=== PATIENT | female | born 1975 | race Caucasian/White ===

== ENCOUNTER → 2021-07-20 11:03 | Outpatient (BNVA) | payer MEDICAID, SELFPAY | PROVIDERS: Visit Provider Physician Assistant | DX: E66.01 Morbid (severe) obesity due to excess calories (principal); J45.909 Unspecified asthma, uncomplicated; Z68.45 Body mass index [BMI] 70 or greater, adult | CPT/HCPCS: 99202 ==

== ENCOUNTER 2021-07-26 10:34 | Outpatient (REF) | payer MEDICAID, SELFPAY ==
--- NOTE | ~2021-07-26 | XR_ITS ---
EXAMINATION: XR CHEST CLINICAL INFORMATION: Obesity. No other provided history. COMPARISON: Chest radiograph dated from 08/18/2019. TECHNIQUE: 2 views of the chest were obtained. FINDINGS: Normal appearance of the cardiomediastinal silhouette. No focal airspace opacities, pleural effusions or pneumothorax. No acute osseous abnormalities. The visualized upper abdomen is within normal limits. XR/XR chest 2V IMPRESSION: No acute cardiopulmonary findings.
--- NOTE | 2021-07-26 10:46 | ECG_ITS ---
Test Reason : E66.01 Blood Pressure : / mmHG Vent. Rate : 074 BPM Atrial Rate : 074 BPM P-R Int : 216 ms QRS Dur : 108 ms QT Int : 402 ms P-R-T Axes : 068 048 039 degrees QTc Int : 446 ms Sinus rhythm with 1st degree A-V block with occasional , and consecutive Premature ventricular complexes Abnormal ECG When compared with ECG of 18-JUN-2015 15:52, Premature ventricular complexes are now Present Incomplete right bundle branch block is no longer Present Referred By: Kate Evans Electronically Signed By:MEGAN PUENTES MD
[2021-07-26 10:57] LABS: MANUAL DIFF FLAG NO
[2021-07-26 11:17] LABS: Basophils Percent Auto 0.3 % (0-2); Eosinophils Absolute Auto 0.2 X10*3/uL (0.0-0.4); Hematocrit 37.7 % (37.0-47.0); Hemoglobin 11.1 g/dl (12.0-16.0); Imm Gran Abs Auto 0.05 X10*3/uL (0.00-0.03); Imm Gran Pct Auto 0.6 % (0.0-0.4); Lymphocytes Absolute Auto 1.4 X10*3/uL (1.2-4.9); Lymphocytes Percent Auto 17.4 % (20-40); Mean Corpuscular HGB Conc 29.4 g/dl (31.0-35.0); Mean Corpuscular Hemoglobin 24.3 pg (27.0-33.0); Mean Corpuscular Volume 82.5 fL (80.0-98.0); Mean Platelet Volume 10.9 fL (9.4-12.3); Monocytes Absolute Auto 0.3 X10*3/uL (0.1-1.2); Monocytes Percent Auto 3.1 % (2-11); Neutrophils Absolute Auto 6.1 x10*3/uL (2.0-8.3); Neutrophils Percent Auto 76.6 % (45-73); Platelet Count 278 X10*3/uL (160-400); Red Blood Count 4.57 X10*6/uL (4.20-5.50); White Blood Count 7.9 X10*3/uL (4.8-10.8)
[2021-07-26 11:21] LABS: Estimated Average Glucose 237 mg/dL; Hemoglobin A1c % 9.9 %
[2021-07-26 11:54] LABS: Alanine Aminotransferase 27 U/L (0-31); Albumin Level 3.7 g/dL (3.5-5.0); Alkaline Phosphatase 117 U/L (39-117); Anion Gap 11 (12-20); Aspartate Amino Transferase 24 U/L (5-31); Bilirubin Total 0.5 mg/dL (0.0-1.0); Blood Urea Nitrogen 10 mg/dL (9-16); C Reactive Protein 4.91 mg/dL (< or = 0.50); Calcium 8.8 mg/dL (8.4-10.2); Carbon Dioxide 28 mmol/L (22-29); Chloride 99 mmol/L (96-108); Cholesterol 163 mg/dL; Estimated Glomerular Filt Rate > 60; Glucose Random 293 mg/dL (60-115); HDL Cholesterol 29 mg/dL; Iron 43 mcg/dL (30-160); LDL Cholesterol Calculated 102 mg/dl; Percent Iron Saturation 11 % (15-50); Potassium 4.4 mmol/L (3.3-5.1); Sodium 134 mmol/L (135-145); Total Iron Binding Capacity 383 mcg/dL (228-428); Triglycerides 164 mg/dL; Unsaturated Iron Binding 340 ug/dL
[2021-07-26 12:16] LABS: Ferritin 35 ng/mL (10-250); Insulin 18 uU/mL (2-29); TSH reflex Free T4 4.04 uIU/mL (0.32-4.0); Vitamin D 25-OH Total 7.6 ng/mL (>30)
[2021-07-26 12:19] LABS: Folate 6.3 ng/mL (> or = 4.0); Vitamin B12 378 pg/mL (200-900)
[2021-07-27 12:47] LABS: Calcium (PTHI) 8.8 mg/dL (8.6-10.2); PTHI 60 pg/mL (14-64)
[2021-07-30 06:36] LABS: Vitamin B1 <6 nmol/L (8-30)
[2021-07-31 12:51] LABS: Zinc 60 mcg/dL (60-130)
[2021-08-02 16:27] LABS: Vitamin A 23 mcg/dL (38-98)
== END 2021-07-26 10:35 | disposition home or self-care (01) ==
LOC: HO.LAB 10:34
PROVIDERS: Visit Provider Physician Assistant
DX: Z01.818 Encounter for other preprocedural examination (principal); E66.01 Morbid (severe) obesity due to excess calories
CPT/HCPCS: 36415; 71046; 80053; 80061; 82306; 82607; 82728; 82746; 83036; 83525; 83540; 83970; 84425; 84439; 84443; 84590; 84630; 85025; 86140; 93005

== ENCOUNTER → 2021-08-06 08:15 | Outpatient (BNVA) | payer MEDICAID, SELFPAY | PROVIDERS: Visit Provider Dietitian, Registered | DX: E66.01 Morbid (severe) obesity due to excess calories (principal); Z71.3 Dietary counseling and surveillance | CPT/HCPCS: 97802 ==

== ENCOUNTER → 2021-08-17 08:11 | Outpatient (BNVA) | payer MEDICAID, SELFPAY | PROVIDERS: Referring Provider Physician Assistant; Visit Provider Dietitian, Registered | DX: E66.9 Obesity, unspecified (principal); E11.9 Type 2 diabetes mellitus without complications; Z79.84 Long term (current) use of oral hypoglycemic drugs | CPT/HCPCS: 97803 ==

== ENCOUNTER → 2021-08-23 11:00 | Outpatient (BNVA) | payer OTHER, SELFPAY | PROVIDERS: Visit Provider Counselor Mental Health | DX: E66.01 Morbid (severe) obesity due to excess calories (principal); F43.20 Adjustment disorder, unspecified | CPT/HCPCS: 90791 ==

== ENCOUNTER → 2021-08-27 12:49 | Outpatient (BNVA) | payer MEDICAID, SELFPAY | PROVIDERS: Visit Provider Physician Assistant | DX: E66.01 Morbid (severe) obesity due to excess calories (principal); E11.9 Type 2 diabetes mellitus without complications; I44.0 Atrioventricular block, first degree; Z71.3 Dietary counseling and surveillance | CPT/HCPCS: Q3014 ==

== ENCOUNTER → 2021-09-06 08:03 | Outpatient (BNVA) | payer MEDICAID, SELFPAY | PROVIDERS: Referring Provider Physician Assistant; Visit Provider Dietitian, Registered | DX: Z98.84 Bariatric surgery status (principal); Z71.3 Dietary counseling and surveillance | CPT/HCPCS: 97803 ==

== ENCOUNTER → 2021-09-17 09:50 | Outpatient (BNVA) | payer MEDICAID, SELFPAY | PROVIDERS: Visit Provider Physician Assistant | DX: E66.01 Morbid (severe) obesity due to excess calories (principal); I44.0 Atrioventricular block, first degree; R03.0 Elevated blood-pressure reading, without diagnosis of hypertension; E11.9 Type 2 diabetes mellitus without complications; Z68.45 Body mass index [BMI] 70 or greater, adult | CPT/HCPCS: 99212 ==

== ENCOUNTER → 2021-10-12 08:10 | Outpatient (BNVA) | payer MEDICAID, SELFPAY | PROVIDERS: PCP Nurse Practitioner Family; Visit Provider Physician Assistant | DX: Z13.89 Encounter for screening for other disorder (principal) ==

== ENCOUNTER 2022-02-08 15:29 | Emergency (ER) | payer MEDICAID, SELFPAY ==
--- NOTE | 2022-02-08 | ECG_ITS ---
Test Reason : CP Blood Pressure : / mmHG Vent. Rate : 070 BPM Atrial Rate : 070 BPM P-R Int : 204 ms QRS Dur : 114 ms QT Int : 406 ms P-R-T Axes : 064 017 017 degrees QTc Int : 438 ms Normal sinus rhythm Normal ECG When compared with ECG of 26-JUL-2021 10:56, Premature ventricular complexes are no longer Present KS interval has decreased Referred By: Generic ED Physician Electronically Signed By:OLEG PETER
[2022-02-08 16:18] VITALS: BP 146/82; PULSE 66; RESP 18; TEMP 35.8; O2SAT 99; BMI 75.5
[2022-02-08 16:36] LABS: MANUAL DIFF FLAG NO
[2022-02-08 16:39] LABS: Basophils Percent Auto 0.5 % (0-2); Eosinophils Absolute Auto 0.2 X10*3/uL (0.0-0.4); Eosinophils Percent Auto 1.7 % (0-4); Hematocrit 40.2 % (37.0-47.0); Hemoglobin 12.3 g/dl (12.0-16.0); Imm Gran Abs Auto 0.04 X10*3/uL (0.00-0.03); Imm Gran Pct Auto 0.5 % (0.0-0.4); Lymphocytes Absolute Auto 1.8 X10*3/uL (1.2-4.9); Lymphocytes Percent Auto 20.8 % (20-40); Mean Corpuscular HGB Conc 30.6 g/dl (31.0-35.0); Mean Corpuscular Hemoglobin 24.9 pg (27.0-33.0); Mean Corpuscular Volume 81.5 fL (80.0-98.0); Mean Platelet Volume 10.7 fL (9.4-12.3); Monocytes Absolute Auto 0.4 X10*3/uL (0.1-1.2); Monocytes Percent Auto 4.2 % (2-11); Neutrophils Absolute Auto 6.3 x10*3/uL (2.0-8.3); Neutrophils Percent Auto 72.3 % (45-73); Platelet Count 296 X10*3/uL (160-400); Red Blood Count 4.93 X10*6/uL (4.20-5.50); Red Cell Distribution Width 15.2 % (11.0-16.0); White Blood Count 8.7 X10*3/uL (4.8-10.8)
[2022-02-08 16:59] LABS: Alanine Aminotransferase 27 U/L (0-31); Alkaline Phosphatase 117 U/L (39-117); Anion Gap 17 (12-20); Aspartate Amino Transferase 24 U/L (5-31); Bilirubin Total 0.5 mg/dL (0.0-1.0); Blood Urea Nitrogen 10 mg/dL (9-16); Carbon Dioxide 23 mmol/L (22-29); Chloride 100 mmol/L (96-108); Creatinine Clr Calc Pharmacy 145.2; Estimated Glomerular Filt Rate > 60; Glucose Random 380 mg/dL (60-115); Sodium 136 mmol/L (135-145); Total Protein 8.2 g/dL (6.5-8.0)
[2022-02-08 17:02] LABS: Troponin-I High Sensitivity < 3.5 ng/L (<3.5-17.0)
== END 2022-02-08 22:44 | disposition left against medical advice (07) ==
PROVIDERS: Emergency Provider Emergency Medicine; PCP Nurse Practitioner Family
DX: R07.89 Other chest pain (principal); I10 Essential (primary) hypertension; Z79.899 Other long term (current) drug therapy
CPT/HCPCS: 36415; 80053; 84484; 85025; 93005; 99283

== ENCOUNTER 2022-03-26 16:29 | Emergency (ER) | payer MEDICAID, SELFPAY ==
--- NOTE | 2022-03-26 16:38 | ECG_ITS ---
Test Reason : ABD PAIN Blood Pressure : / mmHG Vent. Rate : 072 BPM Atrial Rate : 072 BPM P-R Int : 194 ms QRS Dur : 114 ms QT Int : 394 ms P-R-T Axes : 061 017 013 degrees QTc Int : 431 ms Normal sinus rhythm Possible Left atrial enlargement Otherwise normal ECG No significant changes seen Referred By: Tereza Osborn Electronically Signed By:AURORA MOODY MD
[2022-03-26 17:06] VITALS: BP 186/99; PULSE 75; RESP 20; TEMP 35.9; O2SAT 97; BMI 75.7
[2022-03-26 17:35] LABS: MANUAL DIFF FLAG NO
[2022-03-26 17:41] LABS: Basophils Percent Auto 0.3 % (0-2); Eosinophils Absolute Auto 0.1 X10*3/uL (0.0-0.4); Eosinophils Percent Auto 1.5 % (0-4); Hematocrit 39.6 % (37.0-47.0); Hemoglobin 12.4 g/dl (12.0-16.0); Imm Gran Abs Auto 0.03 X10*3/uL (0.00-0.03); Imm Gran Pct Auto 0.3 % (0.0-0.4); Lymphocytes Absolute Auto 2.1 X10*3/uL (1.2-4.9); Lymphocytes Percent Auto 23.2 % (20-40); Mean Corpuscular HGB Conc 31.3 g/dl (31.0-35.0); Mean Corpuscular Hemoglobin 25.6 pg (27.0-33.0); Mean Corpuscular Volume 81.8 fL (80.0-98.0); Mean Platelet Volume 10.5 fL (9.4-12.3); Monocytes Absolute Auto 0.4 X10*3/uL (0.1-1.2); Monocytes Percent Auto 4.3 % (2-11); Neutrophils Absolute Auto 6.2 x10*3/uL (2.0-8.3); Neutrophils Percent Auto 70.4 % (45-73); Platelet Count 269 X10*3/uL (160-400); Red Blood Count 4.84 X10*6/uL (4.20-5.50); Red Cell Distribution Width 15.5 % (11.0-16.0); White Blood Count 8.8 X10*3/uL (4.8-10.8)
[2022-03-26 17:54] LABS: Alanine Aminotransferase 27 U/L (0-31); Albumin Level 4.1 g/dL (3.5-5.0); Alkaline Phosphatase 118 U/L (39-117); Anion Gap 17 (12-20); Aspartate Amino Transferase 24 U/L (5-31); Bilirubin Direct 0.2 mg/dL (0.0-0.5); Bilirubin Total 0.5 mg/dL (0.0-1.0); Blood Urea Nitrogen 9 mg/dL (9-16); Calcium 9.1 mg/dL (8.4-10.2); Carbon Dioxide 23 mmol/L (22-29); Chloride 99 mmol/L (96-108); Creatinine Clr Calc Pharmacy 151.2; Estimated Glomerular Filt Rate > 60; Glucose Random 351 mg/dL (60-115); Lipase 29 U/L (8-78); Potassium 3.9 mmol/L (3.3-5.1); Sodium 135 mmol/L (135-145); Total Protein 8.2 g/dL (6.5-8.0)
[2022-03-26 18:01] LABS: HCG Quantitative < 2 mIU/mL
[2022-03-26 19:40] VITALS: BP 138/87; PULSE 79; RESP 18; TEMP 36.8; O2SAT 99
== END 2022-03-27 01:38 | disposition left against medical advice (07) ==
PROVIDERS: Emergency Medicine; Emergency Provider Emergency Medicine
DX: R10.9 Unspecified abdominal pain (principal); R11.0 Nausea; Z79.899 Other long term (current) drug therapy
CPT/HCPCS: 36415; 80048; 80076; 83690; 84702; 85025; 93005; 99283

== ENCOUNTER 2022-05-22 10:41 | Outpatient (REF) | payer MEDICAID, SELFPAY ==
[2022-05-26 15:27] LABS: H Pylori Breath Test Negative (Negative)
== END 2022-05-22 10:42 | disposition home or self-care (01) ==
LOC: HO.LNP 10:41
PROVIDERS: PCP Registered Nurse; Visit Provider Physician Assistant
DX: Z01.818 Encounter for other preprocedural examination (principal); E66.01 Morbid (severe) obesity due to excess calories; E11.9 Type 2 diabetes mellitus without complications; R79.89 Other specified abnormal findings of blood chemistry; J45.909 Unspecified asthma, uncomplicated
CPT/HCPCS: 83013; 99211; 99212

== ENCOUNTER → 2022-06-12 10:57 | Outpatient (BNVA) | payer MEDICAID, SELFPAY | PROVIDERS: PCP Registered Nurse; Visit Provider Physician Assistant | DX: E66.01 Morbid (severe) obesity due to excess calories (principal); Z68.45 Body mass index [BMI] 70 or greater, adult | CPT/HCPCS: 99212 ==

== ENCOUNTER → 2022-06-24 12:30 | Outpatient (BNVA) | payer OTHER, MEDICAID, SELFPAY | PROVIDERS: PCP Registered Nurse; Visit Provider Counselor Mental Health | DX: F43.20 Adjustment disorder, unspecified (principal); E66.01 Morbid (severe) obesity due to excess calories | CPT/HCPCS: 90834 ==

== ENCOUNTER → 2022-07-03 11:30 | Outpatient (BNVA) | payer MEDICAID, SELFPAY | PROVIDERS: PCP Registered Nurse; Visit Provider Physician Assistant | DX: Z13.89 Encounter for screening for other disorder (principal) ==

== ENCOUNTER → 2022-07-10 10:37 | Outpatient (BNVA) | payer MEDICAID, SELFPAY | PROVIDERS: PCP Registered Nurse; Visit Provider Dietitian, Registered | DX: E66.01 Morbid (severe) obesity due to excess calories (principal); Z68.45 Body mass index [BMI] 70 or greater, adult | CPT/HCPCS: 97803 ==

== ENCOUNTER 2022-07-24 12:57 | Emergency (ER) | payer MEDICAID, SELFPAY | END 2022-07-24 14:47 | disposition left against medical advice (07) | PROVIDERS: Emergency Provider Emergency Medicine; PCP Registered Nurse | DX: R22.0 Localized swelling, mass and lump, head (principal) ==

== ENCOUNTER 2022-07-25 20:09 | Emergency (ER) | payer MEDICAID, SELFPAY ==
[2022-07-25 20:22] VITALS: BP 154/71; PULSE 68; RESP 18; TEMP 36.4; O2SAT 97; BMI 73.7
[2022-07-25 20:34] LABS: Glucose, Whole Blood 149 mg/dL (60-115)
--- NOTE | 2022-07-25 22:14 | ED.GENADULT ---
HPI - General Adult General Chief complaint: General Medical Stated complaint: high blood pressure and sugar, swollen mouth area Time Seen by Provider: 07/25/22 22:13 Source: patient Mode of arrival: ambulatory Limitations: no limitations History of Present Illness HPI narrative: With history of dental caries comes here with pain in the right upper premolar for last 2 days with swelling of the cheek also noticed slightly high blood pressure at home and blood sugar of 165 blood pressure 165/100 on arrival blood pressure was 154/71 in POC here was 149 no fever no chills Related Data Home Medications Medication Instructions Recorded Confirmed metformin 500 mg tablet,extended 1,000 mg PO BID 09/17/21 05/22/22 release 24 hr atorvastatin 10 mg tablet 10 mg PO DAILY 10/12/21 05/22/22 dulaglutide 0.75 mg/0.5 mL 0.75 mg subcut QWEEK 10/12/21 05/22/22 subcutaneous pen injector (Trulicity) fluticasone propionate 44 2 puff inhalation BID 10/12/21 05/22/22 mcg/actuation HFA aerosol inhaler lisinopril 10 mg tablet 10 mg PO DAILY 10/12/21 05/22/22 insulin glargine 100 unit/mL 15 unit subcut QPM 05/22/22 05/22/22 subcutaneous solution (Lantus U-100 Insulin) flash glucose sensor ([employer] 06/12/22 [place] 2 Sensor kit) Previous Rx's Medication Instructions Recorded cholecalciferol (vitamin D3) 50 50 mcg PO DAILY #60 caps 07/27/21 mcg (2,000 unit) capsule iron,carbonyl 65 mg-vitamin C 125 1 tab PO BEDTIME #30 tabs 07/27/21 mg tablet,delayed release (Vitron-C) vit B complex 100 combo no.2 100 1 tab PO DAILY #30 tabs 07/31/21 mg tablet,extended release (Balanced B-100 Complex) thiamine HCl (vitamin B1) 100 mg 100 mg PO DAILY #30 tabs 08/02/21 tablet blood sugar diagnostic ([employer]eds [employer] #100 ea 08/08/21 Test strips) glipizide 2.5 mg tablet, extended 2.5 mg PO DAILY #30 tabs 08/08/21 release 24 hr lancets 28 gauge ([employer] SolutionStyle #100 ea 08/08/21 Lancets) hydrochlorothiazide 12.5 mg tablet 12.5 mg PO DAILY #30 tabs 09/17/21 amoxicillin 875 mg-potassium 1 tab PO BID #20 tabs 07/25/22 clavulanate 125 mg tablet oxycodone 5 mg tablet 5 mg PO Q6H PRN pain #20 tabs 07/25/22 Allergies Allergy/AdvReac Type Severity Reaction Status Date / Time No Known Allergies Allergy Verified 07/25/22 20:21 [No Known Allergies*] Review of Systems Review of Systems: Yes all other systems are reviewed and are negative [facility] Past Medical History Medical History First degree AV block Surgical History Hx of tubal ligation Family History Family History Mother Diabetes Dementia Anemia Father Diabetes Heart problem High cholesterol Arthritis Sister Heart problem Diabetes High cholesterol Hypertension Sickle cell anemia Sister Breast cancer Asthma Sister Heart problem Diabetes Son Asthma Son No problems noted. Son Autism Daughter Anxiety Social History Social History Alcohol intake: never Patient Tobacco Use Status: Former Tobacco user Advance Directives: No Advance Directives Information Provided: No Physical Exam ED Vital Signs: Vital Signs - 24 hr 07/25/22 20:22 Temperature 97.6 F Pulse Rate 68 Respiratory Rate 18 Blood Pressure 154/71 H Pulse Oximetry 97 Oxygen Delivery Method Room Air BMI result Body Mass Index 73.7 Appearance: Alert. Oriented X3. No acute distress. ENT: Pharynx normal. Oral Mucosa moist right cheek swelling++ Neck: Normal inspection. Neck supple. CVS: Normal heart rate and rhythm. Pulses normal. Respiratory: No respiratory distress. Equal air entry bilateral, Abdomen: Soft and nontender. s Skin: Skin warm and dry. Normal skin color. Normal skin turgor. Neuro: Oriented X 3. [facility] Face images: 1. Swelling of the right cheek with slight erythema Teeth image: 1. Broken tooth tender to touch no fluctuance gum swelling Medications Administered Discontinued Medications Generic Name Dose Route Start Last Admin Trade Name Freq PRN Reason Stop Dose Admin Amoxicillin/Clavulanate Potassium 875 mg 07/25/22 22:29 07/25/22 22:53 Amoxicillin/Potassium Clav 875 Mg Tablet PO 07/25/22 22:30 875 mg ONCE ONE Administration Oxycodone HCl 10 mg 07/25/22 22:29 07/25/22 22:53 Oxycodone Hcl Immed Release 5 Mg Tablet PO 07/25/22 22:30 10 mg ONCE ONE Administration Medical Decision Making Lab Data Labs: Lab Results 07/25/22 Range/Units 20:30 POC Glucose 149 H (60-115) mg/dL Discharge Plan Discharge Clinical Impression: Dental caries Patient Disposition: Home, Self-Care Instructions: Toothache (ED) Additional Instructions: Take antibiotics and pain medicine as prescribed Follow-up with your dentist if not better Prescriptions: New amoxicillin-pot clavulanate 875-125 mg tablet 1 tab PO BID Qty: 20 0RF oxycodone 5 mg tablet 5 mg PO Q6H PRN (Reason: pain) Qty: 20 0RF Rx Instructions: Partial Fill upon patient request. No Action cholecalciferol (vitamin D3) 50 mcg (2,000 unit) capsule 50 mcg PO DAILY Qty: 60 6RF Vitron-C 65 mg iron- 125 mg tablet,delayed release (DR/EC) 1 tab PO BEDTIME Qty: 30 6RF Balanced B-100 Complex 100 mg tablet extended release 1 tab PO DAILY Qty: 30 6RF thiamine HCl (vitamin B1) 100 mg tablet 100 mg PO DAILY Qty: 30 6RF glipizide 2.5 mg tablet extended release 24 hr 2.5 mg PO DAILY Qty: 30 2RF (DME) lancets [FreeStyle Lancets] 28 gauge misc See Rx Instructions .Route Qty: 100 3RF Rx Instructions: As directed (DME) FreeStyle Test Strip See Rx Instructions .Route Qty: 100 2RF Rx Instructions: As directed hydrochlorothiazide 12.5 mg tablet 12.5 mg PO DAILY Qty: 30 1RF metformin 500 mg tablet extended release 24 hr 1,000 mg PO BID Trulicity 0.75 mg/0.5 mL pen injector 0.75 mg subcut QWEEK atorvastatin 10 mg tablet 10 mg PO DAILY lisinopril 10 mg tablet 10 mg PO DAILY fluticasone propionate 44 mcg/actuation HFA aerosol inhaler 2 puff inhalation BID Rx Instructions: administer with spacer insulin glargine [Lantus U-100 Insulin] 100 unit/mL solution 15 unit subcut QPM (DME) FreeStyle [place] 2 Sensor Kit See Rx Instructions .ROUTE Rx Instructions: As directed Interventions: ED Discharge Assessment Last Done: 07/25/22 23:48 Discharge Date/Time: 07/25/22 23:48
[2022-07-25] MEDS: Amoxicillin/Potassium Clav 875 MG TABLET PO (22:53)
[2022-07-25] MEDS: oxyCODONE HCl Immed Release 5 MG TABLET 10 MG PO (22:53)
== END 2022-07-25 23:48 | disposition home or self-care (01) ==
PROVIDERS: Emergency Provider Internal Medicine; PCP Registered Nurse
DX: K02.9 Dental caries, unspecified (principal); Z87.891 Personal history of nicotine dependence; Z79.899 Other long term (current) drug therapy
CPT/HCPCS: 82947; 99283

== ENCOUNTER → 2022-08-12 16:32 | Outpatient (BNVA) | payer MEDICAID, SELFPAY | PROVIDERS: PCP Registered Nurse; Visit Provider Physician Assistant | DX: Z13.89 Encounter for screening for other disorder (principal) ==

== ENCOUNTER → 2022-08-13 10:30 | Outpatient (BNVA) | payer OTHER, MEDICAID, SELFPAY | PROVIDERS: PCP Registered Nurse; Visit Provider Counselor Mental Health | DX: F43.20 Adjustment disorder, unspecified (principal); E66.01 Morbid (severe) obesity due to excess calories | CPT/HCPCS: 90834 ==

== ENCOUNTER → 2022-08-28 11:34 | Outpatient (BNVA) | payer MEDICAID, SELFPAY | PROVIDERS: PCP Registered Nurse; Referring Provider Registered Nurse; Visit Provider Physician Assistant ==

== ENCOUNTER → 2022-09-05 10:00 | Outpatient (BNVA) | payer MEDICAID, SELFPAY | PROVIDERS: PCP Registered Nurse; Visit Provider Physician Assistant ==

== ENCOUNTER 2022-09-05 10:18 | Outpatient (REF) | payer MEDICAID, SELFPAY ==
[2022-09-05 11:30] LABS: Estimated Average Glucose 131 mg/dL; Hemoglobin A1c % 6.2 %
[2022-09-05 12:14] LABS: Alanine Aminotransferase 32 U/L (0-31); Albumin Level 3.8 g/dL (3.5-5.0); Alkaline Phosphatase 100 U/L (39-117); Anion Gap 12 (12-20); Aspartate Amino Transferase 26 U/L (5-31); Bilirubin Total 0.6 mg/dL (0.0-1.0); Blood Urea Nitrogen 12 mg/dL (9-16); C Reactive Protein 3.91 mg/dL (< or = 0.50); Calcium 8.7 mg/dL (8.4-10.2); Carbon Dioxide 26 mmol/L (22-29); Chloride 106 mmol/L (96-108); Cholesterol 157 mg/dL; Estimated Glomerular Filt Rate > 60; Glucose Random 123 mg/dL (60-115); HDL Cholesterol 30 mg/dL; Iron 48 mcg/dL (30-160); LDL Cholesterol Calculated 106 mg/dl; Percent Iron Saturation 15 % (15-50); Potassium 4.4 mmol/L (3.3-5.1); Sodium 140 mmol/L (135-145); Total Iron Binding Capacity 311 mcg/dL (228-428); Triglycerides 109 mg/dL; Unsaturated Iron Binding 263 ug/dL
[2022-09-05 12:29] LABS: Ferritin 56 ng/mL (10-250); Folate 6.5 ng/mL (> or = 4.0); Insulin 24 uU/mL (2-29); TSH reflex Free T4 4.07 uIU/mL (0.32-4.0); Vitamin B12 429 pg/mL (200-900); Vitamin D 25-OH Total 17.6 ng/mL (>30)
[2022-09-05 13:18] LABS: Free T4 (Free Thyroxine) 0.96 ng/dL (0.71-1.85)
[2022-09-06 14:04] LABS: PTHI 41 pg/mL (16-77)
[2022-09-10 00:44] LABS: Zinc 68 mcg/dL (60-130)
[2022-09-10 23:33] LABS: Vitamin B1 7 nmol/L (8-30)
[2022-09-11 17:38] LABS: Vitamin A 37 mcg/dL (38-98)
== END 2022-09-05 10:19 | disposition home or self-care (01) ==
LOC: HO.LAB 10:18
PROVIDERS: PCP Registered Nurse; Visit Provider Physician Assistant
DX: Z01.818 Encounter for other preprocedural examination (principal); J45.909 Unspecified asthma, uncomplicated; R79.89 Other specified abnormal findings of blood chemistry; E66.01 Morbid (severe) obesity due to excess calories; E11.9 Type 2 diabetes mellitus without complications; I10 Essential (primary) hypertension
CPT/HCPCS: 36415; 80053; 80061; 82306; 82607; 82728; 82746; 83036; 83525; 83540; 83970; 84425; 84439; 84443; 84590; 84630; 86140; 99212

== ENCOUNTER 2022-09-25 08:52 | Outpatient (REF) | payer MEDICAID, SELFPAY ==
--- NOTE | ~2022-09-25 | US_ITS ---
EXAMINATION: US COMPLETE ABDOMEN WITH LIVER ELASTOGRAPHY CLINICAL INFORMATION: Obesity COMPARISON: Previous abdominal ultrasound and CT from 2014 TECHNIQUE: Real-time imaging of the abdominal viscera. Noninvasive ultrasound liver fibrosis assessment is performed using Gilma ElastPQ point quantification shear wave elastography (2D-SWE) with a C5-2 MHz transducer. Multiple elastography samples are obtained. FINDINGS: PANCREAS: The visualized pancreatic head and body are normal in appearance. The remainder of the pancreas is obscured from visualization by the overlying bowel gas. ABDOMINAL AORTA: The proximal, middle, and distal aortic segments are normal in caliber. INFERIOR VENA CAVA: Visualized portions are normal. LIVER: Liver echotexture is increased probably representing fatty infiltration. There is a hypoechoic area adjacent to the gallbladder, characteristic location of focal fatty sparing. No focal lesion or intrahepatic biliary duct dilatation. The right lobe measures 23 cm in length. The left lobe measures 17 cm in length. Portal flow is normal Shear wave liver elastography median stiffness is 2.1 m/s (reference: normal median stiffness is 1.3 m/s or less). IQR/median stiffness to assess sampling precision is 0.5 (reference: good quality data set is IQR/median stiffness of 0.15 or less). GALLBLADDER: Normal. The gallbladder is physiologically distended without evidence of stones, sludge, polyps, wall thickening or pericholecystic fluid. COMMON BILE DUCT: Normal in caliber measuring 0.6 cm in diameter. RIGHT KIDNEY: Normal. No hydronephrosis. No renal calculi or focal parenchymal lesions. The kidney measures 13 cm in maximum dimension. LEFT KIDNEY: Normal. No hydronephrosis. No renal calculi or focal parenchymal lesions. The kidney measures 12 cm in maximum dimension. SPLEEN: Upper normal size. The spleen measures 13 cm in maximum dimension. FREE FLUID: None. US/US abdomen comp w elastography IMPRESSION: 1. Impression: Enlarged fatty liver. Upper normal-size spleen. 2. Liver elastography: Limited due to liver depth. Adequate liver sampling. Increased liver stiffness suggestive of advanced chronic liver disease. REFERENCE: Society of Radiologists in Ultrasound Liver Stiffness Thresholds (2019): LIVER STIFFNESS THRESHOLDS: *Liver Stiffness equal or less than 1.3 m/s: High probability of being normal. *Liver Stiffness less than 1.7 m/s: In the absence of other known clinical signs, rules out compensated advanced chronic liver disease. *Liver Stiffness 1.7-2.1 m/s: Suggestive of compensated advanced chronic liver disease but need further test for confirmation. *Liver Stiffness over 2.1 m/s: Rules in compensated advanced chronic liver disease. *Liver Stiffness over 2.4 m/s: Suggestive of clinically significant portal hypertension. QUALITY OF DATA SET: *IQR/Median value equal or less than 0.15 implies a quality data set. *IQR/Median value over 0.15 implies a poor quality data set. SIGNIFICANT CHANGE FROM PRIOR EXAM: Significant change if liver stiffness measurement is 10% or greater from prior exam. OTHER CONSIDERATIONS: The stage of liver fibrosis may be overestimated in the setting of acute hepatitis, liver inflammation, elevated liver function tests, hepatic vascular congestion, obstructive cholestasis, non-fasting state, and infiltrative diseases such as amyloidosis and lymphoma. In some patients with NAFLD, the liver stiffness thresholds for compensated advanced chronic liver disease may be lower. In causes other than viral hepatitis and NAFLD, liver stiffness thresholds are not well established.
== END 2022-09-25 08:53 | disposition home or self-care (01) ==
LOC: HO.US 08:52
PROVIDERS: PCP Registered Nurse; Visit Provider Physician Assistant
DX: Z01.818 Encounter for other preprocedural examination (principal); E66.01 Morbid (severe) obesity due to excess calories; K21.9 Gastro-esophageal reflux disease without esophagitis
CPT/HCPCS: 76705; 76981

== ENCOUNTER → 2022-09-26 10:00 | Outpatient (BNVA) | payer MEDICAID, SELFPAY | PROVIDERS: PCP Registered Nurse; Visit Provider Physician Assistant ==

== ENCOUNTER 2022-09-30 09:15 | Outpatient (REF) | payer MEDICAID, SELFPAY ==
--- NOTE | ~2022-09-30 | FL_ITS ---
EXAMINATION: XR FLUOROSCOPY UPPER GI WITH AIR CLINICAL INFORMATION: Obesity COMPARISON: None available. TECHNIQUE: Upper GI was performed using thin and thick barium and effervescent granules. FINDINGS: Esophageal motility is normal. No hernia or reflux is seen. The stomach and duodenum are normal-appearing. No fold thickening, mass, ulcer or stricture is seen. FLUOROSCOPY TIME: 0.4 minutes DOSE AREA PRODUCT: 6.2 Esparza per centimeter squared. 18 saved fluoroscopic images. FL/FL upper GI w air IMPRESSION: Unremarkable examination.
== END 2022-09-30 09:16 | disposition home or self-care (01) ==
LOC: HO.XRAY 09:15
PROVIDERS: PCP Registered Nurse; Visit Provider Physician Assistant
DX: Z01.818 Encounter for other preprocedural examination (principal); E66.01 Morbid (severe) obesity due to excess calories; K21.9 Gastro-esophageal reflux disease without esophagitis
CPT/HCPCS: 74246

== ENCOUNTER → 2022-10-28 15:22 | Outpatient (BNVA) | payer MEDICAID, SELFPAY | PROVIDERS: PCP Registered Nurse; Visit Provider Physician Assistant Surgical ==

== ENCOUNTER → 2022-10-30 10:19 | Outpatient (BNVA) | payer MEDICAID, SELFPAY | PROVIDERS: PCP Registered Nurse; Visit Provider Dietitian, Registered | DX: E66.01 Morbid (severe) obesity due to excess calories (principal); E11.9 Type 2 diabetes mellitus without complications; Z68.45 Body mass index [BMI] 70 or greater, adult | CPT/HCPCS: 97803 ==

== ENCOUNTER → 2022-11-28 11:00 | Outpatient (BNVA) | payer OTHER, MEDICAID, SELFPAY | PROVIDERS: PCP Registered Nurse; Visit Provider Counselor Mental Health ==

== ENCOUNTER → 2022-12-03 11:35 | Outpatient (BNVA) | payer OTHER, MEDICAID, SELFPAY | PROVIDERS: PCP Registered Nurse; Visit Provider Physician Assistant Surgical ==

== ENCOUNTER 2022-12-17 16:33 | Outpatient (AMB) | payer MEDICAID, SELFPAY ==
--- NOTE | 2022-12-17 13:37 | MHC.OFFVISWM ---
Intake VS Expanded 12/17/22 16:27 Height 5 ft 1 in Weight 367 lb BMI 69.3 Intake Visit Reasons: VIDEO F/U SWL Allergies No Known Allergies [No Known Allergies*] Allergy (Verified 10/28/22 15:29) Medication List - Last Reconciled 12/17/22 by Kate Evans PA-C atorvastatin 10 mg PO DAILY blood sugar diagnostic (FreeStyle Test strips) As directed chlorthalidone 25 mg PO DAILY cholecalciferol (vitamin D3) 50 mcg PO DAILY dulaglutide (Trulicity) mg subcut QWEEK flash glucose sensor (FreeStyle [place] 2 Sensor kit) As directed fluticasone propionate 44 mcg/actuation 2 puffs inhalation BID insulin glargine (Lantus U-100 Insulin) 19 units subcut QPM iron,carbonyl-vitamin C 65 mg iron- 125 mg (Vitron-C) 1 tab PO BEDTIME lancets (FreeStyle Lancets) As directed lisinopril 10 mg PO DAILY metformin ER 1,000 mg PO BID thiamine HCl (vitamin B1) 100 mg PO DAILY vit B complex 100 combo no.2 ER (Balanced B-100 Complex) 1 tab PO DAILY HPI HPI Comments History of Present Illness Details SWL follow up, Pt restated the program May 2022 at 410.4 lbs, TBWL so far is 43.4 lbs or 10 .6%. Last appt with me on 10/30, patient has been living with her sister, looking for more permanent placement. BS - fasting 98, q hs - 130 - 140 wakes 7am 7:30- shake 1pm - shake 3pm- bar 6pm - 6 oz /6 oz each Exercise - walking - 4 miles - 90 minutes - (400 calories) every other day. Other days goes up and stairs for 5- 10 minutes. Pre op work up completed as follows: SWL classes -? 01/14 appts -06/24,will be seen again- next appt needs?to be scheduled, last appt 11/28 appts - 06/13, no show, need to reschedule - now?cleared H pylori- negative May 2022 Labs -vit d and vit A deficient CXR - normal Jul 2021 ECG - normal Mar 2022 ULS - hepatomegaly 23 x 17 cms, spleen slightly enlarged UGI- normal study ? PFSH Medical History First degree AV block Surgical History Hx of tubal ligation Family History Mother Diabetes Dementia Anemia Father Diabetes Heart problem High cholesterol Arthritis Sister Heart problem Diabetes High cholesterol Hypertension Sickle cell anemia Sister Breast cancer Asthma Sister Heart problem Diabetes Son Asthma Son No problems noted. Son Autism Daughter Anxiety Social History Alcohol intake: never Patient Tobacco Use Status: Former Tobacco user Assessment & Plan Assessment & Plan (1) Morbid obesity: Code(s): E66.01 - Morbid (severe) obesity due to excess calories Plan: Pt has lost 43.4 lbs 10.6% patietnis aware she will need to have BMI at least under 60 before bariatric surgrey - at least under 300 lbs. Only change to meal plan is having first shake later around 8:30 -9 am to keep intervals between MR's more even. Exercise - add TBP videso on alternate days of walking. Hgb AiC - has deccreased form 9.9 - 6.2, is working with PCP on DM and HTN dosing. Next appt with me in 3 weeks. Patient is still morbidly obese and is not considered stable at this time. I spent 30 minutes in total speaking with the patient via video conference counseling , reviewing records and charting in patients chart. . (2) Diabetes mellitus: Code(s): E11.9 - Type 2 diabetes mellitus without complications (3) Homeless single person: Code(s): Z59.00 - Homelessness unspecified (4) HTN (hypertension), benign: Code(s): I10 - Essential (primary) hypertension Telehealth Telehealth Location of provider rendering services: practice address Location of patient: address on file Patient Identification confirmed using: Name, : Yes Telehealth method: video Patient verbally consented to treatment: Yes Patient verbally consented to billing insurance company: Yes Patient informed of any privacy concerns related to visit: Yes Coding Level of Care Code Tele Est Pt Level 4 (93610) Diagnoses Morbid obesity E66.01 Diabetes mellitus E11.9 Homeless single person Z59.00 HTN (hypertension), benign I10
[2022-12-17 16:27] VITALS: BMI 69.3
== END 2022-12-17 16:47 | disposition home or self-care (01) ==
LOC: HO.HBS 16:33
PROVIDERS: PCP Registered Nurse; Visit Provider Physician Assistant
DX: E66.01 Morbid (severe) obesity due to excess calories (principal); Z68.44 Body mass index [BMI] 60.0-69.9, adult; E11.9 Type 2 diabetes mellitus without complications; Z59.00 Homelessness unspecified; I10 Essential (primary) hypertension
CPT/HCPCS: 99214

== ENCOUNTER 2023-01-07 13:09 | Outpatient (AMB) | payer MEDICAID, SELFPAY ==
--- NOTE | 2023-01-07 12:19 | A.OFFVIS_ITS ---
Intake Intake Visit Reasons: VIDEO F/U SWL Allergies No Known Allergies [No Known Allergies*] Allergy (Verified 10/28/22 15:29) HPI HPI Comments History of Present Illness Details [facility] follow up. [employer] weight of 410.4 lbs. Understands she needs to weigh less than 300 lbs before surgery. Pt is still staying with her sister (14 in the home) and food plan is difficult. Unable to weigh herself at home now - will come for weight tomorrow in office. Pt is feeling very depressed about her living situation. Exercise - no treadmill anymore. Walks in [place] 4d/wk for an hour. Meal -trying to stick with her paln but house members often eat/cook foods that are not on her plan. She will substitute a meal for protein shake or yougrt and berries with raw vegetables. Pre op work up completed as follows: SW classes -? 01/14 appts -06/24,will be seen again- next appt needs?to be scheduled, last appt 11/28- no appt on 12/26, will reschedule RD appts - 06/13, no show, need to reschedule - now?cleared H pylori- negative May 2022 Labs -vit d and vit A deficient CXR - normal Jul 2021 ECG - normal Mar 2022 ULS - hepatomegaly 23 x 17 cms, spleen slightly enlarged UGI- normal study ? PFSH Medical History First degree AV block Surgical History Hx of tubal ligation Family History Mother Diabetes Dementia Anemia Father Diabetes Heart problem High cholesterol Arthritis Sister Heart problem Diabetes High cholesterol Hypertension Sickle cell anemia Sister Breast cancer Asthma Sister Heart problem Diabetes Son Asthma Son No problems noted. Son Autism Daughter Anxiety Social History Alcohol intake: never Patient Tobacco Use Status: Former Tobacco user Assessment & Plan Assessment & Plan (1) Morbid obesity: Code(s): E66.01 - Morbid (severe) obesity due to excess calories Plan: No weight today - will come in for weight check tomorrow and I will contact her with any other recommendations. Her appt with Destiny is being rescheduled. Meal plan - she will continue to do the best she can. Exercise - TBP or LS 2 mile videos 5d/ week as well as walking outside. Next appt with me in 3 weeks. Patient is still morbidly obese and is not considered stable at this time. I spent 27 minutes in total speaking with the patient via video conference counseling , reviewing records and charting in patients chart. . (2) Diabetes mellitus: Code(s): E11.9 - Type 2 diabetes mellitus without complications Telehealth Telehealth Location of provider rendering services: practice address Location of patient: address on file Patient Identification confirmed using: Name, : Yes Telehealth method: video Patient verbally consented to treatment: Yes Patient verbally consented to billing insurance company: Yes Patient informed of any privacy concerns related to visit: Yes Coding Level of Care Code Tele Est Pt Level 4 (90746) Diagnoses Morbid obesity E66.01 Diabetes mellitus E11.9
== END 2023-01-07 13:17 | disposition home or self-care (01) ==
LOC: HO.HBS 13:09
PROVIDERS: PCP Registered Nurse; Visit Provider Physician Assistant
DX: E66.01 Morbid (severe) obesity due to excess calories (principal); E11.9 Type 2 diabetes mellitus without complications
CPT/HCPCS: 99214

== ENCOUNTER → 2023-01-07 13:09 | Outpatient (BNVA) | payer MEDICAID, SELFPAY | PROVIDERS: PCP Registered Nurse; Visit Provider Physician Assistant | DX: E66.01 Morbid (severe) obesity due to excess calories (principal); E11.9 Type 2 diabetes mellitus without complications ==

== ENCOUNTER → 2023-01-08 09:22 | Outpatient (BNVA) | payer MEDICAID, SELFPAY | PROVIDERS: PCP Registered Nurse; Visit Provider Physician Assistant ==

== ENCOUNTER 2023-01-21 14:03 | Outpatient (AMB) | payer MEDICAID, SELFPAY ==
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
== END 2023-01-21 14:20 | disposition home or self-care (01) ==
LOC: HO.HBST 14:03
PROVIDERS: PCP Registered Nurse; Visit Provider Counselor Mental Health
DX: F43.20 Adjustment disorder, unspecified (principal); E66.01 Morbid (severe) obesity due to excess calories; Z59.00 Homelessness unspecified
CPT/HCPCS: 90834

== ENCOUNTER → 2023-01-21 14:03 | Outpatient (BNVA) | payer MEDICAID, SELFPAY | PROVIDERS: PCP Registered Nurse; Visit Provider Counselor Mental Health ==

== ENCOUNTER 2023-01-23 14:05 | Outpatient (REF) | payer MEDICAID, SELFPAY ==
[2023-01-23 16:22] LABS: MANUAL DIFF FLAG NO
[2023-01-23 16:27] LABS: Basophils Percent Auto 0.4 % (0-2); Eosinophils Absolute Auto 0.1 X10*3/uL (0.0-0.4); Eosinophils Percent Auto 1.4 % (0-4); Hematocrit 36.9 % (37.0-47.0); Hemoglobin 11.3 g/dl (12.0-16.0); Imm Gran Abs Auto 0.06 X10*3/uL (0.00-0.03); Imm Gran Pct Auto 0.7 % (0.0-0.4); Lymphocytes Absolute Auto 2.2 X10*3/uL (1.2-4.9); Lymphocytes Percent Auto 23.8 % (20-40); Mean Corpuscular HGB Conc 30.6 g/dl (31.0-35.0); Mean Corpuscular Hemoglobin 25.5 pg (27.0-33.0); Mean Corpuscular Volume 83.1 fL (80.0-98.0); Mean Platelet Volume 11.4 fL (9.4-12.3); Monocytes Absolute Auto 0.5 X10*3/uL (0.1-1.2); Neutrophils Absolute Auto 6.3 x10*3/uL (2.0-8.3); Neutrophils Percent Auto 68.7 % (45-73); Platelet Count 306 X10*3/uL (160-400); Red Blood Count 4.44 X10*6/uL (4.20-5.50); Red Cell Distribution Width 15.8 % (11.0-16.0); White Blood Count 9.2 X10*3/uL (4.8-10.8)
[2023-01-23 16:52] LABS: Anion Gap 12 (12-20); Blood Urea Nitrogen 11 mg/dL (9-16); Carbon Dioxide 26 mmol/L (22-29); Chloride 104 mmol/L (96-108); Estimated Glomerular Filt Rate > 60; Glucose Random 102 mg/dL (60-115); Iron 46 mcg/dL (30-160); Percent Iron Saturation 15 % (15-50); Potassium 4.1 mmol/L (3.3-5.1); Sodium 138 mmol/L (135-145); Total Iron Binding Capacity 301 mcg/dL (228-428); Unsaturated Iron Binding 255 ug/dL
[2023-01-23 16:58] LABS: Ferritin 47 ng/mL (10-250)
[2023-01-23 18:00] LABS: Appearance Urine Cloudy; Color Urine Yellow; Glucose Urine UA Negative (Negative); Leukocyte Esterase Urine Large (3+) (Negative); Nitrite Urine Negative (Negative); UMIC TRIGGER UACC YES; Urine Blood Small (1+) (Negative); Urine Ketones Negative (Negative); Urine Protein 30 (1+) mg/dL (Neg-Trace)
[2023-01-23 18:08] LABS: Bacteria Urine 1+ (None Seen); Hyaline Casts Urine 0-2 /LPF (0-2); RBC Urine >20 /HPF (0-2); UACC Culture Trigger YES; WBC Urine >50 /HPF (0-5)
== END 2023-01-23 14:06 | disposition home or self-care (01) ==
LOC: HO.HHCL 14:05
PROVIDERS: Visit Provider Registered Nurse
DX: R35.0 Frequency of micturition (principal); R63.1 Polydipsia; E61.1 Iron deficiency
CPT/HCPCS: 36415; 80048; 81001; 82728; 83540; 85025; 87086

== ENCOUNTER 2023-01-27 08:53 | Outpatient (AMB) | payer MEDICAID, SELFPAY ==
--- NOTE | 2023-01-27 08:58 | MHC.OFFVISWM ---
Intake VS Expanded 01/27/23 09:04 Height 5 ft 1 in Weight 368 lb 3.2 oz BMI 69.6 BP 141/75 H Blood Pressure Location Rt brachial Blood Pressure Position Sitting Pulse 63 Pulse Source Pulse Oximeter Temp 97.8 F Temperature Source Temporal Artery Scan Pulse Oximetry 98 Body Fat 198.8 Body Fat Percentage 54.0 Free Fat Mass 169.4 Muscle Mass 160.8 Water Mass 121.0 BMR 2,512 Intake Visit Reasons: OV Consult/Transfer Kate Allergies No Known Allergies [No Known Allergies*] Allergy (Verified 01/27/23 09:01) HPI HPI Comments History of Present Illness Details Overall weight loss: 42.2lbs, or 10.28% TBWL Is doing 2 Fairlife protein shakes, 2 Pure protein bars and one meal (6oz of protein and 6oz of salad or vegetables) Exercise: walking outside for 1 hour x3 days per week for 300 calories PFSH Medical History First degree AV block Surgical History Hx of tubal ligation Family History Mother Diabetes Dementia Anemia Father Diabetes Heart problem High cholesterol Arthritis Sister Heart problem Diabetes High cholesterol Hypertension Sickle cell anemia Sister Breast cancer Asthma Sister Heart problem Diabetes Son Asthma Son No problems noted. Son Autism Daughter Anxiety Social History Alcohol intake: never Patient Tobacco Use Status: Former Tobacco user Physical Exam Vital Signs: Last Vital Signs Temp 97.8 F 01/27/23 09:04 Pulse 63 01/27/23 09:04 BP 141/75 H 01/27/23 09:04 Pulse Ox 98 01/27/23 09:04 BMI result Body Mass Index 69.6 GI Inspection: Yes normal to inspection (Gynecoid body habitus) and Yes obesity Palpation (GI): Firmness to palpation present (GI) Extrem Right lower extremity: normal to inspection Left lower extremity: normal to inspection Assessment & Plan Assessment & Plan (1) Morbid obesity: Code(s): E66.01 - Morbid (severe) obesity due to excess calories Plan: 1. Change nutritional plan to 2 Premier protein shakes at 7am-9am and 10am-12pm, 2 Pure protein bars at 1pm-3pm and 4pm-6pm, dinner at 7pm (TEN FORKS of protein and TEN forks of salad/vegetables). 2. Each shake would be drunk slowly, like coffee in a period of 2 hours. 3. Cut each bar in 4 pieces and eat each piece in 30min to make each bar last 2 hours. 4. Take the Phentermine daily 11am. 5. If Phentermine reduces the hunger, use it to replace the dinner with the following plan: 2 Premier protein shakes at 7am-9am and 10am-12pm and 3 Pure protein bars at 1pm-3pm, 4pm-6pm and 7pm-9pm. 6. If you eat a dinner, I emphasized the importance of measuring accurately the food portion and measure it when serving the food in plate. 7. Send me weight measurement today or tomorrow and then weekly 8. Increase walking fast pace for one hour tracking calories for 400 calories at least 6 days per week as possible and measure distance and calories. Send me the calories and distance from your health watch before and after the walk. Try to increase distance walked at the same time over time or use ankle weights and try to walk same distance with ankle weights burning more calories. Record these numbers so we can re-assess activity level at every follow-up visit. 9. We discussed the potential side-effects of the Phentermine such as irritability, dry mouth, difficulty sleeping, dizziness, numbness in feet and high blood pressure. I asked her to get a blood pressure monitor and measure the blood pressure daily in the morning and evening. She needs to send the blood pressure readings daily and to call the office for blood pressure over 140/80 and she understands that. Medications: New phentermine must administer 30 minutes before or 1-2 hours after breakfast 37.5 mg PO DAILY 14 tabs 0RF E66.01 - Morbid (severe) obesity due to excess calories Coding Level of Care Code Est Pt Level 5 (55957) Diagnoses Morbid obesity E66.01 Time Spent (min) 60
[2023-01-27 09:04] VITALS: BP 141/75; PULSE 63; TEMP 36.6; O2SAT 98; BMI 69.6
== END 2023-01-27 10:47 | disposition home or self-care (01) ==
PROVIDERS: PCP Registered Nurse; Visit Provider Surgery
DX: E66.01 Morbid (severe) obesity due to excess calories (principal)
CPT/HCPCS: 99215

== ENCOUNTER → 2023-01-27 08:53 | Outpatient (BNVA) | payer MEDICAID, SELFPAY | PROVIDERS: PCP Registered Nurse; Visit Provider Surgery | DX: E66.01 Morbid (severe) obesity due to excess calories (principal); Z68.44 Body mass index [BMI] 60.0-69.9, adult | CPT/HCPCS: 99212 ==

== ENCOUNTER 2023-02-11 11:04 | Outpatient (AMB) | payer MEDICAID, SELFPAY ==
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
== END 2023-02-18 12:51 | disposition home or self-care (01) ==
PROVIDERS: PCP Registered Nurse; Visit Provider Counselor Mental Health
DX: F43.20 Adjustment disorder, unspecified (principal); E66.01 Morbid (severe) obesity due to excess calories; Z59.00 Homelessness unspecified
CPT/HCPCS: 90834

== ENCOUNTER → 2023-02-11 11:04 | Outpatient (BNVA) | payer MEDICAID, SELFPAY | PROVIDERS: PCP Registered Nurse; Visit Provider Counselor Mental Health ==

== ENCOUNTER → 2023-02-17 13:06 | Outpatient (BNVA) | payer MEDICAID, SELFPAY | PROVIDERS: PCP Registered Nurse; Visit Provider Physician Assistant Surgical ==

== ENCOUNTER 2023-02-24 08:58 | Outpatient (AMB) | payer MEDICAID, SELFPAY ==
--- NOTE | 2023-02-24 09:04 | A.OFFVIS_ITS ---
Intake VS Expanded 02/24/23 09:12 Height 5 ft 1 in Weight 357 lb 3.2 oz BMI 67.5 BP 143/83 H Blood Pressure Location Rt brachial Blood Pressure Position Sitting Pulse 66 Pulse Source Pulse Oximeter Temp 97.4 F Temperature Source Temporal Artery Scan Pulse Oximetry 97 Oxygen Delivery Method Room Air Body Fat 196.2 Body Fat Percentage 54.9 Free Fat Mass 161.0 Muscle Mass 152.8 Visceral Mass 26.0 Water Mass 115.0 BMR 2,391 Intake Visit Reasons: OV Follow Up SWL Allergies No Known Allergies [No Known Allergies*] Allergy (Verified 02/24/23 09:08) HPI HPI Comments History of Present Illness Details Excellent progress of 11lbs in 4 weeks Overall weight loss: 53.2lbs, or 12.96% TBWL Off all diabetic medications On Phentermine. Denies any dry mouth, dizziness, foot numbness, irritability, insomnia Is doing 2 premade Premier protein shakes, 2 Pure protein bar and one meal (10 forks of protein and 10 forks of salad or vegetables) Exercise: walking outside at least 4 days per week for 400-500 calories. Purchased a treadmill PENDING SALE TO [facility] Medical History First degree AV block Surgical History Hx of tubal ligation Family History Mother Diabetes Dementia Anemia Father Diabetes Heart problem High cholesterol Arthritis Sister Heart problem Diabetes High cholesterol Hypertension Sickle cell anemia Sister Breast cancer Asthma Sister Heart problem Diabetes Son Asthma Son No problems noted. Son Autism Daughter Anxiety Social History Alcohol intake: never Patient Tobacco Use Status: Former Tobacco user Physical Exam Vital Signs: Last Vital Signs Temp 97.4 F 02/24/23 09:12 Pulse 66 02/24/23 09:12 BP 143/83 H 02/24/23 09:12 Pulse Ox 97 02/24/23 09:12 Oxygen Delivery Method Room Air 02/24/23 09:12 BMI result Body Mass Index 67.5 GI Inspection: Yes normal to inspection and Yes obesity Palpation (GI): Soft to palpation Extrem Right lower extremity: normal to inspection Left lower extremity: normal to inspection Assessment & Plan Assessment & Plan (1) Morbid obesity: Code(s): E66.01 - Morbid (severe) obesity due to excess calories Plan: 1. Continue same nutritional plan of premade Premier protein shakes, 2 Pure p rotein bar and one meal (10 forks of protein and 10 forks of salad or vegetables). 2. Try to replace dinner with another Premier shake or a Pure protein bar a few days per week 3. Start treadmill with an incline of 4.0 and speed of 2.5. Increase incline by 1 every 3 min to a max incline of 10.0, stay 3min at 10.0 and then return to 4.0 and repeat same steps until calorie goal is met. Goal is to burn 2000 calories per week on exercise, which means either 300 calories daily, or 400 calories 5 days per week, or 500 calories 4 days per week, or 650 calories 3 days per week. 4. We discussed the potential side-effects of the Phentermine such as irritability, dry mouth, difficulty sleeping, dizziness, numbness in feet and high blood pressure. I asked her to get a blood pressure monitor and measure the blood pressure daily in the morning and evening. She needs to send the blood pressure readings daily and to call the office for blood pressure over 140/80 and she understands that. 5. re-start the blood pressure pill with the water pill per day. Check your blood pressure daily. Let me know if it drops below 120/70 6. Send me weight measurements weekly on Mondays Coding Level of Care Code Est Pt Level 4 (33236) Diagnoses Morbid obesity E66.01 Time Spent (min) 30
[2023-02-24 09:12] VITALS: BP 143/83; PULSE 66; TEMP 36.3; O2SAT 97; BMI 67.5
== END 2023-02-24 09:55 | disposition home or self-care (01) ==
PROVIDERS: PCP Registered Nurse; Visit Provider Surgery
DX: E66.01 Morbid (severe) obesity due to excess calories (principal)
CPT/HCPCS: 99214

== ENCOUNTER → 2023-02-24 08:58 | Outpatient (BNVA) | payer MEDICAID, SELFPAY | PROVIDERS: PCP Registered Nurse; Visit Provider Surgery | DX: E66.01 Morbid (severe) obesity due to excess calories (principal); Z68.44 Body mass index [BMI] 60.0-69.9, adult | CPT/HCPCS: 99212 ==

== ENCOUNTER 2023-03-04 10:33 | Outpatient (AMB) | payer MEDICAID, SELFPAY ==
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
== END 2023-03-04 10:50 | disposition home or self-care (01) ==
LOC: HO.HBST 10:33
PROVIDERS: PCP Registered Nurse; Visit Provider Counselor Mental Health
DX: F43.20 Adjustment disorder, unspecified (principal); E66.01 Morbid (severe) obesity due to excess calories; Z59.00 Homelessness unspecified
CPT/HCPCS: 90834

== ENCOUNTER → 2023-03-04 10:33 | Outpatient (BNVA) | payer OTHER, MEDICAID, SELFPAY | PROVIDERS: PCP Registered Nurse; Visit Provider Counselor Mental Health ==

== ENCOUNTER → 2023-03-05 11:28 | Outpatient (BNVA) | payer OTHER, MEDICAID, SELFPAY | PROVIDERS: PCP Registered Nurse; Visit Provider Physician Assistant ==

== ENCOUNTER → 2023-03-19 14:50 | Outpatient (BNVA) | payer MEDICAID, SELFPAY | PROVIDERS: PCP Registered Nurse; Visit Provider Physician Assistant Surgical ==

== ENCOUNTER 2023-03-25 10:43 | Outpatient (AMB) | payer OTHER, SELFPAY ==
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
== END 2023-03-25 15:55 | disposition home or self-care (01) ==
PROVIDERS: PCP Registered Nurse; Visit Provider Counselor Mental Health
DX: F43.20 Adjustment disorder, unspecified (principal); E66.01 Morbid (severe) obesity due to excess calories; Z59.00 Homelessness unspecified
CPT/HCPCS: 90832

== ENCOUNTER → 2023-03-25 10:43 | Outpatient (BNVA) | payer MEDICAID, SELFPAY | PROVIDERS: PCP Registered Nurse; Visit Provider Counselor Mental Health ==

== ENCOUNTER 2023-03-28 11:32 | Outpatient (AMB) | payer MEDICAID, SELFPAY ==
--- NOTE | 2023-03-28 11:33 | MHC.OFFVISWM ---
Intake VS Expanded 03/28/23 11:42 BP 138/63 Blood Pressure Location Rt brachial Blood Pressure Position Sitting Pulse 62 Pulse Source Pulse Oximeter Temp 98.3 F Temperature Source Temporal Artery Scan Pulse Oximetry 96 Oxygen Delivery Method Room Air Height 5 ft 1 in Weight 351 lb 9.6 oz BMI 66.4 Body Fat % 54.3 Body Fat Mass 191.0 Fat Free Mass 160.4 Visceral Fat Rating 26.0 Body Water % 32.6 Body Water Mass 114.6 Muscle Mass/Score 152.4 Basal Metabolic Rate/Score 2,376 Neck Circumference 15 in Waist Circumference 4 ft 3 in Intake Visit Reasons: OV Follow Up SWL Allergies No Known Allergies [No Known Allergies*] Allergy (Verified 03/28/23 11:41) HPI HPI Comments History of Present Illness Details Overall weight loss: 58.8lbs, or 14.33% TBWL On Phentermine Denies any dry mouth, dizziness, foot numbness, irritability, insomnia Is doing 2 premade Premier protein shakes, 2 Pure protein bar and one meal (10 forks of protein and 10 forks of salad or vegetables). Replaces dinner with another Premier shake a few days per week Is doing treadmill with medium speed and incline up to 7, 4 days per week. The other days she walks outside. [facility] Medical History First degree AV block Surgical History Hx of tubal ligation Family History Mother Diabetes Dementia Anemia Father Diabetes Heart problem High cholesterol Arthritis Sister Heart problem Diabetes High cholesterol Hypertension Sickle cell anemia Sister Breast cancer Asthma Sister Heart problem Diabetes Son Asthma Son No problems noted. Son Autism Daughter Anxiety Social History Alcohol intake: never Patient Tobacco Use Status: Former Tobacco user Physical Exam Vital Signs: Last Vital Signs Temp 98.3 F 03/28/23 11:42 Pulse 62 03/28/23 11:42 BP 138/63 03/28/23 11:42 Pulse Ox 96 03/28/23 11:42 Oxygen Delivery Method Room Air 03/28/23 11:42 BMI result Body Mass Index 66.4 GI Inspection: Yes normal to inspection (gynecoid body habitus) and Yes obesity Palpation (GI): Soft to palpation Assessment & Plan Assessment & Plan (1) Morbid obesity: Code(s): E66.01 - Morbid (severe) obesity due to excess calories Plan: 1. Continue same nutritional plan of premade Premier protein shakes, 2 Pure protein bar and one meal (10 forks of protein and 10 forks of salad or vegetables). 2. Try to replace dinner with another Premier shake or a Pure protein bar (preferable) a few days per week 3. Increase the treadmill to daily for 300 calories (medium speed and incline 1-7). Walk outside only in addition to the treadmill and not in replacement 4. We discussed the potential side-effects of the Phentermine such as irritability, dry mouth, difficulty sleeping, dizziness, numbness in feet and high blood pressure. I asked her to get a blood pressure monitor and measure the blood pressure daily in the morning and evening. She needs to send the blood pressure readings daily and to call the office for blood pressure over 140/80 and she understands that. 5. Continue the blood pressure pill with the water pill per day. Check your blood pressure daily. Let me know if it drops below 120/70 6. Send me weight measurements weekly on Mondays Coding Level of Care Code Est Pt Level 3 (65001) Diagnoses Morbid obesity E66.01 Time Spent (min) 25
[2023-03-28 11:42] VITALS: BP 138/63; PULSE 62; TEMP 36.8; O2SAT 96; BMI 66.4
== END 2023-03-28 12:05 | disposition home or self-care (01) ==
PROVIDERS: PCP Registered Nurse; Visit Provider Surgery
DX: E66.01 Morbid (severe) obesity due to excess calories (principal)
CPT/HCPCS: 99213

== ENCOUNTER → 2023-03-28 11:32 | Outpatient (BNVA) | payer MEDICAID, SELFPAY | PROVIDERS: PCP Registered Nurse; Visit Provider Surgery | DX: E66.01 Morbid (severe) obesity due to excess calories (principal); Z68.44 Body mass index [BMI] 60.0-69.9, adult | CPT/HCPCS: 99212 ==

== ENCOUNTER → 2023-03-31 07:52 | Outpatient (REF) | payer MEDICAID, SELFPAY ==
--- NOTE | 2023-03-31 07:57 | CA_ITS ---
Transthoracic Echocardiogram Patient (Last, First, Middle): Karon Cordova, Gender: Female Date of : 1975 Age: 47 Procedure Date: 03/31/2023 Procedure Type: Transthoracic Echocardiogram Location: OP Height: 154.94 cm Weight: 158.76 kg BSA: 2.40 m2 Heart Rate: bpm BP: 147 / 81 mmHg Professor Of Management: Referring MD: Jorge Abarca MD Indoor Landscape Architect: Jassi Rodrigues MD Symptoms: I51.7 - Cardiomegaly Study Quality: Adequate ECG Rhythm: Sinus Conclusions: - 1. Normal LV ejection fraction 55-60% with upper limits of normal wall thickness 2. Mild aortic regurgitation 3. Normal RV systolic pressure 4. No gross pericardial effusion Findings Left Ventricle Normal left ventricular size and systolic function. The visually estimated ejection fraction is between 55-60%. Spectral Doppler is indicative of an impaired relaxation filling pattern. LV wall thickness is at upper limits of normal Right Ventricle Normal right ventricular cavity size and systolic function. Atria The left atrium is likely dilated. Interatrial shunt cannot be excluded. The right atrium is normal in size. Aortic Valve The aortic valve structure and function is likely normal. There is no aortic valve stenosis. There is mild aortic valve regurgitation. Mitral Valve There is mild anterior and posterior mitral leaflet thickening. There is trace mitral valve regurgitation. There is no mitral valve stenosis. Pulmonic Valve The pulmonic valve was not well visualized. Tricuspid Valve Likely normal tricuspid valve structure and function. There is trace tricuspid valve regurgitation. The right ventricular systolic pressure is normal. The right ventricular systolic pressure is 26 mmHg. Normal right atrial pressure. There is no evidence of pulmonary hypertension. Great Vessels All visible segments of the aorta are normal in size. The pulmonary artery was not well visualized. Venous The inferior vena cava is normal in size and collapses greater than 50% with inspiration. Pericardium/Pleural There is no evidence of pericardial effusion. Prior Study Comparison No prior study available for comparison. Measurements 2D Linear Measurements IVSd: 1.17 0.6-0.9/0.6-1.0 cm LVIDd: 4.55 3.9-5.3/4.2-5.9 cm LVIDd Index: 1.90 2.4-3.2/2.2-3.1 cm/m2 LVIDs: 3.15 2.0-3.6 cm LVPWd: 1.15 0.7-1.1 cm Ao Root: 2.10 2.1-3.5 cm LA Diam: 4.40 2.7-3.8/3.0-4.0 cm LAIDs Index: 1.83 1.5-2.3 cm/m2 LV Mass: 239.25 67-162/88-224 g LV Mass Index: 99.69 43-95/49-115 g/m2 LVOT Diam: 2.00 3.0+(-)1.3 cm 2D Systolic Function EF 4C: 53.70 >55% EF 2C: 60.00 >55% EF BiP: 55.90 >55% Mitral Valve MV Pk E: 0.98 MV PK A: 0.95 MV Decel Time: 247.00 E/A: 1.00 E'Lateral: 12.20 E'Medial: 9.25 E/E' Med: 10.60 E/E' Lat: 8.00 PHT: 72.00 MVA PHT: 3.06 Decel [place]: 3.95 Aortic Valve AoV Pk Norris: 1.96 AoV Mn Norris: 1.29 AoV VTI: 0.47 AoV Pk Grad: 15.00 Aov Mn Grad: 8.00 ISATU Cont.VTI: 1.29 LVOT LVOT Pk Norris: 0.78 LVOT Mn Norris: 0.52 LVOT VTI: 0.19 LVOT Pk Grad: 2.00 LVOT Mn Grad: 1.00 LVOT Diam: 2.00 LVOT Area: 3.14 Diastolic Function MV Pk E: 0.98 MV Pk A: 0.95 E/A: 1.00 E'Medial: 9.25 E/E' Med: 10.60 E' Laterial: 12.20 E/E' Lat: 8.00 Right Ventricle TAPSE (mm): 29.00 TVS' Norris: 14.00 Tricuspid Valve TR Pk Norris: 2.38 TR Pk Grad: 23.00 RA Press: 3.00 RVSP: 26.00 Great Vessels Aorta Ao Root-2D: 2.10 2.0-3.7 cm Ao Asc: 3.40 2.1-3.4 cm Pulmonary Valve PV Pk Norris: 1.22 Peak PV Grad: 6.00 Updated in Other Vendor System with Status of Final Jassi Rodrigues MD electronically signed on 03/31/2023 12:15:06 PM with status of Final
== END ==
LOC: HO.CARD 07:52
PROVIDERS: PCP Registered Nurse; Visit Provider Surgery
DX: I51.7 Cardiomegaly (principal)
CPT/HCPCS: 93306

== ENCOUNTER → 2023-03-31 07:57 | Outpatient (BNV) | payer MEDICAID, SELFPAY | PROVIDERS: PCP Registered Nurse; Visit Provider Internal Medicine Cardiovascular Disease | DX: I35.1 Nonrheumatic aortic (valve) insufficiency (principal) | CPT/HCPCS: 93306 ==

== ENCOUNTER 2023-04-09 08:03 | Outpatient (AMB) | payer MEDICAID, SELFPAY ==
--- NOTE | 2023-04-09 08:16 | MHC.OFFVISWM ---
Intake VS Expanded 04/09/23 08:25 Height 5 ft 1 in Weight 351 lb 8 oz BMI 66.4 Body Fat % 52.7 Body Fat Mass 185.3 Fat Free Mass 166.4 Visceral Fat Rating 30 Body Water % 32.5 Body Water Mass 114.3 Basal Metabolic Rate/Score 2,001 Intake Visit Reasons: TV Pre Op LSG 04/15/23 Allergies No Known Allergies [No Known Allergies*] Allergy (Verified 04/09/23 08:18) Medication List - Last Reconciled 04/09/23 by Jorge Abarca MD atorvastatin 10 mg PO DAILY blood sugar diagnostic (FreeStyle Test strips) As directed chlorthalidone 25 mg PO DAILY cholecalciferol (vitamin D3) 50 mcg PO DAILY dulaglutide (Trulicity) mg subcut QWEEK flash glucose sensor (Red AmbientalStyle [place] 2 Sensor kit) As directed fluticasone propionate 44 mcg/actuation 2 puffs inhalation BID iron,carbonyl-vitamin C 65 mg iron- 125 mg (Vitron-C) 1 tab PO BEDTIME lancets (FreeStyle Lancets) As directed lisinopril 10 mg PO DAILY ondansetron 4 mg PO Q12H pantoprazole 40 mg PO DAILY phentermine 37.5 mg PO DAILY polyethylene glycol 3350 (Miralax) 17 grams PO DAILY sucralfate 10 mL PO BID thiamine HCl (vitamin B1) 100 mg PO DAILY vit B complex 100 combo no.2 ER (Balanced B-100 Complex) 1 tab PO DAILY HPI TV Pre Op LSG 04/15/23 HPI Details Start time: 8.14am, End time: 8.35am ?I spent 16 minutes speaking with the patient on the phone plus an additional 5 minutes reviewing and updating records for a total of 21 minutes HPI Comments History of Present Illness Details Overall weight loss: 58.6lbs, or 14.3% TBWL Is doing 4 to 4.5 Premier premade protein shakes per day PFSH Medical History First degree AV block Surgical History Hx of tubal ligation Family History Mother Diabetes Dementia Anemia Father Diabetes Heart problem High cholesterol Arthritis Sister Heart problem Diabetes High cholesterol Hypertension Sickle cell anemia Sister Breast cancer Asthma Sister Heart problem Diabetes Son Asthma Son No problems noted. Son Autism Daughter Anxiety Social History Alcohol intake: never Patient Tobacco Use Status: Former Tobacco user Assessment & Plan Assessment & Plan (1) Morbid obesity: Code(s): E66.01 - Morbid (severe) obesity due to excess calories Plan: 1. Plan for lap sleeve gastrectomy including upper GI endoscopy. All tests has been completed and reviewed and the patient is cleared for the surgery. ?If diaphragmatic or ventral hernias are present at time of surgery, these will be repaired laparoscopically as well. Risks and complications were discussed in detail including possible conversion to an open procedure, anastomotic leak, bleeding requiring transfusion, small bowel obstruction, , DVT and pulmonary embolism, cardiac, or pulmonary complications, as director long term care complications such as anastomotic ulcer, insufficient weight loss and vitamin deficiencies. I emphasized the importance of close follow-up, adherence to instructions and good communication. So far she has proven to be an excellent communicator and very compliant with all our directions accomplishing a great weight loss. I believe that she is an excellent candidate and she is ready. 2. Preop prescriptions were provided and explained the purpose of each one. Need to be purchased preop. Start Pantoprazole now as you get it from the pharmacy, 1 pill per day. Sucralfate and Zofran are for after surgery as needed. 3. Bowel prep: please do 7 packets ?of Miralax mixing each one with a an 8oz glass of water, crystal light, gatorade zero, or propel ?on 04/13/23 and the same amount on 04/14/23. Continue the protein shakes during? the bowel prep. 4. Needs to purchase 1oz medicine cups . 5. Needs to purchase Children's liquid Tylenol for postop pain control. 6. She needs to stop the Phentermine and Chlorthalidone on Friday04/13/23. Stop the Trulicity as of today. continue all vitamins and atorvastatin until 04/14/23. Avoid aspirin, motrin, Advil, Aleve, Ibuprofen, Naproxyn. Tylenol is OK. 7. She needs to purchase the Celebrate 4:1 protein shakes from the hospital's gift shop. 8. Will do basic preop blood work-up any day between Friday05/13/22 and Friday05/17/22 fasting for 12 hours and is scheduled to see the Anesthesiologist prior to the day of surgery. 9. Check your blood sugar and blood pressure daily. Let me know if the blood pressure is below 120/70 or the blood sugar below 100. 10. Importance of adherence to postop folllow-up and recommendations was underscored and she understands that. 11. Continue to avoid food and bars and continue with 4 premade Premier protein shakes at 7am-9am, 11am-1pm, 3pm-5pm and 7pm-9pm. 12. No soups, broths or V8 13. The patient's?medical?history has been reviewed and they are considered low risk for post op DVT and therefore DVT prophylaxis is not considered necessary. Travel after surgery was reviewed. The patient has not disclosed any travel plans during the first 30 days after surgery and they have been advised that within the first 30 days after surgery any bus, plane, train or car travel over 2 hours in duration is contraindicated due to the possibility of developing blood clots from immobility. Any travel, needs to include periods of ambulation of 10 minutes in duration every 2 hours.? Patient was instructed to discuss any plans for travel during this period with their bariatric surgeon.? 14. Please take at the day of surgery the following medications: ONLY the Lisinopril if your blood pressure remains over 120/70. If the blood pressure is below 120/70 do not take the Lisinopril 15. Stop any control pills and don't use them for one month after surgery 16. Absolutely no smoking or vaping, or marijuana until the surgery and for at least the first 4 weeks. Only nicotine patches are allowed. 17. Send me weight measurements on Friday04/15/23 and then on the day of surgery before you go to the hospital. 18. Avoid any steroids by mouth for any reason. Let me know if someone prescribes them to you (2) Pre-op evaluation: Code(s): Z01.818 - Encounter for other preprocedural examination (3) Asthma: Code(s): J45.909 - Unspecified asthma, uncomplicated Orders: Orders TSH reflex Free T4 04/08/23 E11.9 - Type 2 diabetes mellitus without complications, E66.01 - Morbid (severe) obesity due to excess calories, I10 - Essential (primary) hypertension, R79.89 - Other specified abnormal findings of blood chemistry Prothrombin Time INR 04/08/23 E11.9 - Type 2 diabetes mellitus without complications, E66.01 - Morbid (severe) obesity due to excess calories, I10 - Essential (primary) hypertension, R79.89 - Other specified abnormal findings of blood chemistry Partial Thromboplastin Time 04/08/23 E11.9 - Type 2 diabetes mellitus without complications, E66.01 - Morbid (severe) obesity due to excess calories, I10 - Essential (primary) hypertension, R79.89 - Other specified abnormal findings of blood chemistry Lipid Panel 04/08/23 E11.9 - Type 2 diabetes mellitus without complications, E66.01 - Morbid (severe) obesity due to excess calories, I10 - Essential (primary) hypertension, R79.89 - Other specified abnormal findings of blood chemistry Complete Blood Count Auto Diff 04/08/23 E11.9 - Type 2 diabetes mellitus without complications, E66.01 - Morbid (severe) obesity due to excess calories, I10 - Essential (primary) hypertension, R79.89 - Other specified abnormal findings of blood chemistry Comprehensive Met. Panel 04/08/23 E11.9 - Type 2 diabetes mellitus without complications, E66.01 - Morbid (severe) obesity due to excess calories, I10 - Essential (primary) hypertension, R79.89 - Other specified abnormal findings of blood chemistry Type and Screen 04/08/23 E11.9 - Type 2 diabetes mellitus without complications, E66.01 - Morbid (severe) obesity due to excess calories, I10 - Essential (primary) hypertension, R79.89 - Other specified abnormal findings of blood chemistry C Reactive Protein 04/08/23 E11.9 - Type 2 diabetes mellitus without complications, E66.01 - Morbid (severe) obesity due to excess calories, I10 - Essential (primary) hypertension, R79.89 - Other specified abnormal findings of blood chemistry Hemoglobin A1c 04/08/23 E11.9 - Type 2 diabetes mellitus without complications, E66.01 - Morbid (severe) obesity due to excess calories, I10 - Essential (primary) hypertension, R79.89 - Other specified abnormal findings of blood chemistry Insulin 04/08/23 E11.9 - Type 2 diabetes mellitus without complications, E66.01 - Morbid (severe) obesity due to excess calories, I10 - Essential (primary) hypertension, R79.89 - Other specified abnormal findings of blood chemistry Medications: New pantoprazole 40 mg PO DAILY 30 tabs 2RF K21.9 - Gastro-esophageal reflux disease without esophagitis sucralfate 10 mL PO BID 400 mL 2RF K21.9 - Gastro-esophageal reflux disease without esophagitis polyethylene glycol 3350 (Miralax) Mix each packet with 8oz of water, Crystal light, or Gatorade zero, or Propel and do 7 packets on 04/13/23 and another 7 packets on 04/14/23 17 grams PO DAILY 14 ea 0RF Z01.818 - Encounter for other preprocedural examination ondansetron 4 mg PO Q12H 20 tabs 0RF nausea and vomiting R11.0 - Nausea Telehealth Telehealth Location of provider rendering services: practice address Location of patient: address on file Patient Identification confirmed using: Name, : Yes Telehealth method: voice only Patient verbally consented to treatment: Yes Patient verbally consented to billing insurance company: Yes Patient informed of any privacy concerns related to visit: Yes Minutes spent on Phone/Video with Pt.: 21 Coding Level of Care Code Tele Est Pt Level 3 (31642) Diagnoses Morbid obesity E66.01 Pre-op evaluation Z01.818 Asthma J45.909 Time Spent (min) 21
[2023-04-09 08:25] VITALS: BMI 66.4
== END 2023-04-09 08:36 | disposition home or self-care (01) ==
LOC: HO.HBS 08:03
PROVIDERS: PCP Registered Nurse; Visit Provider Surgery
DX: E66.01 Morbid (severe) obesity due to excess calories (principal); Z01.818 Encounter for other preprocedural examination; J45.909 Unspecified asthma, uncomplicated
CPT/HCPCS: 99499

== ENCOUNTER → 2023-04-09 08:03 | Outpatient (BNVA) | payer MEDICAID, SELFPAY | PROVIDERS: PCP Registered Nurse; Visit Provider Surgery | DX: E66.01 Morbid (severe) obesity due to excess calories (principal); E11.9 Type 2 diabetes mellitus without complications; R79.89 Other specified abnormal findings of blood chemistry; I10 Essential (primary) hypertension; K21.9 Gastro-esophageal reflux disease without esophagitis; R11.0 Nausea; Z01.818 Encounter for other preprocedural examination ==

== ENCOUNTER 2023-04-15 07:58 | Inpatient (IN) | payer MEDICAID, SELFPAY ==
[2023-04-08 13:34] LABS: MANUAL DIFF FLAG NO
[2023-04-08 14:16] LABS: Basophils Absolute Auto 0.1 X10*3/uL (0.0-0.2); Basophils Percent Auto 0.6 % (0-2); Eosinophils Absolute Auto 0.1 X10*3/uL (0.0-0.4); Eosinophils Percent Auto 1.5 % (0-4); Hematocrit 38.9 % (37.0-47.0); Hemoglobin 12.1 g/dl (12.0-16.0); Imm Gran Abs Auto 0.03 X10*3/uL (0.00-0.03); Imm Gran Pct Auto 0.4 % (0.0-0.4); Lymphocytes Absolute Auto 2.1 X10*3/uL (1.2-4.9); Lymphocytes Percent Auto 24.6 % (20-40); Mean Corpuscular HGB Conc 31.1 g/dl (31.0-35.0); Mean Corpuscular Hemoglobin 26.1 pg (27.0-33.0); Mean Platelet Volume 11.1 fL (9.4-12.3); Monocytes Absolute Auto 0.4 X10*3/uL (0.1-1.2); Monocytes Percent Auto 4.6 % (2-11); Neutrophils Absolute Auto 5.8 x10*3/uL (2.0-8.3); Neutrophils Percent Auto 68.3 % (45-73); Platelet Count 285 X10*3/uL (160-400); Red Blood Count 4.63 X10*6/uL (4.20-5.50); Red Cell Distribution Width 15.7 % (11.0-16.0); White Blood Count 8.5 X10*3/uL (4.8-10.8)
[2023-04-08 14:22] LABS: Estimated Average Glucose 97 mg/dL
[2023-04-08 14:49] LABS: Alanine Aminotransferase 22 U/L (0-31); Alkaline Phosphatase 102 U/L (39-117); Anion Gap 16 (12-20); Aspartate Amino Transferase 22 U/L (5-31); Bilirubin Total 0.6 mg/dL (0.0-1.0); Blood Urea Nitrogen 14 mg/dL (9-16); C Reactive Protein 4.26 mg/dL (< or = 0.50); Calcium 9.8 mg/dL (8.4-10.2); Carbon Dioxide 24 mmol/L (22-29); Chloride 101 mmol/L (96-108); Cholesterol 180 mg/dL (<200); Estimated Glomerular Filt Rate > 60; Glucose Random 91 mg/dL (60-115); HDL Cholesterol 33 mg/dL (>40); LDL Cholesterol Calculated 123 mg/dL (<100); Potassium 4.1 mmol/L (3.3-5.1); Sodium 137 mmol/L (135-145); Total Protein 8.9 g/dL (6.5-8.0); Triglycerides 124 mg/dL (<150)
[2023-04-08 15:08] LABS: Insulin 14 uU/mL (2-29); TSH reflex Free T4 4.29 uIU/mL (0.32-4.0)
[2023-04-08 15:40] LABS: Prothrombin Time 12.1 SEC (11.1-13.3)
[2023-04-08 15:42] LABS: Partial Thromboplastin Time 34.6 SEC (26.0-36.4)
[2023-04-08 18:01] LABS: Free T4 (Free Thyroxine) 1.07 ng/dL (0.71-1.85)
[2023-04-09 10:17] VITALS: BMI 66.1
--- NOTE | 2023-04-11 22:43 | MHC.SHP ---
Pre-Procedural Eval Section A Date of Service: 04/11/23 The patient is an INPATIENT: Yes The History & Physical has been completed within 30 days and I have reviewed it.: Yes Section B Chief Complaint: Morbid (severe) obesity due to excess calories Relevant Family History (Specify if Yes): No Relevant Social History: None Present Medications: None Medical History: No relevant PMH History of Previous Operations: No relevant previous surgery Allergies: Allergies Allergy/AdvReac Type Severity Reaction Status Date / Time bee pollen [bee stings] Allergy Severe Anaphylaxis Verified 04/09/23 10:10 Review of Systems Sugical H&P ROS: Negative: Constitution, Cardiovascular, Respiratory, Neurological, Psychiatric, Hem-Onc, Allergic/Immunologic, Gastrointestinal, Genitourinary, Musculoskeletal, Integumentary, Endocrine and Eyes/Ears/Nose/Throat Exam Surgical H&P Exam: Normal: HEENT, Normal: Heart, Normal: Lungs, Normal: Extremities, Normal: Abdomen, Normal: Skin and Normal: Neurological Plan Diagnosis/Plan: Unchanged I have reviewed the history and physical and performed a pertinent physical examination on my patient. No changes have occurred unless specified. Time Spent With Patient Time: Total time managing care of this patient today ____ minutes.
--- NOTE | 2023-04-14 09:33 | HO.ANESPROP2 ---
Documented by User: Shanel Mclaughlin NP 04/14/23 09:35 HPI - Anesthesia Eval Consult details Narrative: 47yo F for Gastrectomy Sleeve-EGD, possible diaphragmatic hernia, possible ventral hernia, possible open s/p tubal Anesthesia Pre-Procedure Meds Is the patient on any of the following meds?: Dulaglutide (Trulicity) PMFSH Active Problems Active Problems: All Active Problems (Updated 04/11/23 @ 22:47 by Jorge Abarca MD) Hypothyroidism (Acute) Left atrial dilation (Acute) Homeless single person (Acute) HTN (hypertension), benign (Acute) Elevated TSH (Acute) Elevated blood pressure reading (Acute) Adjustment disorder, unspecified (Acute) Diabetes mellitus (Acute) Pre-op evaluation (Acute) Asthma (Acute) Morbid obesity (Acute) Past Medical History Medical History Hepatomegaly Hyperlipidemia Insulin dependent type 2 diabetes mellitus Hypothyroidism Low back pain Sciatica of left side First degree AV block Family History Family History Mother Diabetes Dementia Anemia Father Diabetes Heart problem High cholesterol Arthritis Sister Heart problem Diabetes High cholesterol Hypertension Sickle cell anemia Sister Breast cancer Asthma Sister Heart problem Diabetes Son Asthma Son No problems noted. Son Autism Daughter Anxiety Surgical History Surgical History Hx of tubal ligation Social History Social History Household Members: Family Housing: House Are you a primary animal care specialist to a significant other at home: No Do you presently have visiting nurse or other home services: No Alcohol intake: never Patient Tobacco Use Status: Former Tobacco user Quit Date: 2010 Tobacco use type: Cigarette Use of substances other than those prescribed or required for medical reasons: No Have you been hit, kicked, punched, or otherwise hurt by someone within the past year? If so, by whom?: No Are you DNR?: No Advance Directives: No Advance Directives Information Provided: No Advance Directives on File: No Recently lost weight without trying: No Nutrition Risks: No Nutritional Risk Patient : No FDLMP: 03/27/2023 : No Poor oral hygiene: Yes (dental caries) Meds Allergies Allergy/AdvReac Type Severity Reaction Status Date / Time bee pollen [bee stings] Allergy Severe Anaphylaxis Verified 04/09/23 10:10 Home Medications Medication Instructions Recorded Confirmed Last Taken Type atorvastatin 10 mg tablet 10 mg PO DAILY 10/12/21 04/15/23 04/13/23 History fluticasone propionate 44 2 puff inhalation BID 10/12/21 04/15/23 Unknown History mcg/actuation HFA aerosol inhaler lisinopril 10 mg tablet 10 mg PO DAILY 10/12/21 04/09/23 04/14/23 History flash glucose sensor (FreeStyle 06/12/22 04/09/23 Unknown History Juana 2 Sensor kit) chlorthalidone 25 mg tablet 25 mg PO DAILY 08/12/22 04/09/23 04/14/23 History dulaglutide 1.5 mg/0.5 mL mg subcut QWEEK 08/28/22 04/09/23 04/03/23 08:00 [facility] Exam Exam Date and Time: April 14, 2023 0933 Height,Weight and Vital Signs: Height 5 ft 1 in Weight 158.786 kg Pertinent Lab Results Pertinent Lab Results: Laboratory Tests 04/08/23 13:28 WBC 8.5 RBC 4.63 Hgb 12.1 Hct 38.9 MCV 84.0 MCH 26.1 L MCHC 31.1 RDW 15.7 Plt Count 285 MPV 11.1 Immature Gran % (Auto) 0.4 Neut % (Auto) 68.3 Lymph % (Auto) 24.6 [place] % (Auto) 4.6 Eos % (Auto) 1.5 Baso % (Auto) 0.6 Lymph # (Auto) 2.1 [place] # (Auto) 0.4 Eos # (Auto) 0.1 Baso # (Auto) 0.1 Abs Immat Gran (auto) 0.03 Absolute Neuts (auto) 5.8 Absolute Nucleated RBC 0.000 Nucleated RBC % (auto) 0.0 PT 12.1 INR 1.0 APTT 34.6 Sodium 137 Potassium 4.1 Chloride 101 Carbon Dioxide 24 Anion Gap 16 BUN 14 Creatinine 0.70 Estim Creat Clear Calc TNP Estimated GFR > 60 Random Glucose 91 Estimat Average Glucose 97 Hemoglobin A1c % 5.0 Insulin Level 14 Calcium 9.8 Total Bilirubin 0.6 AST 22 ALT 22 Alkaline Phosphatase 102 C-Reactive Protein 4.26 H Total Protein 8.9 H Albumin 4.0 Triglycerides 124 Cholesterol 180 LDL Cholesterol, Calc 123 H HDL Cholesterol 33 L TSH 4.29 H Free T4 1.07 Blood Type A Positive Antibody Screen NEGATIVE Narrative Narrative: EKG 03/2022 Vent. Rate : 072 BPM Atrial Rate : 072 BPM P-R Int : 194 ms QRS Dur : 114 ms QT Int : 394 ms P-R-T Axes : 061 017 013 degrees QTc Int : 431 ms Normal sinus rhythm Possible Left atrial enlargement Otherwise normal ECG No significant changes seen ECHO 03/2023 Conclusions: - 1. Normal LV ejection fraction 55-60% with upper limits of normal wall thickness 2. Mild aortic regurgitation 3. Normal RV systolic pressure 4. No gross pericardial effusion Assessment and Plan Assessment Anesthesia Assessment: Chart Reviewed Documented by User: Armando Goldberg MD 04/15/23 13:56 HPI - Anesthesia Eval Anesthesia Pre-Procedure Meds If Yes to any meds - educate patient: Pt education - increased risk of aspiration and Pt education - possibility of cancelled proc at provider's discretion PMFSH Past Medical History Medical History Hepatomegaly Hyperlipidemia Insulin dependent type 2 diabetes mellitus Hypothyroidism Low back pain Sciatica of left side First degree AV block Family History Family History Mother Diabetes Dementia Anemia Father Diabetes Heart problem High cholesterol Arthritis Sister Heart problem Diabetes High cholesterol Hypertension Sickle cell anemia Sister Breast cancer Asthma Sister Heart problem Diabetes Son Asthma Son No problems noted. Son Autism Daughter Anxiety Family history of problems with anesthesia: No Surgical History Surgical History Hx of tubal ligation History of Problems with Anesthesia: No Social History Social History Household Members: Family Housing: House Are you a primary animal care specialist to a significant other at home: No Do you presently have visiting nurse or other home services: No Alcohol intake: never Patient Tobacco Use Status: Former Tobacco user Quit Date: 2010 Tobacco use type: Cigarette Use of substances other than those prescribed or required for medical reasons: No Have you been hit, kicked, punched, or otherwise hurt by someone within the past year? If so, by whom?: No Are you DNR?: No Advance Directives: No Advance Directives Information Provided: No Advance Directives on File: No Recently lost weight without trying: No Nutrition Risks: No Nutritional Risk Patient : No FDLMP: 03/27/2023 : No Poor oral hygiene: Yes (dental caries) Meds Allergies Allergy/AdvReac Type Severity Reaction Status Date / Time bee pollen [bee stings] Allergy Severe Anaphylaxis Verified 04/09/23 10:10 Home Medications Medication Instructions Recorded Confirmed Last Taken Type atorvastatin 10 mg tablet 10 mg PO DAILY 10/12/21 04/15/23 04/13/23 History fluticasone propionate 44 2 puff inhalation BID 10/12/21 04/15/23 Unknown History mcg/actuation HFA aerosol inhaler lisinopril 10 mg tablet 10 mg PO DAILY 10/12/21 04/09/23 04/14/23 History flash glucose sensor (FreeStyle 06/12/22 04/09/23 Unknown History [place] 2 Sensor kit) chlorthalidone 25 mg tablet 25 mg PO DAILY 08/12/22 04/09/23 04/14/23 History dulaglutide 1.5 mg/0.5 mL mg subcut QWEEK 08/28/22 04/09/23 04/03/23 08:00 History subcutaneous pen injector (Trulicity) Exam Airway Mallampati Class: III TM Dist: >3cm Neck ROM: Full Loose/Missing/Broken Teeth: Yes (upper teeth poor many missing and chipped globally) Heart: [id number] Lungs: cta b/l Assessment and Plan Assessment Anesthesia Assessment: Anesthesia Plan Discussed Final Anesthetic Review Family History of Problems with Anesthesia: No History of Problems with Anesthesia: No NPO: Yes ASA Class: III Final Preanesthetic Review: No Changes in Pt Med Stat, Meds/Allgs Chart Reviewed, Consent Obtained/Reviewed and Anes Risks/Benef Reviewed Patient Risk: Intermediate Procedure Risk: Intermediate Assessment/Block/Sedation in SS: Assess/Block/Sedation-SS Anesthetic Plan Anesthetic Plan: GA and Agree w/ Assess. and Plan Disposition: Standard PACU
[2023-04-15] VITALS (14 sets, daily range): BP systolic 114–180; BP diastolic 65–93; PULSE 53–81; RESP 16–20; TEMP 35.6–37; O2SAT 91–97; BMI 70.8
--- NOTE | 2023-04-15 08:20 | PHA.MEDREC ---
Pharmacy Consult ? Medication Reconciliation Pharmacy has completed the medication reconciliation. Reviewed med rec done by nursing
[2023-04-15] MEDS: Lactated Ringers 1,000 ML 999 ML IV (08:37)
[2023-04-15] MEDS: Aprepitant 32 MG/4.4 ML VIAL IVPUSH (08:37)
[2023-04-15 08:39] LABS: Glucose, Whole Blood 118 mg/dL (60-115)
--- NOTE | 2023-04-15 09:50 | PM.OP ---
Brief Operative Note Date of Service: 04/15/23 Pre-op diagnosis: Morbid obesity with comorbidities (see below) Post-op diagnosis: same Procedure: INITIAL PATIENT BMI ON PRESENTATION AT OUR OFFICE: 77.6 kg/m2 LAST BMI BEFORE SURGERY: 65.6 kg/m2 COMORBIDITIES: Asthma, hyperlipidemia, hypertension, lower extremity edema, insulin dependent diabetes, hypothyroidism, liver steatosis, liver fibrosis ?The patient presented to the Weight Management Program with significant obesity that was negatively impacting the patient's comorbidities as listed above.? The program is a phased program with a special focus on preoperative medical weight management to promote substantial weight loss and prepare the patients for the second phase of the program: bariatric surgery. The patient participated in an intensive weekly lifestyle ?intervention and exercise program during which the patient ?has lost between the initial office visit and the last preoperative visit 63.2 lbs, or 15.4% of initial actual body weight. It was deemed appropriate for the patient to now have bariatric surgery. In light of the current Covid-19 pandemic and the well documented strong association of obesity and increased risk of worse outcomes if infected with Covid-19 (REFERENCES:https://pubmed.ncbi.nlm.nih.gov/08006554/,?https://pubmed.ncbi.nlm.nih.gov/92757879/), any delay in undergoing bariatric surgery may lead to the patient's worsening health condition and increased?risk of more severe Covid-19 disease if infected. In addition a recent?study from [facility] published in [employer] on 06/04/2021 ([email or web address]) found that, among patients with obesity, substantial weight loss achieved with surgery was associated with improved outcomes of COVID-19 infection. The findings suggest that obesity can be a modifiable risk factor for the severity of COVID-19 infection. In addition, the patient met the BMI-criteria for bariatric surgery based on the BMI on initial presentation. The patient should not be penalized for achieving such weight loss because ?it is not sustainable long-term without surgical intervention and it was achieved in preparation for bariatric surgery ?under my direction and based on my published research ([email or web address]).[email or web address] and?[email or web address].soard.org/article/[email or web address])18430-X/pdf) ?that a 10% preoperative weight loss improves long-term weight loss after surgery and reduces perioperative complications.? Insurance carriers such as [facility] have endorsed my recommendations ?and have included in their policies criteria to include a 10% preoperative weight loss requirement. PROCEDURE: Esophago-gastroscopy, laparoscopic sleeve gastrectomy and laparoscopic gastropexy INDICATIONS: This is a 47 year-old female who was electively scheduled for laparoscopic, possibly open sleeve gastrectomy. The risks and complications of the procedure were discussed with the patient in advance, particularly the possibility of ; pulmonary embolism; staple line leak; bleeding; GERD; cardiac, pulmonary, or renal complications; as well as long-term problems such as insufficient weight loss, vitamin deficiency, strictures, or ulcers. The patient understood all the risks, and was in agreement to proceed with surgery. DESCRIPTION OF PROCEDURE: After informed consent was obtained from the patient, the patient was given preoperative antibiotics, and was transferred to the operating room. After successful induction of general anesthesia, pneumatic compression devices were placed on both lower extremities. An upper endoscopy was performed next. The oropharynx and esophagus appeared to be within normal limits. There was no diaphragmatic hernia present consistent with the findings of the preoperative upper GI. The stomach was entered. Then after all fluid and air were suctioned and the stomach was fully decompressed, the scope was withdrawn and secured in the mid esophagus. The patient was then prepped and draped in the usual sterile manner, and abdominal access was established at the right upper quadrant with the Doni technique. A 12 mm blunt port was inserted, and the abdomen was insufflated with CO2 to a pressure of 15 mmHg. Under direct visualization, additional ports were placed, specifically two 5 mm Versi-step ports to the left upper quadrant, and a 5 mm Versi-Step port to the right upper quadrant. 1% lidocaine plain was used to infiltrate all port sites as well as all fascia defects. Using the EndoClose suture passer device, I placed a #1 Polysorb tie across the falciform ligament in order to retract it up against the abdominal wall and prevent injury of the ligament with our instruments during the procedure. Following that, the patient was placed in a steep reverse Trendelenburg position. An additional 5 mm port was placed to the right flank for the Mediflex retractor that was used to retract the left lobe of the liver. The gastro-esophageal fat pad was opened with the ultrasonic device (Thunderbeat, Olympus) and the anterior esophagus and hiatus were exposed. The angle of His was opened with the ultrasonic device the fundus of the stomach from any diaphragmatic and splenic attachments. I then opened the gastrocolic ligament between the transverse colon and the greater curvature of the stomach with the ultrasonic device to enter the lesser sac and facilitate the ligation of the short gastric vessels. I started at a mid-point along the greater curvature and using the Thunderbeat, all short gastric vessels were divided all the way to the angle of His until the left geovanny was completely dissected at its entirety. I then divided the gastro-colic ligament distally to a distance of about 3-4 cm proximal to the pylorus. The stomach was then divided transversely with one Endo CAMILA-45 purple and five CAMILA-60 articulating purple loads using the SIGNIA stapler and loads. Every effort was made that the gastric sleeve had a tubular shape and an even caliber throughout. Once the sleeve resection was completed, the staple line of the gastric sleeve was reinforced with Hemoclips. The resected stomach was retrieved without difficulty from the Doni port. A gastropexy was then performed in order to prevent postoperative GERD and partial gastric volvulus. Several interrupted 2.0 Surgidac sutures were placed between the sleeve's staple line and the previously divided greater omentum and gastro-colic ligament using the Endo-Stitch device. ?An upper endoscopy was performed. There was no narrowing at the GE junction. The scope was easily advanced all the way to the pylorus which was clearly visualized. There was no narrowing anywhere and the sleeve's caliber was even throughout. The sleeve's staple line was inspected and there was no evidence of ischemia, bleeding or dehiscence. At that point the gastroscope was withdrawn from the patient?s mouth while we were decompressing the bowel and the stomach from any remaining air. I looked into the lesser sac to see how the sleeve was situating and it was situating well. There was no bleeding from the staple line, spleen, or short gastric vessels. The Mediflex retractor was removed, and the undersurface of the liver was inspected and there was no bleeding. The patient was placed in supine position. I closed the fascial defect of the 12 mm port site with a #1 Polysorb suture using the Endoclose suture passer device. Then 30cc Ropivacaine plain with 10 mg of Dexamethasone were used to infiltrate the fascial closure as well as all skin incisions. A total of 7ml Zynrelef was applied in the Doni wound. At this point, the abdomen was deflated, all ports were removed under direct vision, and no bleeding was noted from any of the port sites. The skin incisions were irrigated with saline and were closed with 4-0 absorbable monofilament sutures. Steri-Strips and OpSites were used to cover all incisions. The patient was extubated and was transferred in stable condition to the recovery room for further care. I was present and performed all avalos parts of the procedure. Ms. Evans was the child development assistant. There were no residents to assist with this case. Kenrick Abarca MD, PhD, FACS Surgeon: Jorge Abarca MD Anesthesia: GETA, local and other (TAP block and 7ml Zynrelef) Was an Qa Tester used for this Procedure?: Yes Qa Tester: Kate Evans Estimated blood loss (mL): 10 IV fluids (mL): 3,500 Urine output (mL): 0 (No Alston to record output) Pathology: other (Stomach) Condition: stable Disposition: PACU
--- NOTE | 2023-04-15 09:53 | P.PNGS_ITS ---
Subjective Subjective Date of Service: 04/15/23 Interval history: Feels well. Mild incisional pain. She is tolerating phase 1 bariatric diet Physical Exam 2 Vital Signs: Vital Signs: Last Vital Signs Temp 97.4 F 04/15/23 08:23 Pulse 64 04/15/23 08:23 Resp 18 04/15/23 08:23 BP 114/67 04/15/23 08:23 Pulse Ox 97 04/15/23 08:23 O2 Del Method Room Air 04/15/23 08:23 BMI result Body Mass Index 66.1 GI: Inspection: Yes normal to inspection, Yes incision (clean, dry and intact) and Yes obesity Palpation (GI): Soft to palpation Extrem: Right lower extremity: normal to inspection (no calf tenderness) L eft lower extremity: normal to inspection (no calf tenderness) Objective Data Active Medications Albuterol Sulfate (Albuterol Sulfate (0.083%) 2.5 Mg/3 Ml Vial.Neb) 2.5 mg INHALE ONCE PRN PRN Reason: Shortness of Breath/Wheezing Lactated Ringer's (Lr) 1,000 mls @ 100 mls/hr IVCONT .Q10H ELE Lactated Ringer's (Lr) 1,000 mls @ 999 mls/hr IV .Q1H1M ELE Stop: 04/15/23 10:00 Last Admin: 04/15/23 08:37 Dose: 999 mls/hr Documented By: MANDEEP Labs 04/08/23 13:28 04/08/23 13:28 Labs: Laboratory Results - last 24 hr 04/15/23 08:34 POC Glucose 118 H Procedures Date of Service Date of Service: 04/15/23 Progress Note: A&P Assessment and plan (1) Morbid obesity: Status: Acute Assessment and Plan: s/p laparoscopic sleeve gastrectomy and gastropexy Doing well Will check am labs and if OK the patient will be discharged home (2) Asthma: Status: Acute (3) Elevated TSH: Status: Acute (4) HTN (hypertension), benign: Status: Acute (5) Left atrial dilation: Status: Acute (6) Hypothyroidism: Status: Acute (7) Steatosis, liver: Status: Acute (8) Liver fibrosis: Status: Acute (9) Insulin dependent type 2 diabetes mellitus: Status: Acute (10) Hyperlipidemia: Status: Acute (11) S/P gastric sleeve procedure: Status: Acute (12) Hepatomegaly: Status: Acute Time Spent With Patient Time: Total time managing care of this patient today ____ minutes. Quality Stroke Does the patient have a stroke diagnosis?: No VTE Prior VTE?: No VTE Risk Level:: Surgical - moderate VTE Device Contraindication: N/A - Device Ordered VTE Drug Contraindication: Treatment Not Indicated
--- NOTE | 2023-04-15 10:01 | PM.DS ---
DS: Providers Provider Date of Service: 04/16/23 Date of admission: 04/15/23 07:58 Primary care physician: ADAM Lambert DS: Diagnosis Discharge Diagnosis (1) Morbid obesity: Status: Acute (2) Asthma: Status: Acute (3) Elevated TSH: Status: Acute (4) HTN (hypertension), benign: Status: Acute (5) Left atrial dilation: Status: Acute (6) Hypothyroidism: Status: Acute (7) Steatosis, liver: Status: Acute (8) Liver fibrosis: Status: Acute (9) Insulin dependent type 2 diabetes mellitus: Status: Acute (10) Hyperlipidemia: Status: Acute DS: Summary Hospital Course Hospital Course: ADMITTING DIAGNOSIS: morbid obesity, DM, HTN, HLD, hypothyroidism, first degree AV block DISCHARGE DIAGNOSIS: same, s/p laparoscopic sleeve gastrectomy PAST SURGICAL HISTORY: PROCEDURE: upper endoscopy, laparoscopic sleeve gastrectomy DISCHARGE SUMMARY: History of Present Illness: The patient is a 47 year-old woman with a BMI of 77.5 kg/m2 and associated co-morbidities as described above. The patient had extensive work-up, lost 58.6 lbs preoperatively and was electively scheduled for laparoscopic, possible open sleeve gastrectomy and gastropexy. Risks and complications of the surgery were discussed with the patient in advance, particularly the possibility of , pulmonary embolism, anastomotic leak, bleeding, bowel injury, GERD, cardiac, renal or pulmonary complications. The patient understood all the risks and was in agreement with the surgical plan. Hospital Course: The patient underwent an uneventful laparoscopic sleeve gastrectomy with gastropexy on the day of admission. Postoperatively, the patient was transferred to the surgical floor. The patient received IV Acetaminophen and IV dilaudid for pain control. Patient was started on bariatric phase 1 diet POD #0. On postoperative day one, the patient was feeling well without nausea, vomiting, fevers, or tachycardia. The patient had some mild incisional pain and the abdomen was soft. On the morning of postoperative day one, the patient was continued on 1 ounce of water or ice every half hour. During the day, the patient did fairly well, having some incisional pain, but able to ambulate adequately and to tolerate liquids well. Since the patient is doing well, we decided that the patient was ready to be discharged. The patient was given instructions to follow-up with me next week and to call my office for any fever over 101, persistent abdominal pain, nausea, vomiting, GERD, symptoms of DVT such as calf tenderness, or leg swelling, or pulmonary embolism such as chest pain or shortness of breath. The patient was also instructed to drink 40-60 ounces of liquids per day using the 1-ounce cups. The patient had been given prescriptions for Tylenol for pain, Zofran prn for nausea, and pantoprazole and carafate previously. The patient was encouraged to ambulate and use the incentive spirometer. The patient was allowed to shower, but no baths, and encouraged to stay active at home. All of these instructions were given to the patient personally. All questions were answered and the patient understood all instructions, the instructions were also given to the patient in print. Time Attestation Discharge coordination time: Less than 30 minutes Quality: Safe Use of Opioids Does Pt have an Active Cancer Diagnosis on the Problem List?: No Quality: Stroke Does the patient have a stroke diagnosis?: No Physical Exam Vital Signs: Vital Signs: Last Vital Signs Temp 97.4 F 04/15/23 08:23 Pulse 64 04/15/23 08:23 Resp 18 04/15/23 08:23 BP 114/67 04/15/23 08:23 Pulse Ox 97 04/15/23 08:23 O2 Del Method Room Air 04/15/23 08:23 BMI result Body Mass Index 66.1 DS: Data Data Completed and Pending Labs on day of discharge: Laboratory Results - last 24 hr 04/15/23 08:34 POC Glucose 118 H Discharge Plan Discharge Anticipated Discharge Date/Time: 04/16/23 10:57 Patient Disposition: Home, Self-Care Discharge Diagnosis: s/p sleeve gastrectomy Referrals: Patricia Willams, TECHNICIAN [employer] [Primary Care Provider] - 1 Week Discharge Medications: Continued lisinopril 10 mg tablet 10 mg PO DAILY Qty: 1 0RF Rx Instructions: be sure to check BP daily and discuss with Dr Mixon before taking medication Trulicity 1.5 mg/0.5 mL pen injector subcut QWEEK fluticasone propionate 44 mcg/actuation HFA aerosol inhaler 2 puff inhalation BID Rx Instructions: administer with spacer pantoprazole 40 mg tablet,delayed release (DR/EC) 40 mg PO DAILY Qty: 30 2RF sucralfate 100 mg/mL suspension 10 ml PO BID Qty: 400 2RF ondansetron 4 mg tablet,disintegrating 4 mg PO Q12H Qty: 20 0RF levothyroxine 25 mcg capsule 25 mcg PO DAILY Qty: 30 2RF Held atorvastatin 10 mg tablet 10 mg PO DAILY Hold Instructions: Restart per Dr Abarca chlorthalidone 25 mg tablet 25 mg PO DAILY Hold Instructions: Discuss with Dr Abarca Discontinued Balanced B-100 Complex 100 mg tablet extended release 1 tab PO DAILY Qty: 30 6RF thiamine HCl (vitamin B1) 100 mg tablet 100 mg PO DAILY Qty: 30 6RF cholecalciferol (vitamin D3) 50 mcg (2,000 unit) capsule 50 mcg PO DAILY Qty: 60 6RF Vitron-C 65 mg iron- 125 mg tablet,delayed release (DR/EC) 1 tab PO BEDTIME Qty: 30 6RF phentermine 37.5 mg tablet 37.5 mg PO DAILY Qty: 14 0RF Rx Instructions: must administer 30 minutes before or 1-2 hours after breakfast polyethylene glycol 3350 [Miralax] 17 gram powder in packet 17 g PO DAILY Qty: 14 0RF Rx Instructions: Mix each packet with 8oz of water, Crystal light, or Gatorade zero, or Propel and do 7 packets on 04/13/23 and another 7 packets on 04/14/23 No Action (DME) lancets [FreeStyle Lancets] 28 gauge misc See Rx Instructions .Route Qty: 100 3RF Rx Instructions: As directed (DME) FreeStyle Test Strip See Rx Instructions .Route Qty: 100 2RF Rx Instructions: As directed (DME) FreeStyle [place] 2 Sensor Kit See Rx Instructions .Route Rx Instructions: As directed Discharge Orders: Discharge Order (Routine); Ordered 04/16/23 Ordered By: Isaac Bourgeois Activity on Discharge: No heavy lifting Stand Alone Forms: Patient Portal Discharge page Care Plan Goals: weight loss Health Concerns: morbid obesity Plan of Treatment: No tub baths, sex or returning to work until discussed at first post op appointment. No exercise, alcohol, tobacco or illegal drug use. Continue to use incentive spirometer hourly while awake. Walk in home for 5- 10 minutes every 2 hours during the first week. Continue phase 1 diet today and start phase 2 diet tomorrow morning. Follow all instructions in the bariatric handbook and call with any questions. 1. Please call your doctor or come back to the emergency room should any new symptoms arise. 2. You will receive a courtesy call from [facility] 24-48 hours after discharge. 3. Activity: abstain from alcohol, practice limited stair climbing, no bending, no driving, no exercise, no illicit substances, no lifting, no sex, no tub bath, no work. 4. Diet: continue as discussed with bariatric team.. 5. Dressing Change/Wound Care: Do not change or remove surgical dressings unless they are wet or soiled. 6. Call your doctor if: - Your temperature exceeds 101.5 F - You experience excessive pain or swelling - You have an unexpected reaction to medication - You have excessive bleeding - You experience continued vomiting/nausea - Your incision begins to separate - Your incision shows signs of infection such as increased redness, swelling, excessive pain, heat, or drainage (light blood or clear fluid is normal) 7. General instructions: No lifting greater than 5 lbs for 1 week and not more than 20lbs the next 3?weeks. No driving until seen at the office in 5-7 days after surgery. If you do not move your bowels in the next 2 days, please tell?Dr. Abarca. Please walk around your home every hour or two to prevent blood clots from forming in your legs. You do not need to wake from sleeping to walk. Please sleep in a bed or couch to prevent kinking at the hips and knees. Please take your incentive spirometer (your lung card setter) home with you and use it for the next few days to prevent pneumonia. You may shower, no hot tubs, baths or swimming pools.?Please follow the post op diet instructions you are?given by Dr Apurva joseph? and text me daily at 5-6pm for an update.?If you have any issues or concerns or questions please communicate this to him via text.? The Celebrate shakes have all of the bariatric vitamins you need if you consume these shakes. If you are drinking other protein shakes, you will need to purchase the Celebrate multivitamins and calcium that are available in the hospital gift shop on the first floor of the main hospital.??Do not take anything without first discussing with Dr Abarca. Please make sure you are consuming at least 40 ounces of fluids per day starting the?day AFTER your discharge from the hospital. Always drink 1-2 ml per minute using the 5ml?syringe. If you drink faster you may experience?bloating,?gas pain, burping, nausea or heartburn. In that case please slow down your pace and use the syringe to?understand better the?proper?pace and volume of drinking. Do not hesitate to contact the office with any questions at . The patient's medical history has been reviewed and they are considered low risk for post op DVT and therefore DVT prophylaxis is not considered necessary. Travel after surgery was reviewed. The patient has not disclosed any travel plans during the first 30 days after surgery and they have been advised that within the first 30 days after surgery any bus, plane, train or car travel over 2 hours in duration is contraindicated due to the possibility of developing blood clots from immobility. Any travel, needs to include periods of ambulation of 10 minutes in duration every 2 hours. The patient was instructed to discuss any plans for travel during this period with their bariatric surgeon. Assessment: iman post op sleeve gastrectomy Discharge Date/Time: 04/16/23 09:54
[2023-04-15 13:14] LABS: Hematocrit 35.9 % (37.0-47.0)
[2023-04-15 13:29] LABS: Anion Gap 11 (12-20); Blood Urea Nitrogen 11 mg/dL (9-16); Calcium 8.7 mg/dL (8.4-10.2); Carbon Dioxide 25 mmol/L (22-29); Chloride 106 mmol/L (96-108); Estimated Glomerular Filt Rate > 60; Glucose Random 181 mg/dL (60-115); Potassium 4.3 mmol/L (3.3-5.1); Sodium 138 mmol/L (135-145)
[2023-04-15] MEDS: Acetaminophen 1,000 MG/100 ML PIGGYBACK 16.7 MG IV ×2 (14:46→19:45)
[2023-04-15] MEDS: Lactated Ringers 1,000 ML 100 ML IVCONT ×2 (14:47→23:53)
[2023-04-15] MEDS: Famotidine/PF 20 MG/2 ML VIAL IVPUSH ×2 (14:47→19:45)
[2023-04-15] MEDS: ceFAZolin Sodium/Dextrose,Iso 2 GM/50 ML PIGGYBACK IV (15:44)
[2023-04-15] MEDS: 0.9 % Sodium Chloride Flush 3 ML SYRINGE IVFLUSH (19:46)
[2023-04-15] MEDS: ondansetron HCL 4 MG/2 ML VIAL IVPUSH (22:06)
[2023-04-16] MEDS: Acetaminophen 1,000 MG/100 ML PIGGYBACK 16.7 MG IV ×2 (01:21→07:43)
[2023-04-16 03:15] VITALS: BP 140/63; PULSE 50; RESP 16; TEMP 36; O2SAT 96
[2023-04-16] MEDS: Levothyroxine Sodium 25 MCG TABLET PO (05:27)
[2023-04-16 05:56] LABS: MANUAL DIFF FLAG NO
[2023-04-16 06:15] LABS: Basophils Percent Auto 0.1 % (0-2); Hematocrit 34.7 % (37.0-47.0); Hemoglobin 10.7 g/dl (12.0-16.0); Imm Gran Abs Auto 0.06 X10*3/uL (0.00-0.03); Imm Gran Pct Auto 0.7 % (0.0-0.4); Lymphocytes Absolute Auto 1.1 X10*3/uL (1.2-4.9); Lymphocytes Percent Auto 12.7 % (20-40); Mean Corpuscular HGB Conc 30.8 g/dl (31.0-35.0); Mean Corpuscular Hemoglobin 26.2 pg (27.0-33.0); Mean Corpuscular Volume 84.8 fL (80.0-98.0); Mean Platelet Volume 11.5 fL (9.4-12.3); Monocytes Absolute Auto 0.2 X10*3/uL (0.1-1.2); Monocytes Percent Auto 2.8 % (2-11); Neutrophils Percent Auto 83.7 % (45-73); Platelet Count 268 X10*3/uL (160-400); Red Blood Count 4.09 X10*6/uL (4.20-5.50); White Blood Count 8.3 X10*3/uL (4.8-10.8)
[2023-04-16 06:36] LABS: Anion Gap 14 (12-20); Blood Urea Nitrogen 10 mg/dL (9-16); Calcium 9.1 mg/dL (8.4-10.2); Carbon Dioxide 25 mmol/L (22-29); Chloride 104 mmol/L (96-108); Creatinine Clr Calc Pharmacy 161.8; Estimated Glomerular Filt Rate > 60; Glucose Random 151 mg/dL (60-115); Potassium 4.2 mmol/L (3.3-5.1); Sodium 139 mmol/L (135-145)
[2023-04-16 07:33] VITALS: BP 141/67; PULSE 51; RESP 18; TEMP 36; O2SAT 96
[2023-04-16] MEDS: Famotidine/PF 20 MG/2 ML VIAL IVPUSH (07:43)
--- NOTE | 2023-04-16 08:50 | MHC.CM.PN ---
CM MET WITH PT AT BEDSIDE. PT IS INDEPENDENT AT BASELINE. EMPLOYED F/T NO COVID VAX - THRIVE ASSESSMENT. PCP [facility] CHIEF OF STAFF DOCTOR. DP: PT HAS BEEN MEDICALLY CLEARED FOR DC HOME, NO SERVICES. PT HAS OWN RIDE HOME.
[2023-04-16] MEDS: lisinopriL 10 MG TABLET PO (09:27)
--- NOTE | 2023-04-16 10:50 | HO.POSTANES ---
Post Anesthesia Evaluation Post Anesthesia Evaluation Date of Service: 04/16/23 Vital Signs: Vital Signs Temp Pulse Resp BP Pulse Ox O2 Del Method 04/16/23 07:33 96.8 F 51 18 141/67 H 96 Room Air 04/16/23 03:15 96.8 F 50 16 140/63 H 96 Room Air 04/15/23 23:24 96.8 F 53 16 138/65 94 Room Air Anesthesia: General Endotracheal-GETA Mental Status: Awake Pain Control: Satisfactory Nausea/Vomiting: None Hydration: Adequate Anesthesia-Related Issues: No Anes. Related Issues
== END 2023-04-16 09:54 | disposition home or self-care (01) | DRG 403 ==
LOC: HO.SSSA 10:01 → HO.S3 13:37
PROVIDERS: Physician Assistant; Admitting Provider Surgery; PCP Registered Nurse; Visit Provider Surgery
PROC: 0DB64Z3 Excision of Stomach, Percutaneous Endoscopic Approach, Vertical (ICD-10-PCS; CPT 43845; principal; 2023-04-15 10:10)
DX: E66.01 Morbid (severe) obesity due to excess calories (principal); K74.00 Hepatic fibrosis, unspecified; E03.9 Hypothyroidism, unspecified; E11.9 Type 2 diabetes mellitus without complications; E78.5 Hyperlipidemia, unspecified; I10 Essential (primary) hypertension; J45.909 Unspecified asthma, uncomplicated; K76.0 Fatty (change of) liver, not elsewhere classified; Z68.44 Body mass index [BMI] 60.0-69.9, adult; Z79.890 Hormone replacement therapy; Z79.899 Other long term (current) drug therapy
CPT/HCPCS: 36415; 80048; 80053; 80061; 82947; 83036; 83525; 84439; 84443; 85014; 85018; 85025; 85610; 85730; 86140; 86850; 86900; 86901; 88305; 88307; 88342; A4649; C9088; C9145; J0131; J0690; J1100; J1170; J2250; J2405; J2550; J2795; J3010

== ENCOUNTER → 2023-04-15 07:58 | Outpatient (BNV) | payer MEDICAID, SELFPAY | PROVIDERS: Admitting Provider Surgery; PCP Registered Nurse; Visit Provider Surgery | DX: E66.01 Morbid (severe) obesity due to excess calories (principal); Z68.44 Body mass index [BMI] 60.0-69.9, adult | CPT/HCPCS: 43659; 43775; 99238 ==

== ENCOUNTER 2023-04-22 10:31 | Outpatient (AMB) | payer MEDICAID, SELFPAY ==
--- NOTE | 2023-04-22 11:08 | A.OFFVIS_ITS ---
Intake VS Expanded 04/22/23 11:19 BP 130/57 L Blood Pressure Location Rt brachial Blood Pressure Position Sitting Pulse 59 Pulse Source Pulse Oximeter Temp 97.1 F Temperature Source Temporal Artery Scan Pulse Oximetry 96 Oxygen Delivery Method Room Air Height 5 ft 1 in Weight 340 lb 6.4 oz BMI 64.3 Body Fat % 55.4 Body Fat Mass 188.8 Fat Free Mass 151.6 Visceral Fat Rating 25.0 Body Water % 31.9 Body Water Mass 108.4 Muscle Mass/Score 144.0 Basal Metabolic Rate/Score 2,251 Intake Visit Reasons: (OV) 7 Days PO LSG 04/15/23 Allergies bee pollen [bee stings] Allergy (Severe, Verified 04/09/23 10:10) Anaphylaxis HPI HPI Comments History of Present Illness Details Pleasant 48-year-old female, postop day 7., status post sleeve gastrectomy on 04/15/[address] Vergara. She reports overall she is doing very well, excited that she is below 350 lb. Continue celebrate 4 in 1 2 scoops each shake x2 in 8 oz of fair life milk however she reports the Fair life milk upsets her stomach and she is going to discuss this with Dr. Abarca. She continues 1 ready to drink Premier protein shake as well and approximately 32 oz of water. She has moved her bowels and has no complaints of pain. [facility] Medical History (Updated 04/17/23 @ 00:02 by Background Dairma) Elevated TSH Hepatomegaly Hyperlipidemia Insulin dependent type 2 diabetes mellitus Hypothyroidism Low back pain Sciatica of left side First degree AV block Surgical History (Updated 04/22/23 @ 11:16 by Cathy Osman CMA) S/P gastric sleeve procedure Hx of tubal ligation Family History Mother Diabetes Dementia Anemia Father Diabetes Heart problem High cholesterol Arthritis Sister Heart problem Diabetes High cholesterol Hypertension Sickle cell anemia Sister Breast cancer Asthma Sister Heart problem Diabetes Son Asthma Son No problems noted. Son Autism Daughter Anxiety Social History Household Members: Family Housing: House Are you a primary care technician to a significant other at home: No Do you presently have visiting nurse or other home services: No Alcohol intake: never Patient Tobacco Use Status: Former Tobacco user Quit Date: 2010 Tobacco use type: Cigarette service: No Physical Exam Vital Signs: Last Vital Signs Temp 97.1 F 04/22/23 11:19 Pulse 59 04/22/23 11:19 BP 130/57 L 04/22/23 11:19 Pulse Ox 96 04/22/23 11:19 Oxygen Delivery Method Room Air 04/22/23 11:19 BMI result Body Mass Index 64.3 GI Other: Mild ecchymosis about the midline incision otherwise all other incisions are clean, dry, intact. Steri-Strips are intact. Of note, the midline Steri-Strips needed to replaced several times although now no evidence of drainage. Assessment & Plan Assessment & Plan (1) S/P gastric sleeve procedure: Code(s): Z90.3 - Acquired absence of stomach [part of] Plan: POD 7 s/p LSG on 04/15/[address] Abarca Weight loss prior to surgery was 48.9 pounds or 12.2% TBWL. Original weight on 05/19/22 was 398.2 pounds and op weight was 349.3 pounds. Be sure to text Dr Abarca exactly 1 week after surgery your weight from your home scale so he can adjust your meal plan. Continue meal plan until f/u w Kate in 2 weeks May shower, no submersion in bath for another week Continue abdominal binder with activity and exercise for the next 2 weeks. Exercise prior to surgery was Treadmill/walking and home exercise videos, may resume No abdominal exercises for 6 weeks post operatively Will be emailed link to post op video for review Reminded of the pace of drinking, 2 mL per minute, 1 oz/15 min. Coding Level of Care Code Global (13157) Diagnoses S/P gastric sleeve procedure Z90.3
[2023-04-22 11:19] VITALS: BP 130/57; PULSE 59; TEMP 36.2; O2SAT 96; BMI 64.3
== END 2023-04-22 12:16 | disposition home or self-care (01) ==
PROVIDERS: PCP Registered Nurse; Visit Provider Physician Assistant Surgical
DX: E66.01 Morbid (severe) obesity due to excess calories (principal); Z68.44 Body mass index [BMI] 60.0-69.9, adult; Z90.3 Acquired absence of stomach [part of]; Z98.84 Bariatric surgery status
CPT/HCPCS: 99024

== ENCOUNTER → 2023-04-22 10:31 | Outpatient (BNVA) | payer MEDICAID, SELFPAY | PROVIDERS: PCP Registered Nurse; Visit Provider Physician Assistant Surgical ==

== ENCOUNTER 2023-05-09 09:00 | Outpatient (AMB) | payer MEDICAID, SELFPAY ==
--- NOTE | 2023-05-09 09:11 | A.OFFVIS_ITS ---
Intake VS Expanded 05/09/23 09:13 BP 151/84 H Height 5 ft 1 in Weight 325 lb 9 oz BMI 61.5 Intake Visit Reasons: VIDEO PO LSG 04/15/23 Allergies bee pollen [bee stings] Allergy (Severe, Verified 04/09/23 10:10) Anaphylaxis Medication List - Last Reconciled 05/09/23 by Kate Evans PA-C atorvastatin 10 mg PO DAILY blood sugar diagnostic (FreeStyle Test strips) As directed flash glucose sensor (FreeStyle [place] 2 Sensor kit) As directed fluticasone propionate 44 mcg/actuation 2 puffs inhalation BID lancets (FreeStyle Lancets) As directed levothyroxine 25 mcg PO DAILY ondansetron 4 mg PO Q12H pantoprazole 40 mg PO DAILY sucralfate 10 mL PO BID HPI HPI Comments History of Present Illness Details 48 yo woman had LSG with Dr Mixon on 5 weeks post op. Has ocassional nausea that resolves on its own no emesis, no abd pain or reflux. Dr Mixon had her stop her BP meds, Trulicity and atorvastatin. 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 Wants to stop the bars 8am - 2 scoops 4:1 with 8 oz UAM - over 2 hours 12 pm- same shake 3pm - Premier RTD shake - over 1.5 hours 6pm- supposed to bar but feels to full t o have it. Exercise - takes outside walks daily - 1.5 miles, 45 - 60 minutes. - [place] 200 - 300 calories each day. [facility] Medical History (Updated 04/17/23 @ 00:02 by Background Dairma) Elevated TSH Hepatomegaly Hyperlipidemia Insulin dependent type 2 diabetes mellitus Hypothyroidism Low back pain Sciatica of left side First degree AV block Surgical History (Updated 04/22/23 @ 11:16 by Cathy Osman CMA) S/P gastric sleeve procedure Hx of tubal ligation Family History Mother Diabetes Dementia Anemia Father Diabetes Heart problem High cholesterol Arthritis Sister Heart problem Diabetes High cholesterol Hypertension Sickle cell anemia Sister Breast cancer Asthma Sister Heart problem Diabetes Son Asthma Son No problems noted. Son Autism Daughter Anxiety Social History Household Members: Family Housing: House Are you a primary transitional care liaison to a significant other at home: No Do you presently have visiting nurse or other home services: No Alcohol intake: never Patient Tobacco Use Status: Former Tobacco user Quit Date: 2010 Tobacco use type: Cigarette service: No Physical Exam GI Inspection: Yes incision (clean, dry and intact. ) Assessment & Plan Assessment & Plan (1) S/P gastric sleeve procedure: Code(s): Z90.3 - Acquired absence of stomach [part of] Plan: Meal plan - must have 3 shakes and bar each day, Continue 2 $;1 shakes with 8 oz UAM - over 2 hours 8am, 11am, 3pm-6pm - Premier RTD, 8pm - bar Exercise - 300 calories 7 d/week. 1.5 miles - 30 minutes, 2 miles -40 minutes Restart atorvastatin. 4 weeks appt with Destiny kapoor appt per pt request. (2) Hypothyroidism: Code(s): E03.9 - Hypothyroidism, unspecified Plan: contienu levothyroxine (3) Hyperlipidemia: Code(s): E78.5 - Hyperlipidemia, unspecified Plan: restart atorvastatin (4) Morbid obesity: Code(s): E66.01 - Morbid (severe) obesity due to excess calories Plan see above Telehealth Telehealth Location of provider rendering services: practice address Location of patient: address on file Patient Identification confirmed using: Name, : Yes Telehealth method: video Patient verbally consented to treatment: Yes Patient verbally consented to billing insurance company: Yes Patient informed of any privacy concerns related to visit: Yes Coding Level of Care Code Global (13363) Diagnoses S/P gastric sleeve procedure Z90.3 Hypothyroidism E03.9 Hyperlipidemia E78.5 Morbid obesity E66.01
[2023-05-09 09:13] VITALS: BP 151/84; BMI 61.5
== END 2023-05-09 09:52 | disposition home or self-care (01) ==
LOC: HO.HBS 09:49
PROVIDERS: PCP Registered Nurse; Visit Provider Physician Assistant
DX: Z90.3 Acquired absence of stomach [part of] (principal); E03.9 Hypothyroidism, unspecified; E78.5 Hyperlipidemia, unspecified; E66.01 Morbid (severe) obesity due to excess calories
CPT/HCPCS: 99024

== ENCOUNTER → 2023-05-09 09:00 | Outpatient (BNVA) | payer MEDICAID, SELFPAY | PROVIDERS: PCP Registered Nurse; Visit Provider Physician Assistant | DX: E66.01 Morbid (severe) obesity due to excess calories (principal); E03.9 Hypothyroidism, unspecified; E78.5 Hyperlipidemia, unspecified; Z90.3 Acquired absence of stomach [part of]; Z68.44 Body mass index [BMI] 60.0-69.9, adult | CPT/HCPCS: 99212 ==

== ENCOUNTER 2023-05-20 16:21 | Outpatient (AMB) | payer MEDICAID, SELFPAY ==
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
== END 2023-05-29 13:45 | disposition home or self-care (01) ==
LOC: HO.HBST 16:21
PROVIDERS: PCP Registered Nurse; Visit Provider Counselor Mental Health
DX: F43.20 Adjustment disorder, unspecified (principal); E66.01 Morbid (severe) obesity due to excess calories; Z59.00 Homelessness unspecified
CPT/HCPCS: 90834

== ENCOUNTER → 2023-05-20 16:21 | Outpatient (BNVA) | payer OTHER, MEDICAID, SELFPAY | PROVIDERS: PCP Registered Nurse; Visit Provider Counselor Mental Health ==

== ENCOUNTER 2023-05-26 09:48 | Outpatient (AMB) | payer MEDICAID, SELFPAY ==
--- NOTE | 2023-05-26 09:30 | A.OFFVIS_ITS ---
Intake VS Expanded 05/26/23 09:36 Height 5 ft 1 in Weight 319 lb BMI 60.3 Intake Visit Reasons: VIDEO PO LSG 04/15/23 Allergies bee pollen [bee stings] Allergy (Severe, Verified 04/09/23 10:10) Anaphylaxis Medication List - Last Reconciled 05/26/23 by Kate Evans PA-C atorvastatin 10 mg PO DAILY blood sugar diagnostic (FreeStyle Test strips) As directed flash glucose sensor (FreeStyle [place] 2 Sensor kit) As directed fluticasone propionate 44 mcg/actuation 2 puffs inhalation BID lancets (FreeStyle Lancets) As directed levothyroxine 25 mcg PO DAILY pantoprazole 40 mg PO DAILY sucralfate 10 mL PO BID HPI HPI Comments History of Present Illness Details 48 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 No n/v/abd or reflux. BP 142/82 range. Meal plan 7-am - 4:1 - 2scoops UAM - 2.5 hours 11 am - Premier RTD - 2.5 hours 3pm - 4:1 2 scoops - 2 hours has half bar - full bar too much Exercise - not much - walking up 10 stairs per day. [facility] Medical History (Updated 04/17/23 @ 00:02 by Emma Roe) Homeless single person Elevated TSH Hepatomegaly Hyperlipidemia Insulin dependent type 2 diabetes mellitus Hypothyroidism Low back pain Sciatica of left side First degree AV block Surgical History (Updated 04/22/23 @ 11:16 by Cathy Osman CMA) S/P gastric sleeve procedure Hx of tubal ligation Family History Mother Diabetes Dementia Anemia Father Diabetes Heart problem High cholesterol Arthritis Sister Heart problem Diabetes High cholesterol Hypertension Sickle cell anemia Sister Breast cancer Asthma Sister Heart problem Diabetes Son Asthma Son No problems noted. Son Autism Daughter Anxiety Social History Household Members: Family Housing: House Are you a primary customer care manager to a significant other at home: No Do you presently have visiting nurse or other home services: No Alcohol intake: never Patient Tobacco Use Status: Former Tobacco user Quit Date: 2010 Tobacco use type: Cigarette service: No Assessment & Plan Assessment & Plan (1) S/P gastric sleeve procedure: Code(s): Z90.3 - Acquired absence of stomach [part of] Plan: Now 6 weeks post op. No changes made to meal plan other than finish 8 oz shakes in no longer than 2 hours. Must restart videos at home for daily exercise -she has no room for equipment at her sisters house. LS videos 2 miles - every day. Will text me how this works for her and if she needs any changes. Weekly weights, next appt in 4 weeks. Telehealth Telehealth Location of provider rendering services: practice address Location of patient: address on file Patient Identification confirmed using: Name, : Yes Telehealth method: video Patient verbally consented to treatment: Yes Patient verbally consented to billing insurance company: Yes Patient informed of any privacy concerns related to visit: Yes Coding Level of Care Code Global (21713) Diagnoses S/P gastric sleeve procedure Z90.3
[2023-05-26 09:36] VITALS: BMI 60.3
== END 2023-05-26 09:50 | disposition home or self-care (01) ==
LOC: HO.HBS 09:48
PROVIDERS: PCP Registered Nurse; Visit Provider Physician Assistant
DX: Z90.3 Acquired absence of stomach [part of] (principal)
CPT/HCPCS: 99024

== ENCOUNTER → 2023-05-26 09:48 | Outpatient (BNVA) | payer MEDICAID, OTHER, SELFPAY | PROVIDERS: PCP Registered Nurse; Visit Provider Physician Assistant | DX: Z90.3 Acquired absence of stomach [part of] (principal) | CPT/HCPCS: 99212 ==

== ENCOUNTER 2023-06-10 13:40 | Outpatient (AMB) | payer MEDICAID, SELFPAY ==
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
== END 2023-06-10 17:08 | disposition home or self-care (01) ==
LOC: HO.HBST 13:40
PROVIDERS: PCP Registered Nurse; Visit Provider Counselor Mental Health
DX: F43.20 Adjustment disorder, unspecified (principal); E66.01 Morbid (severe) obesity due to excess calories; Z59.00 Homelessness unspecified
CPT/HCPCS: 90832

== ENCOUNTER → 2023-06-10 13:40 | Outpatient (BNVA) | payer MEDICAID, SELFPAY | PROVIDERS: PCP Registered Nurse; Visit Provider Counselor Mental Health ==

== ENCOUNTER 2023-06-29 16:18 | Emergency (ER) | payer MEDICAID, SELFPAY ==
--- NOTE | ~2023-06-29 | XR_ITS ---
EXAMINATION: XR LUMBOSACRAL SPINE CLINICAL INFORMATION: Pain after injury wall lifting furniture. COMPARISON: Lumbar spine x-rays September 11, 2014 TECHNIQUE: Three views of the lumbosacral spine. FINDINGS: 5 nonrib-bearing lumbar vertebral bodies are visualized. There is mild levoscoliosis of the lumbar spine centered at L3, possibly positional. Alignment is otherwise unremarkable. Lumbar vertebral body heights are maintained. There is mild narrowing of the L4/5 disc space height. There are degenerative changes of the posterior elements of the lower lumbar spine. Surgical clips of the left upper abdomen. XR/XR lumbar spine 2-3V IMPRESSION: Mild degenerative changes of the lower lumbar spine. No compression deformity.
[2023-06-29 16:19] VITALS: BP 121/56; PULSE 58; RESP 16; TEMP 37; O2SAT 100; BMI 61.7
--- NOTE | 2023-06-29 16:20 | ED.BACK ---
HPI - Back Pain/Injury General Chief Complaint: Back Pain/Injury Stated Complaint: Back popped yesterday while moving furniture Time Seen by Provider: 06/29/23 16:41 Source: patient Mode of arrival: ambulatory Limitations: no limitations History of Present Illness HPI Narrative: Patient is a 48-year-old female who presents to the emergency department for evaluation of back pain. States that she was lifting and moving a TV last night when she felt a sudden popping sensation in her lower back and has had persistent pain since then. Is a tingling and throbbing sensation to the left leg associated with this. Denies bladder bowel dysfunction. Reports a history of chronic back issues, though she has not currently medicated with anything. Denies fevers, chills, burning with micturition, urinary frequency/urgency/hesitancy, bladder or bowel dysfunction, numbness or tingling of the perineum. Denies any recent surgical procedures, any known immune compromising conditions, personal history of cancer, or IV drug usage. MD elicited complaint: back pain Related Data Home Medications Medication Instructions Recorded Confirmed atorvastatin 10 mg tablet 10 mg PO DAILY 10/12/21 05/26/23 fluticasone propionate 44 2 puff inhalation BID 10/12/21 05/26/23 mcg/actuation HFA aerosol inhaler flash glucose sensor ([employer] 06/12/22 04/09/23 Juana 2 Sensor kit) Previous Rx's Medication Instructions Recorded blood sugar diagnostic (KlocworkStyle #100 ea 08/08/21 Test strips) lancets 28 gauge (KlocworkStyle #100 ea 08/08/21 Lancets) pantoprazole 40 mg tablet,delayed 40 mg PO DAILY #30 tabs 04/07/23 release sucralfate 100 mg/mL oral 10 ml PO BID #400 mL 04/07/23 suspension levothyroxine 25 mcg capsule 25 mcg PO DAILY #30 caps 04/11/23 oxycodone 10 mg tablet 10 mg PO Q6H PRN pain #10 tabs 06/29/23 Allergies Allergy/AdvReac Type Severity Reaction Status Date / Time bee pollen [bee stings] Allergy Severe Anaphylaxis Verified 06/29/23 16:23 Review of Systems Review of Systems: Yes all other systems are reviewed and are negative PMFSH Past Medical History Attestation statement: The following information was validated with the patient. Source: old records reviewed Onset Date is defined in the Problem List Problems that require an onset date and time if occurred within 24 hrs of arrival to the ED Aortic Dissection and Rupture; Neurologic impairment; Cardiopulmonary Arrest; Endotracheal Intubation; Insertion or Replacement of Mechanical Circulatory Assist Device Medical History Homeless single person Elevated TSH Hepatomegaly Hyperlipidemia Insulin dependent type 2 diabetes mellitus Hypothyroidism Low back pain Sciatica of left side First degree AV block Surgical History S/P gastric sleeve procedure Hx of tubal ligation Family History Family History Mother Diabetes Dementia Anemia Father Diabetes Heart problem High cholesterol Arthritis Sister Heart problem Diabetes High cholesterol Hypertension Sickle cell anemia Sister Breast cancer Asthma Sister Heart problem Diabetes Son Asthma Son No problems noted. Son Autism Daughter Anxiety Social History Social History Household Members: Family Housing: House Are you a primary progressive care manager to a significant other at home: No Do you presently have visiting nurse or other home services: No Alcohol intake: never Patient Tobacco Use Status: Former Tobacco user Quit Date: 2010 Tobacco use type: Cigarette Advance Directives: No Advance Directives Information Provided: No service: No Physical Exam Vital Signs: Vital Signs: Last Vital Signs Temp 98.6 F 06/29/23 16:19 Pulse 58 06/29/23 16:19 Resp 16 06/29/23 16:19 BP 121/56 L 06/29/23 16:19 Pulse Ox 100 06/29/23 16:19 O2 Del Method Room Air 06/29/23 16:19 BMI result Body Mass Index 61.7 Appearance: Alert.?Oriented to person, place and time. No acute distress.?Normal affect. Eyes: Pupils equal, round and reactive to light.? ENT: Pharynx normal.?? Neck: Normal inspection.? Neck supple.?? CVS: Heart sounds normal. Normal heart rate and rhythm.? Pulses normal; bilateral radial pulses 2+, bilateral posterior tibial/dorsalis pedis pulses 2+.? Respiratory: No respiratory distress.? Lung sounds clear to auscultation bilaterally?? Abdomen: Soft and non-tender. Normoactive bowel sounds. No pulsatile mass.?? Skin: Skin warm and dry.? Normal skin color.? Normal skin turgor.?? Extremities: No lower extremity edema.? No calf ttp? Back: + mild paraspinal muscular tenderness from lumbar region to coccyx. No CVA tenderness. No midline spinal tenderness, step-off's, or deformity. Full ROM intact in bilateral lower extremities. Straight leg test negative on right; Straight leg test positive on left. No rashes, lesions, areas of induration or fluctuance, or signs of infection noted., Neuro: Moves all extremities spontaneously. 5/5 strength in hip extension/flexion, abduction, adduction. Sensation to light touch intact bilaterally. Patellar and Achilles reflex 2+ bilaterally. No ataxia, gait normal and steady.. No focal neuro deficits. Medications Administered Discontinued Medications Generic Name Dose Route Start Last Admin Trade Name Freq PRN Reason Stop Dose Admin Cyclobenzaprine HCl 10 mg 06/29/23 16:41 06/29/23 16:56 Cyclobenzaprine Hcl 10 Mg Tablet PO 06/29/23 16:42 10 mg ONCE ONE Administration Oxycodone HCl 10 mg 06/29/23 17:42 06/29/23 17:47 Oxycodone Hcl Immed Release 5 Mg Tablet PO 06/29/23 17:43 10 mg ONCE ONE Administration Medical Decision Making Medical Decision Making [facility] Narrative: Patient is a 48-year-old female with pertinent past medical history of sciatica involving the left lower extremity presenting to emergency department for evaluation of acute on chronic lower back pain after moving furniture last date. Pain radiates somewhat to the left lower extremity with associated tingling sensation concerning for radicular pain in the setting of was most likely Muscular strain. although cannot completely exclude herniated disc. On neurological exam there are no deficits. XR of the lumbar spine reveals mild degenerative changes no acute fracture subluxation. Not consistent with spinal fracture, spinal infection, epidural abscess, AAA, epidural abscess, or dissection. No high risk past medical history including incontinence, fever, immunosuppression, recent surgery or lumbar puncture, coagulopathy, significant trauma, recent unintentional weight loss, pulsatile mass, history of cancer, history of TB, history of IV drug use that would warrant MRI or CT. Not consistent with ectopic , pyelonephritis, urinary tract infection, renal calculi, pelvic infection, appendicitis, diverticulitis. On exam no concern for cauda equina syndrome. No imaging is currently indicated at this time. Medicated with cyclobenzaprine in the ED without relief, she states she is taken this in the past as well for sciatica which did not help her symptoms. She was then medicated with oxycodone 10 mg orally which did provide her some relief. Instructed patient will provide a short prescription and she will require outpatient follow-up with her primary care provider and strict return precautions were given. [facility] reviewed, no conflicts. patient agreed with plan. Differential Diagnosis Differential Diagnoses: The differential diagnosis associated with the presentation includes ( see narrative above) Admission/Observation Consideration of admission/observation: Escalation of care including admission/observation considered ( see narrative above) Independent Interpretation I performed an independent interpretation of an: Plain X-Ray (I personally interpreted XR imaging and agree with radiologist impression) Radiology Impression Discussion of test interpretation with radiology: I have reviewed the radiologist's reading. Radiologist Impression: XR/XR lumbar spine 2-3V IMPRESSION: Mild degenerative changes of the lower lumbar spine. No compression deformity. Independent Historian Clinical information obtained from an independent historian. History obtained from or confirmed by: Friend (Present who confirms history) External Record Review External record reviewed: Outpatient record and Other ([facility]) Tests considered The following testing was considered but not selected: See narrative above Prescription Management I considered prescription management with: Pain Medication Discharge Plan Discharge Clinical Impression: Lumbar radiculopathy Patient Disposition: Home, Self-Care Instructions: Acute Low Back Pain (ED), Lumbar Radiculopathy (ED) Additional Instructions: You can take Tylenol 500 mg, 2 tablets (1,000mg) every 4-6 hours as needed for pain, but not to exceed 3 doses daily (3,000mg).? I sent a prescription for oxycodone to your pharmacy, this is a short prescription. It is a narcotic medication, it may be addictive, it may make you drowsy. You should not drive, drink alcohol, or work while taking this medication Please contact your primary care provider to arrange for a follow-up visit. You may return back to emergency department any new or worsening symptoms or concerns. Prescriptions: New oxycodone 10 mg tablet 10 mg PO Q6H PRN (Reason: pain) Qty: 10 0RF Rx Instructions: Partial Fill upon patient request. No Action (DME) lancets [FreeStyle Lancets] 28 gauge misc See Rx Instructions .Route Qty: 100 3RF Rx Instructions: As directed (DME) FreeStyle Test Strip See Rx Instructions .Route Qty: 100 2RF Rx Instructions: As directed atorvastatin 10 mg tablet 10 mg PO DAILY Hold Instructions: Restart per Dr Abarca fluticasone propionate 44 mcg/actuation HFA aerosol inhaler 2 puff inhalation BID Rx Instructions: administer with spacer (DME) FreeStyle Juana 2 Sensor Kit See Rx Instructions .Route Rx Instructions: As directed pantoprazole 40 mg tablet,delayed release (DR/EC) 40 mg PO DAILY Qty: 30 2RF sucralfate 100 mg/mL suspension 10 ml PO BID Qty: 400 2RF levothyroxine 25 mcg capsule 25 mcg PO DAILY Qty: 30 2RF Referrals: Patricia Willams, MARKET RESEARCH INTERVIEWER [Primary Care Provider] -
[2023-06-29] MEDS: Cyclobenzaprine HCl 10 MG TABLET PO (16:56)
[2023-06-29] MEDS: oxyCODONE HCl Immed Release 5 MG TABLET 10 MG PO (17:47)
== END 2023-06-29 19:00 | disposition home or self-care (01) ==
PROVIDERS: Emergency Provider Emergency Medicine; PCP Registered Nurse
DX: M54.16 Radiculopathy, lumbar region (principal); M54.50 Low back pain, unspecified
CPT/HCPCS: 72100; 99283; 99284

== ENCOUNTER → 2023-06-30 15:03 | Outpatient (BNVA) | payer OTHER, MEDICAID, SELFPAY | PROVIDERS: PCP Registered Nurse; Visit Provider Counselor Mental Health ==

== ENCOUNTER → 2023-06-30 15:03 | Outpatient (BNVA) | payer MEDICAID, SELFPAY | PROVIDERS: PCP Registered Nurse; Visit Provider Counselor Mental Health ==

== ENCOUNTER 2023-07-11 10:00 | Outpatient (AMB) | payer MEDICAID, SELFPAY ==
--- NOTE | 2023-07-11 10:13 | MHC.OFFVISWM ---
Intake VS Expanded 07/11/23 10:17 Height 5 ft 1 in Weight 321 lb BMI 60.6 Intake Visit Reasons: VIDEO PO LSG 04/15/23 Allergies bee pollen [bee stings] Allergy (Severe, Verified 06/29/23 16:23) Anaphylaxis Medication List - Last Reconciled 07/11/23 by Kate Evans PA-C atorvastatin 10 mg PO DAILY blood sugar diagnostic (FreeStyle Test strips) As directed flash glucose sensor (FreeStyle Juana 2 Sensor kit) As directed fluticasone propionate 44 mcg/actuation 2 puffs inhalation BID lancets (FreeStyle Lancets) As directed levothyroxine 25 mcg PO DAILY pantoprazole 40 mg PO DAILY sucralfate 10 mL PO BID HPI HPI Comments History of Present Illness Details Pt is now 3 months s/p LSG. No n/v no pain or no reflux. 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 Meal plan: will stop 4:1 now and restart Premier(with food stamps) and bariatric vitamins. Wakes at 7:30 am 8:30 shake (was 4:1) 10:30 - shake (was 4:1) 2:30- premeir shake 5pm - bar 8pm -will drinks protein water ED visit diagnosed with L3-4 herniated disc - given flexeril and tramadol. Exercise - walk for 30 45 minutes before has pain. COUNT INCLUDES THE [facility] Medical History Homeless single person Elevated TSH Hepatomegaly Hyperlipidemia Insulin dependent type 2 diabetes mellitus Hypothyroidism Low back pain Sciatica of left side First degree AV block Surgical History S/P gastric sleeve procedure Hx of tubal ligation Family History Mother Diabetes Dementia Anemia Father Diabetes Heart problem High cholesterol Arthritis Sister Heart problem Diabetes High cholesterol Hypertension Sickle cell anemia Sister Breast cancer Asthma Sister Heart problem Diabetes Son Asthma Son No problems noted. Son Autism Daughter Anxiety Social History Household Members: Family Housing: House Are you a primary health care analyst to a significant other at home: No Do you presently have visiting nurse or other home services: No Alcohol intake: never Patient Tobacco Use Status: Former Tobacco user Quit Date: 2010 Tobacco use type: Cigarette service: No Assessment & Plan Assessment & Plan (1) Morbid obesity: Code(s): E66.01 - Morbid (severe) obesity due to excess calories Plan: Meal plan changes: 9am - Premeir shake - water UAM 12:30- second shake 3:30 - shake 6pm - bar Has appt on Jul 18 with her PCP regarding herniated disc. Will likely then have PT. Will now restart LS 1 mile videos daily and increase as she can to 2 miles daily. She will text me weekly weights and her exercise rouitn - goal of 3-4 lbs loss per week. Will purchase Bariatric Choice vitamins on line now. Patient is still morbidly obese and is not considered stable at this time. I spent 27 minutes in total speaking with the patient via video conference counseling , reviewing records and charting in patients chart. . (2) S/P gastric sleeve procedure: Code(s): Z90.3 - Acquired absence of stomach [part of] Plan: see above Medications: New clotrimazole 1% 1 appl topical BID 90 grams 3RF Telehealth Telehealth Location of provider rendering services: practice address Location of patient: address on file Patient Identification confirmed using: Name, : Yes Telehealth method: video Patient verbally consented to treatment: Yes Patient verbally consented to billing insurance company: Yes Patient informed of any privacy concerns related to visit: Yes Coding Level of Care Code Tele Est Pt Level 4 (26624) Diagnoses Morbid obesity E66.01 S/P gastric sleeve procedure Z90.3
[2023-07-11 10:17] VITALS: BMI 60.6
== END 2023-07-11 10:35 | disposition home or self-care (01) ==
LOC: HO.HBS 10:20
PROVIDERS: PCP Registered Nurse; Visit Provider Physician Assistant
DX: E66.01 Morbid (severe) obesity due to excess calories (principal); Z68.44 Body mass index [BMI] 60.0-69.9, adult; Z90.3 Acquired absence of stomach [part of]; Z98.84 Bariatric surgery status
CPT/HCPCS: 99024

== ENCOUNTER → 2023-07-11 10:00 | Outpatient (BNVA) | payer MEDICAID, SELFPAY | PROVIDERS: PCP Registered Nurse; Visit Provider Physician Assistant | DX: E66.01 Morbid (severe) obesity due to excess calories (principal); Z90.3 Acquired absence of stomach [part of]; Z68.44 Body mass index [BMI] 60.0-69.9, adult | CPT/HCPCS: 99212 ==

== ENCOUNTER 2023-07-18 11:52 | Outpatient (REF) | payer MEDICAID, SELFPAY ==
[2023-07-18 14:14] LABS: Thyroid Stimulating Hormone 3.26 uIU/mL (0.32-4.0)
== END 2023-07-18 11:53 | disposition home or self-care (01) ==
LOC: HO.HHCL 11:52
PROVIDERS: Visit Provider Registered Nurse
DX: E03.8 Other specified hypothyroidism (principal); E06.3 Autoimmune thyroiditis
CPT/HCPCS: 36415; 84443

== ENCOUNTER → 2023-08-05 13:04 | Outpatient (BNVA) | payer MEDICAID, SELFPAY | PROVIDERS: PCP Registered Nurse; Visit Provider Physician Assistant Surgical ==

== ENCOUNTER 2023-08-07 13:31 | Outpatient (AMB) | payer MEDICAID, SELFPAY ==
--- NOTE | 2023-08-07 13:33 | MHC.OFFVIS ---
Intake Vital Signs 08/07/23 13:41 Height 5 ft 1 in Weight 313 lb 4 oz BMI 59.2 BP 138/80 Blood Pressure Location Lt brachial Position Sitting Respiration 17 Pulse 70 Pulse Source Pulse Oximeter Pulse Oximetry (%) 100 Oxygen Delivery Method Room Air Intake Visit Reasons: Chronic Bilateral Back Pain/ confirm Intake Note: Patient comes in for initial visit was referred by Primary care. Reports pain 9/10. Allergies bee pollen [bee stings] Allergy (Severe, Verified 08/07/23 13:40) Anaphylaxis HPI HPI Comments History of Present Illness Details Karon is very pleasant 48 years old morbidly obese female who presents in my office with complains on pain in the lower back pain in bilateral hips and bilateral knees. She states that the problem started long time ago and the reason for the problem to start was that she is morbidly obese. Recently she had gastric sleeve surgery and she decrease her weight weight from 400 lb to 300 lb, her diabetes started to get better however she is still very much obese and this is placing severe at all on her spine. She reports severe pain while standing sitting walking laying down. Reports that flexing backwards aggravate her pain more than flexing forward. She reports standing pain is more than sitting pain. She reports that she can not sleep normally can not do activities of daily living she can not take care of herself but she can not function normally. She is currently unemployed. Cold applications and weather changes as well as movements aggravate her pain. Nothing alleviates her pain. She reports in terms of tissue damage her pain is pulsing shooting stabbing sharp cutting cramping pulling hot burning tingling sore tiring terrifying punishing piercing tight squeezing sensation. In the past she tried Motrin Tylenol for her pain control she received Toradol and Flexeril in the emergency room for short term. She never had physical therapy, she never had chiropractic manipulations, she never had any injections. She has x-ray dictated in her chart. It is not clear whether the patient had any other advanced images of her lumbar spine. Her past medical history significant for morbid obesity, diabetes, vertigo. Her past surgical history significant for tubal ligation and gastric sleeve. She admits smoking 1 pack per day cigarettes denies drinking alcohol denies caffeinated beverages denies recreational drugs.. [facility] Medical History Homeless single person Elevated TSH Hepatomegaly Hyperlipidemia Insulin dependent type 2 diabetes mellitus Hypothyroidism Low back pain Sciatica of left side First degree AV block Surgical History S/P gastric sleeve procedure Hx of tubal ligation Family History Mother Diabetes Dementia Anemia Father Diabetes Heart problem High cholesterol Arthritis Sister Heart problem Diabetes High cholesterol Hypertension Sickle cell anemia Sister Breast cancer Asthma Sister Heart problem Diabetes Son Asthma Son No problems noted. Son Autism Daughter Anxiety Social History Household Members: Family Housing: House Are you a primary dialysis patient care technician to a significant other at home: No Do you presently have visiting nurse or other home services: No Alcohol intake: never Patient Tobacco Use Status: Former Tobacco user Quit Date: 2010 Tobacco use type: Cigarette service: No Review of Systems Const Denies chills, Reports excessive sweating, Reports fatigue, Denies fever(s) and Reports weight loss Eyes Denies blurry vision, Denies exophthalmos and Denies diplopia ENT Reports Normal hearing present, Denies vertigo and Denies dizziness Card Denies chest pain, Denies chest pain at rest, Denies chest pain with activity, Reports diaphoresis, Denies syncope, Denies rapid heart rate, Denies pedal edema and Denies edema Resp Denies chest congestion, Denies cough, Denies hemoptysis, Denies excessive phlegm production, Denies pain on inspiration and Denies pain with cough GI Denies abdominal pain, Denies belching, Denies melena and Denies bloating Denies urinary incontinence Musc Denies as per HPI, Denies back pain and Denies tingling Neuro Reports Normal hearing present, Denies Abnormal speech present, Denies confusion, Denies vertigo, Denies dizziness, Denies syncope, Denies lack of coordination, Denies Sensory deficit (Neuro) and Denies tingling Psych Denies no additional complaints, Denies confusion, Denies depression, Denies irritability, Denies paranoia, Denies visual hallucinations, Denies hallucinations, Denies tactile hallucinations, Denies homicidal ideation and Denies suicidal ideation Endo Denies deepening of the voice, Reports excessive sweating, Reports fatigue and Denies polyuria Physical Exam Vital Signs: Last Vital Signs Pulse 70 08/07/23 13:41 Resp 17 08/07/23 13:41 BP 138/80 08/07/23 13:41 Pulse Ox 100 08/07/23 13:41 Oxygen Delivery Method Room Air 08/07/23 13:41 BMI result Body Mass Index 59.2 Const General: No confusion Nutritional Appearance: obese morbidly obese Orientation/consciousness: No confusion Eyes General: appearance normal, both eyes and all related structures Pupils: Equal, round and reactive pupils present EOM: EOMs intact bilaterally Neck Neck: Yes full ROM Chest Chest palpation & inspection: normal inspection of the chest Resp Effort & Inspection: normal respiratory effort, able to speak in complete sentences, normal respiratory pattern, no audible wheezes and no cough Cardio Jugular venous distension: no JVD GI Inspection: Yes normal to inspection Back/Spine/Pelvis Other: Deny numbness in bilateral lower extremities denies weakness, denies pelvic organ dysfunction. Denies Valsalva maneuver aggravating her pain. Able to stand on bilateral tiptoes without difficulty able to stand on bilateral heels however reports pain in the heels when flexing toes and heels backwards. SLR is positive on the left. Unable to perform Juan test. This is due to massive thighs and hips as well as enlarged buttocks. Loading test is positive bilaterally. There is tenderness on palpation in paraspinal spinal region of the lower lumbar spine as well as coccygeal area. Neuro General: No confusion Cranial nerves: Yes Equal, round and reactive pupils present and Yes Normal hearing present Speech: No Abnormal speech present Gait exam (Neuro): Normal gait present Motor exam (neuro): 5/5 motor strength present throughout Sensory Exam: No Sensory deficit (Neuro) Extrem General: No pedal edema Psych Speech and movement: Normal speech and movement present Affect: normal affect Attitude: cooperative Thought process: Normal thought process present Thought content: Normal thought content present Insight: Good insight present (Psych) Judgement: Good judgement present (Psych) Results Reviewed Results Reviewed: X-ray lumbar spine column 06/29/2023 Findings: 5 [id number] lumbar vertebral bodies are visualized. There is a mild levoscoliosis of the lumbar spine centered at L3 possibly positional. Alignment is otherwise unremarkable. Lumbar vertebral body heights are maintained. There is mild narrowing of the L4-5 disc space height. There are degenerative changes in the posterior elements of the lower lumbar spine. Assessment & Plan Assessment & Plan (1) Morbid obesity: Code(s): E66.01 - Morbid (severe) obesity due to excess calories (2) Spondylosis of lumbar region without myelopathy or radiculopathy: Code(s): M47.816 - Spondylosis without myelopathy or radiculopathy, lumbar region (3) Chronic pain syndrome: Code(s): G89.4 - Chronic pain syndrome (4) Low back pain: Code(s): M54.50 - Low back pain, unspecified Plan This patient never was a subject of physical therapy. I will send her to the [facility] physical therapy to improve her core strength and possibly decrease level of her pain. I will start her on cyclobenzaprine 5 mg t.i.d.. This will allow her to sleep well at night and possibly alleviate her pain. I will see this patient after she completes physical therapy. She was instructed to perform home exercise program at least 4 times a day at least 15 minutes at a time when she will be doing physical therapy sessions as well as after that. After she will comply with her physical therapy and home exercise program she will schedule next appointment with me. Orders: Orders PT Evaluation and Treatment Today E66.01 - Morbid (severe) obesity due to excess calories, G89.4 - Chronic pain syndrome, M47.816 - Spondylosis without myelopathy or radiculopathy, lumbar region, M54.50 - Low back pain, unspecified Coding Level of Care Code New Pt Level 3 (81503) Diagnoses Morbid obesity E66.01 Spondylosis of lumbar region without myelopathy or radiculopathy M47.816 Chronic pain syndrome G89.4 Low back pain M54.50
[2023-08-07 13:41] VITALS: BP 138/80; PULSE 70; RESP 17; O2SAT 100; BMI 59.2
== END 2023-08-07 14:03 | disposition home or self-care (01) ==
PROVIDERS: PCP Registered Nurse; Referring Provider Registered Nurse; Visit Provider Anesthesiology
DX: E66.01 Morbid (severe) obesity due to excess calories (principal); M47.816 Spondylosis without myelopathy or radiculopathy, lumbar region; G89.4 Chronic pain syndrome; M54.50 Low back pain, unspecified
CPT/HCPCS: 99203

== ENCOUNTER → 2023-08-07 13:31 | Outpatient (BNVA) | payer MEDICAID, SELFPAY | PROVIDERS: PCP Registered Nurse; Referring Provider Registered Nurse; Visit Provider Anesthesiology | DX: M47.816 Spondylosis without myelopathy or radiculopathy, lumbar region (principal); M54.50 Low back pain, unspecified; G89.4 Chronic pain syndrome; E66.01 Morbid (severe) obesity due to excess calories; Z68.43 Body mass index [BMI] 50.0-59.9, adult | CPT/HCPCS: 99202 ==

== ENCOUNTER 2023-08-22 09:51 | Outpatient (REF) | payer MEDICAID, SELFPAY ==
[2023-08-22 11:18] LABS: MANUAL DIFF FLAG NO
[2023-08-22 12:23] LABS: Basophils Percent Auto 0.4 % (0-2); Eosinophils Absolute Auto 0.1 X10*3/uL (0.0-0.4); Eosinophils Percent Auto 1.3 % (0-4); Hematocrit 36.2 % (37.0-47.0); Hemoglobin 10.9 g/dl (12.0-16.0); Imm Gran Abs Auto 0.02 X10*3/uL (0.00-0.03); Imm Gran Pct Auto 0.3 % (0.0-0.4); Lymphocytes Absolute Auto 1.9 X10*3/uL (1.2-4.9); Lymphocytes Percent Auto 25.4 % (20-40); Mean Corpuscular HGB Conc 30.1 g/dl (31.0-35.0); Mean Corpuscular Hemoglobin 25.7 pg (27.0-33.0); Mean Corpuscular Volume 85.4 fL (80.0-98.0); Mean Platelet Volume 11.5 fL (9.4-12.3); Monocytes Absolute Auto 0.4 X10*3/uL (0.1-1.2); Monocytes Percent Auto 5.1 % (2-11); Neutrophils Absolute Auto 5.1 x10*3/uL (2.0-8.3); Neutrophils Percent Auto 67.5 % (45-73); Platelet Count 262 X10*3/uL (160-400); Red Blood Count 4.24 X10*6/uL (4.20-5.50); Red Cell Distribution Width 15.8 % (11.0-16.0); White Blood Count 7.5 X10*3/uL (4.8-10.8)
[2023-08-22 12:42] LABS: Estimated Average Glucose 97 mg/dL
[2023-08-22 13:11] LABS: Alanine Aminotransferase 15 U/L (0-31); Albumin Level 3.8 g/dL (3.5-5.0); Alkaline Phosphatase 90 U/L (39-117); Anion Gap 12 (12-20); Aspartate Amino Transferase 15 U/L (5-31); Bilirubin Total 0.6 mg/dL (0.0-1.0); Blood Urea Nitrogen 10 mg/dL (9-16); C Reactive Protein 2.99 mg/dL (< or = 0.50); Carbon Dioxide 25 mmol/L (22-29); Chloride 106 mmol/L (96-108); Cholesterol 176 mg/dL (<200); Estimated Glomerular Filt Rate > 60; Glucose Random 84 mg/dL (60-115); HDL Cholesterol 36 mg/dL (>40); Iron 39 mcg/dL (30-160); LDL Cholesterol Calculated 115 mg/dL (<100); Percent Iron Saturation 14 % (15-50); Potassium 3.9 mmol/L (3.3-5.1); Sodium 139 mmol/L (135-145); Total Iron Binding Capacity 274 mcg/dL (228-428); Triglycerides 126 mg/dL (<150); Unsaturated Iron Binding 235 ug/dL
[2023-08-22 13:17] LABS: Ferritin 40 ng/mL (10-250); Insulin 7 uU/mL (2-29); TSH reflex Free T4 2.85 uIU/mL (0.32-4.0); Vitamin D 25-OH Total 16.4 ng/mL (>30)
[2023-08-22 13:44] LABS: Folate 5.7 ng/mL (> or = 4.0); Vitamin B12 427 pg/mL (200-900)
[2023-08-26 03:13] LABS: Zinc 82 mcg/dL (60-130)
[2023-08-26 19:58] LABS: Vitamin A 30 mcg/dL (38-98)
[2023-08-27 16:02] LABS: Vitamin B1 9 nmol/L (8-30)
== END 2023-08-22 09:52 | disposition home or self-care (01) ==
LOC: HO.LAB 09:51
PROVIDERS: Absent Provider Surgery; PCP Registered Nurse; Visit Provider Physician Assistant
DX: K91.2 Postsurgical malabsorption, not elsewhere classified (principal); E66.01 Morbid (severe) obesity due to excess calories; Z71.3 Dietary counseling and surveillance; Z90.3 Acquired absence of stomach [part of]; Z98.84 Bariatric surgery status
CPT/HCPCS: 36415; 80053; 80061; 82306; 82607; 82728; 82746; 83036; 83525; 83540; 84425; 84443; 84590; 84630; 85025; 86140; 99212

== ENCOUNTER 2023-08-22 09:51 | Outpatient (AMB) | payer MEDICAID, SELFPAY ==
--- NOTE | 2023-08-22 09:55 | A.OFFVIS_ITS ---
Intake VS Expanded 08/22/23 10:04 BP 127/62 Blood Pressure Location Rt brachial Blood Pressure Position Sitting Pulse 60 Pulse Source Pulse Oximeter Temp 96.8 F Temperature Source Temporal Artery Scan Pulse Oximetry 100 Oxygen Delivery Method Room Air Height 5 ft 1 in Weight 309 lb 3.2 oz BMI 58.4 Body Fat % 52.1 Body Fat Mass 161.0 Fat Free Mass 148.2 Visceral Fat Rating 22.0 Body Water % 34.2 Body Water Mass 105.3 Muscle Mass/Score 140.6 Basal Metabolic Rate/Score 2,156 Intake Visit Reasons: (OV) PO LSG 04/15/23 Allergies bee pollen [bee stings] Allergy (Severe, Verified 08/22/23 10:04) Anaphylaxis Medication List - Last Reconciled 08/22/23 by Kate Evans PA-C blood sugar diagnostic (FreeStyle Test strips) As directed clotrimazole 1% 1 appl topical BID flash glucose sensor (FreeStyle Ju[place] 2 Sensor kit) As directed fluticasone propionate 44 mcg/actuation 2 puffs inhalation BID lancets (FreeStyle Lancets) As directed levothyroxine 25 mcg PO DAILY HPI HPI Comments History of Present Illness Details Pt is now 4 months s/p LSG, [employer] weight was 410.9 lbs, TBWL is 101.7 lbs, 24.8%. No n/v, abd pain or reflux. Pt is now living in a 1 bedroom apt with 6 people. Pt complains of hair falling out in chunks this week. No other new symptoms. Discussed with Dr Mixon who ordered post op labs that will be done today. Patient sent me a picture of her hair loss this week, that covered the palms of both hands. Meal plan: wakes up 5:30am bed at [address] Mixon still. 8 am - 4:1 2 scoops UAM - over 2.5 hours 12 pm - Premier RTD - over 2.5 hours 4 pm - second 4:1 shake - over 2.5 hours 7pm - bar in 6 pieces - but only eats 2 pieces and is too full to finish Exercise - walk outside 4 d/week - 4.5 miles in 2 hours 20 minutes, burned 410 calories. TBP - 2 days per week for 30 minutes. [facility] Medical History Homeless single person Elevated TSH Hepatomegaly Hyperlipidemia Insulin dependent type 2 diabetes mellitus Hypothyroidism Low back pain Sciatica of left side First degree AV block Surgical History S/P gastric sleeve procedure Hx of tubal ligation Family History Mother Diabetes Dementia Anemia Father Diabetes Heart problem High cholesterol Arthritis Sister Heart problem Diabetes High cholesterol Hypertension Sickle cell anemia Sister Breast cancer Asthma Sister Heart problem Diabetes Son Asthma Son No problems noted. Son Autism Daughter Anxiety Social History Household Members: Family Housing: House Are you a primary body care manager to a significant other at home: No Do you presently have visiting nurse or other home services: No Alcohol intake: never Patient Tobacco Use Status: Former Tobacco user Quit Date: 2010 Tobacco use type: Cigarette service: No Physical Exam Vital Signs: Last Vital Signs Temp 96.8 F 08/22/23 10:04 Pulse 60 08/22/23 10:04 BP 127/62 08/22/23 10:04 Pulse Ox 100 08/22/23 10:04 Oxygen Delivery Method Room Air 08/22/23 10:04 BMI result Body Mass Index 58.4 Assessment & Plan Assessment & Plan (1) Morbid obesity: Code(s): E66.01 - Morbid (severe) obesity due to excess calories Plan: Now 3 months post op, has had 4 lbs weight loss only in 3 weeks, has lost muscle mass and no fat mass during this time. Needs 120 grams protein per day. Will change meal plan accordingly. 8 am - 4:1 2 scoops UAM - over 1.5 hours 12 pm - 1 scrambled egg - 7 g 3 pm - second 4:1 - 1.5 hours 7pm - Premier RTD 30 grams Celebrate protein water per day. Exercise - 3 d/week TBP Walks faster - now 35 minutes mile - will decrease to 20 minute mile for >500 calories burned. Will contact her with lab results. She will text me progress with new plans and follow up with me on 09/04. (2) S/P gastric sleeve procedure: Code(s): Z90.3 - Acquired absence of stomach [part of] Plan: significant hair loss, see above Coding Level of Care Code Est Pt Level 4 (98685) Diagnoses Morbid obesity E66.01 S/P gastric sleeve procedure Z90.3
[2023-08-22 10:04] VITALS: BP 127/62; PULSE 60; TEMP 36; O2SAT 100; BMI 58.4
== END 2023-08-22 10:48 | disposition home or self-care (01) ==
PROVIDERS: PCP Registered Nurse; Visit Provider Physician Assistant
DX: E66.01 Morbid (severe) obesity due to excess calories (principal); Z90.3 Acquired absence of stomach [part of]
CPT/HCPCS: 99214

== ENCOUNTER → 2023-09-03 14:46 | Outpatient (BNVA) | payer MEDICAID, SELFPAY | PROVIDERS: PCP Registered Nurse; Visit Provider Physician Assistant Surgical ==

== ENCOUNTER → 2023-09-05 10:39 | Outpatient (BNVA) | payer MEDICAID, SELFPAY | PROVIDERS: PCP Registered Nurse; Visit Provider Physician Assistant ==

== ENCOUNTER 2023-09-12 12:07 | Outpatient (REF) | payer MEDICAID, SELFPAY ==
[2023-09-12 14:43] LABS: Free T4 (Free Thyroxine) 0.88 ng/dL (0.71-1.85); Thyroid Stimulating Hormone 2.29 uIU/mL (0.32-4.0)
== END 2023-09-12 12:08 | disposition home or self-care (01) ==
LOC: HO.HHCL 12:07
PROVIDERS: Visit Provider Registered Nurse
DX: E03.9 Hypothyroidism, unspecified (principal)
CPT/HCPCS: 36415; 84439; 84443

== ENCOUNTER 2023-09-18 10:07 | Outpatient (AMB) | payer MEDICAID, SELFPAY ==
--- NOTE | 2023-09-18 10:03 | MHC.OFFVISWM ---
Intake VS Expanded 09/18/23 10:12 Height 5 ft 1 in Weight 304 lb BMI 57.4 Intake Visit Reasons: (TV) PO LSG 04/15/23 Allergies bee pollen [bee stings] Allergy (Severe, Verified 08/22/23 10:04) Anaphylaxis Medication List - Last Reconciled 09/18/23 by SUZANNE Lawrence apixaban (Eliquis) 5 mg PO BID blood sugar diagnostic (FreeStyle Test strips) As directed cholecalciferol (vitamin D3) 125 mcg PO DAILY clotrimazole 1% 1 appl topical BID docusate sodium (Colace) 100 mg PO DAILY 90 days flash glucose sensor (FreeStyle Juana 2 Sensor kit) As directed fluticasone propionate 44 mcg/actuation 2 puffs inhalation BID iron,carbonyl-vitamin C 65 mg iron- 125 mg (Vitron-C) 1 tab PO DAILY lancets (FreeStyle Lancets) As directed levothyroxine 25 mcg PO DAILY mecobalamin (vitamin B12) 1,000 mcg sublingual DAILY nystatin 1 appl topical BID vitamin A palmitate 10,000 units PO DAILY HPI HPI Comments History of Present Illness Details This?is a?48?yo female who is s/p LSG 04/15/2023. Presents for 5 month post op visit. Weight at last visit on 08/22/2023 was 309.2 pounds with a BMI of 58.4, weight today is 304 pounds, representing a 5.2 pound weight loss with a BMI today of 57.4.? No complaints of nausea, emesis, abdominal pain or reflux, or constipation. BS running 80-90s. Present meal plan includes: Needs 120 grams protein per day 8 am - 4:1 2 scoops UAM - over 1.5 hours 12 pm - 1 scrambled egg - 7 g 3 pm - second 4:1 - 1.5 hours 7pm - Premier RTD 30 grams Celebrate protein water per day. Exercise - 3 d/week TBP Walks faster - now 35 minutes mile - will decrease to 20 minute mile for >500 calories burned. Has been on activity restrictions due to below issue- Had labs done recently, was started on vit A, D, B12, iron. Hair loss- still going on, has not noticed improvement. Was recently hospitalized for atrial flutter, required cardioversion; going to see cardiology. Was started on Eliquis 5mg bid. Pt started clotrimazole and nystatin, helped somewhat but did not completely resolve the skin irritation, has been wearing the binder to try to help and avoid skin irritation, this also helped a little but did not prevent the rashes completely. [facility] Medical History Homeless single person Elevated TSH Hepatomegaly Hyperlipidemia Insulin dependent type 2 diabetes mellitus Hypothyroidism Low back pain Sciatica of left side First degree AV block Surgical History S/P gastric sleeve procedure Hx of tubal ligation Family History Mother Diabetes Dementia Anemia Father Diabetes Heart problem High cholesterol Arthritis Sister Heart problem Diabetes High cholesterol Hypertension Sickle cell anemia Sister Breast cancer Asthma Sister Heart problem Diabetes Son Asthma Son No problems noted. Son Autism Daughter Anxiety Social History Household Members: Family Housing: House Are you a primary geriatric care manager to a significant other at home: No Do you presently have visiting nurse or other home services: No Alcohol intake: never Patient Tobacco Use Status: Former Tobacco user Quit Date: 2010 Tobacco use type: Cigarette service: No Assessment & Plan Assessment & Plan (1) Morbid obesity: Code(s): E66.01 - Morbid (severe) obesity due to excess calories (2) S/P gastric sleeve procedure: Code(s): Z90.3 - Acquired absence of stomach [part of] (3) Diabetes mellitus: Code(s): E11.9 - Type 2 diabetes mellitus without complications (4) Atrial flutter: Code(s): I48.92 - Unspecified atrial flutter Plan Pt can add 2 forks cooked veg, if well tolerated can transition to raw veg since she is more than 3mo out. Can also try GY, CC, or soft moist meats at lunchtime. Rest of meal plan to remain the same. Encouraged pt to make sure she is active even with activity restrictions, focus on movement, aim for 8-10k steps per day while remaining aware of not getting HR too high. Continue vitamin supplements, will recheck 3mo after recent labs. Continue clotrimazole and nystatin for recurrent rashes of excess skin; pt can purchase her own compressive girdle or we can provide another smaller size in office. RTC 4 weeks. Patient is morbidly obese and is not considered stable at this time. I spent a total of 30 minutes reviewing/updating records, examining the patient and counseling the patient on weight management as detailed above. Telehealth Telehealth Location of provider rendering services: practice address Location of patient: address on file Patient Identification confirmed using: Name, : Yes Telehealth method: voice only Patient verbally consented to treatment: Yes Patient verbally consented to billing insurance company: Yes Patient informed of any privacy concerns related to visit: Yes Minutes spent on Phone/Video with Pt.: 15 Coding Level of Care Code Tele Est Pt Level 4 (49793) Diagnoses Morbid obesity E66.01 S/P gastric sleeve procedure Z90.3 Diabetes mellitus E11.9 Atrial flutter I48.92
[2023-09-18 10:12] VITALS: BMI 57.4
== END 2023-09-18 10:36 | disposition home or self-care (01) ==
LOC: HO.HBS 10:07
PROVIDERS: PCP Registered Nurse; Visit Provider Physician Assistant Surgical
DX: E66.01 Morbid (severe) obesity due to excess calories (principal); Z90.3 Acquired absence of stomach [part of]; E11.9 Type 2 diabetes mellitus without complications; I48.92 Unspecified atrial flutter
CPT/HCPCS: 99214

== ENCOUNTER → 2023-09-18 10:07 | Outpatient (BNVA) | payer MEDICAID, SELFPAY | PROVIDERS: PCP Registered Nurse; Visit Provider Physician Assistant Surgical ==

== ENCOUNTER 2023-10-02 14:03 | Outpatient (AMB) | payer MEDICAID, SELFPAY ==
[2023-10-02 14:07] VITALS: BP 124/66; PULSE 59; BMI 56.6
--- NOTE | 2023-10-02 14:07 | A.OFFVIS_ITS ---
Vital Signs 10/02/23 14:07 Height 5 ft 1 in Weight 299 lb 13.259 oz BMI 56.6 BP 124/66 Blood Pressure Location Lt brachial Position Sitting Pulse 59 Intake Visit Reasons: Colonoscopy screening Intake Note: Karon presents in the office as a new patient colonoscopy screening. CC: She states that her sister had cells but thats the only thing she is aware of. She is not having any concerns. Sales Support Rep Required: No Allergies bee pollen [bee stings] Allergy (Severe, Verified 10/02/23 14:07) Anaphylaxis HPI Comments Details: A 48 y/o female referred screening colonoscopy- no issues- Sleeve in April- lost > 100 lbs- Constipation-taking iron supplement-since sleeve- miralax and stool softener- BM ok She says she was dx AFIB- started eliquis 2 weeks ago-discussing possible cardioversion she has abnormal periods- She has no GI complaints Bowels are normal appetite is good No fam hx of Gi cancers No nausea, vomiting, hematemesis, hematochezia fever or chills. No abdominal pain PFSH Medical History Homeless single person Elevated TSH Hepatomegaly Hyperlipidemia Insulin dependent type 2 diabetes mellitus Hypothyroidism Low back pain Sciatica of left side First degree AV block Surgical History S/P gastric sleeve procedure Hx of tubal ligation Family History Mother Diabetes Dementia Anemia Father Diabetes Heart problem High cholesterol Arthritis Sister Heart problem Diabetes High cholesterol Hypertension Sickle cell anemia Sister Breast cancer Asthma Sister Heart problem Diabetes Son Asthma Son No problems noted. Son Autism Daughter Anxiety Social History Household Members: Family Housing: House Are you a primary manager progressive care to a significant other at home: No Do you presently have visiting nurse or other home services: No Alcohol intake: never Patient Tobacco Use Status: Former Tobacco user Quit Date: 2010 Tobacco use type: Cigarette service: No Review of Systems Const All systems reviewed & are unremarkable except as noted in HPI and below Card Denies chest pain and Denies dyspnea Resp Denies dyspnea GI Denies abdominal pain, Denies hematochezia, Denies change in bowel habits, Denies heartburn, Denies nausea and Denies vomiting Reports abnormal menses Physical Exam Vital Signs: Last Vital Signs Pulse 59 10/02/23 14:07 BP 124/66 10/02/23 14:07 BMI result Body Mass Index 56.6 Const General: cooperative, comfortable and no acute distress Orientation/consciousness: patient oriented x3 Limitations: no limitations Eyes Sclerae: sclerae normal Resp Effort & Inspection: normal respiratory effort and able to speak in complete sentences Auscultation: clear to auscultation bilaterally, no rales, no rhonchi and no wheezes Cardio Rate: regular rate Rhythm: regular rhythm Heart sounds: S1 normal heart sound present and S2 normal heart sound present GI Inspection: Yes obesity Palpation (GI): Soft to palpation and nontender Auscultation: normal bowel sounds Skin General skin exam: no rashes or lesions noted Neuro General: patient oriented x3 Psych Mental Status: mental status grossly normal Speech and movement: Normal speech and movement present and Clear speech present Affect: normal affect Attitude: cooperative Thought process: Normal thought process present Thought content: Normal thought content present Insight: Good insight present (Psych) Judgement: Good judgement present (Psych) Assessment & Plan Assessment & Plan (1) S/P gastric sleeve procedure: Code(s): Z90.3 - Acquired absence of stomach [part of] Category: Surgical (2) Left atrial dilation: Code(s): I51.7 - Cardiomegaly Category: Medical (3) Atrial flutter: Code(s): I48.92 - Unspecified atrial flutter Category: Medical (4) Anemia: Code(s): D64.9 - Anemia, unspecified Category: Medical Plan F/U pcp/ cardiology- F/u GI approproiate Patient Instructions: A pleasant 48-year-old female newly diagnosis a fee and, on anticoagulation therapy, s/p gastric sleeve, referred however index screening colonoscopy- We will hold off on colonoscopy at this point, she has no GI concerns given recent anticoagulation ( 2 weeks) -in we typically discontinue for 2 days however given recent event - not appropriate She will complete her cardiac workup, in treatment she will then return for screening colonoscopy; She agrees with plan. There are no major barriers to understanding identified She is encouraged to call with any questions concerns or change in health status Appreciate the opportunity assist in the care this pleasant patient Coding Level of Care Code New Pt Level 4 (98411) Diagnoses S/P gastric sleeve procedure Z90.3 Left atrial dilation I51.7 Atrial flutter I48.92 Anemia D64.9 Time Spent (min) 30
== END 2023-10-02 14:55 | disposition home or self-care (01) ==
PROVIDERS: PCP Registered Nurse; Visit Provider Physician Assistant
DX: Z90.3 Acquired absence of stomach [part of] (principal); I51.7 Cardiomegaly; I48.92 Unspecified atrial flutter; D64.9 Anemia, unspecified
CPT/HCPCS: 99204

== ENCOUNTER → 2023-10-02 14:03 | Outpatient (BNVA) | payer MEDICAID, SELFPAY | PROVIDERS: PCP Registered Nurse; Visit Provider Physician Assistant | DX: D64.9 Anemia, unspecified (principal); I51.7 Cardiomegaly; I48.92 Unspecified atrial flutter; Z90.3 Acquired absence of stomach [part of] | CPT/HCPCS: 99212 ==

== ENCOUNTER 2023-10-08 14:54 | Outpatient (AMB) | payer MEDICAID, SELFPAY ==
--- NOTE | 2023-10-08 15:12 | A.OFFVIS_ITS ---
Intake Visit Reasons: hx of UTI/ incontinence Intake Note: New Patient presents for initial visit for history of uti and incontinence Urology Medications: none Blood Thinner: Apixaban PVR: 0ml's Historic Preservationist Required: No Accompanied by: Self / Same As Patient Allergies bee pollen [bee stings] Allergy (Severe, Verified 10/08/23 22:48) Anaphylaxis Medication List - Last Reconciled 10/08/23 by ALMA DELIA Johnston apixaban (Eliquis) 5 mg PO BID blood sugar diagnostic (FreeStyle Test strips) As directed cholecalciferol (vitamin D3) 125 mcg PO DAILY clotrimazole 1% 1 appl topical BID cyanocobalamin (vitamin B-12) 1,000 mcg sublingual DAILY docusate sodium (Colace) 100 mg PO DAILY 90 days flash glucose sensor (FreeStyle [place] 2 Sensor kit) As directed fluticasone propionate 44 mcg/actuation 2 puffs inhalation BID iron,carbonyl-vitamin C 65 mg iron- 125 mg (Vitron-C) 1 tab PO DAILY lancets (FreeStyle Lancets) As directed levothyroxine 25 mcg PO DAILY mecobalamin (vitamin B12) 1,000 mcg sublingual DAILY nystatin 1 appl topical BID oxybutynin chloride ER 10 mg PO DAILY 30 days vitamin A 1 cap PO DAILY HPI Comments Details: Karon is a pleasant 48-year-old female patient of Dr. Willams. She has a past medical history of hyperlipidemia, type 2 diabetes, hypothyroidism, AFib, low- back pain, and sciatica. She presents to the office today as a new patient for ongoing lower urinary tract symptoms. In discussion with the patient today she reports noting urinary urgency, urinary frequency, and episodes of incontinence if not near a bathroom. She reports symptoms have been present for quite some time. She discusses having underwent gastric sleeve procedure 05/01 and felt this has been extremely helpful for her. She discusses having recently been diagnosed with AFib in his to undergo AFib ablation at [facility] next week with Dr. Lai. She otherwise denies nocturia, hematuria, dysuria, foul smelling urine, changes to urinary stream, flank pain, fever, and or chills. In office urinalysis results reviewed with the patient today. PVR 0 mL. Discussed at length potential causes for mixed urinary incontinence patient is experiencing. Discussed obtaining retroperitoneal ultrasound for further assessment evaluation. Discussed bladder triggers/irritants. Discussed further treatment options with pelvic floor therapy, medication management, and or in office urodynamics for further assessment evaluation. She otherwise offers no other issues or concerns at this time. [facility] Medical History Homeless single person Elevated TSH Hepatomegaly Hyperlipidemia Insulin dependent type 2 diabetes mellitus Hypothyroidism Low back pain Sciatica of left side First degree AV block Surgical History S/P gastric sleeve procedure Hx of tubal ligation Family History Mother Diabetes Dementia Anemia Father Diabetes Heart problem High cholesterol Arthritis Sister Heart problem Diabetes High cholesterol Hypertension Sickle cell anemia Sister Breast cancer Asthma Sister Heart problem Diabetes Son Asthma Son No problems noted. Son Autism Daughter Anxiety Social History Household Members: Family Housing: House Are you a primary hourly caregiver to a significant other at home: No Do you presently have visiting nurse or other home services: No Alcohol intake: never Patient Tobacco Use Status: Former Tobacco user Quit Date: 2010 Tobacco use type: Cigarette service: No Review of Systems Const Reports as per HPI Eyes Reports no additional complaints ENT Reports no additional complaints Card Reports as per HPI Resp Reports no additional complaints GI Reports as per HPI Reports as per HPI Musc Reports as per HPI Neuro Reports no additional complaints Psych Reports no additional complaints Endo Reports as per HPI Jorge Alberto/Lymph Reports no additional complaints Aller/Immun Reports no additional complaints Physical Exam Const General: cooperative, healthy appearing, comfortable, no acute distress, well developed, alert and awake Nutritional Appearance: overweight Orientation/consciousness: patient oriented x3 Limitations: no limitations HEENT Head: Yes normal to inspection, Yes normocephalic and Yes atraumatic Ears: hearing grossly normal bilaterally Eyes General: appearance normal, both eyes and all related structures Neck Neck: Yes normal visual inspection and Yes trachea midline Chest Chest palpation & inspection: normal inspection of the chest Resp Effort & Inspection: normal respiratory effort and able to speak in complete sentences Cardio Rate: regular rate GI Inspection: Yes normal to inspection General: Yes no CVA tenderness Back/Spine/Pelvis Back: no CVA tenderness Skin General skin exam: no rashes or lesions noted Neuro General: patient oriented x3 Extrem General: Yes normal to inspection Psych Appearance: grossly normal and well kempt Mental Status: mental status grossly normal Speech and movement: Normal speech and movement present and Clear speech present Affect: normal affect Attitude: cooperative Thought process: Normal thought process present Thought content: Normal thought content present Insight: Fair insight present (Psych) Judgement: Fair judgement present (Psych) Office Procedures Post Void Residual Post Residual Void Post Void Residual (PVR): 0 02042-Vpxa Void Residual by ultrasound Results AMB Urinalysis, Automated UA Leukoctes 15 Manjeet/uL Last Edit by [employer] on 10/08/23 15:23 UA Nitrite Negative Last Edit by [employer] on 10/08/23 15:23 UA Urobilinogen 0.2 mg/dL Last Edit by [employer] on 10/08/23 15:23 UA Protein 15 mg/dL Last Edit by [employer] on 10/08/23 15:23 UA pH 6.0 Last Edit by [employer] on 10/08/23 15:23 UA Blood 0 Cody/uL Last Edit by [employer] on 10/08/23 15:23 UA Specific [place] 1.025 Last Edit by [employer] on 10/08/23 15:23 UA Ketone Negative Last Edit by [employer] on 10/08/23 15:23 UA Bilirubin 0 mg/dL Last Edit by [employer] on 10/08/23 15:23 UA Glucose 0 mg/dL Last Edit by [employer] on 10/08/23 15:23 Results Reviewed Results Reviewed: Laboratory Last Values Urine pH (Auto) 6.0 10/08/23 15:22 Specific [place] (Auto) 1.025 10/08/23 15:22 Urine Protein (Auto) 15 mg/dL 10/08/23 15:22 Glucose (UA)(Auto) 0 mg/dL 10/08/23 15:22 Urine Ketones (Auto) Negative 10/08/23 15:22 Urine Blood (Auto) 0 Cody/uL 10/08/23 15:22 Urine Nitrite (Auto) Negative 10/08/23 15:22 Urine Bilirubin (Auto) 0 mg/dL 10/08/23 15:22 Urine Urobilinogen (Auto) 0.2 mg/dL 10/08/23 15:22 Leukocyte Esterase (Auto) 15 Manjeet/uL 10/08/23 15:22 Assessment & Plan Assessment & Plan (1) Mixed incontinence urge and stress: Code(s): N39.46 - Mixed incontinence Category: Medical Plan In office urinalysis results reviewed with the patient today; as noted above. PVR 0 mL. Discussed at length potential causes of mixed urinary incontinence. Discussed possible near future in office cystoscopy and or urodynamics for further assessment evaluation. Will obtain retroperitoneal ultrasound for further assessment evaluation. Discussed pelvic floor therapy Start oxybutynin as discussed and prescribed. Discussed bladder triggers/irritants. Follow-up in 6-8 weeks with imaging to be completed prior and PVR at next office visit; or sooner with any issues, concerns, and or questions. Orders: Orders AMB Urinalysis Automated Today Z13.9 - Encounter for screening, unspecified AMB Post Void Residual by ultrasound Today Z13.9 - Encounter for screening, unspecified US retroperitoneal comp Today N39.46 - Mixed incontinence Medications: New oxybutynin chloride ER 10 mg PO DAILY 30 days 30 tabs 2RF N32.81 - Overactive bladder Patient Instructions: The patient had an opportunity to ask questions regarding the treatment plan. All questions were answered. Physical exam, labs, and imaging were discussed and reviewed in detail. As well as risks, benefits, and discussion of treatment choices. No major barriers to understanding were identified. The patient expressed understanding and agreement with the above treatment plan. The patient was made aware they should contact our office by phone for worsening of their current condition, the appearance of new symptoms, or with any questions or concerns. Compliance is encouraged with any medications and follow up testing that is ordered. It is a privilege to be allowed the opportunity to participate in? your urological care.? Again, if you have any questions or con cerns If you have any questions or concerns please do not hesitate to contact me. The office is [phone]. This note is constructed using voice recognition software. While every effort has been made to ensure accuracy physical education department chair errors may have been included. Yours sincerely, ALMA DELIA Johnston Coding Level of Care Code New Pt Level 4 (64423) Diagnoses Mixed incontinence urge and stress N39.46 CPT Codes Post Residual Void - PVR CPT Code: 25431-Lmlz Void Residual by ultrasound ([id number])
== END 2023-10-08 15:51 | disposition home or self-care (01) ==
PROVIDERS: PCP Registered Nurse; Visit Provider Nurse Practitioner Family
DX: N39.46 Mixed incontinence (principal)
CPT/HCPCS: 99204

== ENCOUNTER → 2023-10-08 14:54 | Outpatient (BNVA) | payer MEDICAID, SELFPAY | PROVIDERS: PCP Registered Nurse; Visit Provider Nurse Practitioner Family | DX: N39.46 Mixed incontinence (principal); R35.0 Frequency of micturition; Z87.440 Personal history of urinary (tract) infections | CPT/HCPCS: 51798; 81003; 99212 ==

== ENCOUNTER 2023-10-22 09:39 | Outpatient (AMB) | payer MEDICAID, SELFPAY ==
--- NOTE | 2023-10-22 09:36 | A.OFFVIS_ITS ---
Intake Visit Reasons: (TELEPHONE) PO LSG 04/15/23 Allergies bee pollen [bee stings] Allergy (Severe, Verified 10/08/23 22:48) Anaphylaxis Medication List - Last Reconciled 10/22/23 by SUZANNE Lawrence apixaban (Eliquis) 5 mg PO BID blood sugar diagnostic (FreeStyle Test strips) As directed cholecalciferol (vitamin D3) 125 mcg PO DAILY clotrimazole 1% 1 appl topical BID cyanocobalamin (vitamin B-12) 1,000 mcg sublingual DAILY docusate sodium (Colace) 100 mg PO DAILY 90 days flash glucose sensor (FreeStyle [place] 2 Sensor kit) As directed fluticasone propionate 44 mcg/actuation 2 puffs inhalation BID iron,carbonyl-vitamin C 65 mg iron- 125 mg (Vitron-C) 1 tab PO DAILY lancets (FreeStyle Lancets) As directed levothyroxine 25 mcg PO DAILY mecobalamin (vitamin B12) 1,000 mcg sublingual DAILY nystatin 1 appl topical BID oxybutynin chloride ER 10 mg PO DAILY 30 days vitamin A 1 cap PO DAILY HPI Comments Details: This?is a?48?yo female who is s/p LSG 04/15/2023. Presents for 6 month post op visit. Weight at last visit on 09/18/2023 was 304 pounds with a BMI of 57.4, pt unsure of weight today but was measured recently at 299 about 2 weeks ago.? No complaints of nausea, emesis, abdominal pain or reflux, or constipation. BS well controlled; highest recent reading 98. Present meal plan includes: Needs 120 grams protein per day 8 am - 4:1 2 scoops UAM - over 1.5 hours 12 pm - 1oz soft protein plus 1oz veg 3 pm - second 4:1 - 1.5 hours 7pm - Premier RTD 30 grams Celebrate protein water per day. Exercise - 3 d/week TBP Walks faster - now 35 minutes mile - will decrease to 20 minute mile for >500 calories burned. Was recently hospitalized for atrial flutter, required cardioversion; planned for cardiac ablation at [facility]. Continues on Eliquis 5mg bid. Pt started clotrimazole and nystatin, helped somewhat but did not completely resolve the skin irritation, has been wearing the binder to try to help and avoid skin irritation, this also helped a little but did not prevent the rashes completely. Pt reports issues with excess skin of arms, notices rashes/chafing at armpits due to extra skin rubbing together. Also has issues of excess skin of thighs, notices increased chafing, has had to buy biker shorts to try to prevent chafing/rubbing of excess skin. [facility] Medical History Homeless single person Elevated TSH Hepatomegaly Hyperlipidemia Insulin dependent type 2 diabetes mellitus Hypothyroidism Low back pain Sciatica of left side First degree AV block Surgical History S/P gastric sleeve procedure Hx of tubal ligation Family History Mother Diabetes Dementia Anemia Father Diabetes Heart problem High cholesterol Arthritis Sister Heart problem Diabetes High cholesterol Hypertension Sickle cell anemia Sister Breast cancer Asthma Sister Heart problem Diabetes Son Asthma Son No problems noted. Son Autism Daughter Anxiety Social History Household Members: Family Housing: House Are you a primary medicare sales representative to a significant other at home: No Do you presently have visiting nurse or other home services: No Alcohol intake: never Patient Tobacco Use Status: Former Tobacco user Quit Date: 2010 Tobacco use type: Cigarette service: No Telehealth Telehealth Telehealth Platform: Telephone Location of provider rendering services: practice address Location of patient: address on file Patient Identification confirmed using: Name, : Yes Telehealth method: voice only Patient verbally consented to treatment: Yes Patient verbally consented to billing insurance company: Yes Patient informed of any privacy concerns related to visit: Yes Minutes spent on Phone/Video with Pt.: 15 Assessment & Plan Assessment & Plan (1) Atrial flutter: Code(s): I48.92 - Unspecified atrial flutter Category: Medical (2) Morbid obesity: Code(s): E66.01 - Morbid (severe) obesity due to excess calories Category: Medical (3) S/P gastric sleeve procedure: Code(s): Z90.3 - Acquired absence of stomach [part of] Category: Surgical Plan Pt plans to start increasing exercise as she can tolerate; trying to walk 2 miles, will stops if lightheaded or feels symptoms. Has tried standing YouTube videos. Continue same meal plan, can transition to GY/CC or soft meats for lunchtime meal. Keep same portion sizes, pt is satisfied with current volumes. Continue clotrimazole ointment and nystatin for rashes of excess skin. If pt comes to our office for weight check can ask for smaller size binder to help hold skin in place RTC 6 weeks, can recheck labs at that time. Pt would like in person visit. Patient is morbidly obese and is not considered stable at this time. I spent a total of 30 minutes reviewing/updating records, examining the patient and counseling the patient on weight management as detailed above.
== END 2023-10-22 09:58 | disposition home or self-care (01) ==
LOC: HO.HBS 09:39
PROVIDERS: PCP Registered Nurse; Visit Provider Physician Assistant Surgical
DX: I48.92 Unspecified atrial flutter (principal); E66.01 Morbid (severe) obesity due to excess calories; Z90.3 Acquired absence of stomach [part of]
CPT/HCPCS: 99214

== ENCOUNTER → 2023-10-22 09:39 | Outpatient (BNVA) | payer MEDICAID, SELFPAY | PROVIDERS: PCP Registered Nurse; Visit Provider Physician Assistant Surgical ==

== ENCOUNTER 2023-11-12 14:00 | Outpatient (RCR) | payer MEDICAID, SELFPAY ==
--- NOTE | 2023-09-19 12:58 | MHC.PT.EP ---
[facility] [place] Office [place] Office [place] Office [address] Yolis Christianson [address] [phone] F: [phone] F: [phone] F: [phone] F: [phone] Physical Therapy Plan of Care Date of Evaluation: 09/19/23 Date of Surgery: Diagnosis: low back pain, chronic pain syndrome, spondylosis without meyolopathy or radiculopathy lumbar region (MD Dx) lumbar spine LEFT radiculopathy, (weak core and LEs, recent bariatric surgery) (PT Dx) (RS) Assessment: Patient is a pleasant 48 y.o. female who is referred to PT by [facility] pain management clinic Dr. Ernie Hays MD, with Dx of low back pain, chronic pain syndrome, spondylosis without meyolopathy or radiculopathy lumbar region. She does present with Left lumbar radiculopathy. Patient impairments include poor posture, recent significant weight loss after bariatric surgery, limited lumbar ROM, weakness in core and L hip. Patient current functional limitations are prolonged sitting, standing 10 mins, walking more than 100 ft, bending, stairs. Patient will benefit from skilled PT to address aforementioned impairments and functional limitations to meet established goals. Frequency and Duration: The patient will be seen 2x/week for 4 weeks Short Term Goals: 2 weeks Patient demonstrates consistency and independence with HEP to self manage symptoms. Inventory Taker Goals: 4 weeks Patient presents with increased L glute med strength 4+/5 to improve gait pattern and reduce med/lat sway. Patient presents with increased lumbar extension 20 degrees to be able stand for 20 mins to cook or wait in line at store. Treatment Plan: Modalities to reduce pain, spasms and effusion. Manual therapy to restore motion and function. Therapeutic exercise to improve strength and flexibility. Neuromuscular re-education for posture and balance. Therapeutic activities to return to functional activities of daily living. Electronically signed by: Jaye Olson, PT, DPT Please sign and return to therapist. Thank you for your referral.
--- NOTE | 2023-11-12 14:52 | MHC.PT.DC ---
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 She showed independence and compliance with exercises. She was limited today by her L knee pain. She feels ready for discharge from PT for her low back. Electronically signed by: Jaye Olson, PT, DPT Please sign and return to therapist. Thank you for your referral.
== END 2023-11-12 14:52 | disposition home or self-care (01) ==
LOC: HO.PT 14:00
PROVIDERS: PCP Registered Nurse; Visit Provider Anesthesiology
DX: M54.50 Low back pain, unspecified (principal); G89.4 Chronic pain syndrome; M47.816 Spondylosis without myelopathy or radiculopathy, lumbar region
CPT/HCPCS: 97110; 97162; 97530

== ENCOUNTER 2023-12-17 10:46 | Outpatient (AMB) | payer MEDICAID, SELFPAY ==
--- NOTE | 2023-12-17 10:48 | MHC.OFFVISWM ---
VS Expanded 12/17/23 11:01 BP 124/59 L Blood Pressure Location Rt brachial Blood Pressure Position Sitting Pulse 61 Pulse Source Pulse Oximeter Temp 96.7 F L Temperature Source Temporal Artery Scan Pulse Oximetry 98 Oxygen Delivery Method Room Air Height 5 ft 1 in Weight 283 lb 6.4 oz BMI 53.5 Body Fat % 48.7 Body Fat Mass 138.0 Fat Free Mass 145.2 Visceral Fat Rating 19.0 Body Water % 36.6 Body Water Mass 103.6 Muscle Mass/Score 138.0 Basal Metabolic Rate/Score 2,079 Intake Visit Reasons: (OV) PO LSG 04/15/23 Allergies bee pollen [bee stings] Allergy (Severe, Verified 12/17/23 10:49) Anaphylaxis Medication List - Last Reconciled 12/17/23 by SUZANNE Lawrence apixaban (Eliquis) 5 mg PO BID apixaban (Eliquis) 5 mg PO BID blood sugar diagnostic (FreeStyle Test strips) As directed cholecalciferol (vitamin D3) 125 mcg PO DAILY clotrimazole 1% 1 appl topical BID cyanocobalamin (vitamin B-12) 1,000 mcg sublingual DAILY docusate sodium (Colace) 100 mg PO DAILY 90 days flash glucose sensor (FreeStyle Juana 2 Sensor kit) As directed fluticasone propionate 44 mcg/actuation 2 puffs inhalation BID iron,carbonyl-vitamin C 65 mg iron- 125 mg (Vitron-C) 1 tab PO DAILY lancets (FreeStyle Lancets) As directed levothyroxine 25 mcg PO DAILY mecobalamin (vitamin B12) 1,000 mcg sublingual DAILY nystatin 1 appl topical BID oxybutynin chloride ER 10 mg PO DAILY 30 days vitamin A 1 cap PO DAILY HPI Comments Details: This?is a?48?yo female who is s/p LSG 04/15/2023. Presents for 6 month post op visit. Weight loss of 20.6 lbs since last weight check in our office in September.? No complaints of nausea, emesis, abdominal pain or reflux, or constipation. Present meal plan includes: Needs 120 grams protein per day 8 am - 4:1 2 scoops UAM - over 1.5 hours 12 pm - 1oz soft protein plus 1oz veg (usually scrambled eggs with broccoli) 3 pm - second 4:1 - 1.5 hours 7pm - Premier RTD 30 grams Celebrate protein water per day. Exercise - 3 d/week TBP Walks faster - now 45 min per day, more than a mile. Currently wearing Holter monitor after cardiac ablation on November 06. Continues on Eliquis 5mg bid. Having some lower HR below 60, sometimes with dizziness/lightheadedness. Pt started clotrimazole and nystatin, helped somewhat but did not completely resolve the skin irritation, has been wearing the binder to try to help and avoid skin irritation, this also helped a little but did not prevent the rashes completely. Pt reports issues with excess skin of arms, notices rashes/chafing at armpits due to extra skin rubbing together. Also has issues of excess skin of thighs, notices increased chafing, has had to buy biker shorts to try to prevent chafing/rubbing of excess skin. [facility] Medical History Homeless single person Elevated TSH Hepatomegaly Hyperlipidemia Insulin dependent type 2 diabetes mellitus Hypothyroidism Low back pain Sciatica of left side First degree AV block Surgical History S/P gastric sleeve procedure Hx of tubal ligation Family History Mother Diabetes Dementia Anemia Father Diabetes Heart problem High cholesterol Arthritis Sister Heart problem Diabetes High cholesterol Hypertension Sickle cell anemia Sister Breast cancer Asthma Sister Heart problem Diabetes Son Asthma Son No problems noted. Son Autism Daughter Anxiety Social History Household Members: Family Housing: House Are you a primary resident care provider to a significant other at home: No Do you presently have visiting nurse or other home services: No Alcohol intake: never Patient Tobacco Use Status: Former Tobacco user Tobacco use type: Cigarette service: No Physical Exam Vital Signs: Last Vital Signs Temp 96.7 F L 12/17/23 11:01 Pulse 61 12/17/23 11:01 BP 124/59 L 12/17/23 11:01 Pulse Ox 98 12/17/23 11:01 Oxygen Delivery Method Room Air 12/17/23 11:01 BMI result Body Mass Index 53.5 Assessment & Plan Assessment & Plan (1) Morbid obesity: Code(s): E66.01 - Morbid (severe) obesity due to excess calories Category: Medical (2) S/P gastric sleeve procedure: Code(s): Z90.3 - Acquired absence of stomach [part of] Category: Medical Plan Pt would like to change out one of her 4:1 shakes due to cost. Can switch to Premier, however pt needs to start MVI. New meal plan includes 2 Premier RTD shakes, 1oz soft protein plus 1oz veg, 1 shake of 2 scoops 4:1, and 30 grams Celebrate protein water per day. Will recheck labs at next visit. Continue clotrimazole ointment, pt would like smaller binder- provided. RTC 2 months. I spent a total of 30 minutes reviewing/updating records, examining the patient and counseling the patient on weight management as detailed above.
[2023-12-17 11:01] VITALS: BP 124/59; PULSE 61; TEMP 35.9; O2SAT 98; BMI 53.5
== END 2023-12-17 11:31 | disposition home or self-care (01) ==
PROVIDERS: PCP Registered Nurse; Visit Provider Physician Assistant Surgical
DX: E66.01 Morbid (severe) obesity due to excess calories (principal); Z90.3 Acquired absence of stomach [part of]
CPT/HCPCS: 99214

== ENCOUNTER → 2023-12-17 10:46 | Outpatient (BNVA) | payer MEDICAID, SELFPAY | PROVIDERS: PCP Registered Nurse; Visit Provider Physician Assistant Surgical | DX: E66.01 Morbid (severe) obesity due to excess calories (principal); Z68.43 Body mass index [BMI] 50.0-59.9, adult; Z98.84 Bariatric surgery status | CPT/HCPCS: 99212 ==

== ENCOUNTER 2024-01-12 13:16 | Outpatient (REF) | payer OTHER, SELFPAY ==
[2024-01-12 16:01] LABS: MANUAL DIFF FLAG NO
[2024-01-12 16:10] LABS: Basophils Absolute Auto 0.1 X10*3/uL (0.0-0.2); Basophils Percent Auto 0.7 % (0-2); Eosinophils Absolute Auto 0.1 X10*3/uL (0.0-0.4); Eosinophils Percent Auto 1.5 % (0-4); Hematocrit 36.9 % (37.0-47.0); Hemoglobin 11.6 g/dl (12.0-16.0); Imm Gran Abs Auto 0.02 X10*3/uL (0.00-0.03); Imm Gran Pct Auto 0.3 % (0.0-0.4); Lymphocytes Absolute Auto 1.9 X10*3/uL (1.2-4.9); Lymphocytes Percent Auto 25.2 % (20-40); Mean Corpuscular HGB Conc 31.4 g/dl (31.0-35.0); Mean Corpuscular Hemoglobin 26.4 pg (27.0-33.0); Mean Corpuscular Volume 83.9 fL (80.0-98.0); Mean Platelet Volume 12.3 fL (9.4-12.3); Monocytes Absolute Auto 0.4 X10*3/uL (0.1-1.2); Monocytes Percent Auto 4.9 % (2-11); Neutrophils Absolute Auto 5.1 x10*3/uL (2.0-8.3); Neutrophils Percent Auto 67.4 % (45-73); Platelet Count 258 X10*3/uL (160-400); Red Cell Distribution Width 14.7 % (11.0-16.0); White Blood Count 7.5 X10*3/uL (4.8-10.8)
[2024-01-12 16:43] LABS: Ferritin 54 ng/mL (10-250); Free T4 (Free Thyroxine) 0.84 ng/dL (0.71-1.85); Thyroid Stimulating Hormone 2.37 uIU/mL (0.32-4.0)
[2024-01-12 16:44] LABS: Alanine Aminotransferase 15 U/L (0-31); Albumin Level 3.9 g/dL (3.5-5.0); Alkaline Phosphatase 80 U/L (39-117); Anion Gap 12 (12-20); Aspartate Amino Transferase 23 U/L (5-31); Bilirubin Total 0.4 mg/dL (0.0-1.0); Blood Urea Nitrogen 15 mg/dL (9-16); Calcium 9.3 mg/dL (8.4-10.2); Carbon Dioxide 24 mmol/L (22-29); Chloride 109 mmol/L (96-108); Estimated Glomerular Filt Rate > 60; Glucose Random 85 mg/dL (60-115); Potassium 4.2 mmol/L (3.3-5.1); Sodium 141 mmol/L (135-145); Total Protein 7.7 g/dL (6.5-8.0)
== END 2024-01-12 13:17 | disposition home or self-care (01) ==
LOC: HO.HHCL 13:16
PROVIDERS: Visit Provider Registered Nurse
DX: D64.9 Anemia, unspecified (principal); R00.1 Bradycardia, unspecified
CPT/HCPCS: 36415; 80053; 82728; 84439; 84443; 85025

== ENCOUNTER → 2024-01-30 09:00 | Outpatient (BNV) | payer OTHER, SELFPAY | PROVIDERS: Visit Provider Psychiatry & Neurology Psychiatry | DX: F43.12 Post-traumatic stress disorder, chronic (principal); F39 Unspecified mood [affective] disorder; F41.1 Generalized anxiety disorder | CPT/HCPCS: 90837; 99212; 99213; 99214 ==

== ENCOUNTER 2024-02-17 11:30 | Outpatient (RCR) | payer OTHER, SELFPAY ==
[2024-01-30 11:34] VITALS: BP 108/64; PULSE 60; RESP 18; TEMP 36
[2024-01-30 11:36] VITALS: BMI 48.4
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
--- NOTE | 2024-02-03 10:08 | P.PNPSP_ITS ---
Subjective Subjective Date of Service: 02/03/24 Reason For Visit: depression Interim History: reviewed partial hospital program contact on 01/30/2024. Start Abilify 2 mg in addition to maintaining Zoloft 100 mg. Lab work from 01/12/2024 okay. Reports she continues to feel depressed, with paranoia always checking the shades and the door. Hearing her name being called or negative content. Non command. Reports paranoia is impacting sleep i.e. scared to sleep or when she wakes scared to go back to sleep and getting a total of 1-2 hours per night. No SI. No HI. Mood in sleep impacting ability to care for self and also appetite. Stressors also include caring for her mother who has advanced dementia this past weekend. Also housing situation dependent on SSI application without come pending. In the meantime staying with her father and there are a total of 7 people there in a 1 bedroom space. Plan: Inrease abilify to 5mg daily (can take 2.5 x 2mg tabs), for depression and paranoia and AH (non command) Follow up Dr. Cook end of this week (02/05) Medication Compliance: Yes Side effects from medications: Yes (? headache) Attending Groups: Yes Review of Systems Acute medical concerns: No Review of Systems Review of Systems Yes all other systems are reviewed and are negative Mental Status Exam Mental Status Exam Narrative: pleasant. Engaged. Casually dressed and presented. Fair hygiene. Organized. Is depressed. No SI. No HI. Endorses paranoia and auditory hallucinations, non command in nature. Insight and judgment good Diagnostics Vital Signs (24Hr): BMI result Body Mass Index 48.4 Assessment & Plan Assessment & Plan (1) Major depression with psychotic features: Status: Acute Code(s): F32.3 - Major depressive disorder, single episode, severe with psychotic features Plan Plan: Inrease abilify to 5mg daily (can take 2.5 x 2mg tabs), for depression and paranoia and AH (non command) Follow up Dr. Cook end of this week (02/05) Patient educated on: diagnosis Informed Consent: understands Reason for contiued partial hosp. stay Substantial Risk for: inability to function Certification I certify that partial hospital treatment is medically necessary due to the symptoms and problems resulting from the patient's mental illness and the failure to treat the patient at the partial hospital level of care would likely result in the patient requiring inpatient psychiatric care which could not be prevented at a less intensive level of care. Total time managing care of this patient today _25___ minutes. Discharge Plan Discharge Attending provider: Hortensia Cook Medications: New aripiprazole 2 mg tablet 2 mg PO BEDTIME Qty: 30 0RF No Action clotrimazole 1 % cream 1 appl topical BID Qty: 90 3RF estradiol 0.01 % (0.1 mg/gram) Cream 1 g VAGINAL DAILY Rx Instructions: Apply daily for 2 weeks sertraline 100 mg Tablet 100 mg PO DAILY hydrocortisone 2.5 % cream with perineal applicator 2.5 appl MA BID PRN (Reason: Itching) polyethylene glycol 3350 17 gram/dose powder 17 g PO QAM PRN (Reason: Constipation) albuterol sulfate [Ventolin HFA] 90 mcg/actuation HFA aerosol inhaler 2 puff INHALATION QID PRN (Reason: wheezing) docusate sodium [Colace] 100 mg capsule 100 mg PO DAILY PRN (Reason: Constipation) Eliquis 5 mg tablet 5 mg PO BID Print Language: Spanish Telehealth Telehealth Telehealth Platform: Other (please specify) (Clouli) Location of provider rendering services: practice address ([place]) Location of patient: other ([facility]) Patient Identification confirmed using: Name, : Yes Telehealth method: video Minutes spent on Phone/Video with Pt.: 15
--- NOTE | 2024-02-05 09:36 | HO.PHP ---
[facility] staff member met with Karon due to her being tearful prior to community meeting beginning. [facility] staff member explored with Karon if she was okay. Karon noted that there are a lot of current stressors occurring such as her grandmother being placed into hospice last night, her trying to explain that to her mother who has dementia, her sons surgeries failing and him needing to be transported to [facility], and no one helping around the house or with the children. Karon voiced that she has only received one hour of sleep within the past two days. [facility] staff member asked Karon if she would be okay with partaking in the program today or if she would like to go home. Karon stated she would like to be here. Karon disclosed that her boyfriend will be going to the hospital with her son and then after program, she is going to go to her boyfriends house to sleep. [facility] provided Karon with support and was actively listening. [facility] staff member lastly encouraged her to discuss these stressors in the group setting as well so she can get further support. Karon was in agreement.
--- NOTE | 2024-02-05 16:31 | HO.PHP ---
Client's case has been opened and reviewed in team.
--- NOTE | 2024-02-10 14:48 | HO.PHP ---
[employer] Seam Operator met with Karon to check in due to comments about feeling hopeless , Karon reported that she has the number for crisis if her feeling intensify and reported that she will seek help if needed. She reported that there is a lot going on currently, my head is all over the place
--- NOTE | 2024-02-10 15:47 | HO.PHP ---
At the end of group today, at 2pm, pt informed gag writer she was feeling overwhelmed and felt she may need to call respite or crisis for support outside of programming. Pt requested to speak with the [facility] doctor but could not stay because her PT1 would be arriving soon. Pt assessed for safety by gag writer, denied SI but felt her stressors are too much and felt her symptoms of depression and anxiety are increasing. Pt contracted for safety, agreed she would call crisis tonight if she felt unsafe. Pt identifed coping skills to try tonight and open to discuss extending her stray at [facility], will met with writier tomorrow to discuss. Commercial Food Instructor informed pt that Dr. Cook would be informed. Pt open to speaking with doctor today over the phone. Joey Dougherty informed and called Karon at roughly 3:45pm.
--- NOTE | 2024-02-10 21:43 | HO.PHPPROGNO ---
Subjective Subjective Date of Service: 02/10/24 Reason For Visit: depression Interim History: Reach out to patient who reportedly had a difficult day and week, contending with multiple stressors (family and other life stressors) and is reportedly feeling mentally and emotionally overwhelmed, anxious, overthinking, unable to relax. I cant shit my brain off, been sometimes seeing things or hearing things (nonspecific) and is unable to fall asleep and stay asleep. Experiencing some on and off panic symptoms (when AVH occurs) and only been sleeping 2 hours at night. She has not found Abilify thus far to be helpful, even with dose increase from 2 mg to 5 mg one week ago. There were no improvements or (positive or negative) changes noted, denies side effects. Anxiety kicks in within an hour of waking up and then persists all day. Tension headaches occur depending on the day more likely to occur on more stressful days, and in the afternoon. Reports being overwhelmed this morning with a lot was going on...it was just a lot to process . She reports I'm okay now, but earlier I was thinking maybe I would need to go to respite citing stress as being so overwhelming I felt like I was going to spiral out . She reports transient helpless, hopelessness but denies any current SI thoughts. She says her provider had talked about treating her for ADHD. At last - while her anxiety, sleep and mood are poorly controlled - we should start with these issues given that if she were to take a stimulant it would likely exacerbate all 3 of these issues. Patient is open to addition of Seroquel at night to see if affords her more stability in terms of mood and also helps with sleep and anxiety. We will also start guanfacine for later in the day to target anxiety as well as ADHD. In the short term we will start clonazepam to help with anxiety, to see if Seroquel is helpful and is there is a place to add on a low dose in the AM to help with anxiety during the day (for now we will hold off starting the prn Seroquel and just focus on targeting sleep/insomnia. Medication Compliance: Yes Side effects from medications: No Attending Groups: Yes Review of Systems Acute medical concerns: No Medical Review of Systems: unchanged Mental Status Exam Mental Status Exam Narrative: Alert, oriented, in no acute distress. Calm, cooperative, engaged. No psychomotor agitation or neurovegetative retardation. Eye contact maintained. Mood anxious, affect variable, mood congruent. Speech normal. Thought process linear, coherent without evidence of thought disorder. Thought content related to stressors, with transient AH, VH, paranoia and hypervigilence. No delusional content elicited. Denies any hopelessness or SI. Denies any aggressive ideation or HI. Insight and judgment - fair but adequate. Diagnostics Vital Signs (24Hr): BMI result Body Mass Index 48.4 Assessment & Plan Assessment & Plan (1) Chronic post-traumatic stress disorder (PTSD): Status: Acute Code(s): F43.12 - Post-traumatic stress disorder, chronic (2) Mood disorder: Status: Acute Code(s): F39 - Unspecified mood [affective] disorder (3) JONES (generalized anxiety disorder): Status: Acute Code(s): F41.1 - Generalized anxiety disorder Plan continue ABilify 5 mg qd for now start quetiapine 50-100 mg qhs to target sleep, mood stability (consider incr to 150-200 mg for effect) (if tolerated may consider start quetiapine 12.5 mg prn agitation/AVH) start clonazepam 0.5 mg qd PRN anxiety in AM start guanfacine ER 1 mg qd after lunch Patient educated on: diagnosis and medication risk/benefits Informed Consent: understands Reason for contiued partial hosp. stay Substantial Risk for: inability to function, rapid decompensation and med/psych decompensation Certification I certify that partial hospital treatment is medically necessary due to the symptoms and problems resulting from the patient's mental illness and the failure to treat the patient at the partial hospital level of care would likely result in the patient requiring inpatient psychiatric care which could not be prevented at a less intensive level of care. Total time managing care of this patient today __20__ minutes. Discharge Plan Discharge Attending provider: Hortensia Cook Medications: Continued estradiol 0.01 % (0.1 mg/gram) Cream 1 g VAGINAL DAILY Rx Instructions: Apply daily for 2 weeks hydrocortisone 2.5 % cream with perineal applicator 2.5 appl [place] BID PRN (Reason: Itching) polyethylene glycol 3350 17 gram/dose powder 17 g PO QAM PRN (Reason: Constipation) albuterol sulfate [Ventolin HFA] 90 mcg/actuation HFA aerosol inhaler 2 puff INHALATION QID PRN (Reason: wheezing) sertraline 100 mg Tablet 100 mg PO DAILY Qty: 15 1RF aripiprazole 5 mg tablet 5 mg PO BEDTIME Qty: 15 1RF guanfacine 1 mg tablet extended release 24 hr See Rx Instructions .ROUTE .COMPLEX Qty: 15 1RF Rx Instructions: take one tablet po daily in afternoon quetiapine 150 mg tablet 150 mg PO BEDTIME Qty: 15 1RF Eliquis 5 mg tablet 5 mg PO BID Changed clotrimazole 1 % cream 1 appl topical BID PRN (Reason: Rash) Qty: 90 3RF quetiapine 25 mg tablet 25 mg PO BID Qty: 30 1RF No Action docusate sodium [Colace] 100 mg capsule 100 mg PO DAILY PRN (Reason: Constipation) Qty: 90 1RF cefpodoxime 200 mg tablet 200 mg PO BID Qty: 14 0RF Rx Instructions: must administer with a meal/food azithromycin 250 mg tablet 250 mg PO DAILY 4 Days Qty: 4 0RF Rx Instructions: start on day 2 of therapy Stand Alone Forms: Patient Portal Discharge page Patient Education: Depression (DC) Print Language: Armenian Telehealth Telehealth Telehealth Platform: Telephone
--- NOTE | 2024-02-11 14:05 | PC.NURSE ---
Stephane reports improved sleep last night after taking Seroquel 100 mg total dose. Stated she slept for 4.[address] Cook aware and increased Seroquel dose to 150 mg at bedtime to further improve sleep.. Reviewed aforementioned information with Karon.
--- NOTE | 2024-02-12 13:04 | HO.PHP ---
Karon has been provided with new OP provider appts. Her therapy intak is scheduled for at 10 am, [facility], in person. Her OP med Provder appt is scheduled for , at 9 am in person with Rosario Moore, same location.
--- NOTE | 2024-02-13 12:17 | HO.PHPPROGNO ---
Subjective Subjective Date of Service: 02/13/24 Reason For Visit: depression Interim History: Patient seen for follow-up. Better than I was . Sleeping up to 6 hrs now. Seroquel at 150 mg. Denies any grogginess in the AM. Experienced some AH last night and yesterday. Anxiety has been getting set off by another woman in the program. But otherwise feeling less anxious in groups. Does better with guanfacine after lunch with food. Tried before eating and felt a little dizzy. Abilify at 5 mg, well tolerated. Mood is better... dont feel like I have to struggle through the whole day, feeling exhausted (from stress and anxiety). Tonight packing, going to [place] [employer] to meet partner's young adult children who live there. Agrees to trying ABlify in the AM if continues to have difficult evening with AH and anxiety. Review of Systems Review of Systems Yes all other systems are reviewed and are negative Mental Status Exam Mental Status Exam Narrative: Alert, oriented, in no acute distress. Calm, cooperative, engaged. No psychomotor agitation or neurovegetative retardation. Eye contact maintained. Mood less anxious, affect brighter, variable, mood congruent. Speech normal. Thought process linear, coherent without evidence of thought disorder. Thought content related to stressors, with transient AH, denies VH, less hypervigilence, denies paranoia. No delusional content elicited. Denies any hopelessness or SI. Denies any aggressive ideation or HI. Insight and judgment - fair but adequate. Diagnostics Vital Signs (24Hr): BMI result Body Mass Index 48.4 Assessment & Plan Assessment & Plan (1) Chronic post-traumatic stress disorder (PTSD): Status: Acute Code(s): F43.12 - Post-traumatic stress disorder, chronic (2) Mood disorder: Status: Acute Code(s): F39 - Unspecified mood [affective] disorder (3) JONES (generalized anxiety disorder): Status: Acute Code(s): F41.1 - Generalized anxiety disorder Plan continue ABilify 5 mg daily (may try moving to AM) increase quetiapine to 150-200 mg qhs to target sleep, mood stability start quetiapine 12.5- 25 mg BID prn agitation/AVH) hold clonazepam 0.5 mg qd PRN anxiety in AM try guanfacine ER 1 mg as BID after lunch and evening continue sertraline 100 mg qd Lab slip given fo routine labs continue other regular medications Patient educated on: diagnosis and medication risk/benefits Informed Consent: understands Reason for contiued partial hosp. stay Substantial Risk for: med/psych decompensation Certification I certify that partial hospital treatment is medically necessary due to the symptoms and problems resulting from the patient's mental illness and the failure to treat the patient at the partial hospital level of care would likely result in the patient requiring inpatient psychiatric care which could not be prevented at a less intensive level of care. Total time managing care of this patient today _30___ minutes. Discharge Plan Discharge Attending provider: Hortensia Cook Medications: Continued estradiol 0.01 % (0.1 mg/gram) Cream 1 g VAGINAL DAILY Rx Instructions: Apply daily for 2 weeks hydrocortisone 2.5 % cream with perineal applicator 2.5 appl [place] BID PRN (Reason: Itching) polyethylene glycol 3350 17 gram/dose powder 17 g PO QAM PRN (Reason: Constipation) albuterol sulfate [Ventolin HFA] 90 mcg/actuation HFA aerosol inhaler 2 puff INHALATION QID PRN (Reason: wheezing) sertraline 100 mg Tablet 100 mg PO DAILY Qty: 15 1RF aripiprazole 5 mg tablet 5 mg PO BEDTIME Qty: 15 1RF guanfacine 1 mg tablet extended release 24 hr See Rx Instructions .ROUTE .COMPLEX Qty: 15 1RF Rx Instructions: take one tablet po daily in afternoon quetiapine 150 mg tablet 150 mg PO BEDTIME Qty: 15 1RF Eliquis 5 mg tablet 5 mg PO BID Changed clotrimazole 1 % cream 1 appl topical BID PRN (Reason: Rash) Qty: 90 3RF quetiapine 25 mg tablet 25 mg PO BID Qty: 30 1RF No Action docusate sodium [Colace] 100 mg capsule 100 mg PO DAILY PRN (Reason: Constipation) Qty: 90 1RF cefpodoxime 200 mg tablet 200 mg PO BID Qty: 14 0RF Rx Instructions: must administer with a meal/food azithromycin 250 mg tablet 250 mg PO DAILY 4 Days Qty: 4 0RF Rx Instructions: start on day 2 of therapy Stand Alone Forms: Patient Portal Discharge page Patient Education: Depression (DC) Print Language: Slovak
--- NOTE | 2024-02-17 23:47 | HO.PHPPROGNO ---
Subjective Subjective Date of Service: 02/17/24 Reason For Visit: depression Interim History: Patient seen for follow-up, anticipating discharge at the end of program today.? Reports no acute issues or concerns. Medication compliant, medications well-tolerated. Denies any adverse effects.? Mood is stable.? Denies any hopelessness or SI. Medication Compliance: Yes Side effects from medications: No Attending Groups: Yes Review of Systems Acute medical concerns: No Mental Status Exam Mental Status Exam Narrative: Alert, oriented, in no acute distress. Calm, cooperative, engaged. Mood stable, less anxious affect appropriate, mood congruent. Speech normal. Thought process linear, coherent without evidence of thought disorder. Thought content related to stressors, denies AH, denies VH, denies paranoia. No delusional content elicited. Denies any hopelessness or SI. Denies any aggressive ideation or HI. Insight and judgment - fair but adequate. Diagnostics Vital Signs (24Hr): BMI result Body Mass Index 48.4 Assessment & Plan Assessment & Plan (1) Chronic post-traumatic stress disorder (PTSD): Status: Acute Code(s): F43.12 - Post-traumatic stress disorder, chronic (2) Mood disorder: Status: Acute Code(s): F39 - Unspecified mood [affective] disorder (3) JONES (generalized anxiety disorder): Status: Acute Code(s): F41.1 - Generalized anxiety disorder Plan Discharge from [facility] continue Abilify 5 mg qd for now continue quetiapine 150 mg qhs to target sleep, mood stability continue quetiapine 12.5-25 mg prn agitation/AVH discont clonazepam continue guanfacine ER 1 mg qd in afternoon continue sertraline 100 mg qd continue all other regular medication Refills sent to pharmacy Will defer further medication management to outpatient provider *Safety plan reviewed *Discharge diagnoses, treatment course, discharge plan have been reviewed with patient (including medication regime, medication management, potential side effects) as well as treatment rationale were also revisited *Discharge paperwork signed and given to patient, copy sent for scanning to chart Patient educated on: diagnosis and medication risk/benefits Informed Consent: understands Reason for contiued partial hosp. stay Substantial Risk for: stable for discharge Certification I certify that partial hospital treatment is medically necessary due to the symptoms and problems resulting from the patient's mental illness and the failure to treat the patient at the partial hospital level of care would likely result in the patient requiring inpatient psychiatric care which could not be prevented at a less intensive level of care. Total time managing care of this patient today __30__ minutes. Discharge Plan Discharge Attending provider: Hortensia Cook Medications: Continued estradiol 0.01 % (0.1 mg/gram) Cream 1 g VAGINAL DAILY Rx Instructions: Apply daily for 2 weeks hydrocortisone 2.5 % cream with perineal applicator 2.5 appl [place] BID PRN (Reason: Itching) polyethylene glycol 3350 17 gram/dose powder 17 g PO QAM PRN (Reason: Constipation) albuterol sulfate [Ventolin HFA] 90 mcg/actuation HFA aerosol inhaler 2 puff INHALATION QID PRN (Reason: wheezing) sertraline 100 mg Tablet 100 mg PO DAILY Qty: 15 1RF aripiprazole 5 mg tablet 5 mg PO BEDTIME Qty: 15 1RF guanfacine 1 mg tablet extended release 24 hr See Rx Instructions .ROUTE .COMPLEX Qty: 15 1RF Rx Instructions: take one tablet po daily in afternoon quetiapine 150 mg tablet 150 mg PO BEDTIME Qty: 15 1RF Eliquis 5 mg tablet 5 mg PO BID Changed clotrimazole 1 % cream 1 appl topical BID PRN (Reason: Rash) Qty: 90 3RF quetiapine 25 mg tablet 25 mg PO BID Qty: 30 1RF No Action docusate sodium [Colace] 100 mg capsule 100 mg PO DAILY PRN (Reason: Constipation) Qty: 90 1RF cefpodoxime 200 mg tablet 200 mg PO BID Qty: 14 0RF Rx Instructions: must administer with a meal/food azithromycin 250 mg tablet 250 mg PO DAILY 4 Days Qty: 4 0RF Rx Instructions: start on day 2 of therapy Stand Alone Forms: Patient Portal Discharge page Patient Education: Depression (DC) Print Language: Amharic
== END 2024-02-17 23:59 | disposition home or self-care (01) ==
LOC: HO.PHPA 11:30
PROVIDERS: Visit Provider Psychiatry & Neurology Psychiatry
DX: F43.12 Post-traumatic stress disorder, chronic (principal); F39 Unspecified mood [affective] disorder; F41.1 Generalized anxiety disorder; F32.3 Major depressive disorder, single episode, severe with psychotic features; Z79.899 Other long term (current) drug therapy
CPT/HCPCS: 90791; 90853

== ENCOUNTER → 2024-02-17 13:22 | Outpatient (BNVA) | payer OTHER, SELFPAY | PROVIDERS: Visit Provider Physician Assistant Surgical ==

== ENCOUNTER 2024-02-22 16:22 | Emergency (ER) | payer MEDICAID, SELFPAY ==
--- NOTE | ~2024-02-22 | XR_ITS ---
EXAMINATION: XR CHEST CLINICAL INFORMATION: Cough. COMPARISON: None available. TECHNIQUE: 2 views of the chest were obtained. FINDINGS: Right lower lobe focal alveolar and interstitial infiltrate. Left lung appears clear. No pneumothorax identified. No significant abnormality is noted involving the heart, mediastinum, bony thorax or soft tissues. Surgical clips project over the upper abdomen on lateral view. XR/XR chest 2V IMPRESSION: Right lower lobe pneumonia. Electronically signed by: Hai Cervantes MD 02/22/2024 05:04 PM EDT
[2024-02-22 16:31] VITALS: BP 145/77; PULSE 97; RESP 16; TEMP 39.2; O2SAT 99; BMI 51.8
--- NOTE | 2024-02-22 16:31 | ED_ITS ---
HPI - URI/Sore Throat General Chief Complaint: Upper Respiratory Symptoms Stated Complaint: chills, cough, body ashes, feels unwell Time Seen by Provider: 02/22/24 18:53 Source: patient Mode of arrival: ambulatory Limitations: no limitations History of Present Illness HPI Narrative: Patient is a 48-year-old female with past medical history of hepatomegaly, hyperlipidemia, type 2 diabetes, hypothyroidism, first-degree AV block, obesity s/p gastric sleeve. who presents to the emergency department for evaluation Body aches, chills, nonproductive cough, T-max 102.1 degrees reports 3 days ago she was treated at [facility] for migraine headache. She states she received a call yesterday and was advised that on review of her chest x-ray obtained at her ER visit there was a concerning finding in the right lower lung, advised to follow-up with her primary care doctor for this. Last took ibuprofen at 13:00. Febrile;102.6 for which she will receive acetaminophen Related Data Home Medications ?Medication ?Instructions ?Recorded ?Confirmed apixaban 5 mg tablet (Eliquis) 5 mg PO BID 12/17/23 01/30/24 albuterol sulfate 90 mcg/actuation 2 puff inhalation QID PRN wheezing 01/30/24 01/30/24 aerosol inhaler (Ventolin HFA) docusate sodium 100 mg capsule 100 mg PO DAILY PRN Constipation 01/30/24 01/30/24 (Colace) estradiol 0.01% (0.1 mg/gram) 1 g vaginal DAILY 01/30/24 01/30/24 vaginal cream hydrocortisone 2.5 % topical cream 2.5 appl ME BID PRN Itching 01/30/24 01/30/24 with perineal applicator polyethylene glycol 3350 17 17 g PO QAM PRN Constipation 01/30/24 01/30/24 gram/dose oral powder Previous Rx's ?Medication ?Instructions ?Recorded clotrimazole 1 % topical cream 1 appl topical BID PRN Rash #90 02/13/24 grams aripiprazole 5 mg tablet 5 mg PO BEDTIME #15 tabs 02/17/24 guanfacine 1 mg tablet,extended See Rx Instructions .Route 02/17/24 release 24 hr .COMPLEX #15 tabs quetiapine 150 mg tablet 150 mg PO BEDTIME #15 tabs 02/17/24 quetiapine 25 mg tablet 25 mg PO BID agitation #30 tabs 02/17/24 sertraline 100 mg tablet 100 mg PO DAILY #15 tabs 02/17/24 azithromycin 250 mg tablet 250 mg PO DAILY 4 days #4 tabs 02/22/24 cefpodoxime 200 mg tablet 200 mg PO BID #14 tabs 02/22/24 Allergies Allergy/AdvReac Type Severity Reaction Status Date / Time bee pollen [bee stings] Allergy Severe Anaphylaxis Verified 02/22/24 16:36 Review of Systems 2 Review of Systems: Yes all other systems are reviewed and are negative [facility] Past Medical History Attestation statement: The following information was validated with the patient. Source: old records reviewed Medical History Homeless single person Elevated TSH Hepatomegaly Hyperlipidemia Insulin dependent type 2 diabetes mellitus Hypothyroidism Low back pain Sciatica of left side First degree AV block Surgical History S/P gastric sleeve procedure Hx of tubal ligation Family History Family History Mother Diabetes Dementia Anemia Father Diabetes Heart problem High cholesterol Arthritis Sister Heart problem Diabetes High cholesterol Hypertension Sickle cell anemia Sister Breast cancer Asthma Sister Heart problem Diabetes Son Asthma Son No problems noted. Son Autism Daughter Anxiety Social History Social History Household Members: Family Housing: House Are you a primary long term care phlebotomist to a significant other at home: No Do you presently have visiting nurse or other home services: No Alcohol intake: never Comment: Discharge date set for 02/13/24 Patient Tobacco Use Status: Former Tobacco user Tobacco use type: Cigarette Advance Directives: No Advance Directives Information Provided: No Do you have a plan to hurt others: No Plan service: No Physical Exam 2 Vital Signs: Vital Signs: Last Vital Signs Temp 98.8 F 02/22/24 19:00 Pulse 84 02/22/24 19:00 Resp 20 02/22/24 19:00 BP 130/67 02/22/24 19:00 Pulse Ox 97 02/22/24 19:00 O2 Del Method Room Air 02/22/24 19:00 BMI result Body Mass Index 51.8 Appearance: Alert.?Oriented to person, place and time. No acute distress.?Normal affect. Eyes: Pupils equal, round and reactive to light.? ENT: Pharynx normal.?? Neck: Normal inspection.? Neck supple.?? CVS: Heart sounds normal. Normal heart rate and rhythm.? Pulses normal.?? Respiratory: No respiratory distress.? Lung sounds clear to auscultation bilaterally at the apices, diminished at the bilateral lower bases, faint rales at the right lower lobe Abdomen: Soft and non-tender. Normoactive bowel sounds. Skin: Skin warm and dry.? Normal skin color.? ? Extremities: No lower extremity edema.? No calf ttp? Neuro: Moves all extremities spontaneously. Sensation intact bilaterally. Ambulates with normal steady gait. Medications Administered Discontinued Medications Generic Name Dose Route Start Last Admin Trade Name Freq PRN Reason Stop Dose Admin Acetaminophen 975 mg 02/22/24 16:36 02/22/24 16:39 Acetaminophen 325 Mg Tablet PO 02/22/24 16:37 975 mg ONCE ONE Administration Medical Decision Making Medical Decision Making [facility] Narrative: Patient is a 48-year-old female with past medical history of hepatomegaly, hyperlipidemia, type 2 diabetes, hypothyroidism, first-degree AV block, obesity s/p gastric sleeve presenting for evaluation of fever body aches and a productive cough. Lung sounds diminished at the bilateral bases, faint rales at the right lower lobe. XR was obtained revealing an infiltrate of the right lower lobe concerning for pneumonia. These results were reviewed with patient. She has no hypoxia tachypnea or increased work of breathing. At this time feel that she would be appropriate for discharge home on a course of oral antibiotics was strict return precautions. All questions were answered. Differential Diagnosis Differential Diagnoses: The differential diagnosis associated with the presentation includes (See narrative above) Admission/Observation Consideration of admission/observation: Escalation of care including admission/observation considered (See narrative above) Lab Data [facility] Lab Attestation statement: I reviewed the patient's lab results. CBC is without leukocytosis she does however have a mild left shift, mild normocytic anemia that does not meet transfusion criteria, no thrombocytopenia. No electrolyte derangement. No SHELDON. Viral panel is negative. Strep a testing negative. 02/22/24 16:52 02/22/24 16:52 Labs: Lab Results 02/22/24 02/22/24 Range/Units 16:51 16:52 WBC 7.0 (4.8-10.8) X10*3/uL RBC 4.19 L (4.20-5.50) X10*6/uL Hgb 11.1 L (12.0-16.0) g/dl Hct 34.6 L (37.0-47.0) % MCV 82.6 (80.0-98.0) fL MCH 26.5 L (27.0-33.0) pg MCHC 32.1 (31.0-35.0) g/dl RDW 14.6 (11.0-16.0) % Plt Count 198 (160-400) X10*3/uL MPV 10.8 (9.4-12.3) fL Immature Gran % (Auto) 0.4 (0.0-0.4) % Neut % (Auto) 76.6 H (45-73) % Lymph % (Auto) 12.7 L (20-40) % [place] % (Auto) 8.9 (2-11) % Eos % (Auto) 1.0 (0-4) % Baso % (Auto) 0.4 (0-2) % Lymph # (Auto) 0.9 L (1.2-4.9) X10*3/uL [place] # (Auto) 0.6 (0.1-1.2) X10*3/uL Eos # (Auto) 0.1 (0.0-0.4) X10*3/uL Baso # (Auto) 0.0 (0.0-0.2) X10*3/uL Abs Immat Gran (auto) 0.03 (0.00-0.03) X10*3/uL Absolute Neuts (auto) 5.3 (2.0-8.3) x10*3/uL Absolute Nucleated RBC 0.000 (0.0-0.012) X10*3/uL Nucleated RBC % (auto) 0.0 (0.0-0.2) /100WBC Sodium 138 (135-145) mmol/L Potassium 4.3 (3.3-5.1) mmol/L Chloride 104 (96-108) mmol/L Carbon Dioxide 24 (22-29) mmol/L Anion Gap 14 (12-20) BUN 10 (9-16) mg/dL Creatinine 0.78 (0.5-1.4) mg/dL Estim Creat Clear Calc 115.8 Estimated GFR > 60 Random Glucose 106 (60-115) mg/dL Calcium 8.9 (8.4-10.2) mg/dL Total Bilirubin 1.2 H (0.0-1.0) mg/dL AST 16 (5-31) U/L ALT 11 (0-31) U/L Alkaline Phosphatase 94 (39-117) U/L Total Protein 7.8 (6.5-8.0) g/dL Albumin 3.8 (3.5-5.0) g/dL Lipase 15 (8-78) U/L Influenza Type A (PCR) NEGATIVE (Negative) Influenza Type B (PCR) NEGATIVE (Negative) RSV RNA Qual (PCR) NEGATIVE (Negative) SARS-CoV-2 RNA (RT-PCR) NEGATIVE (Negative) S. pyogenes GrpA KIANA Negative (Negative) Independent Interpretation I performed an independent interpretation of an: Plain X-Ray (RLL infiltrate) Radiology Impression Discussion of test interpretation with radiology: I have reviewed the radiologist's reading. Radiologist Impression: XR/XR chest 2V IMPRESSION: Right lower lobe pneumonia. Discharge Plan Discharge Clinical Impression: Community acquired pneumonia Qualifiers: Laterality: right Lung location: lower lobe of lung Qualified Code(s): J18.9 - Pneumonia, unspecified organism Instructions: Pneumonia (ED) Prescriptions: New cefpodoxime 200 mg tablet 200 mg PO BID Qty: 14 0RF Rx Instructions: must administer with a meal/food azithromycin 250 mg tablet 250 mg PO DAILY 4 Days Qty: 4 0RF Rx Instructions: start on day 2 of therapy No Action estradiol 0.01 % (0.1 mg/gram) Cream 1 g VAGINAL DAILY Rx Instructions: Apply daily for 2 weeks hydrocortisone 2.5 % cream with perineal applicator 2.5 appl ME BID PRN (Reason: Itching) polyethylene glycol 3350 17 gram/dose powder 17 g PO QAM PRN (Reason: Constipation) albuterol sulfate [Ventolin HFA] 90 mcg/actuation HFA aerosol inhaler 2 puff INHALATION QID PRN (Reason: wheezing) docusate sodium [Colace] 100 mg capsule 100 mg PO DAILY PRN (Reason: Constipation) clotrimazole 1 % cream 1 appl topical BID PRN (Reason: Rash) Qty: 90 3RF sertraline 100 mg Tablet 100 mg PO DAILY Qty: 15 1RF aripiprazole 5 mg tablet 5 mg PO BEDTIME Qty: 15 1RF guanfacine 1 mg tablet extended release 24 hr See Rx Instructions .ROUTE .COMPLEX Qty: 15 1RF Rx Instructions: take one tablet po daily in afternoon quetiapine 150 mg tablet 150 mg PO BEDTIME Qty: 15 1RF quetiapine 25 mg tablet 25 mg PO BID Qty: 30 1RF Eliquis 5 mg tablet 5 mg PO BID Print Language: [place]
[2024-02-22] MEDS: Acetaminophen 325 MG TABLET 975 MG PO (16:39)
[2024-02-22 17:08] LABS: MANUAL DIFF FLAG NO
[2024-02-22 17:09] LABS: Basophils Percent Auto 0.4 % (0-2); Eosinophils Absolute Auto 0.1 X10*3/uL (0.0-0.4); Hematocrit 34.6 % (37.0-47.0); Hemoglobin 11.1 g/dl (12.0-16.0); Imm Gran Abs Auto 0.03 X10*3/uL (0.00-0.03); Imm Gran Pct Auto 0.4 % (0.0-0.4); Lymphocytes Absolute Auto 0.9 X10*3/uL (1.2-4.9); Lymphocytes Percent Auto 12.7 % (20-40); Mean Corpuscular HGB Conc 32.1 g/dl (31.0-35.0); Mean Corpuscular Hemoglobin 26.5 pg (27.0-33.0); Mean Corpuscular Volume 82.6 fL (80.0-98.0); Mean Platelet Volume 10.8 fL (9.4-12.3); Monocytes Absolute Auto 0.6 X10*3/uL (0.1-1.2); Monocytes Percent Auto 8.9 % (2-11); Neutrophils Absolute Auto 5.3 x10*3/uL (2.0-8.3); Neutrophils Percent Auto 76.6 % (45-73); Platelet Count 198 X10*3/uL (160-400); Red Blood Count 4.19 X10*6/uL (4.20-5.50); Red Cell Distribution Width 14.6 % (11.0-16.0)
[2024-02-22 17:27] LABS: IDNOW Serial# 08D9AD1C; Strep A Nucleic Acid Negative (Negative)
[2024-02-22 17:31] LABS: Alanine Aminotransferase 11 U/L (0-31); Albumin Level 3.8 g/dL (3.5-5.0); Alkaline Phosphatase 94 U/L (39-117); Anion Gap 14 (12-20); Aspartate Amino Transferase 16 U/L (5-31); Bilirubin Total 1.2 mg/dL (0.0-1.0); Blood Urea Nitrogen 10 mg/dL (9-16); Calcium 8.9 mg/dL (8.4-10.2); Carbon Dioxide 24 mmol/L (22-29); Chloride 104 mmol/L (96-108); Creatinine Clr Calc Pharmacy 115.8; Estimated Glomerular Filt Rate > 60; Glucose Random 106 mg/dL (60-115); Lipase 15 U/L (8-78); Potassium 4.3 mmol/L (3.3-5.1); Sodium 138 mmol/L (135-145); Total Protein 7.8 g/dL (6.5-8.0)
[2024-02-22 17:52] LABS: Influenza A PCR NEGATIVE (Negative); Influenza B PCR NEGATIVE (Negative); Resp Syncy Virus RNA Qual PCR NEGATIVE (Negative); SARS COV2 PCR INHOUSE NEGATIVE (Negative)
[2024-02-22 19:00] VITALS: BP 130/67; PULSE 84; RESP 20; TEMP 37.1; O2SAT 97
[2024-02-22 19:43] VITALS: BP 132/68; PULSE 83; RESP 20; TEMP 37.1; O2SAT 97
[2024-02-22] MEDS: Azithromycin 500 MG TABLET PO (19:43)
== END 2024-02-22 19:44 | disposition home or self-care (01) ==
PROVIDERS: Nurse Practitioner Family; Emergency Provider Emergency Medicine Emergency Medical Services; PCP Registered Nurse
DX: J18.9 Pneumonia, unspecified organism (principal); M79.10 Myalgia, unspecified site; R05.9 Cough, unspecified; E11.9 Type 2 diabetes mellitus without complications; R50.9 Fever, unspecified; Z87.891 Personal history of nicotine dependence; Z03.818 Encounter for observation for suspected exposure to other biological agents ruled out
CPT/HCPCS: 0241U; 71046; 80053; 83690; 85025; 87651; 99283

== ENCOUNTER 2024-02-23 15:30 | Outpatient (AMB) | payer MEDICAID, SELFPAY ==
--- NOTE | 2024-02-23 15:21 | A.OFFVIS_ITS ---
Intake Visit Reasons: (TV) PO LSG 04/15/23 Allergies bee pollen [bee stings] Allergy (Severe, Verified 02/22/24 16:36) Anaphylaxis Medication List - Last Reconciled 02/23/24 by SUZANNE Lawrence albuterol sulfate 90 mcg/actuation (Ventolin HFA) 2 puffs inhalation QID PRN apixaban (Eliquis) 5 mg PO BID aripiprazole 5 mg PO BEDTIME azithromycin 250 mg PO DAILY 4 days cefpodoxime 200 mg PO BID clotrimazole 1% 1 appl topical BID PRN docusate sodium (Colace) 100 mg PO DAILY PRN estradiol 0.01%(0.1mg/gram) 1 g vaginal DAILY guanfacine ER take one tablet po daily in afternoon hydrocortisone 2.5% 2.5 appl [place] BID PRN polyethylene glycol 3350 17 grams PO QAM PRN quetiapine 25 mg PO BID quetiapine 150 mg PO BEDTIME sertraline 100 mg PO DAILY HPI Comments Details: This?is a?48?yo female who is s/p LSG 04/15/2023. Presents for 10 month post op visit. Weight at last visit on 12/17/2023 was 283.4 pounds with a BMI of 53.5, weight today is same.? No complaints of nausea, emesis, abdominal pain or reflux, or constipation. Present meal plan includes: 1oz soft protein plus 1oz veg, 2 shakes of 2 scoops 4:1, and 30 grams Celebrate protein water per day Exercise routine includes: Exercise - 3 d/week TBP Walks faster - now 45 min per day, more than a mile. Was in ER with migraines, was found to have pneumonia and was placed on antibiotics. Was given naproxen but not taking. Pt started clotrimazole and nystatin, helped somewhat but did not completely resolve the skin irritation, has been wearing the binder to try to help and avoid skin irritation, this also helped a little but did not prevent the rashes completely. Pt reports issues with excess skin of arms, notices rashes/chafing at armpits due to extra skin rubbing together. Also has issues of excess skin of thighs, notices increased chafing, has had to buy biker shorts to try to prevent chafing/rubbing of excess skin. [facility] Medical History Homeless single person Elevated TSH Hepatomegaly Hyperlipidemia Insulin dependent type 2 diabetes mellitus Hypothyroidism Low back pain Sciatica of left side First degree AV block Surgical History S/P gastric sleeve procedure Hx of tubal ligation Family History Mother Diabetes Dementia Anemia Father Diabetes Heart problem High cholesterol Arthritis Sister Heart problem Diabetes High cholesterol Hypertension Sickle cell anemia Sister Breast cancer Asthma Sister Heart problem Diabetes Son Asthma Son No problems noted. Son Autism Daughter Anxiety Social History Household Members: Family Housing: House Are you a primary home care coordinator to a significant other at home: No Do you presently have visiting nurse or other home services: No Alcohol intake: never Comment: Discharge date set for 02/13/24 Patient Tobacco Use Status: Former Tobacco user Tobacco use type: Cigarette service: No Telehealth Telehealth Telehealth Platform: Telephone Location of provider rendering services: other Location of patient: address on file Patient Identification confirmed using: Name, : Yes Telehealth method: voice only Patient verbally consented to treatment: Yes Patient verbally consented to billing insurance company: Yes Patient informed of any privacy concerns related to visit: Yes Minutes spent on Phone/Video with Pt.: 15 Assessment & Plan Assessment & Plan (1) S/P gastric sleeve procedure: Code(s): Z90.3 - Acquired absence of stomach [part of] Category: Medical (2) Morbid obesity: Code(s): E66.01 - Morbid (severe) obesity due to excess calories Category: Medical Plan We discussed that she is likely retaining fluid due to illness which she reports was confirmed on Tanita when she came in for a weight check. Discussed coffee drinking, can mix into protein shake. Can try adding one additional small meal of soft protein now that she is not having extra Premier shake. Suggested trying Premier powder instead of premade shakes. Reviewed appropriate meds after sleeve- no NSAIDs, abx ok, Tylenol ok. RTC 2 months for annual. Gave pt my phone number and encouraged her to reach out with any concerns between appts. I spent a total of 30 minutes reviewing/updating records, examining the patient and counseling the patient on weight management as detailed above.
== END 2024-02-23 15:47 | disposition home or self-care (01) ==
LOC: HO.HBS 15:30
PROVIDERS: PCP Registered Nurse; Visit Provider Physician Assistant Surgical
DX: Z90.3 Acquired absence of stomach [part of] (principal); E66.01 Morbid (severe) obesity due to excess calories
CPT/HCPCS: 99214

== ENCOUNTER → 2024-02-23 15:30 | Outpatient (BNVA) | payer MEDICAID, SELFPAY | PROVIDERS: PCP Registered Nurse; Visit Provider Physician Assistant Surgical ==

== ENCOUNTER → 2024-03-26 10:12 | Outpatient (BNVA) | payer MEDICAID, SELFPAY | PROVIDERS: PCP Registered Nurse; Visit Provider Physician Assistant Surgical ==

== ENCOUNTER 2024-03-31 10:16 | Outpatient (AMB) | payer MEDICAID, SELFPAY ==
--- NOTE | 2024-03-31 10:03 | A.OFFVIS_ITS ---
Intake Visit Reasons: TV PO LSG 04/15/23 Allergies bee pollen [bee stings] Allergy (Severe, Verified 02/22/24 16:36) Anaphylaxis Medication List - Last Reconciled 03/31/24 by SUZANNE Lawrence albuterol sulfate 90 mcg/actuation (Ventolin HFA) 2 puffs inhalation QID PRN apixaban (Eliquis) 5 mg PO BID aripiprazole 5 mg PO BEDTIME azithromycin 250 mg PO DAILY 4 days cefpodoxime 200 mg PO BID clotrimazole 1% 1 appl topical BID PRN docusate sodium (Colace) 100 mg PO DAILY PRN estradiol 0.01%(0.1mg/gram) 1 g vaginal DAILY guanfacine ER take one tablet po daily in afternoon hydrocortisone 2.5% 2.5 appl [place] BID PRN polyethylene glycol 3350 17 grams PO QAM PRN quetiapine 25 mg PO BID quetiapine 150 mg PO BEDTIME sertraline 100 mg PO DAILY HPI Comments Details: This?is a?48?yo female who is s/p LSG 04/15/2023. Presents for 11 month post op visit. Weight at last visit on 02/23/2024 was 283.4 pounds with a BMI of 53.5, weight today is down 9lbs to 275.2.? No complaints of nausea, emesis, abdominal pain or reflux, or constipation. Had meds adjusted by psychiatrist after started on Seroquel. Having difficulty sleeping- was prescribed clonidine. Present meal plan includes: 1oz soft protein plus 1oz veg, 2 shakes of 2 scoops 4:1, and 30 grams Celebrate protein water per day feels hungry in evening, but then has some nausea/heartburn with solid food Exercise routine includes: Exercise - 3 d/week TBP Walks faster - now 45 min per day, more than a mile. having some increased knee pain with squatting Pt started clotrimazole and nystatin, helped somewhat but did not completely resolve the skin irritation, has been wearing the binder to try to help and avoid skin irritation, this also helped a little but did not prevent the rashes completely. Pt reports issues with excess skin of arms, notices rashes/chafing at armpits due to extra skin rubbing together. Also has issues of excess skin of thighs, notices increased chafing, has had to buy biker shorts to try to prevent chafing/rubbing of excess skin. 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 Skin in this area has become drier and evaporator operator and more painful particularly in the thighs. [facility] Medical History Homeless single person Elevated TSH Hepatomegaly Hyperlipidemia Insulin dependent type 2 diabetes mellitus Hypothyroidism Low back pain Sciatica of left side First degree AV block Surgical History S/P gastric sleeve procedure Hx of tubal ligation Family History Mother Diabetes Dementia Anemia Father Diabetes Heart problem High cholesterol Arthritis Sister Heart problem Diabetes High cholesterol Hypertension Sickle cell anemia Sister Breast cancer Asthma Sister Heart problem Diabetes Son Asthma Son No problems noted. Son Autism Daughter Anxiety Social History Household Members: Family Housing: House Are you a primary animal care giver to a significant other at home: No Do you presently have visiting nurse or other home services: No Alcohol intake: never Comment: Discharge date set for 02/13/24 Patient Tobacco Use Status: Former Tobacco user Tobacco use type: Cigarette service: No Telehealth Telehealth Telehealth Platform: Telephone Location of provider rendering services: other Location of patient: address on file Patient Identification confirmed using: Name, : Yes Telehealth method: voice only Patient verbally consented to treatment: Yes Patient verbally consented to billing insurance company: Yes Patient informed of any privacy concerns related to visit: Yes Minutes spent on Phone/Video with Pt.: 15 Assessment & Plan Assessment & Plan (1) S/P gastric sleeve procedure: Code(s): Z90.3 - Acquired absence of stomach [part of] Category: Surgical (2) Morbid obesity: Code(s): E66.01 - Morbid (severe) obesity due to excess calories Category: Medical Plan Pt to continue same meal plan, may want to switch off 4:1 in the future, knows she will have to start gladys MVI if so. Exercise in whatever form is comfortable without pain, can swap squatting exercises for another movement that is not painful. Recently had some labs done, will order vitamin levels. RTC 3 months for in person visit per pt preference. I spent a total of 30 minutes reviewing/updating records, examining the patient and counseling the patient on weight management as detailed above. Orders: Orders Vitamin D 25-OH Total Today Z90.3 - Acquired absence of stomach [part of] Vitamin B12 and Folate Today Z90.3 - Acquired absence of stomach [part of] Zinc Today Z90.3 - Acquired absence of stomach [part of] Vitamin A Today Z90.3 - Acquired absence of stomach [part of] Vitamin B1 Today Z90.3 - Acquired absence of stomach [part of]
== END 2024-03-31 10:25 | disposition home or self-care (01) ==
LOC: HO.HBS 10:16
PROVIDERS: PCP Registered Nurse; Visit Provider Physician Assistant Surgical
DX: Z90.3 Acquired absence of stomach [part of] (principal); E66.01 Morbid (severe) obesity due to excess calories
CPT/HCPCS: 99214

== ENCOUNTER → 2024-03-31 10:16 | Outpatient (BNVA) | payer MEDICAID, SELFPAY | PROVIDERS: PCP Registered Nurse; Visit Provider Physician Assistant Surgical ==

== ENCOUNTER 2024-04-02 10:46 | Outpatient (REF) | payer MEDICAID, SELFPAY ==
[2024-04-02 12:52] LABS: Vitamin D 25-OH Total 16.9 ng/mL (>30)
[2024-04-02 13:02] LABS: Folate 5.2 ng/mL (> or = 4.0); Vitamin B12 344 pg/mL (200-900)
[2024-04-06 17:17] LABS: Zinc 57 mcg/dL (60-130)
[2024-04-08 06:29] LABS: Vitamin B1 11 nmol/L (8-30)
[2024-04-11 17:19] LABS: Vitamin A 37 mcg/dL (38-98)
== END 2024-04-02 10:47 | disposition home or self-care (01) ==
LOC: HO.LAB 10:46
PROVIDERS: Physician Assistant Surgical; PCP Registered Nurse; Visit Provider Surgery
DX: Z90.3 Acquired absence of stomach [part of] (principal)
CPT/HCPCS: 36415; 82306; 82607; 82746; 84425; 84590; 84630

== ENCOUNTER → 2024-05-13 09:32 | Outpatient (BNVA) | payer MEDICAID, SELFPAY | PROVIDERS: PCP Registered Nurse; Visit Provider Surgery ==

== ENCOUNTER 2024-05-13 12:38 | Outpatient (AMB) | payer MEDICAID, SELFPAY ==
--- NOTE | 2024-05-13 12:21 | A.OFFVIS_ITS ---
Intake Visit Reasons: (tv) PO lsg 04/15/2023 Allergies bee pollen [bee stings] Allergy (Severe, Verified 02/22/24 16:36) Anaphylaxis Medication List - Last Reconciled 05/13/24 by SUZANNE Lawrence albuterol sulfate 90 mcg/actuation (Ventolin HFA) 2 puffs inhalation QID PRN apixaban (Eliquis) 5 mg PO BID aripiprazole 10 mg PO BEDTIME azithromycin 250 mg PO DAILY 4 days cefpodoxime 200 mg PO BID cholecalciferol (vitamin D3) 125 mcg PO DAILY clotrimazole 1% 1 appl topical BID PRN docusate sodium (Colace) 100 mg PO DAILY PRN estradiol 0.01%(0.1mg/gram) 1 g vaginal DAILY guanfacine ER take one tablet po daily in afternoon hydrocortisone 2.5% 2.5 appl [place] BID PRN polyethylene glycol 3350 17 grams PO QAM PRN quetiapine 25 mg PO BID quetiapine 150 mg PO BEDTIME sertraline 100 mg PO DAILY vitamin A palmitate 10,000 units PO DAILY zinc gluconate 30 mg PO DAILY HPI Comments Details: This?is a?49?yo female who is s/p LSG 04/15/2023. Presents for 13 month post op visit. Weight loss of 3.2 lbs since last OV 6w ago.?Pt is unhappy with her rate of weight loss. Was taken off Seroquel 3 weeks ago as it was making her hungry. Pt recognizes that she snacks a lot on everything I shouldn't have- chips, candy, everything I shouldn't have. Helping take care of her mom with dementia. 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 Present meal plan includes: 1oz soft protein plus 1oz veg, 2 shakes of 2 scoops 4:1, and 30 grams Celebrate protein water per day 2 hours after meal will feel hungry, may have a shake or protein water taking additional vitamins A and D Exercise routine includes: Exercise - 3 d/week TBP Walks faster - now 45 min per day, more than a mile. having some increased knee pain with squatting- had an appt with PCP for MRI Pt started clotrimazole and nystatin, helped somewhat but did not completely resolve the skin irritation, has been wearing the binder to try to help and avoid skin irritation, this also helped a little but did not prevent the rashes completely. Pt reports issues with excess skin of arms, notices rashes/chafing at armpits due to extra skin rubbing together. Also has issues of excess skin of thighs, notices increased chafing, has had to buy biker shorts to try to prevent chafing/rubbing of excess skin. 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 Skin in this area has become impregnator and drier helper and more painful particularly in the thighs. [facility] Medical History Homeless single person Elevated TSH Hepatomegaly Hyperlipidemia Insulin dependent type 2 diabetes mellitus Hypothyroidism Low back pain Sciatica of left side First degree AV block Surgical History S/P gastric sleeve procedure Hx of tubal ligation Family History Mother Diabetes Dementia Anemia Father Diabetes Heart problem High cholesterol Arthritis Sister Heart problem Diabetes High cholesterol Hypertension Sickle cell anemia Sister Breast cancer Asthma Sister Heart problem Diabetes Son Asthma Son No problems noted. Son Autism Daughter Anxiety Social History Household Members: Family Housing: House Are you a primary director of career resources to a significant other at home: No Do you presently have visiting nurse or other home services: No Alcohol intake: never Comment: Discharge date set for 02/13/24 Patient Tobacco Use Status: Former Tobacco user Tobacco use type: Cigarette service: No Telehealth Telehealth Telehealth Platform: Telephone Location of provider rendering services: practice address Location of patient: address on file Patient Identification confirmed using: Name, : Yes Telehealth method: voice only Patient verbally consented to treatment: Yes Patient verbally consented to billing insurance company: Yes Patient informed of any privacy concerns related to visit: Yes Minutes spent on Phone/Video with Pt.: 18 Assessment & Plan Assessment & Plan (1) S/P gastric sleeve procedure: Code(s): Z90.3 - Acquired absence of stomach [part of] Category: Surgical (2) Morbid obesity: Code(s): E66.01 - Morbid (severe) obesity due to excess calories Category: Medical Plan Encouraged pt to try choosing high protein options like yogurt with berries when she feels hungry rather than high carb foods. She is still fairly restricted with portion sizes and may need additional protein. She will try this and knows she could also be doing better with exercise. Labs reviewed. She is considering discussing GLP1 agonist with her PCP, will have another weight check in June at previously scheduled visit with me, and decide based on her progress. I spent a total of 30 minutes reviewing/updating records, examining the patient and counseling the patient on weight management as detailed above.
== END 2024-05-13 12:51 | disposition home or self-care (01) ==
LOC: HO.HBS 12:38
PROVIDERS: PCP Registered Nurse; Visit Provider Physician Assistant Surgical
DX: Z90.3 Acquired absence of stomach [part of] (principal); E66.01 Morbid (severe) obesity due to excess calories
CPT/HCPCS: 99214

== ENCOUNTER 2024-06-29 13:19 | Outpatient (AMB) | payer MEDICAID, SELFPAY ==
--- NOTE | 2024-06-29 13:17 | MHC.OFFVISWM ---
Intake Visit Reasons: OV PO LSG 04/15/23 Allergies bee pollen [bee stings] Allergy (Severe, Verified 02/22/24 16:36) Anaphylaxis Medication List - Last Reconciled 06/29/24 by SUZANNE Lawrence albuterol sulfate 90 mcg/actuation (Ventolin HFA) 2 puffs inhalation QID PRN apixaban (Eliquis) 5 mg PO BID aripiprazole 10 mg PO BEDTIME azithromycin 250 mg PO DAILY 4 days cefpodoxime 200 mg PO BID cholecalciferol (vitamin D3) 125 mcg PO DAILY clotrimazole 1% 1 appl topical BID PRN docusate sodium (Colace) 100 mg PO DAILY PRN estradiol 0.01%(0.1mg/gram) 1 g vaginal DAILY guanfacine ER take one tablet po daily in afternoon hydrocortisone 2.5% 2.5 appl [place] BID PRN polyethylene glycol 3350 17 grams PO QAM PRN sertraline 100 mg PO DAILY vitamin A palmitate 10,000 units PO DAILY zinc gluconate 30 mg PO DAILY HPI Comments Details: This?is a?49?yo female who is s/p LSG 04/15/2023. Presents for 14 month post op visit. Pt had to change to a phone call appt today and is unsure of her weight. Remains off Seroquel as it was making her hungry. However she continues to struggle with hunger. Helping take care of her mom with dementia. 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 Present meal plan includes: 1oz soft protein plus 1oz veg, 2 shakes of 2 scoops 4:1, and 30 grams Celebrate protein water per day 2 hours after meal will feel hungry, may have a shake or protein water taking additional vitamins A and D Exercise routine includes: Exercise - 3 d/week TBP Walks faster - now 45 min per day, more than a mile. having some increased knee pain with squatting- had an appt with PCP for MRI - walking has decreased due to cold weather Pt started clotrimazole and nystatin, helped somewhat but did not completely resolve the skin irritation, has been wearing the binder to try to help and avoid skin irritation, this also helped a little but did not prevent the rashes completely. Pt reports issues with excess skin of arms, notices rashes/chafing at armpits due to extra skin rubbing together. Also has issues of excess skin of thighs, notices increased chafing, has had to buy biker shorts to try to prevent chafing/rubbing of excess skin. 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 Skin in this area has become drier operator helper and more painful particularly in the thighs. [facility] Medical History Homeless single person Elevated TSH Hepatomegaly Hyperlipidemia Insulin dependent type 2 diabetes mellitus Hypothyroidism Low back pain Sciatica of left side First degree AV block Surgical History S/P gastric sleeve procedure Hx of tubal ligation Family History Mother Diabetes Dementia Anemia Father Diabetes Heart problem High cholesterol Arthritis Sister Heart problem Diabetes High cholesterol Hypertension Sickle cell anemia Sister Breast cancer Asthma Sister Heart problem Diabetes Son Asthma Son No problems noted. Son Autism Daughter Anxiety Social History Household Members: Family Housing: House Are you a primary plant health care technician to a significant other at home: No Do you presently have visiting nurse or other home services: No Alcohol intake: never Comment: Discharge date set for 02/13/24 Patient Tobacco Use Status: Former Tobacco user Tobacco use type: Cigarette service: No Telehealth Telehealth Telehealth Platform: Telephone Location of provider rendering services: practice address Location of patient: address on file Patient Identification confirmed using: Name, : Yes Telehealth method: voice only Patient verbally consented to treatment: Yes Patient verbally consented to billing insurance company: Yes Patient informed of any privacy concerns related to visit: Yes Minutes spent on Phone/Video with Pt.: 15 Assessment & Plan Assessment & Plan (1) Morbid obesity: Code(s): E66.01 - Morbid (severe) obesity due to excess calories Category: Medical (2) S/P gastric sleeve procedure: Code(s): Z90.3 - Acquired absence of stomach [part of] Category: Surgical Plan Pt would like to cut back on protein drinks, would like to try bars. Recommended two bars, two shakes (stop protein water) and small meal. She will discuss GLP1 agonists with her PCP at [facility] later this month. She reports some fatigue- most recent labs reviewed- she reports she had previously been on iron but no longer so will reorder. She will come in for a weight check on our scale today. RTC 3 months. I spent a total of 30 minutes reviewing/updating records, examining the patient and counseling the patient on weight management as detailed above. Medications: New iron,carbonyl-vitamin C 65 mg iron- 125 mg (Vitron-C) 1 tab PO BEDTIME 90 tabs 3RF
--- OUTSIDE RECORDS SUMMARY | 2024-06-29 15:02 | XMS_ITS | Encounter Summary ---
Author Organization [employer] Address [address] [place] [address] Care Team Providers Care Packing Machine Tender Name Role Phone Imer Patricia Primary Care Provider [phone] Reason for Visit * Reason Onset Date Comments No Show 06/11/2024 Encounter Details Date Type Department Care Team ([facility] st Contact Info) Description 06/11/2024 Telephone [facility] [address] [facility] [address] [place] [phone] Shagufta Holbrook NP [address] [facility] [address] [place] [phone] No Show Social History Tobacco Use Types Packs/Day Years Used Date Smoking Tobacco: Former Cigarettes Q uit: 06/09/2010 Smokeless Tobacco: Never Alcohol Use Standard Drinks/Week Comments Not Asked 0 (1 standard drink = 0.6 oz pur e alcohol) Sex and Gender Information Value Date Recorded Sex Assigned at Not on file Gender Identity Not on file Sexual Orientation Not on file documented as of this encounter Progress Notes * Alyssa Rosario MA - 06/11/2024 2:40 PM EST Letter sent with information on no showed appointment and no show policy documented in this encounter Plan of Treatment Not on file documented as of this encounter Visit Diagnoses Not on filedocumented in this encounter Care Teams Packing Machine Tender Relationship Specialty Start Date End Date Patricia Willams [address] [facility] [address] [place] [address] PCP - General 09/17/23 documented as of this encounter
--- OUTSIDE RECORDS SUMMARY | 2024-06-29 15:02 | XMS_ITS | Clinical Summary ---
Author Organization [address] [place] [address] [place] [phone] Phone Care Team Providers Care Guest Relations Manager Name Role Phone Imer Patricia Primary Care Provider [phone] Allergies Active Allergy Reactions Criticality Noted Date Comments Bee Venom Protein (Honey Bee) Anaphylaxis High 09/20 Medications Medication Sig Dispensed Refills Start Date End Date Status albuterol HFA (PROAIR HFA ; PROVENTIL HFA ; VENTOLIN HFA) 90 mcg/actuation inhaler INHALE 2 PUFFS BY MOUTH FOUR TIMES DAILY NEEDED FOR WHEEZING 05/05/2023 Activ e apixaban (Eliquis) 5 mg tablet Take 1 Tablet by mouth 2 Times Daily. 09/06/2023 Active cholecalciferol (VITAMIN D-3) 50 mcg (2,000 unit) capsule Take 50 mcg by mouth daily. 06/12/2022 Active cyanocobalamin, vitamin B-12, 1,000 mcg tablet, sublingual DISSOLVE 1 TABLET UNDER THE TONGUE ONCE DAILY. ALLOW TO DISSOLVE FOR AT LEAST 30 SECONDS BEFORE SWALLOWING. 08/27/2023 Active docusate sodium (COLACE) 100 mg capsule Take 1 Capsule by mouth daily. 09/03/2023 Active EPINEPHrine (EpiPen 2-Orville) 0.3 mg/0.3 mL injection Inject intramuscularly as directed on package and go to emergency room 03/13/2023 Active iron,carbonyl-erika min C 65 mg iron- 125 mg tablet,delayed release (DR/EC) Take 1 Tablet by mouth daily. 08/27/2023 Active sertraline (ZOLOFT) 25 mg tablet Take 1 Tablet by mouth daily. Active vitamin A 3,000 mcg (10,000 unit) capsule Take 1 Capsule by mouth daily. 08/27/2023 Active Active Problems Problem Noted Date Diagnosed Date Blurry vision 01/30/2024 Dizziness 01/30/2024 HLD (hyperlipidemia) 01/28/2024 Palpitation 01/28/2024 SOB (shortness of breath) 01/28/2024 ACS (acute coronary syndrome) 01/27/2024 Aortic dissection 01/27/2024 Chest pain 01/27/2024 Intracranial hemorrhage 01/27/2024 Atrial flutter with controlled response 09/29/19 24 Overview (04/28/2024): Last Assessment & Plan: Typical atrial flutter and this 48-year-old female with few risk factors for stroke than female gender and a past history of hypertension. I would consider heart Chadsvasc 1. I went through the options which include continued monitoring, rhythm control with a pharmacologic drug and an ablation. She elected to proceed with the ablation with plans to get off of the anticoagulant 1 month after the procedure if there is no recurrent arrhythmias. I did review the ablation procedure with her in detail. We went through the small risk of complications which include but are not limited to venous access complications such as hematoma, AV fistula or pseudoaneurysm. She is aware of the very small risk of complete heart block requiring a pacemaker, cardiac perforation or injury to her coronary artery. She understands that we will have to reevaluate the need for anticoagulation based primarily on her [id number] score during subsequent visits. She is in agreement to proceed with a typical atrial flutter ablation. HTN (hypertension) 09/29/2023 Overview (04/28/2024): Last Assessment & Plan: This patient has a history of hypertension but I think after losing a fair amount of weight she is no longer hypertensive in fact her blood pressure tends to be in the low side. I will stop her lisinopril and have her measure her blood pressure at home for 1 week and if her systolic readings remain less than 130 mmHg then she will continue to stay off of the lisinopril. She will continue a low-sodium diet and continue efforts at weight loss. Encounters Date Type Department Care Team Description 06/11/2024 Telephone [facility] - [address] [facility] [address] [place] [phone] Shagufta Holbrook NP No Show from Last 3 Months Social History Tobacco Use Types Packs/Day Years Used Date Smoking Tobacco: Former Cigarettes Q uit: 06/09/2010 Smokeless Tobacco: Never Alcohol Use Standard Drinks/Week Comments Not Asked 0 (1 standard drink = 0.6 oz pur e alcohol) Sex and Gender Information Value Date Recorded Sex Assigned at Not on file Gender Identity Not on file Sexual Orientation Not on file Obstetrics History Last Filed Vital Signs Vital Sign Reading Time Taken Comments Blood Pressure 113/71 01/08/2024 8:03 AM EDT Sit ting L Arm Pulse 55 01/08/2024 8:03 AM EDT Temperature - - Respiratory Rate - - Oxygen Saturation - - Inhaled Oxygen Concentration - - Weight 127 kg (280 lb) 01/08/2024 8:03 AM EDT Height 157.5 cm (5' 2 ) 01/08/2024 8:03 AM EDT Body Mass Index 51.21 01/08/2024 8:03 AM EDT Plan of Treatment Health Maintenance Due Date Last Done Comments Breast Cancer Screening 1977 Diabetes: Annual Foot Exam 1987 Diabetes: Annual Retina Eye Exam 1987 Hepatitis B Vaccines (1 of 3 - 19+ 3-dose series) 1996 Cervical Cancer Screening: P ap Smear 1998 Pneumococcal Vaccine: Pediatrics (0 to 5 Years) and At-Risk Patients (6 to 64 Years) (2 of 2 - PCV) 06/21/2014 06/21/2013 Colorectal Cancer Screening: Colonoscopy 07/04/2023 Social Influencers of Health Screening 07/04/2023 COVID-19 Vaccine (1 - 2023-2 5 season) 2024 Influenza Vaccine (#1) 2024 06/21/2013 Diabetes: Annual Urine Albumin-Creatinine Ratio (uACR) 06/10/2024 Diabetes: Blood Sugar Contro l Test (HGBA1C) 06/10/2024 08/22/2023, 08/22/2023 Depression Screening 12/21/2024 12/22/2023 Diabetes: Annual GFR (Glomerular Filtration Rate) 01/11/2025 01/12/2024 Hypertension/CHF/CAD Annual BMP Blood Test 01/11/2025 01/12/2024 Cholesterol Screening (Lipid Panel) 04/08/2028 04/08/2023, 04/08/2023 DTaP,Tdap,and Td Vaccines (2 - Td or Tdap) 07/18/2033 07/18/2023 HIV Screening Completed 09/20/2021, 09/20/2021 Hepatitis C Screening Completed 09/20/2021 HIB Vaccines Aged Out No longer eligi ble based on patient's age to complete this topic HPV Vaccines Aged Out No longer eligi ble based on patient's age to complete this topic Hepatitis A Vaccines Aged Out No long er eligible based on patient's age to complete this topic IPV Vaccines Aged Out No longer eligi ble based on patient's age to complete this topic MMR Vaccines Aged Out No longer eligi ble based on patient's age to complete this topic Meningococcal ACWY Vaccine Aged Out N o longer eligible based on patient's age to complete this topic RSV Immunization Patients Under 20 months Aged Out No longer eligible b ased on patient's age to complete this topic Varicella Vaccines Aged Out No longer eligible based on patient's age to complete this topic Procedures Procedure Name Priority Date/Time Associated Diagnosis Comments ANNUAL BMP BLOOD TEST Routine 01/12/2024 HEMOGLOBIN A1C Routine 08/22/2023 LIPID PANEL Routine 04/08/2023 HEPATITIS C SCREENING Routine 09/20/2021 HIV SCREENING Routine 09/20/2021 from Last 3 Months or Most Recently Relevant to Health Maintenance Results * Annual BMP Blood Test (01/12/2024) Annual BMP Blood Test Abstracted Historical Provider MD VAISHNAVI LOPEZ E * Hemoglobin A1c (08/22/2023) Hemoglobin A1C 0.0 % Comment:No Interpretation, A bstracted Blood Venous blood specimen / Unknown Historical Provider LAB BLOOD ORDERAB LES * Lipid panel (04/08/2023) LDL/HDL Ratio 0 Comment:No Interpretation, A bstracted Triglycerides 0 mg/dL Comment:No Interpretation, A bstracted Cholesterol 0 mg/dL Comment:No Interpretation, A bstracted HDL 0 mg/dL Comment:No Interpretation, A bstracted LDL Cholesterol 0 mg/dL Comment:No Interpretation, A bstracted Blood Venous blood specimen / Unknown Historical Provider LAB BLOOD ORDERAB LES * HIV Screening (09/20/2021) Pathologist [facility] HIV Screening Abstracted Historical Provider MD RIGGINS MAINTENANC E * Hepatitis C Screening (09/20/2021) Pathologist [facility] Hepatitis C Screening Abstracted Historical Provider MD RIGGINS MAINPRIYANKA E from Last 3 Months or Most Recently Relevant to Health Maintenance Care Teams Guest Relations Manager Relationship Specialty Start Date End Date [facility] [address] [place] [address] [place] [phone] PCP - General 09/17/23
--- OUTSIDE RECORDS SUMMARY | 2024-06-29 15:03 | XMS_ITS | Encounter Summary ---
Author Organization [employer] Address [address] [place] [address] [address] [place] [address] Care Team Providers Care Senior Grant Writer Name Role Phone [facility] Primary Care Provider Reason for Visit * Reason Comments Med Refill Encounter Details Date Type Department Care Team (Late st Contact Info) Description 08/01/2022 Refill [facility] [address] [place] [id number] [address] Social History Tobacco Use Types Packs/Day Years Used Date Smoking Tobacco: Never Smokeless Tobacco: Never Comments Unknown Sex and Gender Information Value Date Recorded Sex Assigned at Female 04/08/2022 10:14 AM EDT Legal Sex Female 10:14 AM EDT Gender Identity Female 04/08/2022 10:14 AM EDT Sexual Orientation Straight 04/08/2022 10 :14 AM EDT COVID-19 Exposure Response Date Recorded In the last 10 days, have yo u been in contact with someone who was confirmed or suspected to have Coronavirus/COVID-19? No / Unsure 07/02/2022 5:11 PM EST documented as of this encounter Plan of Treatment Upcoming Encounters Date Type Department Care Team (Late st Contact Info) Description 07/07/2024 9:00 AM EST Office Visit [facility] [address] [place] [phone] [phone] 09/08/2024 9:00 AM EDT Office Visit [facility] [address] [place] [address] Gladis Orlando, OD [address] [place], [place] [phone] documented as of this encounter Visit Diagnoses Not on filedocumented in this encounter Care Teams Senior Grant Writer Relationship Specialty Start Date End Date Patricia Willams FNP [address] [place] [address] PCP - General Family Medicine 02/04/22 Mariann Ray Stone Rigger 10/02/23 01/01/24 documented as of this encounter
--- OUTSIDE RECORDS SUMMARY | 2024-06-29 15:03 | XMS_ITS | Encounter Summary ---
Author Organization [employer] Address [address] [place] [address] Care Team Providers Care Physician Surgeon Name Role Phone [facility] Primary Care Provider [phone] Reason for Visit * Reason Comments Med Refill Encounter Details Date Type Department Care Team ([facility] st Contact Info) Description 09/02/2023 Refill [facility] MEDICINE [address] [place], [place] [phone] [facility] [address] [place] [address] Type 2 diabetes mellitus with other specified complication, unspecified whether chcf insulin use ([facility]) Social History Tobacco Use Types Packs/Day Years Used Date Smoking Tobacco: Never Smokeless Tobacco: Never Depression Answer Date Recorded Patient Health Questionnaire-9 Score 0 07/18/2023 Patient Health Questionnaire-9 Score 0 07/18/2023 Last PHQ-9: Questionnaire Data Not on file 0 07/18/2023 Housing Stability Answer Date Recorded What is your housing situation today? I have windy chaudhari 07/18/[address] you li ve. Do you have problems with any of the following? None of the above 07/18/2023 Food Insecurity Answer Date Recorded Within the past 12 months, y ou worried that your food would run out before you got money to buy more: Never True 07/18/2023 Within the past 12 months,th e food you bought just didn't last and you didn't have enough money to get more: Never True 02/2024 Transportation Answer Date Recorded In the past 12 months, has l ack of transportation kept you from medical appts, meetings, work or from getting things needed for daily living? No 07/18/2023 Utilities Answer Date Recorded In the past 12 months, has t he electric, gas, oil or water company threatened to shut off services in your home? No 07/18/2023 Depression Answer Date Recorded Patient Health Questionnaire-2 Score 0 07/18/2023 Comments Unknown Sex and Gender Information Value Date Recorded Sex Assigned at Female 04/08/2022 10:14 AM EDT Legal Sex Female 10:14 AM EDT Gender Identity Female 04/08/2022 10:14 AM EDT Sexual Orientation Straight 04/08/2022 10 :14 AM EDT documented as of this encounter Plan of Treatment Upcoming Encounters Date Type Department Care Team (Late st Contact Info) Description 07/07/2024 9:00 AM EST Office Visit [facility] MEDICINE [address] [place] [address] [facility] [address] [place] [address] 09/08/2024 9:00 AM EDT Office Visit [facility] OPTOMETRY [address] [place] [address] Darion, Gladis, OD 230 [place] [address] documented as of this encounter Visit Diagnoses Diagnosis Type 2 diabetes mellitus with other specified complication, unspecified whether predatory animal exterminator insulin use ([facility]) documented in this encounter Additional Health Concerns Assessment Noted Time PHQ-9 Depression Total Score: 0 07/18/19 24 11:22 AM EST documented as of this encounter Care Teams Physician Surgeon Relationship Specialty Start Date End Date [facility] [address] [place] [address] PCP - General Family Medicine 02/04/22 Mariann Ray Tactical Response Group Officer 10/02/23 01/01/24 documented as of this encounter
--- OUTSIDE RECORDS SUMMARY | 2024-06-29 15:03 | XMS_ITS | Encounter Summary ---
Author Organization [employer] Address [address] [place] [address] 7 [place] [address] Care Team Providers Care Technical Solutions Engineer Name Role Phone [facility] Primary Care Provider [phone] Reason for Visit * Reason Onset Date Comments Referral 06/16/2024 Encounter Details Date Type Department Care Team (Late st Contact Info) Description 06/16/2024 Telephone [facility] MEDICINE [address] [place], [place] [phone] [place] Patricia [facility] 230 [place], [place] [phone] Referral Social History Tobacco Use Types Packs/Day Years Used Date Smoking Tobacco: Never Smokeless Tobacco: Never Depression Answer Date Recorded Patient Health Questionnaire-9 Score 12/22/2023 Patient Health Questionnaire-9 Score 12/22/2023 Last PHQ-9: Questionnaire Data Not on file 0 12/22/2023 Housing Stability Answer Date Recorded What is your housing situation today? I do not have housing (Staying with others, in a hotel, in a mcfp, living outside on the street, on a beach, in a car, or in a park 09/17/[address] you li ve. Do you have problems with any of the following? None of the above 09/17/2023 Food Insecurity Answer Date Recorded Within the [...] from getting things needed for daily living? Yes, it has kept me from medical appointments or getting medications. 09/17/2023 Utilities Answer Date Recorded In the past 12 months, has t he electric, gas, oil or water company threatened to shut off services in your home? No 07/18/2023 Depression Answer Date Recorded Patient Health Questionnaire-2 Score 6 12/22/2023 Comments Unknown Sex and Gender Information Value Date Recorded Sex Assigned at Female 04/08/2022 10:14 AM EDT Legal Sex Female 10:14 AM EDT Gender Identity Female 04/08/2022 10:14 AM EDT Sexual Orientation Straight 04/08/2022 10 :14 AM EDT documented as of this encounter Miscellaneous Notes * Telephone Encounter - Silvia Younger RN - 06/16/2024 3:27 PM EST TC placed to patient [phone] in regards to below message. Patient had an appointment with PCP to discuss MRI request on 05/26/24 however appointment was cancelled. Patient is scheduled to see PCP on 07/07/24 and will discuss MRI request at appointment. Patient to f/u PRN. * Telephone Encounter - Kayden Wayne - 06/16/2024 3:03 PM EST Tc from pt requesting a referral to get an MRI done because Social Security is requesting it. documented in this encounter Plan of Treatment Upcoming Encounters Date Type Department Care Team (Late st Contact Info) Description 07/07/2024 9:00 AM EST Office Visit [facility] MEDICINE [address] [place] [address] MacarthurPatricia FNP [address] [place] [address] 09/08/2024 9:00 AM EDT Office Visit [facility] OPTOMETRY [address] [place] [address] Gladis Orlando, OD 230 [place] [address] documented as of this encounter Visit Diagnoses Not on filedocumented in this encounter Additional Health Concerns Assessment Noted Time PHQ-9 Depression Total Score: 21 024 8:23 AM EDT documented as of this encounter Care Teams Technical Solutions Engineer Relationship Specialty Start Date End Date Patricia Willams FNP [address] [place] [address] PCP - General Family Medicine 02/04/22 documented as of this encounter
--- OUTSIDE RECORDS SUMMARY | 2024-06-29 15:03 | XMS_ITS | Encounter Summary ---
Author Organization [employer] Address [address] [place] [address] 7 [place] [address] Care Team Providers Care Broker Agricultural Produce Name Role Phone [facility] Primary Care Provider [phone] Reason for Visit * Reason Onset Date Comments Referral 09/16/2023 Encounter Details Date Type Department Care Team (Late st Contact Info) Description 09/16/2023 Telephone [facility] MEDICINE [address] [place], [place] [phone] [facility] Patricia [facility] [address] [place] [address] Referral Social History Tobacco Use Types Packs/Day [...] with others, in a hotel, in a senior living, living outside on the street, on a [...] encounter Miscellaneous Notes * Telephone Encounter - Elisa Rubalcava RN - 09/16/2023 11:41 AM EDT Sleep study ordered today, pt requesting it is an in lab study instead of at home. Please place neworder if indicated, thank you! * Telephone Encounter - Franck Garcia - 09/16/2023 11:04 AM EDT Tc from pt calling calling in regards to sleep study that was supposed to be done at home but pt spoke with cardiology and stated it would be better if she did it in office. If any questions you can contact pt at [phone]. documented in this encounter Plan of Treatment Upcoming Encounters Date Type Department Care Team (Late st Contact Info) Description 07/07/2024 9:00 AM EST Office Visit [facility] MEDICINE [address] [place] [address] Patricia Willams FNP [address] [place] [address] 09/08/2024 9:00 AM EDT Office Visit [facility] OPTOMETRY [address] [place] [address] Gladis Orlando, OD [address] [place] [address] documented as of this encounter Visit Diagnoses Not on filedocumented in this encounter Additional Health Concerns Assessment Noted Time PHQ-9 Depression Total Score: 0 07/18/19 24 11:22 AM EST documented as of this encounter Care Teams Broker Agricultural Produce Relationship Specialty Start Date End Date Patricia Willams FNP [address] [place] [address] PCP - General Family Medicine 02/04/22 Mariann Ray Business Practices Supervisor 10/02/23 01/01/24 documented as of this encounter
--- OUTSIDE RECORDS SUMMARY | 2024-06-29 15:03 | XMS_ITS | Encounter Summary ---
Author Organization [employer] Address [address] [place] [address] 7t [place] [address] Care Team Providers Care Asphalt Roller Person Name Role Phone [facility] Primary Care Provider [phone] Reason for Visit * Reason Comments Med Refill Encounter Details Date Type Department Care Team ([facility] st Contact Info) Description 04/09/2024 Refill [facility] MEDICINE [address] [place], [place] [phone] [facility] [address] [place] [address] Rash and nonspecific skin eruption Social History Tobacco Use Types Packs/Day Years Used Date Smoking Tobacco: Never Smokeless Tobacco: Never Depression Answer Date Recorded Patient Health Questionnaire-9 Score 12/22/2023 Patient Health Questionnaire-9 Score 12/22/2023 Last PHQ-9: Questionnaire Data Not on file 0 12/22/2023 Housing Stability Answer Date Recorded What is your housing situation today? I do not have housing (Staying with others, in a hotel, in a long-term, living outside on the street, on a [...] Description 07/07/2024 9:00 AM EST Office Visit [facility] MEDICINE [address] [place] [address] Patricia Willams FNP [address] [place] [address] 09/08/2024 9:00 AM EDT Office Visit [facility] OPTOMETRY [address] [place], [place] [phone] Darion, Gladis, OD 230 [place] [address] documented as of this encounter Visit Diagnoses Diagnosis Rash and nonspecific skin eruption Rash and other nonspecific skin eruption documented in this encounter Additional Health Concerns Assessment Noted Time PHQ-9 Depression Total Score: 21 024 8:23 AM EDT documented as of this encounter Care Teams Asphalt Roller Person Relationship Specialty Start Date End Date Patricia Willams FNP [address] [place] [address] PCP - General Family Medicine 02/04/22 documented as of this encounter
--- OUTSIDE RECORDS SUMMARY | 2024-06-29 15:03 | XMS_ITS | Encounter Summary ---
Author Organization [employer] Address [address] [place] [address] 7t [place] [address] Care Team Providers Care Meter Engineer Name Role Phone [facility] Primary Care Provider [phone] Reason for Visit * Reason Comments Med Refill Encounter Details Date Type Department Care Team ([facility] st Contact Info) Description 06/03/2024 Refill [facility] MEDICINE [address] [place], [place] [phone] [facility] [address] [place] [address] Rash and nonspecific skin eruption Social History [...] with others, in a hotel, in a prison, living outside on the street, on a [...] Description 07/07/2024 9:00 AM EST Office Visit [facility] MEDICINE [address] [place] [address] Patricia Willams FNP [address] [place] [address] 09/08/2024 9:00 AM EDT Office Visit [facility] OPTOMETRY [address] [place], [place] [phone] Darion, Gladis, OD [address] [place] [address] documented as of this encounter Visit Diagnoses Diagnosis Rash and nonspecific skin eruption Rash and other nonspecific skin eruption documented in this encounter Additional Health Concerns Assessment Noted Time PHQ-9 Depression Total Score: 21 024 8:23 AM EDT documented as of this encounter Care Teams Meter Engineer Relationship Specialty Start Date End Date Patricia Willams FNP [address] [place] [address] PCP - General Family Medicine 02/04/22 documented as of this encounter
--- OUTSIDE RECORDS SUMMARY | 2024-06-29 15:03 | XMS_ITS | Encounter Summary ---
Author Organization [employer] Address [address] [facility] 7t [place] [address] Care Team Providers Care Tetryl Nitrator Operator Name Role Phone Patricia Willams GEOLOGY TECHNICIAN Primary Care Provider [phone] Encounter Details Date Type Department Care Team (Latest Contact Info) Description 06/01/2024 11:20 AM EST Office Visit [facility] [address] [place], [place] [phone] Edson Macario MD [address] [place], [place] [phone] Acute conjunctivitis of both eyes, unspecified acute conjunctivitis type (Primary Dx) Social History Tobacco Use Types Packs/Day Years Used Date Smoking Tobacco: Never Smokeless Tobacco: Never Depression Answer Date Recorded Patient Health Questionnaire-9 Score 21 12/22/2023 Patient Health Questionnaire-9 Score 21 12/22/2023 Last PHQ-9: Questionnaire Data Not on file 0 12/22/2023 Housing Stability Answer Date Recorded What is your housing situation today? I do not have housing (Staying with others, in a hotel, in a nursing home, living outside on the street, on a [...] AM EDT documented as of this encounter Progress Notes * Edson Macario MD - 06/01/2024 11:20 AM EST Subjective Patient ID: Kaorn Clement is a 49 y.o. female. HPI Karon noted yesterday onset of left eye redness with white discharge today, with sx spreading to right eye today. No recent illness, vision change, contact lens use, or eye pain. Never smoked. Patient Active Problem List Diagnosis Asthma First degree atrioventricular block Hyperlipidemia Uncontrolled type 2 diabetes mellitus with hyperglycemia (CMS/HCC) Essential (primary) hypertension Healthcare maintenance Severe episode of recurrent major depressive disorder, without psychotic features (CMS/HCC) PTSD (post-traumatic stress disorder) JONES (generalized anxiety disorder) Homelessness Atrial flutter, paroxysmal (CMS/HCC) History of bariatric surgery The following portions of the chart were reviewed this encounter and updated as appropriate: Tobacco Allergies Meds Problems Med Hx Surg Hx Fam Hx Review of Systems Constitutional: Negative for fever. Eyes: Positive for discharge and redness. Negative for pain and visual disturbance. Respiratory: Negative for shortness of breath. Cardiovascular: Negative for chest pain. Gastrointestinal: Negative for abdominal pain. Skin: Negative for rash. Neurological: Negative for headaches. Objective Physical Exam Vitals and nursing note reviewed. Constitutional: Appearance: Normal appearance. HENT: Head: Normocephalic and atraumatic. Nose: Nose normal. Eyes: Extraocular Movements: Extraocular movements intact. Conjunctiva/sclera: Right eye: Right conjunctiva is injected. Left eye: Left conjunctiva is injected (L>R). Pupils: Pupils are equal, round, and reactive to light. Pulmonary: Effort: Pulmonary effort is normal. Skin: General: Skin is warm and dry. Neurological: Mental Status: She is alert. Gait: Gait is intact. Psychiatric: Mood and Affect: Mood and affect normal. Behavior: Behavior normal. Procedures Assessment/Plan Diagnoses and all orders for this visit: Acute conjunctivitis of both eyes, unspecified acute conjunctivitis type Prescribed Polytrim eye drops. Discussed conjunctivitis precautions. Rtc if not improving. Other orders - trimethoprim-polymyxin b (Polytrim) ophthalmic solution; Administer 1 drop into both eyes 4 timesdaily for 7 days. documented in this encounter Plan of Treatment Upcoming Encounters Date Type Department Care Team (Late st Contact Info) Description 07/07/2024 9:00 AM EST Office Visit [facility] MEDICINE [address] [place] [address] Patricia Willams FNP [address] [place] [address] 09/08/2024 9:00 AM EDT Office Visit [facility] OPTOMETRY [address] [place] [address] Darion, Gladis, OD [address] [place] [address] documented as of this encounter Visit Diagnoses Diagnosis Acute conjunctivitis of both eyes, unspecified acute conjunctivitis type- Primary documented in this encounter Additional Health Concerns Assessment Noted Time PHQ-9 Depression Total Score: 21 024 8:23 AM EDT documented as of this encounter Care Teams Tetryl Nitrator Operator Relationship Specialty Start Date End Date Patricia Willams FNP [address] [place] [address] PCP - General Family Medicine 02/04/22 documented as of this encounter
--- OUTSIDE RECORDS SUMMARY | 2024-06-29 15:03 | XMS_ITS | Encounter Summary ---
Author Organization [employer] Address [address] [place] [address] 7t [place] [address] Care Team Providers Care Refrigerator Car Icer Name Role Phone [facility] Primary Care Provider [phone] Reason for Visit * Reason Comments Med Refill Encounter Details Date Type Department Care Team ([facility] st Contact Info) Description 08/11/2023 Refill [facility] MEDICINE [address] [place], [place] [phone] [facility] [address] [place] [address] Type 2 diabetes mellitus with other specified complication, unspecified whether retirement insulin use ([facility]) Social History Tobacco Use Types Packs/Day [...] Description 07/07/2024 9:00 AM EST Office Visit [facility] MEDICINE [address] [place] [address] [facility] [address] [place] [address] 09/08/2024 9:00 AM EDT Office Visit [facility] OPTOMETRY [address] [place] [address] Darion, Gladis, OD [address] [place] [address] documented as of this encounter Visit Diagnoses Diagnosis Type 2 diabetes mellitus with other specified complication, unspecified whether long term care phlebotomist insulin use ([facility]) documented in this encounter Additional Health Concerns Assessment Noted Time PHQ-9 Depression Total Score: 0 07/18/19 24 11:22 AM EST documented as of this encounter Care Teams Refrigerator Car Icer Relationship Specialty Start Date End Date [facility] [address] [place] [address] PCP - General Family Medicine 02/04/22 Mariann Ray Slip Laster 10/02/23 01/01/24 documented as of this encounter
--- OUTSIDE RECORDS SUMMARY | 2024-06-29 15:03 | XMS_ITS | Encounter Summary ---
Author Organization [employer] Address [address] [place] [address] [address] [place] [address] Care Team Providers Care Inspector Toys Name Role Phone [place] [facility] Primary Care Provider [phone] Reason for Visit * Reason Onset Date Comments Referral 08/01/2023 Encounter Details Date Type Department Care Team ([facility] st Contact Info) Description 08/01/2023 Telephone [facility] MEDICINE [address] [place], [place] [phone] [facility] [address] [place], [place] [phone] Referral Social History Tobacco Use Types Packs/Day [...] encounter Miscellaneous Notes * Telephone Encounter - Antonina Lacey - 08/01/2023 10:46 AM EST Tc from pt would like to inform equipment application specialist that their insurance should be active and wouldlike for referral for physical therapy to authorized. Please contact at [phone] documented in this encounter Plan of Treatment Upcoming Encounters Date Type Department Care Team (Late st Contact Info) Description 07/07/2024 9:00 AM EST Office Visit [facility] MEDICINE [address] [place] [address] Patricia Willams FNP [address] [place] [address] 09/08/2024 9:00 AM EDT Office Visit [facility] OPTOMETRY [address] [place] [address] Darion, Gladis, OD [address] [place] [address] documented as of this encounter Visit Diagnoses Not on filedocumented in this encounter Additional Health Concerns Assessment Noted Time PHQ-9 Depression Total Score: 0 07/18/19 24 11:22 AM EST documented as of this encounter Care Teams Inspector Toys Relationship Specialty Start Date End Date Patricia Willams FNP [address] [place] [address] PCP - General Family Medicine 02/04/22 Mariann Ray Taping Supervisor 10/02/23 01/01/24 documented as of this encounter
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
--- OUTSIDE RECORDS SUMMARY | 2024-06-29 15:03 | XMS_ITS | Encounter Summary ---
Author Organization [employer] Address [address] [place] [address] 7 [place] [address] Care Team Providers Care Cooker Pie Filling Name Role Phone Imer [facility] Primary Care Provider [phone] Reason for Visit * Reason Onset Date Comments Medication Question 05/31/2024 Encounter Details Date Type Department Care Team ([facility] st Contact Info) Description 05/31/2024 Telephone [facility] [address] [place], [place] [phone] [place] Patricia [facility] [address] [place] [address] Medication Question Social History Tobacco Use Types Packs/Day Years [...] with others, in a hotel, in a skilled nursing, living outside on the street, on a [...] encounter Miscellaneous Notes * Telephone Encounter - Von Soto RN - 05/31/2024 12:31 PM EST TC placed to patient who reports she was advised by her weight management provider to discuss GLP 1options with PCP as they aren't really prescribing right now they are doing more of just the surgical interventions. Patient reports she had the sleeve placed last year and has recently over the last4-5 months hit a plateau and has not been losing much weight. Patient reports she has been working on accountability and has been trying to make better food choices. Patient takes the stairs when ever she can and lives in a 2 story house so she is always using the stairs at home. Does not go out and exercise due to other health issues involving her back and her knee. Patient is currently following a high protein diet and is trying not to snack as much. Patient advised PCP is out of office until06/11 and RN will send message to PCP to inform her of her interest in potential GLP 1 or medication to help with her weightloss. Patient also booked for appt with PCP at next available for 07/07/23 at 9 am Patient advised in person is best because we need recent weight on file and office notes to send if provider does discuss medication options in case PA is needed. Patient agrees to come in person. Message sent to PCP for review and advise. (Patient aware provider is not in until 06/11/24 and willnot get response until then. RN advised patient to continue to try and increase daily steps as wellas eating high protein meals to feel yin longer. Patient verbalized understanding and agrees with plan. * Telephone Encounter - Vineet Gurdeep - 05/31/2024 9:52 AM EST TC from pt states weight management advised to call pcp office due to camille loss injection [employer] . documented in this encounter Plan of Treatment Upcoming Encounters Date Type Department Care Team (Late st Contact Info) Description 07/07/2024 9:00 AM EST Office Visit [facility] [address] [place] [address] Patricia Willams FNP [address] [place] [address] 09/08/2024 9:00 AM EDT Office Visit [facility] [address] [place] [address] Darion, Gladis, OD 230 [place] [address] documented as of this encounter Visit Diagnoses Not on filedocumented in this encounter Additional Health Concerns Assessment Noted Time PHQ-9 Depression Total Score: 21 07/2 024 8:23 AM EDT documented as of this encounter Care Teams Cooker Pie Filling Relationship Specialty Start Date End Date Patricia Willams FNP [address] [place] [address] PCP - General Family Medicine 02/04/22 documented as of this encounter
--- OUTSIDE RECORDS SUMMARY | 2024-06-29 15:03 | XMS_ITS | Encounter Summary ---
Author Organization [employer] Address [address] [facility] 7t [place] [address] Care Team Providers Care Financial Engineer Name Role Phone Patricia Willams HYDRAULIC BULL RIVETER OPERATOR Primary Care Provider [phone] Encounter Details Date Type Department Care Team (Latest Contact Info) Description 06/01/2024 Travel Social History Tobacco Use Types Packs/Day Years Used Date Smoking Tobacco: Never Smokeless Tobacco: Never Depression Answer Date Recorded Patient Health Questionnaire-9 Score 12/22/2023 Patient Health Questionnaire-9 Score 12/22/2023 Last PHQ-9: Questionnaire Data Not on file 0 12/22/2023 Housing Stability Answer Date Recorded What is your housing situation today? I do not have housing (Staying with others, in a hotel, in a detention, living outside on the street, on a [...] Description 07/07/2024 9:00 AM EST Office Visit [facility] [address] [place] [address] [place] [facility] [address] [place] [address] 09/08/2024 9:00 AM EDT Office Visit [facility] [address] [place] [address] Darion, Gladis, OD [address] [place] [address] documented as of this encounter Visit Diagnoses Not on filedocumented in this encounter Additional Health Concerns Assessment Noted Time PHQ-9 Depression Total Score: 21 024 8:23 AM EDT documented as of this encounter Care Teams Financial Engineer Relationship Specialty Start Date End Date Patricia Willams [facility] [address] [place] [address] PCP - General Family Medicine 02/04/22 documented as of this encounter
--- OUTSIDE RECORDS SUMMARY | 2024-06-29 15:03 | XMS_ITS | Encounter Summary ---
Author Organization [employer] Address [address] [place] [address] 7 [place] [address] Care Team Providers Care College Counselor Name Role Phone [place] [facility] Primary Care Provider [phone] Reason for Visit * Reason Onset Date Comments PT-1 Additional information 10/30/2023 Encounter Details Date Type Department Care Team ([facility] st Contact Info) Description 10/30/2023 Telephone [facility] [address] [place], [place] [phone] [facility] [address] [place] [address] PT-1 Additional information Social History Tobacco Use Types Packs/Day Years Used Date Smoking Tobacco: Never Smokeless Tobacco: Never Depression Answer Date Recorded Patient Health Questionnaire-9 Score 0 10/10/2023 Patient Health Questionnaire-9 Score 0 10/10/2023 Last PHQ-9: Questionnaire Data Not on file 0 10/10/2023 Housing Stability Answer Date Recorded What is [...] Date Recorded Patient Health Questionnaire-2 Score 0 10/10/2023 Comments Unknown Sex and Gender Information Value Date Recorded Sex Assigned at Female 04/08/2022 10:14 AM EDT Legal Sex Female 10:14 AM EDT Gender Identity Female 04/08/2022 10:14 AM EDT Sexual Orientation Straight 04/08/2022 10 :14 AM EDT documented as of this encounter Miscellaneous Notes * Telephone Encounter - Francis Alston - 10/30/2023 11:41 AM EDT Tc from patient calling to provide additional information for the PT-1 that was requested for [facility] Card[facility] the appt is 11/06 @ 8 needs to be there for 7:30 and [address] where thepatient would be picked up at will be [address] [place] [address] address on demographics is a mailing address only documented in this encounter Plan of Treatment Upcoming Encounters Date Type Department Care Team (Late st Contact Info) Description 07/07/2024 9:00 AM EST Office Visit [facility] [address] [place] [address] [place]gal, Patricia, VOLCANOLOGY PROFESSOR [address] [place] [address] 09/08/2024 9:00 AM EDT Office Visit [facility] [address] [place] [address] Gladis Orlando, OD [address] [place] [address] documented as of this encounter Visit Diagnoses Not on filedocumented in this encounter Additional Health Concerns Assessment Noted Time PHQ-9 Depression Total Score: 0 05/03/20 24 3:45 PM EDT documented as of this encounter Care Teams College Counselor Relationship Specialty Start Date End Date Patricia Willams FNP [address] [place] [id number] PCP - General Family Medicine 02/04/22 Mariann Ray Electroplating Sales Representative 10/02/23 01/01/24 documented as of this encounter
--- OUTSIDE RECORDS SUMMARY | 2024-06-29 15:03 | XMS_ITS | Encounter Summary ---
Author Organization [email or web address] Address [address] [facility] 7t [place] [address] Care Team Providers Care Search Engine Optimization Manager Name Role Phone Patricia Willams MANAGER MULTICULTURAL Primary Care Provider [phone] Reason for Referral * Consultation (Routine) - Closed Specialty Diagnoses / Procedures Referred By Eugenio olea Referred To Contact Optometry Diagnoses Blurry vision Maribel Rosas MD [address] [place] [address] Phone: tel: fax: Referral ID Status Reason Start Date Expiration Date V isits Requested Visits Authorized [id number] Closed Specialty Services Required 08/07/2023 08/06/2024 1 1 Encounter Details Date Type Department Care Team (Late st Contact Info) Description 08/07/2023 Orders Only [facility] [address] [place], [place] [phone] Maribel Rosas MD [address] [place], [place] [phone] Blurry vision (Primary Dx) Social History Tobacco Use Types [...] Description 07/07/2024 9:00 AM EST Office Visit [facility] [address] [place] [address] [facility] [address] [place] [address] 09/08/2024 9:00 AM EDT Office Visit [facility] [address] [place] [address] Darion, Gladis, OD [address] [place] [address] Scheduled Referrals Name Type Priority Associated Diagnoses Orde r Schedule Referral to Optometry Outpatient Referral Routine Blurry vision Expected: 08/07/2023 (Approximate), Expires: 08/06/2024 documented as of this encounter Visit Diagnoses Diagnosis Blurry vision- Primary Other specified visual disturbances documented in this encounter Additional Health Concerns Assessment Noted Time PHQ-9 Depression Total Score: 0 07/18/19 24 11:22 AM EST documented as of this encounter Care Teams Search Engine Optimization Manager Relationship Specialty Start Date End Date StowPatricia, MANAGER MULTICULTURAL [address] [place] [address] PCP - General Family Medicine 02/04/22 Mariann Ray Record Changer Tester 10/02/23 01/01/24 documented as of this encounter
== END 2024-06-29 13:44 | disposition home or self-care (01) ==
LOC: HO.HBS 13:19
PROVIDERS: PCP Registered Nurse; Visit Provider Physician Assistant Surgical
DX: E66.813 Obesity, class 3 (principal); Z68.43 Body mass index [BMI] 50.0-59.9, adult; Z90.3 Acquired absence of stomach [part of]; Z98.84 Bariatric surgery status
CPT/HCPCS: 99214

== ENCOUNTER 2024-08-31 16:42 | Outpatient (REF) | payer MEDICAID, SELFPAY | END 2024-08-31 16:43 | disposition home or self-care (01) | LOC: HO.HHCLNP 16:42 | PROVIDERS: Visit Provider Internal Medicine | DX: J02.9 Acute pharyngitis, unspecified (principal) | CPT/HCPCS: 87070 ==

== ENCOUNTER 2024-11-03 09:19 | Outpatient (REF) | payer MEDICAID, SELFPAY ==
--- OUTSIDE RECORDS SUMMARY | 2024-11-03 09:58 | XMS_ITS | Encounter Summary ---
Author Organization [employer] Address [address] [facility] [address] [place] [address] Care Team Providers Care Pearler Name Role Phone [place] [facility] Primary Care Provider [phone] Reason for Visit * Reason Onset Date Comments chart prep 10/29/2024 Encounter Details Date Type Department Care Team ([facility] st Contact Info) Description 10/29/2024 Telephone [facility] [address] [place], [place] [phone] [facility] [address] [place], [place] [phone] chart prep Social History Tobacco Use Types Packs/Day Years Used Date Smoking Tobacco: Never Passive Smoke Exposure: Never Smokeless Tobacco: Never Alcohol Use Standard Drinks/Week Comments Never 0 (1 standard drink = 0.6 oz pur e alcohol) Depression Answer Date Recorded Patient Health Questionnaire-9 Score 16 10/06/2024 Patient Health Questionnaire-9 Score 16 10/06/2024 Last PHQ-9: Questionnaire Data Not on file 0 10/06/2024 Housing Stability Answer Date Recorded What is your housing situation today? I have windy chaudhari 10/06/[address] you li ve. Do you have problems with any of the following? None of the above 10/06/2024 Food Insecurity Answer Date Recorded Within the past 12 months, y ou worried that your food would run out before you got money to buy more: Never True 10/06/2024 Within the past 12 months,th e food you bought just didn't last and you didn't have enough money to get more: Never True Transportation Answer Date Recorded In the past 12 months, has l ack of transportation kept you from medical appts, meetings, work or from getting things needed for daily living? No 10/06/2024 Utilities Answer Date Recorded In the past 12 months, has t he electric, gas, oil or water company threatened to shut off services in your home? No 10/06/2024 Depression Answer Date Recorded Patient Health Questionnaire-2 Score 4 10/06/2024 Internet Access Answer Date Recorded Internet Access Q1 Yes 10/06/2024 Internet Access Q2 Not on file 10/06/2024 Comments No Sex and Gender Information Value Date Recorded Sex Assigned at Female 04/08/2022 10:14 AM EDT Legal Sex Female 10:14 AM EDT Gender Identity Female 04/08/2022 10:14 AM EDT Sexual Orientation Straight 04/08/2022 10 :14 AM EDT documented as of this encounter Miscellaneous Notes * Telephone Encounter - Radha Hernandez [place] - 10/29/2024 2:25 PM EDT Chart Prep Labs: not done ( call was made to remind pt of standing order) Images: done Mammo 12/20/24 Referrals: complete ( mammo 12/20/24) Vaccines due: Covid, Flu, and PCV20 Screenings: mammogram and pap smear Overdue care gaps: Glucose, PHQ-9, JONES-7, Disability screen, and Tobacco documented in this encounter Plan of Treatment Upcoming Encounters Date Type Department Care Team (Latest Contact Info) Description 11/03/2024 10:30 AM EDT Office Visit [facility] [address] [place] [address] Imer, Patricia, QUALITY ASSURANCE INTERN [address] [place] [address] Uncontrolled type 2 diabetes mellitus with hyperglycemia ([facility]/HCC) 12/08/2024 3:30 PM EDT Office Visit [facility] [address] [place] [address] Darion, Gladis, OD [address] [place] [address] documented as of this encounter Visit Diagnoses Not on filedocumented in this encounter Additional Health Concerns Assessment Noted Time PHQ-9 Depression Total Score: 16 025 3:54 PM EDT documented as of this encounter Care Teams Pearler Relationship Specialty Start Date End Date Patricia Willams FNP [address] [place] [address] PCP - General Family Medicine 02/04/22 documented as of this encounter
[2024-11-03 11:38] LABS: Estimated Average Glucose 91 mg/dL; Hemoglobin A1c % 4.8 % (<6.0)
[2024-11-03 12:19] LABS: Cholesterol 190 mg/dL (<200); HDL Cholesterol 56 mg/dL (>40); LDL Cholesterol Calculated 106 mg/dL (<100); Triglycerides 144 mg/dL (<150)
[2024-11-03 12:32] LABS: Microalbum/Creatinine Ratio Ur 23.8 ug/mg cr (<30)
== END 2024-11-03 09:20 | disposition home or self-care (01) ==
LOC: HO.HHCL 09:19
PROVIDERS: Visit Provider Registered Nurse
DX: E11.9 Type 2 diabetes mellitus without complications (principal); E11.69 Type 2 diabetes mellitus with other specified complication
CPT/HCPCS: 36415; 80061; 82043; 82570; 83036

== ENCOUNTER 2024-11-19 09:38 | Emergency (ER) | payer MEDICAID, SELFPAY ==
--- NOTE | ~2024-11-19 | CT_ITS ---
EXAMINATION: CT LUMBAR SPINE WITHOUT CONTRAST CLINICAL INFORMATION: Atraumatic lumbar back pain radiating into the left leg COMPARISON: Same day x-ray TECHNIQUE: Axial imaging was performed from the thoracolumbar junction to the mid to lower sacrum without IV contrast. Coronal and sagittal reformatted images were generated from the original axial data set. DLP: 1186 mGY*cm FINDINGS: Visualized solid organs are unremarkable. There is vacuum phenomena in bilateral SI joints. There are 5 non-rib bearing lumbar segments. Vertebral body height and alignment was preserved. CT is limited in evaluation of disc spaces, MRI is standard of care. L5-S1: There is facet sclerosis, osteophytes, and vacuum phenomena on the left. There is mild bilateral foraminal narrowing. CT/CT lumbar spine wo IV con IMPRESSION: Moderate facet joint arthropathy on the left at L5-S1. Mild degenerative changes in bilateral SI joints. Electronically signed by: Kal Garcia MD 11/19/2024 12:51 PM EDT
--- NOTE | ~2024-11-19 | XR_ITS ---
EXAMINATION: XR LUMBOSACRAL SPINE CLINICAL INFORMATION: atraumatic lumbar spine pain rad down L leg COMPARISON: June 29, 2023. TECHNIQUE: Three views of the lumbosacral spine. FINDINGS: Mild endplate sclerosis at multiple levels. No acute cortical disruption or malalignment. No lytic or blastic lesions. Mild levoconvex curvature of the lumbar spine which be positional. Vascular clips in the left upper quadrant abdomen no fully included in the [id number]. XR/XR lumbar spine 2-3V IMPRESSION: Mild multilevel spondylosis without acute fracture or gross listhesis. Electronically signed by: Blayne Gilmore MD 11/19/2024 11:15 AM EDT
[2024-11-19 10:18] VITALS: BP 136/73; PULSE 58; RESP 16; TEMP 36.9; O2SAT 98; BMI 54.5
--- NOTE | 2024-11-19 11:31 | ED.BACK ---
HPI - Back Pain/Injury General Chief Complaint: Back Pain/Injury Stated Complaint: Sciatic pain Time Seen by Provider: 11/19/24 11:30 Source: patient Mode of arrival: ambulatory Limitations: no limitations History of Present Illness ED Provider: CHARLEY BENTLEY PA-C HPI Narrative: 49 year old female with pmhx significant for hepatomegaly, HLD, T2DM, hypothyroidism, first-degree AV block, obesity s/p gastric sleeve presents to the ED today for evaluation of lower back radiating to her left leg x1 week. Reports this pain began after lifting a heavy box. Pain initially began radiating down the posterior aspect of her left leg, now notes pain to entire left leg. She saw her PCP and was given cyclobenzaprine, but this did not help her pain. She has also trialed Tylenol and hot/cold compresses without improvement in symptoms. Pain is currently a 6/10 severity. Reports occasional numbness in left leg. She has a history of sciatica and herniated disc and states this episode feels similar. She was previously seen at pain management and her symptoms resolved. She has never completed PT for this. Denies IV drug use. Denies fever, chills, neck pain, bowel or bladder incontinence or retention, tingling/weakness in the lower extremities, dysuria, hematuria, saddle anesthesia. Related Data Home Medications ?Medication ?Instructions ?Recorded ?Confirmed apixaban 5 mg tablet (Eliquis) 5 mg PO BID 12/17/23 06/29/24 albuterol sulfate 90 mcg/actuation 2 puff inhalation QID PRN wheezing 01/30/24 06/29/24 aerosol inhaler (Ventolin HFA) estradiol 0.01% (0.1 mg/gram) 1 g vaginal DAILY 01/30/24 06/29/24 vaginal cream hydrocortisone 2.5 % topical cream 2.5 appl VA BID PRN Itching 01/30/24 06/29/24 with perineal applicator polyethylene glycol 3350 17 17 g PO QAM PRN Constipation 01/30/24 06/29/24 gram/dose oral powder aripiprazole 5 mg tablet 10 mg PO BEDTIME 05/13/24 06/29/24 Previous Rx's ?Medication ?Instructions ?Recorded guanfacine 1 mg tablet,extended See Rx Instructions .Route 02/17/24 release 24 hr .COMPLEX #15 tabs sertraline 100 mg tablet 100 mg PO DAILY #15 tabs 02/17/24 azithromycin 250 mg tablet 250 mg PO DAILY 4 days #4 tabs 02/22/24 cefpodoxime 200 mg tablet 200 mg PO BID #14 tabs 02/22/24 cholecalciferol (vitamin D3) 125 125 mcg PO DAILY #90 caps 04/12/24 mcg (5,000 unit) capsule vitamin A palmitate 3,000 mcg 10,000 unit PO DAILY #90 caps 04/12/24 (10,000 unit) capsule zinc gluconate 30 mg tablet 30 mg PO DAILY #90 tabs 04/12/24 iron,carbonyl 65 mg-vitamin C 125 1 tab PO BEDTIME #90 tabs 06/29/24 mg tablet,delayed release (Vitron-C) clotrimazole 1 % topical cream 1 appl topical BID #90 grams 07/27/24 docusate sodium 100 mg capsule 100 mg PO DAILY PRN Constipation 08/23/24 (Colace) #90 caps lidocaine 5 % topical patch 1 patch topical DAILY #15 ea 11/19/24 (Lidoderm) oxycodone 5 mg tablet 5 mg PO Q8H PRN pain (scale score 11/19/24 7-10) 3 days #9 tabs Allergies Allergy/AdvReac Type Severity Reaction Status Date / Time bee pollen [bee stings] Allergy Severe Anaphylaxis Verified 11/19/24 10:20 Review of Systems Review of Systems: Constitutional: No fever, chills, fatigue, night sweats, weight changes ENT/Mouth: No ear pain, hearing loss, nasal congestion, sinus pain, rhinorrhea, sore throat Eyes: No eye pain, swelling, redness, vision changes, discharge Cardio: No chest pain, palpitations, DELUNA, orthopnea, peripheral edema Pulm: No SOB, cough, sputum, wheezing, dyspnea, hemoptysis GI: No nausea, vomiting, hematemesis, abdominal pain, diarrhea, constipation, hematochezia, melena : No irregular bleeding, dysuria, frequency, urgency, hesitancy, hematuria, flank pain, urinary flow changes, urinary incontinence or retention MSK: +back pain, No neck pain, joint pain, myalgias Skin: No lesions, rashes Neuro: No weakness, numbness, paresthesias, LOC, dizziness, headache All other systems reviewed and are negative. PMFSH Past Medical History Attestation statement: The following information was validated with the patient. Source: old records reviewed and nursing notes reviewed Medical History Homeless single person Elevated TSH Hepatomegaly Hyperlipidemia Insulin dependent type 2 diabetes mellitus Hypothyroidism Low back pain Sciatica of left side First degree AV block Surgical History S/P gastric sleeve procedure Hx of tubal ligation Family History Family History Mother Diabetes Dementia Anemia Father Diabetes Heart problem High cholesterol Arthritis Sister Heart problem Diabetes High cholesterol Hypertension Sickle cell anemia Sister Breast cancer Asthma Sister Heart problem Diabetes Son Asthma Son No problems noted. Son Autism Daughter Anxiety Social History Social History Household Members: Family Housing: House Are you a primary healthcare economics consultant to a significant other at home: No Do you presently have visiting nurse or other home services: No Alcohol intake: never Comment: Discharge date set for 02/13/24 Patient Tobacco Use Status: Former Tobacco user Tobacco use type: Cigarette Advance Directives: No Advance Directives Information Provided: Yes Do you have a plan to hurt others: No Plan service: No Physical Exam Vital Signs: Vital Signs: Last Vital Signs Temp 98.0 F 11/19/24 13:49 Pulse 51 11/19/24 13:49 Resp 16 11/19/24 13:49 BP 105/43 L 11/19/24 13:49 Pulse Ox 100 11/19/24 13:49 O2 Del Method Room Air 11/19/24 13:49 BMI result Body Mass Index 54.5 vital signs stable, afebrile General: Well appearing, in no acute distress. Skin: Warm, dry, intact. No rashes or lesions. Head: Normocephalic, atraumatic. EENT: Hearing is intact b/l. Conjunctiva clear. Sclera is anicteric.Moist mucous membranes.?? Cardiac: Chest wall symmetric. RRR. Lungs: Normal respiratory effort without accessory muscle use. CTA bilaterally. Abdomen: Soft, non-tender, non-distended. No rebound tenderness or guarding. Back: Tenderness to palpation noted to lumbar paraspinal muscles. Positive straight leg raise test. No midline tenderness. No step off deformity. Ext: Upper and lower extremities atraumatic, without tenderness, deformity, swelling or erythema. Neuro: AOx3. Normal speech.Strength 5/5 intact throughout. No saddle anesthesia. Sensation intact to light touch. NV intact distally. Course Course Course Narrative: 1328 -- x-ray lumbar spine showing mild multilevel spondylosis without acute fracture or gross listhesis. CT lumbar spine showing moderate facet joint arthropathy on the left at L5-S1 with mild degenerative changes within bilateral SI joints. > patient treated with p.o. oxycodone and lidocaine patch in ED with improvement. there are no back pain red flags. She is ambulating with steady gait. > I discussed all workup results with patient. Advised PCP follow-up, likely will require physical therapy. Will send with short course of oxycodone and lidocaine patches for pain. Patient has remained stable throughout ED visit today. Discussed worrisome signs and symptoms and when to return to the ED. All questions answered at this time. Patient is agreeable with disposition and stable for discharge. Medications Administered Discontinued Medications Generic Name Dose Route Start Last Admin Trade Name Freq PRN Reason Stop Dose Admin Lidocaine 1 patch 11/19/24 11:44 11/19/24 12:24 Lidocaine 4 % Patch Adh..Patch TRANSDERMA 11/19/24 11:45 1 patch ONCE ONE Administration Protocol Naloxone HCl 8 mg 11/19/24 13:28 11/19/24 13:42 Naloxone Hcl Nasal Take Home 4 Mg Grannis NOSTRILALT 11/19/24 13:29 8 mg ONCE ONE Administration Oxycodone HCl 5 mg 11/19/24 11:44 11/19/24 12:24 Oxycodone Hcl Immed Release 5 Mg Tablet PO 11/19/24 11:45 5 mg ONCE ONE Administration Medical Decision Making Medical Decision Making [facility] Narrative: 49 year old female with pmhx significant for hepatomegaly, HLD, T2DM, hypothyroidism, first-degree AV block, obesity s/p gastric sleeve presents to the ED today for evaluation of lower back radiating to her left leg x1 week. Vital signs stable, afebrile. She is well-appearing and in no acute distress. On exam, there is tenderness to palpation noted to lumbar paraspinal muscles. Positive straight leg raise test. No midline tenderness. No step off deformity. Sensation intact to light touch, ambulating with steady gait. Concern for MSK sprain/strain, fracture, subluxation, disc herniation, sciatica, arthritis, DDD. Presentation not consistent with UTI, renal colic, nephrolithiasis. Unlikely cord compression, cauda equina, Guillain-[place], epidural abscess. Plan for imaging, pain control and re-evaluation. Differential Diagnosis Differential Diagnoses: The differential diagnosis associated with the presentation includes as above Admission/Observation Not indicated. Independent Interpretation I performed an independent interpretation of an: Plain X-Ray and CT Scan Interpretation: xr lumbar spine without fracture ct lumbar spine without fracture Radiology Impression Discussion of test interpretation with radiology: I have reviewed the radiologist's reading. Radiologist Impression: Procedure(s): CT lumbar spine wo IV con Accession Number(s): [id number] cc: Charley Bentley; [facility]~ Report Number: [id number]: Total DLP = 1186.00 mGy-cm EXAMINATION: CT LUMBAR SPINE WITHOUT CONTRAST CLINICAL INFORMATION: Atraumatic lumbar back pain radiating into the left leg COMPARISON: Same day x-ray TECHNIQUE: Axial imaging was performed from the thoracolumbar junction to the mid to lower sacrum without IV contrast. Coronal and sagittal reformatted images were generated from the original axial data set. DLP: 1186 mGY*cm FINDINGS: Visualized solid organs are unremarkable. There is vacuum phenomena in bilateral SI joints. There are 5 non-rib bearing lumbar segments. Vertebral body height and alignment was preserved. CT is limited in evaluation of disc spaces, MRI is standard of care. L5-S1: There is facet sclerosis, osteophytes, and vacuum phenomena on the left. There is mild bilateral foraminal narrowing. CT/CT lumbar spine wo IV con IMPRESSION: Moderate facet joint arthropathy on the left at L5-S1. Mild degenerative changes in bilateral SI joints. Electronically signed by: Kal Garcia MD 11/19/2024 12:51 PM EDT Procedure(s): XR lumbar spine 2-3V Accession Number(s): [id number] cc: Charley Bentley; [facility]~ EXAMINATION: XR LUMBOSACRAL SPINE CLINICAL INFORMATION: atraumatic lumbar spine pain rad down L leg COMPARISON: June 29, 2023. TECHNIQUE: Three views of the lumbosacral spine. FINDINGS: Mild endplate sclerosis at multiple levels. No acute cortical disruption or malalignment. No lytic or blastic lesions. Mild levoconvex curvature of the lumbar spine which be positional. Vascular clips in the left upper quadrant abdomen no fully included in the [id number]. XR/XR lumbar spine 2-3V IMPRESSION: Mild multilevel spondylosis without acute fracture or gross listhesis. Electronically signed by: Blayne Gilmore MD 11/19/2024 11:15 AM EDT External Record Review External record reviewed: Inpatient record Prescription Management I considered prescription management with: Pain Medication (Oxycodone) and Other (Lidocaine patch) Chronic Conditions Patient?s care impacted by: Other (Sciatica, disc herniation) Social Determinants Patient?s care significantly limited by Social Determinants of Health including: Other Social Determinant of Health Critical Care Time Critical Care Time Critical Care Time: No Discharge Plan Discharge Clinical Impression: Lumbar radiculopathy Patient Disposition: Home, Self-Care Instructions: Lumbar Radiculopathy (ED), Lower Back Exercises (ED) Additional Instructions: You were evaluated in the Emergency Department today for your back pain.? Your evaluation did not show signs of medical conditions requiring emergent intervention at this time. Avoid bending, lifting, or twisting. Use ice several times per day for 20 minutes at a time for the next 48 hours and then change to heat. I recommend you take 600mg ibuprofen every 6 hours or tylenol 650mg every 6 hours as needed for pain. If needed, you can alternate these medications so that you take one medication every 3 hours. For example, at noon take ibuprofen, then at 3pm take tylenol, then at 6pm take ibuprofen. I am sending oxycodone, a controlled pain medication, to your pharmacy for you to take for breakthrough pain control. Please use this with caution as opioid pain medications have addictive properties. I have also provided you with Narcan as accidental overdoses on oxycodone can occur. Opioid pain medications can often cause constipation. I recommend taking this with an over the counter laxative and/or stool softener to help move your bowels. Lidocaine patches have been sent to your pharmacy. You may apply these to your back every 12 hours as needed for pain. Please schedule an appointment for follow-up with your primary care provider this week for further evaluation of your symptoms. You may require a referral for physical therapy. Return to the Emergency Department if you experience worsening back pain, difficulty walking, fevers, numbness, tingling, incontinence, or any other concerning symptoms. In the case of an emergency call 911. Prescriptions: New oxycodone 5 mg tablet 5 mg PO Q8H PRN (Reason: pain (scale score 7-10)) 3 Days Qty: 9 0RF Rx Instructions: Partial Fill upon patient request. lidocaine [Lidoderm] 5 % adhesive patch,medicated 1 patch topical DAILY Qty: 15 0RF Rx Instructions: leave on most painful area for up to 12 hrs No Action vitamin A palmitate 3,000 mcg (10,000 unit) capsule 10,000 unit PO DAILY Qty: 90 3RF cholecalciferol (vitamin D3) 125 mcg (5,000 unit) capsule 125 mcg PO DAILY Qty: 90 3RF zinc gluconate 30 mg tablet 30 mg PO DAILY Qty: 90 3RF clotrimazole 1 % cream 1 appl topical BID Qty: 90 3RF docusate sodium [Colace] 100 mg capsule 100 mg PO DAILY PRN (Reason: Constipation) Qty: 90 1RF estradiol 0.01 % (0.1 mg/gram) Cream 1 g VAGINAL DAILY Rx Instructions: Apply daily for 2 weeks hydrocortisone 2.5 % cream with perineal applicator 2.5 appl VA BID PRN (Reason: Itching) polyethylene glycol 3350 17 gram/dose powder 17 g PO QAM PRN (Reason: Constipation) albuterol sulfate [Ventolin HFA] 90 mcg/actuation HFA aerosol inhaler 2 puff INHALATION QID PRN (Reason: wheezing) sertraline 100 mg Tablet 100 mg PO DAILY Qty: 15 1RF guanfacine 1 mg tablet extended release 24 hr See Rx Instructions .ROUTE .COMPLEX Qty: 15 1RF Rx Instructions: take one tablet po daily in afternoon cefpodoxime 200 mg tablet 200 mg PO BID Qty: 14 0RF Rx Instructions: must administer with a meal/food azithromycin 250 mg tablet 250 mg PO DAILY 4 Days Qty: 4 0RF Rx Instructions: start on day 2 of therapy Eliquis 5 mg tablet 5 mg PO BID Vitron-C 65 mg iron- 125 mg tablet,delayed release (DR/EC) 1 tab PO BEDTIME Qty: 90 3RF aripiprazole 5 mg tablet 10 mg PO BEDTIME Referrals: Patricia iWllams, MEDICAL ASSISTANT PRN [Primary Care Provider] - Stand Alone Forms: Work/School Release Interventions: ED Discharge Assessment Last Done: 11/19/24 13:49 Discharge Date/Time: 11/19/24 13:50 Print Language: Uzbek
[2024-11-19 12:11] VITALS: BP 120/51; PULSE 51; RESP 18; TEMP 36.7; O2SAT 99
--- NOTE | 2024-11-19 12:15 | PC.NURSE ---
Addendum entered by Imelda Lara RN 11/19/24 12:15: Patient is a 49 year old female with pmhx significant for hepatomegaly, HLD, T2DM, hypothyroidism, first-degree AV block, obesity s/p gastric sleeve presents to the ED today for evaluation of low back radiating to her left leg. Reports this pain began a week ago after lifting a heavy box. She saw her PCP and was given cyclobenzaprine, but this did not help her pain. She has also trialed Tylenol and hot/cold compresses without improvement in symptoms. Pain is currently a 6/10 severity. Reports occasional numbness in left leg. She has a history of sciatica and herniated disc and states this episode feels similar. She was previously seen at pain management and her symptoms resolved. Patient alert and oriented. Lungs clear bilat. Respirations even and non-labored. Abdomen obese, soft, non-tender with positive bowel sounds. Positive pedal pulses with trace LE edema noted. Original Note: Medical History Homeless single person Elevated TSH Hepatomegaly Hyperlipidemia Insulin dependent type 2 diabetes mellitus Hypothyroidism Low back pain Sciatica of left side First degree AV block
[2024-11-19] MEDS: oxyCODONE HCl Immed Release 5 MG TABLET PO (12:24)
[2024-11-19] MEDS: Lidocaine 4 % Patch ADH..PATCH 1 PATCH TRANSDERMA (12:24)
--- OUTSIDE RECORDS SUMMARY | 2024-11-19 13:05 | XMS_ITS | Encounter Summary ---
Author Organization [employer] Address [address] [place] [address] Care Team Providers Care Psychiatric Arnp Name Role Phone [place] [facility] Primary Care Provider Jeff Jimenez RN Unavailable [phone] Corie Enriquez Unavailable Encounter Details Date Type Department Care Team (Late st Contact Info) Description 11/03/2024 Results Follow-Up [facility] [address], [place] [id number] [facility] [address] [place] [address] POCT Glucose, POCT HGB A1C, Lipid Panel, Standard, Albumin, Random Urine W/Creatinine Social History Tobacco Use Types Packs/Day Years Used Date Smoking Tobacco: Never Passive Smoke Exposure: Never Smokeless Tobacco: Never Alcohol Use Standard Drinks/Week Comments Never 0 (1 standard drink = 0.6 oz pur e alcohol) Depression Answer Date Recorded Patient Health Questionnaire-9 Score 13 11/03/2024 Patient Health Questionnaire-9 Score 13 11/03/2024 Last PHQ-9: Questionnaire Data Not on file 0 11/03/2024 Housing Stability Answer Date Recorded What is [...] Date Recorded Patient Health Questionnaire-2 Score 4 11/03/2024 Internet Access Answer Date Recorded Internet Access Q1 Yes 10/06/2024 Internet Access Q2 Not on file 10/06/2024 Comments No Sex and Gender Information Value Date Recorded Sex Assigned at Female 04/08/2022 10:14 AM EDT Legal Sex Female 10:14 AM EDT Gender Identity Female 04/08/2022 10:14 AM EDT Sexual Orientation Straight 04/08/2022 10 :14 AM EDT documented as of this encounter Functional Status * Over the past 2 weeks, how often have you been bothered by any of the following problems? Question Answer Date of Assessment Author Patient Health Questionnaire -2 Score 4 11/03/2024 9:57 AM EDT Geoffrey Trinidad MA * Little interest or pleasure in doing things Answer Date of Assessment Author More than half the days 11/03/2024 9:57 AM EDT Geoffrey South MA * Feeling down, depressed, or hopeless Answer Date of Assessment Author More than half the days 11/03/2024 9:57 AM EDT Geoffrey South MA * Trouble falling or staying asleep, or sleeping too much Answer Date of Assessment Author Several days 11/03/2024 9:57 AM EDT Geoffrey Trinidad MA * Feeling tired or having little energy Answer Date of Assessment Author More than half the days 11/03/2024 9:57 AM EDT Geoffrey South MA * Poor appetite or overeating Answer Date of Assessment Author More than half the days 11/03/2024 9:57 AM EDT Geoffrey South MA * Feeling bad about yourself - or that you are a failure or have let yourself or your family down Answer Date of Assessment Author Several days 11/03/2024 9:57 AM Geoffrey Dalton MA * Trouble concentrating on things, such as reading the newspaper or watching television Answer Date of Assessment Author More than half the days 11/03/2024 9:57 AM JULIANNAT Geoffrey South MA * Moving or speaking so slowly that other people could have noticed? Or the opposite - being so fidgety or restless that you have been moving around a lot more than usual. Answer Date of Assessment Author Several days 11/03/2024 9:57 AM Geoffrey Dalton MA * Thoughts that you would be better off or hurting yourself in some way Answer Date of Assessment Author Not at all 11/03/2024 9:57 AM Geoffrey Dalton MA * Patient Health Questionnaire-9 Score Answer Date of Assessment Author 13 11/03/2024 9:57 AM Geoffrey Dalton MA * How difficult have these problems made it for you to do your work, take care of things at home, or get along with other people? Answer Date of Assessment Author Somewhat difficult 11/03/2024 9:57 AM Geoffrey Cabral MA * Over the last 2 weeks, how often have you been bothered by any of the following problems? Question Answer Date of Assessment Author Feeling nervous, anxious, or on edge 2 11/03/2024 9:57 AM Geoffrey Dalton MA Not being able to stop or co ntrol worrying 2 11/03/2024 9:57 AM Geoffrey Dalton MA Worrying too much about diff erent things 2 11/03/2024 9:57 AM Geoffrey Dalton MA Trouble relaxing 2 11/03/2024 9:57 AM JULIANNAT Geoffrey South [place] Being so restless that it is hard to sit still 2 11/03/2024 9:57 AM Geoffrey Dalton MA Becoming easily annoyed or irritable 2 11/03/2024 9:57 AM Geoffrey Dalton MA Feeling afraid as if somethi ng awful might happen 2 11/03/2024 9:57 AM EDT Geoffrey Trinidad MA JONES-7 Total Score 14 11/03/2024 9:57 AM EDT Geoffrey Trinidad MA documented as of this encounter Plan of Treatment Upcoming Encounters Date Type Department Care Team (Late st Contact Info) Description 12/08/2024 3:30 PM EDT Office Visit [facility] [address] [place] [address] DarionZachn, OD [address] [place] [address] documented as of this encounter Visit Diagnoses Not on filedocumented in this encounter Additional Health Concerns Assessment Noted Time PHQ-9 Depression Total Score: 13 025 9:57 AM EDT documented as of this encounter Care Teams Psychiatric Arnp Relationship Specialty Start Date End Date Patricia Willams FNP [address] [place] [address] PCP - General Family Medicine 02/04/22 Jeff Jimenez, RN [address] [place] [address] Registered Nurse Family Medicine 11/09/24 Corie Enriquez 11/09/24 documented as of this encounter
[2024-11-19 13:39] VITALS: BP 105/43; PULSE 51; RESP 16; TEMP 36.7; O2SAT 100
[2024-11-19] MEDS: Naloxone HCl Nasal TAKE HOME 4 MG SPRAY 8 MG NOSTRILALT (13:42)
[2024-11-19 13:49] VITALS: BP 105/43; PULSE 51; RESP 16; TEMP 36.7; O2SAT 100
== END 2024-11-19 13:50 | disposition home or self-care (01) ==
PROVIDERS: Emergency Provider Emergency Medicine; PCP Registered Nurse
DX: M54.10 Radiculopathy, site unspecified (principal); M54.50 Low back pain, unspecified; Z79.899 Other long term (current) drug therapy; E11.9 Type 2 diabetes mellitus without complications; E78.5 Hyperlipidemia, unspecified; E03.9 Hypothyroidism, unspecified; Z79.4 Long term (current) use of insulin
CPT/HCPCS: 72100; 72131; 99284

== ENCOUNTER → 2024-11-19 10:41 | Outpatient (BNV) | payer MEDICAID, SELFPAY | PROVIDERS: Emergency Provider Emergency Medicine; PCP Registered Nurse; Visit Provider Radiology Diagnostic Radiology | DX: M46.97 Unspecified inflammatory spondylopathy, lumbosacral region (principal); M54.50 Low back pain, unspecified | CPT/HCPCS: 72100; 72131 ==

== ENCOUNTER 2024-11-24 12:21 | Outpatient (AMB) | payer MEDICAID, SELFPAY ==
--- NOTE | 2024-11-24 12:55 | MHC.OFFVISWM ---
VS Expanded 11/24/24 13:03 BP 147/80 H Blood Pressure Location Rt brachial Blood Pressure Position Sitting Pulse 59 Pulse Source Pulse Oximeter Temp 97.4 F Temperature Source Temporal Artery Scan Pulse Oximetry 96 Oxygen Delivery Method Room Air Height 5 ft 1 in Weight 289 lb 12.8 oz BMI 54.8 Body Fat % 52.0 Body Fat Mass 150.6 Fat Free Mass 139.2 Visceral Fat Rating 20.0 Body Water % 34.3 Body Water Mass 99.4 Muscle Mass/Score 132.0 Basal Metabolic Rate/Score 2,018 Intake Visit Reasons: (OV) PO LSG 04/15/23 Allergies bee pollen (bee stings) Allergy (Severe, Verified 11/24/24 12:59) Anaphylaxis Medication List - Last Reconciled 11/24/24 by SUZANNE Lawrence albuterol sulfate 90 mcg/actuation (Ventolin HFA) 2 puffs inhalation QID PRN apixaban (Eliquis) 5 mg PO BID aripiprazole 10 mg PO BEDTIME azithromycin 250 mg PO DAILY 4 days cefpodoxime 200 mg PO BID cholecalciferol (vitamin D3) 125 mcg PO DAILY clotrimazole 1% 1 appl topical BID docusate sodium (Colace) 100 mg PO DAILY PRN estradiol 0.01%(0.1mg/gram) 1 g vaginal DAILY guanfacine ER take one tablet po daily in afternoon hydrocortisone 2.5% 2.5 appl IN BID PRN iron,carbonyl-vitamin C 65 mg iron- 125 mg (Vitron-C) 1 tab PO BEDTIME lidocaine 5% (Lidoderm) 1 patch topical DAILY oxycodone 5 mg PO Q8H PRN 3 days polyethylene glycol 3350 17 grams PO QAM PRN sertraline 100 mg PO DAILY tirzepatide (weight loss) (Zepbound) 5 mg subcut QWEEK vitamin A palmitate 10,000 units PO DAILY zinc gluconate 30 mg PO DAILY HPI Comments Details: This?is a?49?yo F who is s/p LSG 04/15/2023. Currently on zepbound 5mg. Reports she was at a respite for 3mo, was not able to follow meal plan, was eating more regular food. Has to wear a heart monitor again after experiencing some episodes of bradycardia. Present meal plan includes: 1oz soft protein plus 1oz veg, 2 shakes of 2 scoops 4:1, and 30 grams Celebrate protein water per day I don't feel hungry but I want to eat Exercise routine includes: Exercise - 3 d/week TBP Walks faster - now 45 min per day, more than a mile. Has sciatica which limits her activity sometimes has increased HR sometimes with activity so has to be careful Pt started clotrimazole and nystatin, helped somewhat but did not completely resolve the skin irritation, has been wearing the binder to try to help and avoid skin irritation, this also helped a little but did not prevent the rashes completely. Pt reports issues with excess skin of arms, notices rashes/chafing at armpits due to extra skin rubbing together. Also has issues of excess skin of thighs, notices increased chafing, has had to buy biker shorts to try to prevent chafing/rubbing of excess skin. She was started on a cream by her [employer] which is making rashes worse. Skin in this area has become steam drier tender and more painful particularly in the thighs. [facility] Medical History Homeless single person Elevated TSH Hepatomegaly Hyperlipidemia Insulin dependent type 2 diabetes mellitus Hypothyroidism Low back pain Sciatica of left side First degree AV block Surgical History S/P gastric sleeve procedure Hx of tubal ligation Family History Mother Diabetes Dementia Anemia Father Diabetes Heart problem High cholesterol Arthritis Sister Heart problem Diabetes High cholesterol Hypertension Sickle cell anemia Sister Breast cancer Asthma Sister Heart problem Diabetes Son Asthma Son No problems noted. Son Autism Daughter Anxiety Social History Household Members: Family Housing: House Are you a primary home care music therapist to a significant other at home: No Do you presently have visiting nurse or other home services: No Alcohol intake: never Comment: Discharge date set for 02/13/24 Patient Tobacco Use Status: Former Tobacco user Tobacco use type: Cigarette service: No Physical Exam Vital Signs: Last Vital Signs Temp 97.4 F 11/24/24 13:03 Pulse 59 11/24/24 13:03 BP 147/80 H 11/24/24 13:03 Pulse Ox 96 11/24/24 13:03 Oxygen Delivery Method Room Air 11/24/24 13:03 BMI result Body Mass Index 54.8 Assessment & Plan Assessment & Plan (1) Morbid obesity: Code(s): E66.01 - Morbid (severe) obesity due to excess calories Category: Medical (2) S/P gastric sleeve procedure: Code(s): Z90.3 - Acquired absence of stomach [part of] Category: Medical Plan Gave pt RightBMI download info. Increasing dose on Zepbound. Clotrimazole ointment refilled. RTC 3-4mo. Encouraged pt to come in monthly for a weight check to accurately track her weight. Medications: Refilled clotrimazole 1% 1 appl topical BID 90 grams 3RF
[2024-11-24 13:03] VITALS: BP 147/80; PULSE 59; TEMP 36.3; O2SAT 96; BMI 54.8
--- OUTSIDE RECORDS SUMMARY | 2024-11-24 14:14 | XMS_ITS | Encounter Summary ---
Author Organization [employer] Address [address] [facility] [address] [place] [address] Care Team Providers Care Archivist Name Role Phone [facility] Primary Care Provider [phone] Jeff Jimenez RN Unavailable [phone] Corie Enriquez Unavailable Encounter Details Date Type Department Care Team (Late st Contact Info) Description 11/03/2024 Results Follow-Up [facility] [address] [place], [place] [id number] [facility] [address] [place] [address] POCT Glucose, POCT HGB A1C, Lipid Panel, [...] Care Team (Late st Contact Info) Description 12/01/2024 11:00 AM EDT Office Visit [facility] MEDICINE [address] [place] [address] [facility] [address] [place] [address] 12/08/2024 3:30 PM EDT Office Visit [facility] OPTOMETRY [address] [place] [address] Darion, Gladis, OD [address] [place] [address] 02/11/2025 3:00 PM EDT Office Visit [facility] [address] [place] [address] [facility] [address] [place] [address] documented as of this encounter Visit Diagnoses Not on filedocumented in this encounter Additional Health Concerns Assessment Noted Time PHQ-9 Depression Total Score: 13 025 9:57 AM EDT documented as of this encounter Care Teams Archivist Relationship Specialty Start Date End Date [facility] [address] [place] [address] PCP - General Family Medicine 02/04/22 Jeff Jimenez, RN [address] [place] [id number] Registered Nurse Family Medicine 11/09/24 Corie Enriquez 11/09/24 documented as of this encounter
== END 2024-11-24 13:30 | disposition home or self-care (01) ==
LOC: HO.HBS 12:22
PROVIDERS: PCP Registered Nurse; Visit Provider Physician Assistant Surgical
DX: E66.01 Morbid (severe) obesity due to excess calories (principal); Z90.3 Acquired absence of stomach [part of]
CPT/HCPCS: 99214

== ENCOUNTER → 2024-11-24 12:21 | Outpatient (BNVA) | payer MEDICAID, SELFPAY | PROVIDERS: PCP Registered Nurse; Visit Provider Physician Assistant Surgical | DX: E66.01 Morbid (severe) obesity due to excess calories (principal); Z68.43 Body mass index [BMI] 50.0-59.9, adult; Z90.3 Acquired absence of stomach [part of] | CPT/HCPCS: 99212 ==

== ENCOUNTER 2025-01-17 17:11 | Emergency (ER) | payer MEDICAID, SELFPAY ==
--- NOTE | 2025-01-17 17:13 | ECG_ITS ---
Test Reason : CP Blood Pressure : */* mmHG Vent. Rate : 66 BPM Atrial Rate : 66 BPM P-R Int : 228 ms QRS Dur : 106 ms QT Int : 418 ms P-R-T Axes : 68 5 5 degrees QTcB Int : 438 ms Sinus rhythm with 1st degree A-V block Otherwise normal ECG When compared with ECG of 26-Mar-2022 17:24, HI interval has increased Referred By: Generic ED Physician Electronically Signed By: Elvis Hamlin
[2025-01-17 18:00] VITALS: BP 130/65; PULSE 67; RESP 18; TEMP 36.6; O2SAT 99; BMI 50.8
--- NOTE | 2025-01-17 18:02 | ED.GENADULT ---
HPI - General Adult General Chief complaint: Arrhythmia/Palpitations Stated complaint: cp; left arm numbness, headache Related Data Home Medications ?Medication ?Instructions ?Recorded ?Confirmed apixaban 5 mg tablet (Eliquis) 5 mg PO BID 12/17/23 11/24/24 albuterol sulfate 90 mcg/actuation 2 puff inhalation QID PRN wheezing 01/30/24 11/24/24 aerosol inhaler (Ventolin HFA) estradiol 0.01% (0.1 mg/gram) 1 g vaginal DAILY 01/30/24 11/24/24 vaginal cream hydrocortisone 2.5 % topical cream 2.5 appl MS BID PRN Itching 01/30/24 11/24/24 with perineal applicator polyethylene glycol 3350 17 17 g PO QAM PRN Constipation 01/30/24 11/24/24 gram/dose oral powder aripiprazole 5 mg tablet 10 mg PO BEDTIME 05/13/24 11/24/24 tirzepatide (weight loss) 5 mg/0.5 5 mg subcut QWEEK 11/24/24 11/24/24 mL subcutaneous pen injector (Zepbound) Previous Rx's ?Medication ?Instructions ?Recorded guanfacine 1 mg tablet,extended See Rx Instructions .Route 02/17/24 release 24 hr .COMPLEX #15 tabs sertraline 100 mg tablet 100 mg PO DAILY #15 tabs 02/17/24 azithromycin 250 mg tablet 250 mg PO DAILY 4 days #4 tabs 02/22/24 cefpodoxime 200 mg tablet 200 mg PO BID #14 tabs 02/22/24 cholecalciferol (vitamin D3) 125 125 mcg PO DAILY #90 caps 04/12/24 mcg (5,000 unit) capsule vitamin A palmitate 3,000 mcg 10,000 unit PO DAILY #90 caps 04/12/24 (10,000 unit) capsule zinc gluconate 30 mg tablet 30 mg PO DAILY #90 tabs 04/12/24 iron,carbonyl 65 mg-vitamin C 125 1 tab PO BEDTIME #90 tabs 06/29/24 mg tablet,delayed release (Vitron-C) docusate sodium 100 mg capsule 100 mg PO DAILY PRN Constipation 08/23/24 (Colace) #90 caps lidocaine 5 % topical patch 1 patch topical DAILY #15 ea 11/19/24 (Lidoderm) oxycodone 5 mg tablet 5 mg PO Q8H PRN pain (scale score 11/19/24 7-10) 3 days #9 tabs clotrimazole 1 % topical cream 1 appl topical BID #90 grams 11/24/24 hydrocodone 5 mg-acetaminophen 325 1 tab PO Q6H PRN pain #10 tabs 01/19/25 mg tablet lidocaine 5 % topical patch 1 patch topical DAILY #30 ea 01/19/25 Allergies Allergy/AdvReac Type Severity Reaction Status Date / Time bee pollen (bee stings) Allergy Severe Anaphylaxis Verified 01/19/25 12:49 PENDING SALE TO [facility] Past Medical History Medical History Homeless single person Elevated TSH Hepatomegaly Hyperlipidemia Insulin dependent type 2 diabetes mellitus Hypothyroidism Low back pain Sciatica of left side First degree AV block Surgical History S/P gastric sleeve procedure Hx of tubal ligation Family History Family History Mother Diabetes Dementia Anemia Father Diabetes Heart problem High cholesterol Arthritis Sister Heart problem Diabetes High cholesterol Hypertension Sickle cell anemia Sister Breast cancer Asthma Sister Heart problem Diabetes Son Asthma Son No problems noted. Son Autism Daughter Anxiety Social History Social History Household Members: Family Housing: House Are you a primary youth care professional to a significant other at home: No Do you presently have visiting nurse or other home services: No Alcohol intake: never Comment: Discharge date set for 02/13/24 Patient Tobacco Use Status: Former Tobacco user Tobacco use type: Cigarette Smoked in Last 30 Days: No Advance Directives: No Advance Directives Information Provided: Yes Do you have a plan to hurt others: No Plan service: No Physical Exam ED Vital Signs: BMI result Body Mass Index 50.8 Course Course Course Narrative: This is a rapid medical exam performed by Aniket Santa NP: Additional HPI, ROS, PE not included below will be deferred to primary provider. Patient is a 49-year-old female with history of aflutter s/p ablation in October of 2023 not currently anticoagulated, anemia, s/p gastric sleeve, HLD, HTN, hepatic steatosis, asthma, obesity, DM, hypothyroidism presenting to the ED with 2 days of chest pain, palpitations, lightheadedness. States her watch will show a HR of around 60, then it will jump up to the 160s. Plan: EKG, labs Patient left the emergency department before myself or any of the other clinicians could review or explain physical exam findings, test results, need or lack there of for additional testing, treatment options, or a treatment plan. Discharge Plan Discharge Clinical Impression: Chest pain Patient Disposition: Left W/O Completing Treatment Prescriptions: No Action vitamin A palmitate 3,000 mcg (10,000 unit) capsule 10,000 unit PO DAILY Qty: 90 3RF cholecalciferol (vitamin D3) 125 mcg (5,000 unit) capsule 125 mcg PO DAILY Qty: 90 3RF zinc gluconate 30 mg tablet 30 mg PO DAILY Qty: 90 3RF docusate sodium [Colace] 100 mg capsule 100 mg PO DAILY PRN (Reason: Constipation) Qty: 90 1RF hydrocodone-acetaminophen 5-325 mg tablet 1 tab PO Q6H PRN (Reason: pain) Qty: 10 0RF Rx Instructions: partial fill okay; Partial Fill upon patient request. lidocaine 5 % adhesive patch,medicated 1 patch topical DAILY Qty: 30 0RF Rx Instructions: leave on most painful area for up to 12 hrs estradiol 0.01 % (0.1 mg/gram) Cream 1 g VAGINAL DAILY Rx Instructions: Apply daily for 2 weeks hydrocortisone 2.5 % cream with perineal applicator 2.5 appl MS BID PRN (Reason: Itching) polyethylene glycol 3350 17 gram/dose powder 17 g PO QAM PRN (Reason: Constipation) albuterol sulfate [Ventolin HFA] 90 mcg/actuation HFA aerosol inhaler 2 puff INHALATION QID PRN (Reason: wheezing) sertraline 100 mg Tablet 100 mg PO DAILY Qty: 15 1RF guanfacine 1 mg tablet extended release 24 hr See Rx Instructions .ROUTE .COMPLEX Qty: 15 1RF Rx Instructions: take one tablet po daily in afternoon cefpodoxime 200 mg tablet 200 mg PO BID Qty: 14 0RF Rx Instructions: must administer with a meal/food azithromycin 250 mg tablet 250 mg PO DAILY 4 Days Qty: 4 0RF Rx Instructions: start on day 2 of therapy oxycodone 5 mg tablet 5 mg PO Q8H PRN (Reason: pain (scale score 7-10)) 3 Days Qty: 9 0RF Rx Instructions: Partial Fill upon patient request. lidocaine [Lidoderm] 5 % adhesive patch,medicated 1 patch topical DAILY Qty: 15 0RF Rx Instructions: leave on most painful area for up to 12 hrs Eliquis 5 mg tablet 5 mg PO BID Vitron-C 65 mg iron- 125 mg tablet,delayed release (DR/EC) 1 tab PO BEDTIME Qty: 90 3RF aripiprazole 5 mg tablet 10 mg PO BEDTIME clotrimazole 1 % cream 1 appl topical BID Qty: 90 3RF Zepbound 5 mg/0.5 mL pen injector 5 mg subcut QWEEK Discharge Date/Time: 01/17/25 19:36
--- OUTSIDE RECORDS SUMMARY | 2025-01-17 19:36 | XMS_ITS | Encounter Summary ---
Author Organization [employer] Address [address] [facility] 7[address] [place] [address] Care Team Providers Care Minesweeping Officer Name Role Phone [facility] Primary Care Provider [phone] Jeff Jimenez RN Unavailable [phone] Corie Enriquez Unavailable Reason for Visit * Reason Onset Date Comments Prior Authorization 01/14/2025 Encounter Details Date Type Department Care Team ([facility] st Contact Info) Description 01/14/2025 Telephone [facility] [address] [place], [place] [phone] [facility] [address] [place] [address] Prior Authorization Social History Tobacco Use Types Packs/Day Years Used Date Smoking Tobacco: Never Passive Smoke Exposure: Never Smokeless Tobacco: Never Alcohol Use Standard Drinks/Week Comments Never 0 (1 standard drink = 0.6 oz pur e alcohol) Depression Answer Date Recorded Patient Health Questionnaire-9 Score 11 12/13/2024 Patient Health Questionnaire-9 Score 11 12/13/2024 Last PHQ-9: Questionnaire Data Not on file 0 12/13/2024 Housing Stability Answer Date Recorded What is your housing situation today? I do not have housing (Staying with others, in a hotel, in a mcfp, living outside on the street, on a beach, in a car, or in a park 11/23/[address] you li ve. Do you have problems with any of the following? None of the above 11/23/2024 Food Insecurity Answer Date Recorded Within the past 12 months, y ou worried that your food would run out before you got money to buy more: Sometimes True 2024 Within the past 12 months,th e food you bought just didn't last and you didn't have enough money to get more: Sometimes True 11/23/2024 Transportation Answer Date Recorded In the past 12 months, has l ack of transportation kept you from medical appts, meetings, work or from getting things needed for daily living? No 10/06/2024 Intimate Partner Violence Answer Date R ecorded Within the last year, have y ou been afraid of your partner or ex-partner? 2 12/13/2024 Within the last year, have y ou been humiliated or emotionally abused in other ways by your partner or ex-partner? 2 Within the last year, have y ou been kicked, hit, slapped, or otherwise physically hurt by your partner or ex-partner? 2 12/13/2024 Within the last year, have y ou been raped or forced to have any kind of sexual activity by your partner or ex-partner? 2 12/13/2024 Utilities Answer Date Recorded In the past 12 months, has t he electric, gas, oil or water company threatened to shut off services in your home? No 10/06/2024 Depression Answer Date Recorded Patient Health Questionnaire-2 Score 1 12/13/2024 Internet Access Answer Date Recorded Internet Access [...] encounter Miscellaneous Notes * Telephone Encounter - Ondina Garcia - 01/14/2025 4:30 PM EDT Duplicate request, PA resolved in another thread * Telephone Encounter - Jim Reyes - 01/14/2025 9:40 AM EDT Script for Zepbound 7.5 MG/0.5ML solution auto-injector requires a prior authorization documented in this encounter Plan of Treatment Upcoming Encounters Date Type Department Care Team (Late st Contact Info) Description 02/11/2025 3:00 PM EDT Office Visit [facility] MEDIC[facility] [address] [place] [address] [facility] [address] [place] [address] documented as of this encounter Visit Diagnoses Not on filedocumented in this encounter Additional Health Concerns Assessment Noted Time PHQ-9 Depression Total Score: 11 025 10:28 AM EDT documented as of this encounter Care Teams Minesweeping Officer Relationship Specialty Start Date End Date EnsignPatricia [facility] [address] [place] [address] PCP - General Family Medicine 02/04/22 Jeff Jimenez, TAMMI [address] [place] [address] Registered Nurse Family Medicine 11/09/24 Corie Enriquez 11/09/24 documented as of this encounter
--- OUTSIDE RECORDS SUMMARY | 2025-01-17 19:36 | XMS_ITS | Encounter Summary ---
Author Organization [employer] Address [address] [place] [address] Care Team Providers Care Leach Runner Name Role Phone [facility] Primary Care Provider [phone] Reason for Visit * Reason Onset Date Comments Anticoagulation 01/17/[address] Devine Encounter Details Date Type Department Care Team (Late st Contact Info) Description 01/17/2025 Telephone [facility] - [place] [address] [place] [address] Cecilia Pillai LPN Anticoagulation (Colonoscopy on 02/14/[address] Devine) Social History Tobacco Use Types Packs/Day Years Used Date Smoking Tobacco: Former Cigarettes Q uit: 06/09/2010 Smokeless Tobacco: Never Alcohol Use Standard Drinks/Week Comments Not Asked 0 (1 standard drink = 0.6 oz pur e alcohol) Comments Unknown Sex and Gender Information Value Date Recorded Sex Assigned at Not on file Legal Sex Female 8:46 PM EST Gender Identity Not on file Sexual Orientation Not on file documented as of this encounter Progress Notes * SUZANNE Patten - 01/17/2025 11:02 AM EDT It was stopped last yr after a monitor - removed from med list today * Cecilia Pillai LPN - 01/17/2025 10:34 AM EDT Spoke with pt, says she is no longer taking eliquis, says your office stopped it 2 months ago. * SUZANNE Patten - 01/17/2025 10:24 AM EDT Her last office visit was December 2023 as she recently been in the hospital had recurrent flutter thatrequired cardioversion? * Cecilia Pillai LPN - 01/17/2025 8:51 AM EDT Colonoscopy on 02/14/25, Can pt hold eliquis for 2 days before procedure? documented in this encounter Plan of Treatment Upcoming Encounters Date Type Department Care Team (Late st Contact Info) Description 01/26/2025 7:40 AM EDT Office Visit [facility] [address] [place] [address] Shagufta Holbrook, [employer] [address] [place] [address] 02/14/2025 8:30 AM EDT Hospital Encounter [facility] [address] [place] [id number] Rahul Devine DO [address] [place] [address] documented as of this encounter Visit Diagnoses Not on filedocumented in this encounter Discontinued Medications Medication Sig Discontinue Reason Start Date End Da te apixaban (Eliquis) 5 mg tablet Take 1 Tablet by mouth 2 Times Daily. Therapy completed 09/06/2023 01/17/2025 documented as of this encounter Care Teams Leach Runner Relationship Specialty Start Date End Date Patricia Willams [address] [place] [address] PCP - General 09/17/23 documented as of this encounter
== END 2025-01-17 19:36 | disposition left against medical advice (07) ==
LOC: HO.ED 19:34
PROVIDERS: Emergency Provider Emergency Medicine
DX: R07.9 Chest pain, unspecified (principal); R51.9 Headache, unspecified; D64.9 Anemia, unspecified; E66.9 Obesity, unspecified; Z68.43 Body mass index [BMI] 50.0-59.9, adult; Z53.21 Procedure and treatment not carried out due to patient leaving prior to being seen by health care provider
CPT/HCPCS: 93005; 99281; 99283

== ENCOUNTER → 2025-01-17 17:13 | Outpatient (BNV) | payer MEDICAID, SELFPAY | PROVIDERS: Emergency Provider Emergency Medicine; Visit Provider Internal Medicine Cardiovascular Disease | DX: I44.0 Atrioventricular block, first degree (principal) | CPT/HCPCS: 93010 ==

== ENCOUNTER 2025-01-19 12:22 | Emergency (ER) | payer MEDICAID, SELFPAY ==
--- NOTE | 2025-01-19 12:25 | ECG_ITS ---
Test Reason : PALAITATION Blood Pressure : */* mmHG Vent. Rate : 70 BPM Atrial Rate : 70 BPM P-R Int : 206 ms QRS Dur : 98 ms QT Int : 404 ms P-R-T Axes : 66 22 21 degrees QTcB Int : 436 ms Normal sinus rhythm Normal ECG When compared with ECG of 17-Jan-2025 17:12, No significant change was found Referred By: Generic ED Physician Electronically Signed By: Elvis Hamlin
--- NOTE | 2025-01-19 12:37 | ED.GENADULT ---
HPI - General Adult General Chief complaint: Arrhythmia/Palpitations Stated complaint: palpation, left arm numbness Time Seen by Provider: 01/19/25 13:58 Source: patient Mode of arrival: ambulatory Limitations: no limitations History of Present Illness ED Provider: YARA CARY narrative: 49 yo female with PMH of obesity, anemia, aflutter, anxiety, mood disorder, HTN, DM, asthma, hypothyroidism here with c/o L neck pain radiating down the left arm and then sometimes pain down entire L side. The pain starts in the neck. She denies trauma, she has no numbness, or weakness. No fevers, no rash. She notes no change in strength. She states she has not had this before. She denies CP/SOB. MD complaint: L neck pain Onset (ago): day(s) (2) Location: neck Radiation: neck and other (LUE) Severity: moderate Quality: stabbing Pain Consistency: intermittent Relieving factors: none Exacerbating factors: movement Related Data Home Medications ?Medication ?Instructions ?Recorded ?Confirmed apixaban 5 mg tablet (Eliquis) 5 mg PO BID 12/17/23 11/24/24 albuterol sulfate 90 mcg/actuation 2 puff inhalation QID PRN wheezing 01/30/24 11/24/24 aerosol inhaler (Ventolin HFA) estradiol 0.01% (0.1 mg/gram) 1 g vaginal DAILY 01/30/24 11/24/24 vaginal cream hydrocortisone 2.5 % topical cream 2.5 appl PA BID PRN Itching 01/30/24 11/24/24 with perineal applicator polyethylene glycol 3350 17 17 g PO QAM PRN Constipation 01/30/24 11/24/24 gram/dose oral powder aripiprazole 5 mg tablet 10 mg PO BEDTIME 05/13/24 11/24/24 tirzepatide (weight loss) 5 mg/0.5 5 mg subcut QWEEK 11/24/24 11/24/24 mL subcutaneous pen injector (Zepbound) Previous Rx's ?Medication ?Instructions ?Recorded guanfacine 1 mg tablet,extended See Rx Instructions .Route 02/17/24 release 24 hr .COMPLEX #15 tabs sertraline 100 mg tablet 100 mg PO DAILY #15 tabs 02/17/24 azithromycin 250 mg tablet 250 mg PO DAILY 4 days #4 tabs 02/22/24 cefpodoxime 200 mg tablet 200 mg PO BID #14 tabs 02/22/24 cholecalciferol (vitamin D3) 125 125 mcg PO DAILY #90 caps 04/12/24 mcg (5,000 unit) capsule vitamin A palmitate 3,000 mcg 10,000 unit PO DAILY #90 caps 04/12/24 (10,000 unit) capsule zinc gluconate 30 mg tablet 30 mg PO DAILY #90 tabs 04/12/24 iron,carbonyl 65 mg-vitamin C 125 1 tab PO BEDTIME #90 tabs 06/29/24 mg tablet,delayed release (Vitron-C) docusate sodium 100 mg capsule 100 mg PO DAILY PRN Constipation 08/23/24 (Colace) #90 caps lidocaine 5 % topical patch 1 patch topical DAILY #15 ea 11/19/24 (Lidoderm) oxycodone 5 mg tablet 5 mg PO Q8H PRN pain (scale score 11/19/24 7-10) 3 days #9 tabs clotrimazole 1 % topical cream 1 appl topical BID #90 grams 11/24/24 hydrocodone 5 mg-acetaminophen 325 1 tab PO Q6H PRN pain #10 tabs 01/19/25 mg tablet lidocaine 5 % topical patch 1 patch topical DAILY #30 ea 01/19/25 Allergies Allergy/AdvReac Type Severity Reaction Status Date / Time bee pollen (bee stings) Allergy Severe Anaphylaxis Verified 01/19/25 12:49 Review of Systems Review of Systems: Constitutional : No Fever, No Chills, No Fatigue ENT/Mouth : No sore throat, No Rhinorrhea Eyes: No Eye Pain, No Swelling, No Redness Cardiovascular : No Chest Pain, No SOB, No Dyspnea on Exertion Respiratory : No Cough, No Sputum Gastrointestinal : No Nausea, No Vomiting, No Diarrhea, No abdominal Pain Genitourinary : No Dysuria, No Urinary Frequency, No Hematuria, Musculoskeletal : No joint pain, No Myalgias, No Joint Swelling, no neck pain Skin : No Skin Lesions, No rash Neuro : No Weakness, No Numbness, No Dizziness, no headache All other systems reviewed and are negative PMFSH Past Medical History Attestation statement: The following information was validated with the patient. Source: old records reviewed Medical History Homeless single person Elevated TSH Hepatomegaly Hyperlipidemia Insulin dependent type 2 diabetes mellitus Hypothyroidism Low back pain Sciatica of left side First degree AV block Surgical History S/P gastric sleeve procedure Hx of tubal ligation Family History Family History Mother Diabetes Dementia Anemia Father Diabetes Heart problem High cholesterol Arthritis Sister Heart problem Diabetes High cholesterol Hypertension Sickle cell anemia Sister Breast cancer Asthma Sister Heart problem Diabetes Son Asthma Son No problems noted. Son Autism Daughter Anxiety Social History Social History Household Members: Family Housing: House Are you a primary career agent to a significant other at home: No Do you presently have visiting nurse or other home services: No Alcohol intake: never Comment: Discharge date set for 02/13/24 Patient Tobacco Use Status: Former Tobacco user Tobacco use type: Cigarette Smoked in Last 30 Days: No Advance Directives: No Advance Directives Information Provided: Yes Do you have a plan to hurt others: No Plan service: No Physical Exam ED Vital Signs: Vital Signs - 24 hr 01/19/25 12:48 01/19/25 13:57 01/19/25 15:42 Temperature 98 F 98.2 F 98.1 F Pulse Rate 66 59 57 Respiratory Rate 16 18 18 Blood Pressure 120/71 131/68 112/65 Pulse Oximetry 98 100 100 Oxygen Delivery Method Room Air Room Air Room Air 01/19/25 15:46 Temperature 98.1 F Pulse Rate 57 Respiratory Rate 18 Blood Pressure 112/65 Pulse Oximetry 100 Oxygen Delivery Method Room Air BMI result Body Mass Index 50.9 Appearance: Alert. Oriented X3. No acute distress. Eyes: Pupils equal, round and reactive to light. ENT: Pharynx normal. Neck: neck L sided pain + spurlings, LUE NV intact, no rash seen CVS: Normal heart rate and rhythm. Pulses normal. Respiratory: No respiratory distress. Breath sounds normal. Abdomen: Soft and nontender. Skin: Skin warm and dry. Normal skin color. Normal skin turgor. Extremities: No lower extremity edema. Neuro: Oriented X 3. No motor deficit. No sensory deficit. CN2-12 intact Course Course Course Narrative: This is a rapid medical exam performed by Aniket Santa NP: Additional HPI, ROS, PE not included below will be deferred to primary provider. Patient is a 49-year-old female with history of aflutter s/p ablation in October of 2023 not currently anticoagulated, anemia, s/p gastric sleeve, HLD, HTN, hepatic steatosis, asthma, obesity, DM, hypothyroidism presenting to the ED with complaint of palpitations, lightheadedness, varying HR on apple watch, left arm and neck pain. Was here Friday but left due to wait time. Called marketing communications manager and was told to return to the ED. Plan: EKG, labs Medical Decision Making Medical Decision Making MDM Narrative: 49 yo female with PMH of obesity, anemia, aflutter, anxiety, mood disorder, HTN, DM, asthma, hypothyroidism here with c/o L sided neck pain radiating down the L arm no associated CP/SOB no fevers or rash. She has numbness or weakness. It hurts to move the L arm. No headaches. No recent travel or procedures. Differential Diagnosis Differential Diagnoses: The differential diagnosis associated with the presentation includes cervical radiculopathy, neck strain, doubt ACS has no chest pain or dyspnea not on OCPS hx of aflutter ablation has done well for 1 year. Admission/Observation Consideration of admission/observation: Escalation of care including admission/observation considered work up negative stable for DC Lab Data [facility] Lab Attestation statement: I reviewed the patient's lab results. 01/19/25 12:44 01/19/25 12:44 Labs: Lab Results 01/19/25 Range/Units 12:44 WBC 5.6 (4.8-10.8) X10*3/uL RBC 4.49 (4.20-5.50) X10*6/uL Hgb 11.7 L (12.0-16.0) g/dl Hct 36.3 L (37.0-47.0) % MCV 80.8 (80.0-98.0) fL MCH 26.1 L (27.0-33.0) pg MCHC 32.2 (31.0-35.0) g/dl RDW 14.7 (11.0-16.0) % Plt Count 260 D (160-400) X10*3/uL MPV 10.8 (9.4-12.3) fL Immature Gran % (Auto) 0.2 (0.0-0.4) % Neut % (Auto) 64.4 (45-73) % Lymph % (Auto) 27.9 (20-40) % [place] % (Auto) 5.2 (2-11) % Eos % (Auto) 1.8 (0-4) % Baso % (Auto) 0.5 (0-2) % Lymph # (Auto) 1.6 (1.2-4.9) X10*3/uL [place] # (Auto) 0.3 (0.1-1.2) X10*3/uL Eos # (Auto) 0.1 (0.0-0.4) X10*3/uL Baso # (Auto) 0.0 (0.0-0.2) X10*3/uL Abs Immat Gran (auto) 0.01 (0.00-0.03) X10*3/uL Absolute Neuts (auto) 3.6 (2.0-8.3) x10*3/uL Absolute Nucleated RBC 0.000 (0.0-0.012) X10*3/uL Nucleated RBC % (auto) 0.0 (0.0-0.2) /100WBC Sodium 141 (135-145) mmol/L Potassium 3.7 (3.3-5.1) mmol/L Chloride 109 H (96-108) mmol/L Carbon Dioxide 23 (22-29) mmol/L Anion Gap 13 (12-20) BUN 12 (9-16) mg/dL Creatinine 0.76 (0.5-1.4) mg/dL Estim Creat Clear Calc 116.4 Estimated GFR > 60 Random Glucose 80 (60-115) mg/dL Calcium 8.6 (8.4-10.2) mg/dL Magnesium 2.2 (1.6-2.6) mg/dL Total Bilirubin 0.5 (0.0-1.0) mg/dL AST 22 (5-31) U/L ALT 13 (0-31) U/L Alkaline Phosphatase 77 (39-117) U/L Troponin I High Sens < 2.7 (<3.5-17.0) ng/L Total Protein 7.7 (6.5-8.0) g/dL Albumin 4.0 (3.5-5.0) g/dL TSH 3.02 (0.32-4.0) uIU/mL Beta HCG, Quant < 2 mIU/mL Independent Interpretation I performed an independent interpretation of an: EKG Interpretation: Rate: 56 Rhythm: sinus bradycardia with 1st degree AVB [place]: normal Normal P waves. 1st degree AVB Normal QRS complex. ST T wave : no EMI qTC: 409 prior studies: hx of same in past The study has been interpreted contemporaneously by me. . External Record Review External record reviewed: Outpatient record and Prior outpatient labs Tests considered The following testing was considered but not selected: CT c spine but no trauma doubt infection Discharge Plan Discharge Clinical Impression: Cervical radiculopathy Patient Disposition: Home, Self-Care Instructions: Cervical Radiculopathy (ED) Additional Instructions: labs and TSH normal EKG reassuring electrolyte normal please follow up with your doctor return for any worsening symptoms concerns. rest and stay hydrated follow up with PCP for PT Prescriptions: New hydrocodone-acetaminophen 5-325 mg tablet 1 tab PO Q6H PRN (Reason: pain) Qty: 10 0RF Rx Instructions: partial fill okay; Partial Fill upon patient request. lidocaine 5 % adhesive patch,medicated 1 patch topical DAILY Qty: 30 0RF Rx Instructions: leave on most painful area for up to 12 hrs No Action vitamin A palmitate 3,000 mcg (10,000 unit) capsule 10,000 unit PO DAILY Qty: 90 3RF cholecalciferol (vitamin D3) 125 mcg (5,000 unit) capsule 125 mcg PO DAILY Qty: 90 3RF zinc gluconate 30 mg tablet 30 mg PO DAILY Qty: 90 3RF docusate sodium [Colace] 100 mg capsule 100 mg PO DAILY PRN (Reason: Constipation) Qty: 90 1RF estradiol 0.01 % (0.1 mg/gram) Cream 1 g VAGINAL DAILY Rx Instructions: Apply daily for 2 weeks hydrocortisone 2.5 % cream with perineal applicator 2.5 appl PA BID PRN (Reason: Itching) polyethylene glycol 3350 17 gram/dose powder 17 g PO QAM PRN (Reason: Constipation) albuterol sulfate [Ventolin HFA] 90 mcg/actuation HFA aerosol inhaler 2 puff INHALATION QID PRN (Reason: wheezing) sertraline 100 mg Tablet 100 mg PO DAILY Qty: 15 1RF guanfacine 1 mg tablet extended release 24 hr See Rx Instructions .ROUTE .COMPLEX Qty: 15 1RF Rx Instructions: take one tablet po daily in afternoon cefpodoxime 200 mg tablet 200 mg PO BID Qty: 14 0RF Rx Instructions: must administer with a meal/food azithromycin 250 mg tablet 250 mg PO DAILY 4 Days Qty: 4 0RF Rx Instructions: start on day 2 of therapy oxycodone 5 mg tablet 5 mg PO Q8H PRN (Reason: pain (scale score 7-10)) 3 Days Qty: 9 0RF Rx Instructions: Partial Fill upon patient request. lidocaine [Lidoderm] 5 % adhesive patch,medicated 1 patch topical DAILY Qty: 15 0RF Rx Instructions: leave on most painful area for up to 12 hrs Eliquis 5 mg tablet 5 mg PO BID Vitron-C 65 mg iron- 125 mg tablet,delayed release (DR/EC) 1 tab PO BEDTIME Qty: 90 3RF aripiprazole 5 mg tablet 10 mg PO BEDTIME clotrimazole 1 % cream 1 appl topical BID Qty: 90 3RF Zepbound 5 mg/0.5 mL pen injector 5 mg subcut QWEEK Interventions: ED Discharge Assessment Last Done: 01/19/25 15:46 Discharge Date/Time: 01/19/25 16:01 Print Language: Welsh
[2025-01-19 12:48] VITALS: BP 120/71; PULSE 66; RESP 16; TEMP 36.6; O2SAT 98; BMI 50.9
[2025-01-19 12:49] LABS: MANUAL DIFF FLAG NO
[2025-01-19 12:50] LABS: Hematocrit 36.3 % (37.0-47.0); Hemoglobin 11.7 g/dl (12.0-16.0); Imm Gran Abs Auto 0.01 X10*3/uL (0.00-0.03); Imm Gran Pct Auto 0.2 % (0.0-0.4); Lymphocytes Absolute Auto 1.6 X10*3/uL (1.2-4.9); Mean Corpuscular HGB Conc 32.2 g/dl (31.0-35.0); Mean Corpuscular Hemoglobin 26.1 pg (27.0-33.0); Mean Corpuscular Volume 80.8 fL (80.0-98.0); NRBC Abs Auto 0.000 X10*3/uL (0.0-0.012); NRBC Pct Auto 0.0 /100WBC (0.0-0.2); Platelet Count 260 X10*3/uL (160-400); Red Blood Count 4.49 X10*6/uL (4.20-5.50); White Blood Count 5.6 X10*3/uL (4.8-10.8)
[2025-01-19 13:22] LABS: Alanine Aminotransferase 13 U/L (0-31); Albumin Level 4.0 g/dL (3.5-5.0); Alkaline Phosphatase 77 U/L (39-117); Anion Gap 13 (12-20); Aspartate Amino Transferase 22 U/L (5-31); Blood Urea Nitrogen 12 mg/dL (9-16); Calcium 8.6 mg/dL (8.4-10.2); Carbon Dioxide 23 mmol/L (22-29); Chloride 109 mmol/L (96-108); Creatinine Clr Calc Pharmacy 116.4; Estimated Glomerular Filt Rate > 60; Magnesium 2.2 mg/dL (1.6-2.6); Potassium 3.7 mmol/L (3.3-5.1); Sodium 141 mmol/L (135-145); Total Protein 7.7 g/dL (6.5-8.0)
[2025-01-19 13:24] LABS: Troponin-I High Sensitivity < 2.7 ng/L (<3.5-17.0)
[2025-01-19 13:57] VITALS: BP 131/68; PULSE 59; RESP 18; TEMP 36.8; O2SAT 100
--- NOTE | 2025-01-19 14:00 | PC.NURSE ---
Pt to ED 20 from triage. Ambulates steady gait, A/O x 3. Reports palpitations x 2 days with left sided neck pain. Placed on bedside tele, sinus ashley. EKG pending.
--- OUTSIDE RECORDS SUMMARY | 2025-01-19 14:26 | XMS_ITS | Encounter Summary ---
Author Organization [employer] Address [address] [place] [address] Care Team Providers Care Vice President Sales And Marketing Name Role Phone [facility] Primary Care Provider [phone] Reason for Visit * Reason Onset Date Comments Anticoagulation 01/17/[address] Devine Encounter Details Date Type Department Care Team (Late st Contact Info) Description 01/17/2025 Telephone Gastroenterology - [place] [address] [place] [address] Cecilia Pillai LPN Anticoagulation (Colonoscopy [...] Description 01/26/2025 7:40 AM EDT Office Visit [facility] - [address] [place] [address] Shagufta Holbrook, CH[employer]ER [address] [place] [address] 02/14/2025 8:30 AM EDT Hospital Encounter [facility] [address] [place] [id number] Rahul Devine DO [address] [place] [address] documented as of this encounter Visit Diagnoses Not on filedocumented in this encounter Discontinued Medications Medication Sig Discontinue Reason Start Date End Da te apixaban (Eliquis) 5 mg tablet Take 1 Tablet by mouth 2 Times Daily. Therapy completed 09/06/2023 01/17/2025 documented as of this encounter Care Teams Vice President Sales And Marketing Relationship Specialty Start Date End Date Patricia Willams [address] [place] [address] PCP - General 09/17/23 documented as of this encounter
--- OUTSIDE RECORDS SUMMARY | 2025-01-19 14:26 | XMS_ITS | Encounter Summary ---
Author Organization [employer] Address [address] [facility] [address] [place] [address] Care Team Providers Care Slip Cover Cutter Name Role Phone [facility] Primary Care Provider [phone] Jeff Jimenez RN Unavailable [phone] Corie Enriquez Unavailable Reason for Visit * Reason Onset Date Comments Prior Authorization 01/14/2025 Encounter Details Date Type Department Care Team ([facility] st Contact Info) Description 01/14/2025 Telephone [facility] [address] [place], [place] [id number] [facility] [address] [place] [address] Prior Authorization Social History Tobacco Use Types [...] with others, in a hotel, in a residential, living outside on the street, on a [...] Description 02/11/2025 3:00 PM EDT Office Visit [facility] [address] [place] [address] [facility] [address] [place] [address] documented as of this encounter Visit Diagnoses Not on filedocumented in this encounter Additional Health Concerns Assessment Noted Time PHQ-9 Depression Total Score: 11 025 10:28 AM EDT documented as of this encounter Care Teams Slip Cover Cutter Relationship Specialty Start Date End Date [place] [facility] [address] [place] [address] PCP - General Family Medicine 02/04/22 Jeff Jimenez, TAMMI [address] [place] [address] Registered Nurse Family Medicine 11/09/24 Corie Enriquez 11/09/24 documented as of this encounter
[2025-01-19 15:42] VITALS: BP 112/65; PULSE 57; RESP 18; TEMP 36.7; O2SAT 100
[2025-01-19 15:46] VITALS: BP 112/65; PULSE 57; RESP 18; TEMP 36.7; O2SAT 100
--- NOTE | 2025-01-20 | ECG_ITS ---
Test Reason : CHEST PAIN Blood Pressure : */* mmHG Vent. Rate : 56 BPM Atrial Rate : 56 BPM P-R Int : 274 ms QRS Dur : 102 ms QT Int : 424 ms P-R-T Axes : 73 17 9 degrees QTcB Int : 409 ms Sinus bradycardia with 1st degree A-V block Otherwise normal ECG When compared with ECG of 19-Jan-2025 12:30, MN interval has increased Referred By: Generic ED Physician Electronically Signed By: Elvis Hamlin
== END 2025-01-19 16:01 | disposition home or self-care (01) ==
PROVIDERS: Registered Nurse Emergency; Emergency Provider Emergency Medicine; PCP Registered Nurse
DX: M54.12 Radiculopathy, cervical region (principal); I49.8 Other specified cardiac arrhythmias; R00.2 Palpitations; R20.0 Anesthesia of skin; I10 Essential (primary) hypertension; E11.9 Type 2 diabetes mellitus without complications; M54.2 Cervicalgia; Z87.891 Personal history of nicotine dependence; Z79.899 Other long term (current) drug therapy
CPT/HCPCS: 36415; 80053; 83735; 84443; 84484; 84702; 85025; 93005; 99283; 99285

== ENCOUNTER → 2025-01-19 12:25 | Outpatient (BNV) | payer MEDICAID, SELFPAY | PROVIDERS: Emergency Provider Emergency Medicine; PCP Registered Nurse; Visit Provider Internal Medicine Cardiovascular Disease | DX: R00.2 Palpitations (principal) | CPT/HCPCS: 93010 ==

== ENCOUNTER → 2025-01-20 | Outpatient (BNV) | payer MEDICAID, SELFPAY | PROVIDERS: Emergency Provider Emergency Medicine; PCP Registered Nurse; Visit Provider Internal Medicine Cardiovascular Disease | DX: I44.0 Atrioventricular block, first degree (principal); R00.1 Bradycardia, unspecified | CPT/HCPCS: 93010 ==

== ENCOUNTER 2025-02-07 23:00 | Emergency (ER) | payer MEDICAID, SELFPAY ==
[2025-02-07 23:11] VITALS: BP 143/69; PULSE 60; RESP 18; TEMP 36.7; O2SAT 94; BMI 49.9
--- NOTE | 2025-02-08 00:03 | PC.NURSE ---
Pt went to registration upset that a white woman was called in before his , they were here first and they were leaving. Also stated he was taking the blanket. Pt LWBS.
--- OUTSIDE RECORDS SUMMARY | 2025-02-08 00:16 | XMS_ITS | Clinical Summary ---
Author Organization [address] [place] [address] [place] [phone] Phone Care Team Providers Care Tmr Teacher Name Role Phone [facility] Primary Care Provider [phone] Allergies Active Allergy Reactions Criticality Noted Date Comments Bee Venom Protein (Honey Bee) Anaphylaxis High 09/20 Medications albuterol HFA (PROAIR HFA ; PROVENTIL HFA ; VENTOLIN HFA) 90 mcg/actuation inhaler INHALE 2 PUFFS BY MOUTH FOUR TIMES DAILY NEEDED FOR WHEEZING 05/05/20 23 Active cholecalcifero l (VITAMIN D-3) 50 mcg (2,000 unit) capsule Take 50 mcg by mouth daily. 06/12/19 23 Active cyanocobalamin , vitamin B-12, 1,000 mcg tablet, sublingual DISSOLVE 1 TABLET UNDER THE TONGUE ONCE DAILY. ALLOW TO DISSOLVE FOR AT LEAST 30 SECONDS BEFORE SWALLOWING. 08/27/19 24 Active docusate sodium (COLACE) 100 mg capsule Take 1 Capsule by mouth daily. 09/03/19 24 Active iron,carbonyl- vitamin C 65 mg iron- 125 mg tablet,delayed release (DR/EC) Take 1 Tablet by mouth daily. 08/27/19 24 Active sertraline (ZOLOFT) 25 mg tabletIndicati ons:Per pt 4 tablets (100 mg total). Active vitamin A 3,000 mcg (10,000 unit) capsule Take 1 Capsule by mouth daily. 08/27/19 24 Active ARIPiprazole (ABILIFY) 10 mg tablet Take 1 tablet (10 mg total) by mouth daily. 03/25/20 24 Active cloNIDine (CATAPRES) 0.1 mg tablet Take 1 tablet (0.1 mg total) by mouth 3 times daily. 09/03/19 25 Active clotrimazole (LOTRIMIN) 1 % cream APPLY TOPICALLY TO THE AFFECTED AREA(S) TWICE DAILY DIRECTED Active estradioL (ESTRACE) 0.01 % (0.1 mg/gram) vaginal cream INSERT 0.5 G VAGINALLY DAILY THEN DECREASE TO THREE TIMES A WEEK 05/10/20 24 Active hydrocortisone 2.5 % cream APPLY TOPICALLY TO THE AFFECTED AREA(S) TWICE DAILY DIRECTED 05/10/20 24 Active hydrocortisone (ANUSOL-HC) 2.5 % rectal cream INSERT INTO THE RECTUM TWICE A DAY 05/10/20 24 Active hydrOXYzine pamoate (VISTARIL) 25 mg capsule TAKE 1 TO 2 CAPSULES BY MOUTH AT BEDTIME NEEDED FOR SLEEP 09/03/19 25 Active mometasone (Asmanex HFA) 50 mcg/actuation HFA aerosol inhaler INHALE 2 PUFFS BY MOUTH TWICE DAILY. RINSE MOUTH AFTER USING 08/12/19 25 Active Gavilax 17 gram/dose oral powder MIX 17G (1 CAPFUL) IN 8 OUNCES OF WATER, COFFEE, OR TEA AND TAKE BY MOUTH EVERY DAY IN THE MORNING 03/17/20 24 Active ghnqe-efzmz-lt liogu-aknvx-vy nc (CeraVe AM) 30 SPF lotion apply topically to skin 09/21/19 22 Active EPINEPHrine (EpiPen) 0.3 mg/0.3 mL injection Inject 0.3 mL (0.3 mg total) into the thigh if needed for anaphylaxis. Active polyethylene glycol (Golytely) 236-22.74-6.74 -5.86 gram solution Take 4L by mouth once for one dose. May substitue any PEG. Starting at 2PM the day before your procedure drink 1 8oz glasses at your own pace until you complete half of the gallon. Finish 2nd half of the gallon at 8PM. 4000 mL 02/01/20 25 Active bisacodyL (DULCOLAX) 5 mg EC tablet Take 2 tablets by mouth right before beginning bowel prep. See instructions provided by the office 2 tablet 02/01/20 Active apixaban (Eliquis) 5 mg tablet Take 1 Tablet by mouth 2 Times Daily. 09/06/19 Discontinu ed(Therapy completed) EPINEPHrine (EpiPen 2-Orville) 0.3 mg/0.3 mL injection Inject intramuscularly as directed on package and go to emergency room 03/13/20 Discontinu ed(Duplica te order) buPROPion XL (WELLBUTRIN XL) 150 mg 24 hr tabletIndicati ons:Per pt Take 1 tablet (150 mg total) by mouth 1 (one) time each day. Do not crush, chew, or split. Discontinu ed(Discont inued by another clinician) benzocaine-men thoL (CHLORASEPTIC SORE THROAT) 6-10 mg lozenge Dissolve 1 lozenge in the mouth. 09/01/19 Discontinu ed(Non-com pliance) levothyroxine (SYNTHROID, LEVOTHROID) 25 mcg tablet Take 1 tablet (25 mcg total) by mouth daily. 04/14/20 Discontinu ed(Discont inued by another clinician) lisinopriL (PRINIVIL,ZEST RIL) 10 mg tablet Take 1 tablet (10 mg total) by mouth 1 (one) time each day in the morning. 10/03/19 Discontinu ed(Non-com pliance) Nystop 100,000 unit/gram powder APPLY TOPICALLY TO THE AFFECTED AREA(S) TWICE DAILY DIRECTED Discontinu ed(Non-com pliance) tirzepatide, weight loss, (Zepbound) 5 mg/0.5 mL injection Inject 7.5 mg under the skin every 7 (seven) days. 10/07/19 Discontinu ed(Discont inued by another clinician) Active Problems Problem Noted Date Diagnosed Date Blurry vision 01/30/2024 Dizziness 01/30/2024 HLD (hyperlipidemia) 01/28/2024 Palpitation 01/28/2024 SOB (shortness of breath) 01/28/2024 ACS (acute coronary syndrome) (CMS/HCC V24, CMS/ HCC V28) 01/27/2024 Aortic dissection ([facility] V24, [facility] V28) Chest pain 01/27/2024 Intracranial hemorrhage ([facility] V24, [facility] V2 8) 01/27/2024 Atrial flutter with controll ed response ([facility] V24, [facility] V28) 09/29/2023 Overview (04/28/2024): Last Assessment & Plan: Typical [...] need for anticoagulation based primarily on her [id number] score during subsequent visits. She is in [...] Encounters Date Type Department Care Team Description 01/26/2025 7:40 AM EDT Office Visit [facility] - [address] [place] [address] Shagufta Holbrook, TORO Palpitation (Primary Dx) 01/26/2025 Telephone [facility] Cardiology [facility] [address] [place] [address] Shagufta Holbrook NP 01/18/2025 Telephone [facility] [address] [place] [address] Shagufta Holbrook NP 01/17/2025 Telephone Gastroenterology - [place] [address] [place] [address] Cecilia Pillai LPN 11/26/2024 Telephone [facility] [address] [place] [address] [facility] 11/26/2024 Telephone [facility] [address] [place] [phone] Shagufta Holbrook NP 11/09/2024 Telephone [facility] [address] [place] [address] [facility] from Last 3 Months Social History Tobacco Use Types Packs/Day Years Used Date Smoking Tobacco: Former Cigarettes Q uit: 06/09/2010 Smokeless Tobacco: Never Alcohol Use Standard Drinks/Week Comments Not Asked 0 (1 standard drink = 0.6 oz pur e alcohol) Comments Unknown Sex and Gender Information Value Date Recorded Sex Assigned at Female 01/27/2025 9:48 AM EDT Legal Sex Female 8:46 PM EST Gender Identity Female 01/27/2025 9:48 AM EDT Sexual Orientation Not on file Obstetrics History Last Filed Vital Signs Vital Sign Reading Time Taken Comments Blood Pressure 100/70 01/26/2025 7:40 AM EDT Pulse 56 01/26/2025 7:40 AM EDT Temperature - - Respiratory Rate - - Oxygen Saturation 99% 01/26/2025 7:40 AM EDT Inhaled Oxygen Concentration - - Weight 126 kg (278 lb) 01/26/2025 7:40 AM EDT Height 160 cm (5' 3 ) 01/26/2025 7:40 AM EDT Body Mass Index 49.25 01/26/2025 7:40 AM EDT Plan of Treatment Upcoming Encounters Date Type Department Care Team (Late st Contact Info) Description 02/14/2025 8:30 AM EDT Hospital Encounter [facility] [address] [place] [id number] Rahul Devine DO [address] [place] [phone] Health Maintenance Due Date Last Done Comments Breast Cancer Screening 1977 Diabetes: Annual Foot Exam 1987 Cervical Cancer Screening: Pap Smear 1998 Colorectal Cancer Screening: Colonoscopy 07/04/2023 Social Influencers of Health Screening 07/04/2023 Depression Screening 06/09/2024 Diabetes: Annual Urine Albumin-Creatinine Ratio (uACR) 06/10/2024 COVID-19 Vaccine ( season) 2025 Influenza Vaccine (#1) 2025 06/21/2013 Hepatitis B Vaccines (3 of 3 - 19+ 3-dose series) 04/07/2025 11/03/2024, 10/06/2024 Diabetes: Blood Sugar Control Test (HGBA1C) 05/06/2025 11/03/2024, 10/06/2024, 08/22/2023, Additional history exists Diabetes: Annual Retina Eye Exam 09/08/2025 09/08/2024 Diabetes: Annual GFR (Glomerular Filtration Rate) 01/19/2026 01/19/2025, 01/12/2024, 01/12/2024 Hypertension/CHF/CAD Annual BMP Blood Test 01/19/2026 01/19/2025, 01/12/2024, 01/12/2024 Cholesterol Screening (Lipid Panel) 11/03/2029 11/03/2024, 04/08/2023, 04/08/2023 DTaP,Tdap,and Td Vaccines (2 - Td or Tdap) 07/18/2033 07/18/2023 HIV Screening Completed 09/20/2021, 09/20/2021 Hepatitis C Screening Completed 09/20/2021 Pneumococcal Vaccine: Pediatrics (0 to 5 Years) and At-Risk Patients (6 to 49 Years) Completed 11/03/2024, 06/21/2013 HIB Vaccines Aged Out No longer eligi [...] patient's age to complete this topic Meningococcal B Vaccine Aged Out No l onger eligible based on patient's age to complete this topic RSV Immunization Patients Under 20 months Aged Out No longer eligible based on patient's age to complete this topic Varicella Vaccines Aged Out No longer eligible based on patient's age to complete this topic Procedures Procedure Name Priority Date/Time Associated Diagnosis Comments ECG 12-LEAD Routine 01/26/2025 8:16 AM EDT Palpitation CARDIAC AGRICULTURAL PLOW OPERATOR W/ CONNECTION (MCOT) Routine 11/08/2024 7:52 AM EDT Palpitation Tachycardia ANNUAL BMP BLOOD TEST Routine 01/12/2024 HEMOGLOBIN A1C Routine 08/22/2023 LIPID PANEL Routine 04/08/2023 HEPATITIS C SCREENING Routine 09/20/2021 HIV SCREENING Routine 09/20/2021 from Last 3 Months or Most Recently Relevant to Health Maintenance Results * ECG 12 lead (01/26/2025 8:16 AM EDT) Ventricular Rate ECG 56 BPM GEMUSE Atrial Rate 56 BPM GEMUSE P-R Interval 266 ms GEMUSE QRS Duration 96 ms GEMUSE Q-T Interval 420 ms GEMUSE QTc 405 ms GEMUSE P Wave Demarest 58 degrees GEMUSE R Demarest 33 degrees GEMUSE T Demarest 22 degrees GEMUSE ECG Interpretation Sinus bradycardia with 1st degree A-V block Otherwise normal ECG When compared with ECG of 20-FEB-2024 15:58, No significant change was found Confirmed by Barbara STUART JOHN ([id number]) on 02/06/2025 4:56:37 PM GEMUSE 01/26/2025 7:46 AM EDT 02/06/2025 4:56 PM EDT Shagufta Holbrook EXTERIOR DOOR INSTALLER ECG ORDERABLES Edited Resul t - Final GEMUSE * CARDIAC AGRICULTURAL PLOW OPERATOR W/ CONNECTION (MCOT) (11/08/2024 7:52 AM EDT) Anatomical Region Laterality Modality Cardiac Diagnost ic Impressions 11/17/2024 3:55 PM EDT Normal sinus rhythm with no documented sustained atrial or ventricular arrhythmias. Patient's symptoms did not correlate to an abnormal rhythm. Occasional PVCs and PACs noted. Narrative 11/17/2024 3:55 PM EDT Benign Holter monitor. [facility] DIAGNOSTIC TESTING DEPARTMENT [address] [facility], [address] [address] TEL: FAX: TYPE OF TEST: 7 day ROCT monitor. DATES OF MONITORIN11/06/2024- 11/13/2024 REQUESTING PHYSICIAN: SUZANNE Patten PRIMARY CARE PROVIDER: Patricia Willams NP INDICATION: Palpitation; Tachycardia PRELIMINARY FINDINGS FROM FIRST CALL MEDICAL: 1. The predominant rhythm was sinus, with sinus arrhythmia. 2. The average heart rate was 65 bpm, minimum heart rate was 45 bpm, maximum heart rate was 132 bpm. 3. Total VE burden: 0.1% consisting of singles, & VE Couplet. 4. Total SVE burden: 0.2% consisting of singles, & SVE Couplet. 5. There were 1 patient triggered symptomatic events. Alicja PALACIOS CV CARDIAC SERVICES PROCEDURES F inal Result * Annual BMP Blood Test (01/12/2024) Pathologist Critical access hospital Annual BMP Blood Test Abstracted Result [facility] Provider HEALTH MAINTENANCE Final Result * Hemoglobin A1c (08/22/2023) [facility] Hemoglobin A1C 0.0 % Comment:No Interpretation, A bstracted Blood Venous blood specimen / Unknown Result [facility] Provider LAB BLOOD ORDERABLES Gris l Result * Lipid panel (04/08/2023) [facility] LDL/HDL Ratio 0 Comment:No Interpretation, A bstracted Triglycerides 0 mg/dL Comment:No Interpretation, A bstracted Cholesterol 0 mg/dL Comment:No Interpretation, A bstracted HDL 0 mg/dL Comment:No Interpretation, A bstracted LDL Cholesterol 0 mg/dL Comment:No Interpretation, A bstracted Blood Venous blood specimen / Unknown Result [facility] Provider LAB BLOOD ORDERABLES Gris l Result * HIV Screening (09/20/2021) [facility] HIV Screening Abstracted Result [facility] Provider HEALTH MAINTENANCE Final Result * Hepatitis C Screening (09/20/2021) [facility] Hepatitis C Screening Abstracted [facility] Provider HEALTH MAINTENANCE Final Result from Last 3 Months or Most Recently Relevant to Health Maintenance Insurance MEDICA[place] Care Teams Tmr Teacher Relationship Specialty Start Date End Date [facility] [address] [phone] PCP - General 09/17/23
--- OUTSIDE RECORDS SUMMARY | 2025-02-08 00:16 | XMS_ITS | Encounter Summary ---
Author Organization [employer] Address [address] [place] [address] Care Team Providers Care Adobe Layer Name Role Phone [facility] Primary Care Provider [phone] Encounter Details Date Type Department Care Team (Late st Contact Info) Description 01/26/2025 Telephone [facility] Cardiology [facility] [address] [place] [address] Shagufta Holbrook, PRODUCT GRADER [address] [facility] [address] [place] [address] Social History Tobacco Use Types Packs/Day Years [...] AM EDT Sexual Orientation Not on file documented as of this encounter Progress Notes * Alyssa Rosario MA - 01/28/2025 3:01 PM EDT Danielito called, he is asking for a call back. He stated it was about a letter. [phone] * Tricia Castellon RN - 01/27/2025 2:37 PM EDT Spoke w/Danielito RN. Per their provider, they would like a letter stating that it's ok for patient to take phentermine from cardiac standpoint. They provided a fax number to send when able, . Ok to send on your behalf? * Alyssa Rosario MA - 01/27/2025 2:04 PM EDT Danielito returning call from Tricia. He stated it is not urgent, a call back whenever available is fine. Please contact him when you can. [phone] * Tricia Castellon RN - 01/27/2025 11:08 AM EDT Spoke w/Danielito RN from Weight Management. He will clarify what level of clearance re:phentermine w/provider Doriat if they are ok w/letter. * Tricia Castellon RN - 01/27/2025 9:58 AM EDT Reached out to [facility] Management at [facility] [phone] to confirm request for letter clearing for phentermine vs. Cardiac clearance appt. * Tricia Castellon RN - 01/26/2025 1:02 PM EDT Spoke w/pt and reviewed SL's message. Pt would like a letter sent to her MyChart w/clearance. * Shagufta Holbrook NP - 01/26/2025 12:34 PM EDT There is no contraindication from our standpoint, she had a successful flutter ablation, no historyof coronary disease but is incumbent upon them to review all of the risks with her * Komal Ferguson - 01/26/2025 10:40 AM EDT Weight management would like to prescribed the patient phentermine. However they will need cardiac clearance before doing so. Please advise. [phone]. documented in this encounter Plan of Treatment Upcoming Encounters Date Type Department Care Team (Late st Contact Info) Description 02/14/2025 8:30 AM EDT Hospital Encounter [facility] Endoscopy [address] [place] [address] Rahul Devine DO [address] [place] [phone] documented as of this encounter Visit Diagnoses Not on filedocumented in this encounter Care Teams Adobe Layer Relationship Specialty Start Date End Date [place] Patricia [address] [phone] PCP - General 09/17/23 documented as of this encounter
== END 2025-02-08 00:31 | disposition left against medical advice (07) ==
PROVIDERS: Emergency Provider Emergency Medicine; PCP Registered Nurse
DX: R10.11 Right upper quadrant pain (principal); R11.2 Nausea with vomiting, unspecified; Z53.21 Procedure and treatment not carried out due to patient leaving prior to being seen by health care provider
CPT/HCPCS: 99281

== ENCOUNTER 2025-02-23 12:04 | Outpatient (AMB) | payer MEDICAID, SELFPAY ==
--- NOTE | 2025-02-23 12:00 | MHC.OFFVISWM ---
VS Expanded 02/23/25 12:07 Height 5 ft 2 in Weight 284 lb BMI 51.9 Intake Visit Reasons: TV PO LSG 04/15/23 Allergies bee pollen (bee stings) Allergy (Severe, Verified 02/07/25 23:14) Anaphylaxis Medication List - Last Reconciled 02/23/25 by SUZANNE Lawrence albuterol sulfate 90 mcg/actuation (Ventolin HFA) 2 puffs inhalation QID PRN apixaban (Eliquis) 5 mg PO BID aripiprazole 10 mg PO BEDTIME azithromycin 250 mg PO DAILY 4 days cefpodoxime 200 mg PO BID cholecalciferol (vitamin D3) 125 mcg PO DAILY clotrimazole 1% 1 appl topical BID docusate sodium (Colace) 100 mg PO DAILY PRN estradiol 0.01%(0.1mg/gram) 1 g vaginal DAILY guanfacine ER take one tablet po daily in afternoon hydrocodone-acetaminophen 5-325 mg 1 tab PO Q6H PRN hydrocortisone 2.5% 2.5 appl UT BID PRN iron,carbonyl-vitamin C 65 mg iron- 125 mg (Vitron-C) 1 tab PO BEDTIME lidocaine 5% (Lidoderm) 1 patch topical DAILY lidocaine 5% 1 patch topical DAILY oxycodone 5 mg PO Q8H PRN 3 days phentermine 30 mg PO DAILY polyethylene glycol 3350 17 grams PO QAM PRN sertraline 100 mg PO DAILY vitamin A palmitate 10,000 units PO DAILY zinc gluconate 30 mg PO DAILY HPI Comments Details: This?is a?49?yo F who is s/p LSG 04/15/2023. Weight loss of 5.8lb since last OV 3mo ago. Currently on phentermine (cleared by cardiology to start). Pt feels like she is having some mood swings so she decreased sertraline dose to try to help this. She continues to struggle with nighttime hunger. Has to wear a heart monitor again after experiencing some episodes of bradycardia. Present meal plan includes: 1oz soft protein plus 1oz veg, 2 shakes of 2 scoops 4:1, and 30 grams Celebrate protein water per day I don't feel hungry but I want to eat I can drink a cup of coffee and be all set all day, but at 9pm I'm starving Exercise routine includes: Exercise - 3 d/week TBP Walks faster - now 45 min per day, more than a mile. Has sciatica which limits her activity sometimes has increased HR sometimes with activity so has to be careful Pt started clotrimazole and nystatin, helped somewhat but did not completely resolve the skin irritation, has been wearing the binder to try to help and avoid skin irritation, this also helped a little but did not prevent the rashes completely. Pt reports issues with excess skin of arms, notices rashes/chafing at armpits due to extra skin rubbing together. It is difficult to comb her hair due to the excess skin of upper arms flapping around. Also has issues of excess skin of thighs, notices increased chafing, has had to buy biker shorts to try to prevent chafing/rubbing of excess skin. She was started on a cream by her LAYOUT TECHNICIAN which is making rashes worse. 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 [facility] Medical History Homeless single person Elevated TSH Hepatomegaly Hyperlipidemia Insulin dependent type 2 diabetes mellitus Hypothyroidism Low back pain Sciatica of left side First degree AV block Surgical History S/P gastric sleeve procedure Hx of tubal ligation Family History Mother Diabetes Dementia Anemia Father Diabetes Heart problem High cholesterol Arthritis Sister Heart problem Diabetes High cholesterol Hypertension Sickle cell anemia Sister Breast cancer Asthma Sister Heart problem Diabetes Son Asthma Son No problems noted. Son Autism Daughter Anxiety Social History Household Members: Family Housing: House Are you a primary neonatal intensive care nurse to a significant other at home: No Do you presently have visiting nurse or other home services: No Alcohol intake: never Comment: Discharge date set for 02/13/24 Patient Tobacco Use Status: Former Tobacco user Tobacco use type: Cigarette service: No Physical Exam GI Other: Telehealth Telehealth Telehealth Platform: Telephone Location of provider rendering services: practice address Location of patient: address on file Patient Identification confirmed using: Name, : Yes Telehealth method: voice only Patient verbally consented to treatment: Yes Patient verbally consented to billing insurance company: Yes Patient informed of any privacy concerns related to visit: Yes Minutes spent on Phone/Video with Pt.: 16 Assessment & Plan Assessment & Plan (1) Morbid obesity: Code(s): E66.01 - Morbid (severe) obesity due to excess calories Category: Medical (2) S/P gastric sleeve procedure: Code(s): Z90.3 - Acquired absence of stomach [part of] Category: Surgical Plan She needs a better meal plan. I sent [employer] tomas download info and strongly encouraged pt to follow a plan with this. We had a long conversation about avoiding foods that give her issues like rice, grapes. Do not go all day long without eating. She did have a questionable allergic reaction to Zepbound; could try Wegovy in the future. For now she will continue on phentermine and monitor BP. Continue conservative treatment of excess skin of abdomen. (binder, clotrimazole). For surgery with [facility] her BMI needs to be 33 or less. RTC 3mo (phone call visit 30min).
[2025-02-23 12:07] VITALS: BMI 51.9
--- OUTSIDE RECORDS SUMMARY | 2025-02-23 15:33 | XMS_ITS | Encounter Summary ---
Author Organization [employer] Address [address] [place] [address] [address] [place] [address] Care Team Providers Care Medical Radiation Dosimetrist Name Role Phone [place] [facility] Primary Care Provider [phone] Jeff Jimenez RN Unavailable [phone] Corie Enriquez Unavailable Reason for Visit * Reason Onset Date Comments Med Refill 01/21/2025 Encounter Details Date Type Department Care Team (Late st Contact Info) Description 01/21/2025 Refill [facility] MEDICINE [address] [place], [place] [phone] [place] [facility] [address] [place] [address] Class 3 severe obesity due to excess calories with serious comorbidity and body mass index (BMI) of 50.0 to 59.9 in adult Social History Tobacco Use Types Packs/Day Years [...] with others, in a hotel, in a retirement, living outside on the street, on a [...] as of this encounter Plan of Treatment Not on file documented as of this encounter Visit Diagnoses Diagnosis Class 3 severe obesity due to excess calories with serious comorbidity and body mass index (BMI) of 50.0 to 59.9 in adult documented in this encounter Additional Health Concerns Assessment Noted Time PHQ-9 Depression Total Score: 11 025 10:28 AM EDT documented as of this encounter Care Teams Medical Radiation Dosimetrist Relationship Specialty Start Date End Date [place] ADAM Gomez [address] [place] [address] PCP - General Family Medicine 02/04/22 Jeff Jimenez, TAMMI [address] [place] [address] Registered Nurse Family Medicine 11/09/24 Corie Enriquez 11/09/24 documented as of this encounter
--- OUTSIDE RECORDS SUMMARY | 2025-02-23 15:33 | XMS_ITS | Encounter Summary ---
Author Organization [employer] Address [address] [place] [address] [address] [place] [address] Care Team Providers Care Family Medicine Chair Name Role Phone [place] [facility] Primary Care Provider [phone] Jeff Jimenez RN Unavailable [phone] Corie Enriquez Unavailable Reason for Visit * Reason Onset Date Comments Med Refill 01/20/2025 Encounter Details Date Type Department Care Team (Late st Contact Info) Description 01/20/2025 Refill [facility] MEDICINE 230 [place], [place] [phone] [place] [facility] 230 [place] [address] Class 3 severe obesity due to excess [...] with others, in a hotel, in a intermediate, living outside on the street, on a [...] documented as of this encounter Care Teams Family Medicine Chair Relationship Specialty Start Date End Date [place] ADAM Gomez [address] [place] [address] PCP - General Family Medicine 02/04/22 Jeff Jimenez, TAMMI [address] [place] [phone] Registered Nurse Family Medicine 11/09/24 Corie Enriquez 11/09/24 documented as of this encounter
--- OUTSIDE RECORDS SUMMARY | 2025-02-23 15:33 | XMS_ITS | Encounter Summary ---
Author Organization [employer] Address [address] [place] [address] [address] [place] [address] Care Team Providers Care Logistics Administrator Name Role Phone [facility] Primary Care Provider Jeff Jimenez RN Unavailable [phone] Corie Enriquez Unavailable Reason for Visit * Reason Comments Med Refill Encounter Details Date Type Department Care Team (Late st Contact Info) Description 09/02/2023 Refill [facility] [address] [place], [place] [phone] [facility] [address] [place], [place] [phone] Type 2 diabetes mellitus with other specified complication, unspecified whether predatory animal exterminator insulin use ([facility]) Social History Tobacco Use Types Packs/Day Years Used Date Smoking Tobacco: Never Smokeless Tobacco: Never Depression Answer Date Recorded Patient Health Questionnaire-9 Score 0 07/18/2023 Patient Health Questionnaire-9 Score 0 07/18/2023 Last PHQ-9: Questionnaire Data Not on file 0 07/18/2023 Housing Stability Answer Date Recorded What is your housing situation today? I have windy watson 07/18/[address] you li [...] unspecified whether predatory animal exterminator insulin use ([facility]) documented in this encounter Additional Health Concerns Assessment Noted Time PHQ-9 Depression Total Score: 0 07/18/19 24 11:22 AM EST documented as of this encounter Care Teams Logistics Administrator Relationship Specialty Start Date End Date Patricia Willams FNP [address] [place] [address] PCP - General Family Medicine 02/04/22 Jeff Jimenez, TAMMI [address] [place] [address] Registered Nurse Family Medicine 11/09/24 Corie Enriquez 11/09/24 Mariann Ray Block Tester 10/02/23 01/01/24 documented as of this encounter
--- OUTSIDE RECORDS SUMMARY | 2025-02-23 15:33 | XMS_ITS | Encounter Summary ---
Author Organization [employer] Address [address] [facility] 7t [place] [address] Care Team Providers Care Biological Lab Technician Name Role Phone Patricia Willams RADIOLOGIST Primary Care Provider [phone] Jeff Jimenez RN Unavailable [phone] Corie Enriquez Unavailable Encounter Details Date Type Department Care Team (Late st Contact Info) Description 08/07/2023 Orders Only [facility] MEDICINE [address] [place], [place] [phone] Maribel Rosas MD [address] [place], [place] [phone] Blurry vision (Primary Dx) Social History Tobacco [...] documented as of this encounter Care Teams Biological Lab Technician Relationship Specialty Start Date End Date Patricia Willams FNP [address] [place] [address] PCP - General Family Medicine 02/04/22 Jeff Jimenez, TAMMI [address] [place] [address] Registered Nurse Family Medicine 11/09/24 Corie Enriquez 11/09/24 Mariann Ray Broommaking Supervisor 10/02/23 01/01/24 documented as of this encounter
--- OUTSIDE RECORDS SUMMARY | 2025-02-23 15:33 | XMS_ITS | Encounter Summary ---
Author Organization [employer] Address [address] [place] [address] 7[address] [place] [address] Care Team Providers Care Polymerization Kettle Operator Name Role Phone Patricia WillamsP Primary Care Provider [phone] Jeff Jimenez RN Unavailable [phone] Corie Enriquez Unavailable Reason for Visit * Reason Comments Med Refill Encounter Details Date Type Department Care Team (Late st Contact Info) Description 08/01/[address] [facility] MEDICINE [address] [place] [address] Patricia Willams [facility] [address] [place], [place] [phone] Social History Tobacco Use Types Packs/Day Years [...] on filedocumented in this encounter Care Teams Polymerization Kettle Operator Relationship Specialty Start Date End Date Patricia Willams FNP [address] [place] [id number] PCP - General Family Medicine 02/04/22 Jeff Jimenez, RN [address] [place] [phone] Registered Nurse Family Medicine 11/09/24 Corie Enriquez 11/09/24 Mariann Ray Nightclub Manager 10/02/23 01/01/24 documented as of this encounter
--- OUTSIDE RECORDS SUMMARY | 2025-02-23 15:33 | XMS_ITS | Encounter Summary ---
Author Organization [employer] Address [address] [place] [address] [address] [place] [address] Care Team Providers Care Patient Support Partner Name Role Phone Norman [facility] Primary Care Provider [phone] Jeff Jimenez RN Unavailable Corie Enriquez Unavailable Reason for Visit * Reason Onset Date Comments Prior Authorization 07/16/2024 Encounter Details Date Type Department Care Team (Late st Contact Info) Description 07/16/2024 Telephone [facility] MEDICINE [address] [place], [place] [phone] Norman Patricia [facility] [address] [place], [place] [phone] Prior Authorization Social History Tobacco Use Types Packs/Day Years Used Date Smoking Tobacco: Never Passive Smoke Exposure: Never Smokeless Tobacco: Never Alcohol Use Standard Drinks/Week Comments Never 0 (1 standard drink = 0.6 oz pur e alcohol) Depression Answer Date Recorded Patient Health Questionnaire-9 Score 0 07/07/2024 Patient Health Questionnaire-9 Score 0 07/07/2024 Last PHQ-9: Questionnaire Data Not on file 0 07/07/2024 Housing Stability Answer Date Recorded What is your housing situation today? I do not have housing (Staying with others, in a hotel, in a longterm, living outside on the street, on a [...] Date Recorded Patient Health Questionnaire-2 Score 0 07/07/2024 Comments Unknown Sex and Gender Information Value Date Recorded Sex Assigned at Female 04/08/2022 10:14 AM EDT Legal Sex Female 10:14 AM EDT Gender Identity Female 04/08/2022 10:14 AM EDT Sexual Orientation Straight 04/08/2022 10 :14 AM EDT documented as of this encounter Miscellaneous Notes * Telephone Encounter - Nuvia Retana - 07/16/2024 3:52 PM EST Tc from pt stating PA needed for Tirzepatide-Weight Management (Zepbound) 2.5 MG/0.5ML solution auto-injector . documented in this encounter Plan of Treatment Not on file documented as of this encounter Visit Diagnoses Not on filedocumented in this encounter Additional Health Concerns Assessment Noted Time PHQ-9 Depression Total Score: 0 07/07/19 25 9:07 AM EST documented as of this encounter Care Teams Patient Support Partner Relationship Specialty Start Date End Date Patricia Willams FNP [address] [place] [address] PCP - General Family Medicine 02/04/22 Jeff Jimenez RN [address] [place] [phone] Registered Nurse Family Medicine 11/09/24 Corie Enriquez 11/09/24 documented as of this encounter
--- OUTSIDE RECORDS SUMMARY | 2025-02-23 15:33 | XMS_ITS | Clinical Summary ---
Author Organization [employer] Address [address] [place] [address] Care Team Providers Care Consulting Manager Name Role Phone Patricia Willams MANUFACTURE SPECIALIST Primary Care Provider [phone] Jeff Jimenez RN Unavailable [phone] Corie Enriquez Unavailable Allergies Active Allergy Reactions Criticality Noted Date Comments Honey Bee Venom Anaphylaxis High 09/20/2021 Medications * This document contains information received from the source organization and may not represent a complete record from that organization. Blood Pressure Monitoring (Omron 3 Series BP Monitor) device USE DIRECTED ONCE DAILY 09/28/19 22 Active Emollient (CeraVe Daily Moisturizing) lotion 09/21/19 22 Active clotrimazole (Lotrimin) 1 % cream 08/11/19 24 Active docusate sodium (Colace) 100 MG capsule Take 1 capsule by mouth Once per day. 09/03/19 24 Active Vitron-C 65-125 MG tablet Take 1 tablet by mouth 1 (one) time each day. 08/27/19 24 Active beta carotene (vitamin A) 3 MG (63242 UT) capsule Take 1 capsule by mouth in the morning. 08/27/19 24 Active Cyanocobalamin (Vitamin B-12) 1000 MCG sublingual tablet 08/27/19 24 Active sertraline (Zoloft) 100 MG tabletIndicatio ns:Depression, unspecified depression type Take 1 tablet (100 mg) by mouth Once per day. 30 tablet 11 01/12/20 24 Active ARIPiprazole (Abilify) 10 MG tablet Take 10 mg by mouth Once per day. 03/25/20 24 Active albuterol (Ventolin HFA) 108 (90 Base) MCG/ACT inhalerIndicati ons:Wheezing INHALE 2 PUFFS BY MOUTH FOUR TIMES DAILY NEEDED FOR WHEEZING 18 g 3 05/10/20 24 Active polyethylene glycol, PEG, 3350 (Glycolax) 17 GM/SCOOP powderIndicatio ns:Hypothyroidi sm, unspecified type TAKE 17 GM MIXED IN 8 OUNCES OF WATER, COFFEE OR TEA ONCE DAILY IN THE MORNING 510 g 3 05/10/20 24 Active apixaban (Eliquis) 5 MG tabletIndicatio ns:Atrial flutter, paroxysmal (CMS/HCC) TAKE 1 TABLET BY MOUTH TWICE DAILY 60 tablet 07/21/19 25 Active Mometasone Furoate (Asmanex HFA) 50 MCG/ACT aerosol INHALE 2 PUFFS BY MOUTH TWICE DAILY. RINSE MOUTH AFTER USING 13 g 1 08/12/19 25 Active benzocaine-ment hol (Chloraseptic) 6-10 MG lozengeIndicati ons:Pharyngitis , unspecified etiology Dissolve 1 lozenge in the mouth every 2 (two) hours if needed for sore throat. 100 lozenge 09/01/19 25 026 Active cloNIDine (Catapres) 0.1 MG tablet Take 1 tablet by mouth every 6 (six) hours during the day. 09/03/19 25 Active buPROPion (Wellbutrin) 75 MG tablet 07/26/19 25 Active hydrOXYzine pamoate (Vistaril) 25 MG capsule 09/03/19 25 Active D-3-5 125 MCG (5000 UT) capsule Take 1 capsule by mouth Once per day. 07/28/19 25 Active EPINEPHrine (Epipen) 0.3 MG/0.3ML injection syringeIndicati ons:Bee sting allergy INJECT ONE PEN INTRAMUSCULARLY DIRECTED ON PACKAGE AND GO TO THE EMERGENCY ROOM 2 each 10/02/19 25 Active lisinopril 10 MG tabletIndicatio ns:Type 2 diabetes mellitus with other specified complication, unspecified whether fdc insulin use (CMS/HCC) TAKE 1 TABLET BY MOUTH EVERY DAY IN THE MORNING 90 tablet 3 11/04/19 25 Active Additional Information Patient not taking.Reported on 12/13/2024 cyclobenzaprine (Flexeril) 10 MG tabletIndicatio ns:Sciatica of left side One tab po at bedtime prn pain of muscles, do not drive with medicaion 30 tablet 11/17/19 25 Active Zepbound 7.5 MG/0.5ML solution auto-injectorIn dications:Class 3 severe obesity due to excess calories with serious comorbidity and body mass index (BMI) of 50.0 to 59.9 in adult INJECT ONE PEN (=7.5MG) SUBCUTANEOUSLY ONCE A WEEK DIRECTED 2 mL 12/16/19 25 Active Tirzepatide-Brendan ght Management (Zepbound) 10 MG/0.5ML solution auto-injectorIn dications:Class 3 severe obesity due to excess calories with serious comorbidity and body mass index (BMI) of 50.0 to 59.9 in adult Inject 0.5 mL (10 mg) under the skin 1 (one) time per week. 2 mL 1 01/05/20 25 Active Active Problems Problem Noted Date Diagnosed Date Anxiety and depression 10/08/2024 Atrial flutter, paroxysmal 04/12/2024 Overview (04/12/2024): 11/07/23=s/p ablation with Dr. Lai at [facility] 01/03/24-seen at [facility] ED with aute dizziness. Negative head CT. Dx with GARIBAY and discharged with fioricet 12/10/2023-sleep study negative for LINDSAY 01/2024-negative nuclear stress test On eliquis 5mg b.I.d History of bariatric surgery 04/12/2024 Overview (04/12/2024): LSG 04/15/2023 Homelessness 12/22/2023 Overview (04/12/2024): Staying with sister PTSD (post-traumatic stress disorder) 11/25/2023 JONES (generalized anxiety disorder) 11/25/2023 Healthcare maintenance 09/11/2023 Overview (04/12/2024): Mammo: Pap: Normal thorugtapestry last 2023. Need records C-scope: Referred 07/2023--waiting until cardiology approved holding eliquis BMD: HCV Screen: HIV Screen: Immunizations: Screening Labs: Essential (primary) hypertension 10/20/2022 Type 2 diabetes mellitus wit h retinopathy, without long-term current use of insulin 07/02/2022 Overview (10/10/2023): Current A1c: BMP: Microalbumin: Foot Exam: Complete at follow up Eye Exam: Previously referred to [facility] eye care. Missed initial appointment Lipid panel: [...] First degree atrioventricular block 10/22/2021 Hyperlipidemia 10/22/2021 Resolved Problems Problem Noted Date Diagnosed Date Resolved Date Housing instability 10/08/2024 11/04/19 Pharyngitis 08/31/2024 11/03/2024 Assessment & Plan (08/31/2024 2:56 PM EDT): Patient with c/o severe sore throat and painful swallowing associated with fever. On exam she has an erythematous oropharynx with some posterior discharge. Neg covid, strep and flu Exam indicative of a pharyngitis highly suspicious for bacterial etiology given physical exam Plan: Throat Cx. Augmentin, Throat lozenges, Acetaminophen prn for fever Severe episode of recurrent major depressive disorder, without psychotic features 11/25/202307/2024 Assessment & Plan (12/22/2023 8:54 AM EDT): [...] Health Integration Plan Internal Follow up with [facility] Patient Self Plan Patient to reach out to [facility] team as needed, Patient to engage in OP therapy , and Patient to reach out to [facility] as needed Encounters Date Type Department Care Team Description 02/23/[address] [address] [place] Call back request 02/22/2025 Patient Outreach [address] [address] [place] [facility] Care Management (C3CM- F/U call # 2) 02/11/2025 3:00 PM EDT Telemedicine [address] [address] [place] [facility] Anxiety and depression (Primary Dx); Right upper quadrant abdominal pain; Type 2 diabetes mellitus with retinopathy, without long-term current use of insulin, macular edema presence unspecified, unspecified laterality, unspecified retinopathy severity (CMS/HCC) 02/11/2025 Travel 02/10/2025 Telephone [facility] [place] [address] Patricia Willams FNP chart prep 02/10/2025 Telephone [facility] [place] [phone] Patricia Willams FNP Medication Question 02/08/2025 Telephone [facility] [place] [place] [address] Elisa Rubalcava, TAMMI NTTS f/up 02/04/2025 Travel 02/03/2025 Patient Outreach [facility] [address], [place] [phone] Patricia Willams FNP Pre-visit Planning (SDOH was already completed) 01/24/2025 Patient Outreach [facility] [place] [address] Patricia Willams FNP Care Coordination ([facility] Corie Enriquez telephone call outreach) 01/21/2025 Refill [facility] [place] [address] Patricia Willams FNP Class 3 severe obesity due to excess calories with serious comorbidity and body mass index (BMI) of 50.0 to 59.9 in adult 01/21/2025 Patient Outreach [facility] [place] [address] Patricia Willams FNP Care Coordination ([facility] Corie Enriquez telephone call outreach ) 01/21/2025 Patient Outreach [facility] [place] [place] [address] Patricia Willams FNP Care Management (C3- Follow Up Call # 1) 01/20/2025 Telephone [facility] [place] [place] [address] Patricia Willams FNP Appointment Request 01/20/2025 Refill [facility] [place] [place] [address] Patricia Willams FNP Class 3 severe obesity due to excess calories with serious comorbidity and body mass index (BMI) of 50.0 to 59.9 in adult 01/19/2025 Orders Only GENERIC EXTERNAL DATA DEPARTMENT Provider, Generic External Data 01/17/2025 Telephone [facility] [address] [place] [address] Patricia Willams FNP Nurse Triage 01/14/2025 Telephone [facility] [address] [place] [address] Patricia Willams FNP Prior Authorization 01/11/2025 Telephone [facility] [address] [place] [address] Patricia Willams FNP Prior Auth Prescription ( PA: Kayleigh) 01/11/2025 Telephone [facility] [address] [place] [address] Patricia Willams FNP Prior Authorization 01/04/2025 Refill [facility] [address] [place] [address] Patricia Willams FNP Class 3 severe obesity due to excess calories with serious comorbidity and body mass index (BMI) of 50.0 to 59.9 in adult 12/21/2024 Telephone [facility] [address] [place] [address] Patricia Willams FNP NTTS 12/15/2024 Refill [facility] [address] [place] [address] Patricia Willams FNP Class 3 severe obesity due to excess calories with serious comorbidity and body mass index (BMI) of 50.0 to 59.9 in adult 12/14/2024 Plan of Care Documentation [facility] [address] [place] [address] 12/13/2024 Patient Outreach [facility] [address] [place] [address] Patricia Willams FNP Care Management (C3CM- Initial assessment/enrollmen t) 12/08/2024 Telephone [facility] [address] [place] [address] Gladis Orlando, OD 12/08/2024 Patient Outreach [facility] [address] [place] [address] Patricia Willams FNP Care Coordination 12/07/2024 Travel 12/03/2024 Telephone [facility] [address] [place] [address] Patricia Willams FNP No Show 12/02/2024 Telephone [facility] [place] [address] Patricia Willams FNP Chart prep 12/01/2024 Telephone [facility] Juan [facility] [place] [address] Patricia Willams FNP pap update 12/01/2024 Telephone [facility] [address] [facility] [place] [address] Patricia Willams FNP No Show 12/01/2024 Telephone [facility] [place] [address] Patricia Willams FNP Appointment Request 11/25/2024 Travel 11/24/2024 Telephone [facility] [place] [address] Patricia Willams FNP Nurse Triage 11/23/2024 Refill [facility] [place] [place] [address] Arianne Lim DO Class 3 severe obesity due to excess calories with serious comorbidity and body mass index (BMI) of 50.0 to 59.9 in adult 11/23/2024 Patient Outreach [facility] [place] [address] Patricia Willams FNP Care Coordination from Last 3 Months Immunizations Immunization Administration Dates Next Due Hep B, adult 11/03/2024,10/06/2024 Influenza injectable quadrivalent preservative f ree 06/21/2013 Pneumococcal Conjugate PCV 20 11/03/2024 Pneumococcal Polysaccharide PPSV23 06/21/2013 Tdap 07/18/2023 Family History Medical History Relation Name Comments Heart disease Brother Alzheimer's disease Mother Relation Name Status Comments Brother Mother Social History Tobacco Use Types Packs/Day Years Used Date Smoking Tobacco: Never Passive Smoke Exposure: Never Smokeless Tobacco: Never Tobacco Cessation:Counseling Given: Not Answered Alcohol Use Standard Drinks/Week Comments Never 0 [...] with others, in a hotel, in a custodial, living outside on the street, on a [...] the past 12 months, has t he [employer], gas, oil or water company threatened to [...] Sign Reading Time Taken Comments Blood Pressure 120/84 02/11/2025 3:00 PM EDT Pulse 88 02/11/2025 3:00 PM EDT Temperature 37.2 C (98.9 F) 02/11/2025 3:00 PM EDT Respiratory Rate 20 02/11/2025 3:00 PM EDT Oxygen Saturation 98% 11/16/2024 3:05 PM EDT Inhaled Oxygen Concentration - - Weight 128 kg (282 lb 9.6 oz) 02/11/2025 3:00 PM EDT Height 157.5 cm (5' 2 ) 02/11/2025 3:00 PM EDT Body Mass Index 51.69 02/11/2025 3:00 PM EDT Plan of Treatment Health Maintenance Due Date Last Done Comments CT Colonography 1977 Colonoscopy 1977 Colorectal Cancer Screening 1977 FIT DNA/Cologuard 1977 FIT 1977 FOBT 1977 Sigmoidoscopy 1977 Mammogram 2017 COVID-19 Vaccine ( season) 2025 Influenza Vaccine (#1) 2025 06/21/2013 Hepatitis B Vaccines (3 of 3 - 19+ 3-dose series) 04/07/2025 11/03/2024, 10/06/2024 Family Planning (PISQ) 04/12/2025 04/12/2024 Depression Monitoring 06/15/2025 12/13/2024, 025 Diabetes: Hemoglobin A1C 08/11/2025 025, 11/03/2024, 10/06/2024, Additional history exists Eye Exam 09/08/2025 09/08/2024, 04/0 07/2024, 09/08/2024, Additional history exists Alcohol/Substance Use Screening 10/06/2025 10/06/2024 Diabetes: Urine Protein Screening 11/03/2025 11/03/2024 Disability Screening 11/03/2025 11/03/2024 Lipid Panel 11/03/2025 11/03/2024, 03/11, 09/05/2022, Additional history exists SDOH Screening 11/23/2025 11/23/2024 Tobacco Screening 02/13/2026 02/13/2025 Pap Smear 08/21/2026 08/22/2023 Zoster Vaccines (1 of 2) 2027 Cervical Cancer Screening 08/21/2028 HPV/Cotest 08/21/2028 08/22/2023 DTaP/Tdap/Td Vaccines (2 - Td or Tdap) 07/18/2033 07/18/2023 RSV Patients and Patients Aged 60 years or older (1 - 1-dose 75+ series) 2052 HIV Screening Completed 09/20/2021 Hepatitis C Screening Completed 09/20/2021 Diabetes: Foot Exam Discontinued 10/10/2023, 10/10/2023, 10/10/2023, Additional history exists Pneumococcal Vaccine: Pediatrics (0 to 5 Years) and At-Risk Patients (6 to 49) Years Completed 11/03/2024, 06/21/2013 HIB Vaccines Aged Out [...] Procedure Name Priority Date/Time Associated Diagnosis Comments POCT GLYCATED HEMOGLOBIN, TOTAL Routine 02/11/2025 3:13 PM EDT Type 2 diabetes mellitus with retinopathy, without long-term current use of insulin, macular edema presence unspecified, unspecified laterality, unspecified retinopathy severity (CMS/HCC) POCT GLUCOSE Routine 02/11/2025 3:12 PM EDT Type 2 diabetes mellitus with retinopathy, without long-term current use of insulin, macular edema presence unspecified, unspecified laterality, unspecified retinopathy severity (CMS/HCC) HCG, TOTAL, QN Routine 01/19/2025 12:44 PM EDT TSH W/REFLEX TO FT4 Routine 01/19/2025 1 2:44 PM EDT HIGH SENSITIVITY TROPONIN I Routine 01/19/2025 12:44 PM EDT MAGNESIUM Routine 01/19/2025 12:44 PM EDT COMPREHENSIVE METABOLIC PANEL Routine 01/19/2025 12:44 PM EDT CBC WITH AUTO DIFFERENTIAL Routine 01/19/2025 12:44 PM EDT ALBUMIN, RANDOM URINE W/CREATININE Routine 11/03/2024 9:21 AM EDT Type 2 diabetes mellitus with other specified complication, without long-term current use of insulin (CMS/HCC) LIPID PANEL, STANDARD Routine 11/03/2024 9:21 AM EDT Type 2 diabetes mellitus with other specified complication, without long-term current use of insulin (CMS/HCC) HM PAP/HPV Routine 08/22/2023 ZZZ HISTORICAL HEPATITIS C AB W/REFL TO HCV RNA, QN, PCR Routine 09/20/2021 1:30 PM EDT HIV 1/2 ANTIGEN/ANTIBODY, FOURTH GENERATION W/RFL Routine 09/20/2021 1:30 PM EDT from Last 3 Months or Most Recently Relevant to Health Maintenance Results * POCT Hgb A1c (02/11/2025 3:13 PM EDT) Hemoglobin A1C 4.7 4.0 - 5.7 % Blood 02/11/2025 3:13 PM EDT [facility] MANUFACTURE SPECIALIST POINT OF CARE TEST ENTER/EDIT ORDERABLES Final Result * POCT Glucose (02/11/2025 3:12 PM EDT) Pathologist [facility] Glucose Blood, POC 108 60 - 200 mg/dL Blood Capillary blood specimen / Unknown 02/11/2025 3:12 PM EDT [facility] MANUFACTURE SPECIALIST POINT OF CARE TEST ENTER/EDIT ORDERABLES Final Result * High Sensitivity Troponin I (01/19/2025 12:44 PM EDT) [facility] TROPONIN I HIGH SENSITIVITY <2.7 <3.5 - 17.0 ng/L [facility] Comment:The Chatterjee high sens itivity Troponin-I results should beused in conjunction with other diagnostic information suchas ECG, clinical observations and information, and patientsymptoms to aid in the diagnosis of [place]. 01/19/2025 12:4 4 PM EDT 01/19/2025 12:47 PM EDT Generic External Data Provider LAB BLOOD ORDERAB LES Final Result Performing Organization Address City/[facility]/ZIP Co de Phone Number [facility] [address] [place] [phone] * TSH with Reflex to Free T4 (01/19/2025 12:44 PM EDT) [facility] TSH reflex Free T4 3.02 0.32 - 4.0 uIU/mL [facility] 01/19/2025 12:4 4 PM EDT 01/19/2025 12:47 PM EDT Generic External Data Provider LAB BLOOD ORDERAB LES Final Result Performing Organization Address City/[facility]/ZIP Co de Phone Number [facility] [address] [place] [phone] * (ABNORMAL) CBC auto differential (01/19/2025 12:44 PM EDT) [facility] White Blood Count 5.6 4.8 - 10.8 X10*3/uL [facility] Red Blood Count 4.49 4.20 - 5.50 X10*6/uL [facility] Hemoglobin 11.7(L) 12.0 - 16.0 g/dl [facility] Hematocrit 36.3(L) 37.0 - 47.0 % [facility] Mean Corpuscular Volume 80.8 80.0 - 98.0 fL [facility] Mean Corpuscular Hemoglobin 26.1(L) 27.0 - 33.0 pg [facility] Mean Corpuscular HGB Conc 32.2 31.0 - 35.0 g/dl [facility] Red Cell Distribution Width 14.7 11.0 - 16.0 % [facility] Platelet Count 260 160 - 400 X10*3/uL [facility] Mean Platelet Volume 10.8 9.4 - 12.3 fL [facility] Neutrophils Percent Auto 64.4 45 - 73 % [facility] Imm Gran Pct Auto 0.2 0.0 - 0.4 % [facility] Lymphocytes Percent Auto 27.9 20 - 40 % [facility] Monocytes Percent Auto 5.2 2 - 11 % [facility] Eosinophils Percent Auto 1.8 0 - 4 % [facility] Basophils Percent Auto 0.5 0 - 2 % [facility] NRBC Pct Auto 0.0 0.0 - 0.2 /100WBC [facility] Neutrophils Absolute Auto 3.6 2.0 - 8.3 x10*3/uL [facility] Imm Gran Abs Auto 0.01 0.00 - 0.03 X10*3/uL [facility] Lymphocytes Absolute Auto 1.6 1.2 - 4.9 X10*3/uL [facility] Monocytes Absolute Auto 0.3 0.1 - 1.2 X10*3/uL [facility] Eosinophils Absolute Auto 0.1 0.0 - 0.4 X10*3/uL [facility] Basophils Absolute Auto 0.0 0.0 - 0.2 X10*3/uL [facility] NRBC Abs Auto 0.000 0.0 - 0.012 X10*3/uL [facility] 01/19/2025 12:4 4 PM EDT 01/19/2025 12:47 PM EDT Generic External Data Provider LAB BLOOD ORDERAB LES Final Result Performing Organization Address City/[facility]/ZIP Co de Phone Number [facility] [address] [place] [phone] * hCG, Total, Quantitative (01/19/2025 12:44 PM EDT) HCG Quantitative <2 mIU/mL [facility] Comment:Weeks post LMP Appro ximate hCG(Last Menstrual Period) Range (mIU/ml)3 - 4 weeks 9 - 1304 - 5 weeks 75 - 2,6005 - 6 weeks 850 - 20,8006 - 7 weeks 4000 - 100,2007 - 12 weeks 11,500 - 289,63852 - 16 weeks 18,300 - 137,32848 - 29 weeks (2nd trimester) 1,400 - 53,65938 - 41 weeks (3rd trimester) 940 - 60,000The Chatterjee B- hCG assay is used for the early detection ofpregnancy; it cannot be used to diagnose any conditionunrelated to . If a B-hCG level is not supportedby the clinical evidence, results should be confirmed by analternative method (qualitative urine hCG, for example). 01/19/2025 12:4 4 PM EDT 01/19/2025 12:47 PM EDT Generic External Data Provider LAB BLOOD ORDERAB LES Final Result Performing Organization Address [facility]/ZIP Co de Phone Number [facility] [address] [place] [phone] * Magnesium (01/19/2025 12:44 PM EDT) Magnesium 2.2 1.6 - 2.6 mg/dL [facility] 01/19/2025 12:4 4 PM EDT 01/19/2025 12:47 PM EDT us Generic External Data Provider LAB BLOOD ORDERAB LES Final Result [facility] [address] [place] [phone] * (ABNORMAL) Comprehensive Metabolic Panel (01/19/2025 12:44 PM EDT) Sodium 141 135 - 145 mmol/L [facility] Potassium 3.7 3.3 - 5.1 mmol/L [facility] Chloride 109(H) 96 - 108 mmol/L [facility] Carbon Dioxide 23 22 - 29 mmol/L [facility] Anion Gap 13 12 - 20 [facility] Urea Nitrogen (BUN) 12 9 - 16 mg/dL [facility] Creatinine, Serum 0.76 0.5 - 1.4 mg/dL [facility] Creatinine Clr Calc Pharmacy 116.4 [facility] Comment:Provided height and weight: 157.48 cm,126.28 kg.eGFR (calculated from the MDRD study equation) and eCrCl(calculated from the Cockcroft-Gault equation) are based ondifferent parameters and may not yield comparable results.If eCrCl result is absurd, please check patient'sheight/weight. Estimated Glomerular Filt Rate >60 [facility] Comment:Chronic Kidney Disea se: Estimated GFR < 60 mL/min/1.96l3Hwijgz Kidney Disease: Estimated GFR < 15 mL/min/1.73m2 Glucose 80 60 - 115 mg/dL [facility] Calcium 8.6 8.4 - 10.2 mg/dL [facility] Bilirubin, Total 0.5 0.0 - 1.0 mg/dL [facility] Aspartate Amino Transferase 22 5 - 31 U/L [facility] Alanine Aminotransferase 13 0 - 31 U/L [facility] Total Protein 7.7 6.5 - 8.0 g/dL [facility] Albumin Level 4.0 3.5 - 5.0 g/dL [facility] Alkaline Phosphatase 77 39 - 117 U/L [facility] 01/19/2025 12:4 4 PM EDT 01/19/2025 12:47 PM EDT Generic External Data Provider LAB BLOOD ORDERAB LES Final Result Performing Organization Address [facility]/ZIP Co de Phone Number [facility] [address] [place] [phone] * Albumin, Random Urine W/Creatinine (11/03/2024 9:21 AM EDT) Creatinine, Urine 33.60 mg/dL [facility] Microalbumin Urine 8.0 mg/L [facility] Microalbum Creatinine Ratio Ur 23.8 <30 ug/mg cr [facility] Comment:Albumin/Creatinine R atio Reference Ranges: Normal: < 30 ug/mg creatinine Microalbuminuria: 30 - 300 ug/mg creatinineClinical Albuminuria: > 300 ug/mg creatinine Urine 11/03/2024 9:21 AM EDT 11/03/2024 11:04 AM EDT [facility] LAB URINE ORDERABLES Final Re sult Performing Organization Address [facility] Co de Phone Number [facility] [address] [place] [phone] * (ABNORMAL) Lipid Panel, Standard (11/03/2024 9:21 AM EDT) Triglycerides 144 <150 mg/dL [facility] Comment:Desirable Triglyceri de: less than 150 mg/dLBorderline High Triglyceride 150-199 mg/dLHigh Triglyceride: 200-499 mg/dLVery High Triglyceride: greater than or equal to 5OO mg/dL Cholesterol 190 <200 mg/dL [facility] Comment:Desirable Cholestero l: less than 200 mg/dLBorderline High Cholesterol: 200-239 mg/dLHigh Cholesterol: greater than 239 mg/dL LDL Cholesterol Calculated 106(H) <100 mg/dL [facility] Comment:Desirable LDL: less than 100 mg/dLNear Optimal/Above Optimal LDL: 110- 129 mg/dLBorderline High LDL: 130-159 mg/dLHigh LDL: 160-189 mg/dLVery High LDL: greater than or equal to 190 mg/dL HDL Cholesterol 56 >40 mg/dL [facility] Comment:Desirable HDL: great er than 40 mg/dL Note: This HDL assay may give artificially low results in patients with liver disease. Blood Venous blood specimen / Unknown 11/03/2024 9:21 AM EDT 11/03/2024 11:10 AM EDT [facility] MANUFACTURE SPECIALIST LAB BLOOD ORDERABLES Final Re sult [facility] [address] [place] [address] [phone] * HM PAP/HPV (08/22/2023) Pap Smear 1. NILM 1. NILM Comment:Repeat 5 years HPV Not Detected Undetected, Indeterminat e, Quantitative , Not Detected Historical Provider MD HEALTH MAINTENANCE Final Result * HEPATITIS C AB W/REFL TO HCV RNA, QN, PCR (09/20/2021 1:30 PM EDT) HEPATITIS C ANTIBODY NON-REACT [facility] NON-[facility]ACT [facility] INDEX 0.02 <1.00 [facility] Comment: HCV antibody was non-reactive. There is no laboratory evidence of HCV infection. In most cases, no further action is required. However, if recent HCV exposure is suspected, a test for HCV RNA (test code 51340) is suggested. For additional information please refer to http://education.[employer]/faq/UMF86j3 (This link is being provided for informational/ educational purposes only.) 09/20/2021 1:30 PM EDT Esme Lamb MANUFACTURE SPECIALIST HISTORICAL/NON ORDERABLE LABS Final Result Performing Organization Address City/[facility] Co de Phone Number [facility] [address] * HIV 1/2 ANTIGEN/ANTIBODY,FOURTH GENERATION W/RFL (09/20/2021 1:30 PM EDT) HIV-1/2 ANTIGEN AND ANTIBODIES, 4TH GENERATION W/ REFLEX NON-REACT EDIE NON-REACT EDIE [facility] Comment: HIV-1 antigen and HIV-1/HIV-2 antibodies were not detected. There is no laboratory evidence of HIV infection. PLEASE NOTE: This information has been disclosed to you from records whose confidentiality may be protected by state law. If your state requires such protection, then the state law prohibits you from making any further disclosure of the information without the specific written consent of the person to whom it pertains, or as otherwise permitted by law. A general authorization for the release of medical or other information is NOT sufficient for this purpose. For additional information please refer to http://education.[employer]/faq/LAG161 (This link is being provided for informational/ educational purposes only.) The performance of this assay has not been clinically validated in patients less than 2 years old. 09/20/2021 1:30 PM EDT Esme Lamb [facility] BLOOD ORDERABLES Final Res ult Performing Organization Address [facility] de Phone Number [facility] [address] from Last 3 Months or Most Recently Relevant to Health Maintenance Insurance [facility] C3 HSN FULL Care Teams Consulting Manager Relationship Specialty Start Date End Date Patricia Willams [facility] [address] [place] [address] PCP - General Family Medicine 02/04/22 Jeff Jimenez, RN [address] [place] [address] Registered Nurse Family Medicine 11/09/24 Corie Enriquez 11/09/24
--- OUTSIDE RECORDS SUMMARY | 2025-02-23 15:33 | XMS_ITS | Encounter Summary ---
Author Organization [employer] Address [address] [place] [address] 7t [place] [address] Care Team Providers Care Certified Vehicle Fire Investigator Name Role Phone Zanoni [facility] Primary Care Provider [phone] Jeff Jimenez RN Unavailable [phone] Corie Enriquez Unavailable Reason for Visit * Reason Comments Med Refill Encounter Details Date Type Department Care Team ([facility] st Contact Info) Description 06/03/2024 Refill [facility] [address] [place] [address] Zanoni Patricia [facility] [address] [place], [place] [phone] Rash and nonspecific skin eruption Social History [...] documented as of this encounter Care Teams Certified Vehicle Fire Investigator Relationship Specialty Start Date End Date Patricia Willams FNP [address] [place] [address] PCP - General Family Medicine 02/04/22 Jeff Jimenez, RN [address] [place] [address] Registered Nurse Family Medicine 11/09/24 Corie Enriquez 11/09/24 documented as of this encounter
--- OUTSIDE RECORDS SUMMARY | 2025-02-23 15:33 | XMS_ITS | Encounter Summary ---
Author Organization [employer] Address [address] [place] [address] 7t [place] [address] Care Team Providers Care Manager Grocery Name Role Phone [facility] Primary Care Provider [phone] Jeff Jimenez RN Unavailable [phone] Corie Enriquez Unavailable Reason for Visit * Reason Comments Med Refill Encounter Details Date Type Department Care Team (Late st Contact Info) Description 08/11/2023 Refill [facility] 230 [place], [place] [phone] [facility] [address] [place], [place] [phone] Type 2 diabetes mellitus with other specified complication, unspecified whether rodent exterminator insulin use ([facility]) Social History Tobacco Use [...] mellitus with other specified complication, unspecified whether rodent exterminator insulin use ([facility]) documented in this encounter Additional Health Concerns Assessment Noted Time PHQ-9 Depression Total Score: 0 07/18/19 24 11:22 AM EST documented as of this encounter Care Teams Manager Grocery Relationship Specialty Start Date End Date Patricia Willams FNP [address] [place] [address] PCP - General Family Medicine 02/04/22 Jeff Jimenez, ATMMI [address] [place] [address] Registered Nurse Family Medicine 11/09/24 Corie Enriquez 11/09/24 Mariann Ray Scale Shooter 10/02/23 01/01/24 documented as of this encounter
--- OUTSIDE RECORDS SUMMARY | 2025-02-23 15:33 | XMS_ITS | Encounter Summary ---
Author Organization [employer] Address [address] [place] [address] 7t [place] [address] Care Team Providers Care Database Software Technician Name Role Phone Patricia Willams WAREHOUSE ADMINISTRATIVE ASSISTANT Primary Care Provider [phone] Jeff Jimenez RN Unavailable [phone] Corie Enriquez Unavailable Reason for Visit * Reason Onset Date Comments Referral 09/16/2023 Encounter Details Date Type Department Care Team (Late st Contact Info) Description 09/16/2023 Telephone [facility] MED[facility] 230 [place], [place] [phone] [place] [facility] [address] [place], [place] [phone] Referral Social History Tobacco Use Types Packs/Day [...] with others, in a hotel, in a alf, living outside on the street, on a [...] any questions you can contact pt at [phone]. documented in this encounter Plan of Treatment Not on file documented as of this encounter Visit Diagnoses Not on filedocumented in this encounter Additional Health Concerns Assessment Noted Time PHQ-9 Depression Total Score: 0 07/18/19 24 11:22 AM EST documented as of this encounter Care Teams Database Software Technician Relationship Specialty Start Date End Date Patricia Willams FNP [address] [place] [address] PCP - General Family Medicine 02/04/22 Jeff Jimenez, RN [address] [place] [address] Registered Nurse Family Medicine 11/09/24 Corie Enriquez 11/09/24 Mariann Ray Mincemeat Maker 10/02/23 01/01/24 documented as of this encounter
--- OUTSIDE RECORDS SUMMARY | 2025-02-23 15:33 | XMS_ITS | Encounter Summary ---
Author Organization [employer] Address [address] [place] [address] 7t [place] [address] Care Team Providers Care Truck Body Repairer Name Role Phone Patricia Willams RANGE OPERATOR Primary Care Provider [phone] Jeff Jimenez RN Unavailable [phone] Corie Enriquez Unavailable Reason for Visit * Reason Onset Date Comments PT-1 Additional information 10/30/2023 Encounter Details Date Type Department Care Team (Late st Contact Info) Description 10/30/2023 Telephone [facility] MEDICINE 230 [place], [place] [phone] Patricia Willams FNP 230 [place], [place] [phone] PT-1 Additional information Social History Tobacco Use [...] with others, in a hotel, in a fci, living outside on the street, on a [...] for the PT-1 that was requested for [facility] the appt is 11/06 @ 8 needs to be there for 7:30 and [address] where thepatient would be picked up at will be [address] [place] [address] address on demographics is a mailing address only documented in this encounter Plan of Treatment Not on file documented as of this encounter Visit Diagnoses Not on filedocumented in this encounter Additional Health Concerns Assessment Noted Time PHQ-9 Depression Total Score: 0 10/10/19 24 3:45 PM EDT documented as of this encounter Care Teams Truck Body Repairer Relationship Specialty Start Date End Date Patricia Willams FNP [address] [place] [address] PCP - General Family Medicine 02/04/22 Jeff Jimenez RN [address] [place] [address] [place] [address] Registered Nurse Family Medicine 11/09/24 Corie Enriquez 11/09/24 Mariann Ray Journeyman Welder 10/02/23 01/01/24 documented as of this encounter
--- OUTSIDE RECORDS SUMMARY | 2025-02-23 15:33 | XMS_ITS | Encounter Summary ---
Author Organization [employer] Address [address] [place] [address] 7t [place] [address] Care Team Providers Care Neuropsychiatric Aide Name Role Phone [facility] Primary Care Provider [phone] Jeff Jimenez RN Unavailable [phone] Corie Enriquez Unavailable Reason for Visit * Reason Comments Care Management C3CM- F/U call # 2 Encounter Details Date Type Department Care Team ([facility] st Contact Info) Description 02/22/2025 Patient Outreach [facility] MEDICINE 230 [place], [place] [phone] [place] Patricia [facility] 230 [place], [place] [phone] Care Management (C3CM- F/U call # 2) Social History Tobacco Use Types Packs/Day Years [...] with others, in a hotel, in a correction, living outside on the street, on a [...] as of this encounter Progress Notes * Jeff Jimenez RN - 02/22/2025 9:28 AM EDT DAMASO Jimenez RN placed outbound call for a follow up call to patient. No answer at this time. DAMASO was unable to leave a voicemail due to voice mailbox not being set up yet. CM will follow up with patient within 10 business days. documented in this encounter Plan of Treatment Not on file documented as of this encounter Visit Diagnoses Not on filedocumented in this encounter Additional Health Concerns Assessment Noted Time PHQ-9 Depression Total Score: 11 025 10:28 AM EDT documented as of this encounter Care Teams Neuropsychiatric Aide Relationship Specialty Start Date End Date AnnabellaPatricia FNP [address] [place] [address] PCP - General Family Medicine 02/04/22 Jeff Jimenez RN [address] [place] [address] Registered Nurse Family Medicine 11/09/24 Corie Enriquez 11/09/24 documented as of this encounter
--- OUTSIDE RECORDS SUMMARY | 2025-02-23 15:33 | XMS_ITS | Encounter Summary ---
Author Organization [employer] Address [address] [place] [address] 7t [place] [address] Care Team Providers Care Social Science Manager Name Role Phone [place] Primary Care Provider [phone] Jeff Jimenez RN Unavailable [phone] Corie Enriquez Unavailable Reason for Visit * Reason Comments Med Refill Encounter Details Date Type Department Care Team (Late st Contact Info) Description 04/09/2024 Refill [facility] [address] [place] [address] [place] Patricia [facility] 230 [place], [place] [phone] Rash and nonspecific skin eruption Social History [...] documented as of this encounter Care Teams Social Science Manager Relationship Specialty Start Date End Date Patricia Willams FNP [address] [place] [address] PCP - General Family Medicine 02/04/22 Jeff Jimenez, RN [address] [place] [address] Registered Nurse Family Medicine 11/09/24 Corie Enriquez 11/09/24 documented as of this encounter
--- OUTSIDE RECORDS SUMMARY | 2025-02-23 15:33 | XMS_ITS ---
Demographics Address [address] [facility] [address] [place] [address] Mobile Phone Home Phone Email Address Preferred Language en Marital Status Single Confucianist Affiliation Unknown Race Other Race Ethnic Group Unknown Author Organization [employer] Address [address] [facility] 7t [place] [address] Care Team Providers Care Cork Compounder Name Role Phone Patricia Willams SERVICES ENGINEER Primary Care Provider [phone] Jeff Jimenez RN Unavailable [phone] Corie Enriquez Unavailable [facility] Status:Enrolled (Active) Start date:11/09/2024 Enrollment date:11/23/2024 Enrollment reason:Referred by provider Overview Provider Referral- I just placed a referral for this patient. She has multiple chronic health conditions and is currently homeless. She is at a intermediate for 1 week in [place] but does not have much of a plan for after. Because of the housing instability she has missed some follow-up appointmentswith her textile bag sewer as well as following up with her routine screenings. Thank you! Case Team Name Relationship Phone Corie Enriquez(Responsible Staff) Continued Care and Services Coordination
--- OUTSIDE RECORDS SUMMARY | 2025-02-23 15:33 | XMS_ITS ---
Demographics Address [address] [facility] [address] [place] [address] Mobile Phone Home Phone Email Address Preferred Language en Marital Status Single Restoration Affiliation Unknown Race Other Race Ethnic Group Unknown Author Organization [employer] Address [address] [facility] 7t [place] [address] Care Team Providers Care Principal Clerk Name Role Phone Patricia Willams MULTI PUNCH OPERATOR Primary Care Provider [phone] Jeff Jimenez RN Unavailable [phone] Corie Enriquez Unavailable CM Complex Status:Enrolled (Active) Start date:11/09/2024 Enrollment date:12/13/2024 Enrollment reason:Referred by provider Overview Provider Referral- I just placed a referral for this patient. She has multiple chronic health conditions and is currently homeless. She is at a snf for 1 week in [place] but does not have much of a plan for after. Because of the housing instability she has missed some follow-up appointmentswith her double head machine operator as well as following up with her routine screenings. Thank you! Case Team Name Relationship Phone Jeff Jimenez RN(Responsible Staff) Registered Adele monge [phone] Continued Care and Services Coordination
--- OUTSIDE RECORDS SUMMARY | 2025-02-23 15:33 | XMS_ITS | Encounter Summary ---
Author Organization [employer] Address [address] [facility] 7t [place] [address] Care Team Providers Care Investigator Cash Shortage Name Role Phone [place] [facility] Primary Care Provider Jeff Jimenez RN Unavailable [phone] Croie Enriquez Unavailable Reason for Visit * Reason Onset Date Comments Call back request 02/23/2025 Encounter Details Date Type Department Care Team (Late st Contact Info) Description 02/23/2025 Telephone [facility] 230 [place], [place] [phone] [place] [facility] 230 [place], [place] [phone] Call back request Social History Tobacco Use Types Packs/Day Years [...] encounter Miscellaneous Notes * Telephone Encounter - Dynaa Enriquez - 02/23/2025 2:37 PM EDT Tc from pt requesting a call back. Pt stated is personal and in regard medication. No further detail given. Contact pt at [phone] documented in this encounter Plan of Treatment Not on file documented as of this encounter Visit Diagnoses Not on filedocumented in this encounter Additional Health Concerns Assessment Noted Time PHQ-9 Depression Total Score: 11 025 10:28 AM EDT documented as of this encounter Care Teams Investigator Cash Shortage Relationship Specialty Start Date End Date Imer ADAM Gomez [address] [place] [address] PCP - General Family Medicine 02/04/22 Jeff Jimenez, RN [address] [place] [address] Registered Nurse Family Medicine 11/09/24 Corie Enriquez 11/09/24 documented as of this encounter
== END 2025-02-23 12:30 | disposition home or self-care (01) ==
LOC: HO.HBS 12:05
PROVIDERS: PCP Registered Nurse; Visit Provider Physician Assistant Surgical
DX: E66.01 Morbid (severe) obesity due to excess calories (principal); Z90.3 Acquired absence of stomach [part of]
CPT/HCPCS: 99214

== ENCOUNTER 2025-05-23 10:41 | Outpatient (AMB) | payer MEDICAID, SELFPAY ==
--- NOTE | 2025-05-23 10:30 | A.OFFVIS_ITS ---
VS Expanded 05/23/25 10:38 Height 5 ft 2 in Weight 290 lb BMI 53.0 Intake Visit Reasons: Phone PO LSG 04/15/23 Allergies bee pollen (bee stings) Allergy (Severe, Verified 02/07/25 23:14) Anaphylaxis Medication List - Last Reconciled 05/23/25 by SUZANNE Lawrence albuterol sulfate 90 mcg/actuation (Ventolin HFA) 2 puffs inhalation QID PRN cholecalciferol (vitamin D3) 125 mcg PO DAILY clotrimazole 1% 1 appl topical BID docusate sodium (Colace) 100 mg PO DAILY PRN estradiol 0.01%(0.1mg/gram) 1 g vaginal DAILY hydrocortisone 2.5% 2.5 appl CO BID PRN iron,carbonyl-vitamin C 65 mg iron- 125 mg (Vitron-C) 1 tab PO BEDTIME lidocaine 5% (Lidoderm) 1 patch topical DAILY lidocaine 5% 1 patch topical DAILY polyethylene glycol 3350 17 grams PO QAM PRN sertraline 50 mg PO DAILY tirzepatide (weight loss) (Zepbound) 2.5 mg (0.5 mL) subcut QWEEK vitamin A palmitate 10,000 units PO DAILY zinc gluconate 30 mg PO DAILY HPI Comments Details: This is a 49 yo F who is s/p LSG 04/15/2023. Weight loss of 6lb since last OV 3mo ago. She has tried both phentermine and Zepbound but not able to tolerate either. Zepbound gave her a rash at injection site, even at injection site. She is currently on sertraline 50mg. She had called the office asking about how to manage nighttime hunger. I gave her a list of options including sugar free popsicles, sugar free Jello, fruit, veg, an item high in protein. Present meal plan includes: lunch is 1 HB egg and 1-2 forks veg dinner is chicken, 4 forks plus 4 forks veg 1 shake of 2 scoops 4:1 (decreased from 2 shakes a day)- adds high protein yogurt and fruit, stopped 30 grams Celebrate protein water I don't feel hungry but I want to eat I can drink a cup of coffee and be all set all day, but at 9pm I'm starving Exercise routine includes: Exercise - 3 d/week TBP Walks faster - now 45 min per day, more than a mile. Has sciatica which limits her activity sometimes has increased HR sometimes with activity so has to be careful Pt started clotrimazole and nystatin, helped somewhat but did not completely resolve the skin irritation, has been wearing the binder to try to help and avoid skin irritation, this also helped a little but did not prevent the rashes completely. Pt reports issues with excess skin of arms, notices rashes/chafing at armpits due to extra skin rubbing together. It is difficult to comb her hair due to the excess skin of upper arms flapping around. Also has issues of excess skin of thighs, notices increased chafing, has had to buy biker shorts to try to prevent chafing/rubbing of excess skin. She was started on a cream by her EXTERNAL RELATIONS DIRECTOR which is making rashes worse. Skin in this area has become sulfate drier machine operator and more painful particularly in the thighs. [facility] Medical History Homeless single person Elevated TSH Hepatomegaly Hyperlipidemia Insulin dependent type 2 diabetes mellitus Hypothyroidism Low back pain Sciatica of left side First degree AV block Surgical History S/P gastric sleeve procedure Hx of tubal ligation Family History Mother Diabetes Dementia Anemia Father Diabetes Heart problem High cholesterol Arthritis Sister Heart problem Diabetes High cholesterol Hypertension Sickle cell anemia Sister Breast cancer Asthma Sister Heart problem Diabetes Son Asthma Son No problems noted. Son Autism Daughter Anxiety Social History Household Members: Family Housing: House Are you a primary complex care nurse to a significant other at home: No Do you presently have visiting nurse or other home services: No Alcohol intake: never Comment: Discharge date set for 02/13/24 Patient Tobacco Use Status: Former Tobacco user Tobacco use type: Cigarette service: No Telehealth Telehealth Telehealth Platform: Telephone Location of provider rendering services: practice address Location of patient: address on file Patient Identification confirmed using: Name, : Yes Telehealth method: voice only Patient verbally consented to treatment: Yes Patient verbally consented to billing insurance company: Yes Patient informed of any privacy concerns related to visit: Yes Minutes spent on Phone/Video with Pt.: 18 Assessment & Plan Assessment & Plan (1) S/P gastric sleeve procedure: Code(s): Z90.3 - Acquired absence of stomach [part of] Category: Surgical (2) Morbid obesity: Code(s): E66.01 - Morbid (severe) obesity due to excess calories Category: Medical Plan Pt likely needs at least 100g protein per day but is likely not close. Gave ideas for [employer] protein chips as a snack. She is aware she needs to increase exercise. She would like to try phentermine again, tolerated this well previously. Reviewed contraindications and side effects. Pt understands the requirement of daily BP monitoring prior to dosing. If SBP > 140 or DBP >90 do not take phentermine that day. Text me BP readings daily. We also discussed Contrave today but pt would like to move ahead with phentermine instead. RTC 4mo. Medications: New phentermine must administer 2 hours after breakfast 15 mg PO DAILY 30 caps 0RF SUZANNE Lawrence nystatin 1 appl topical QID 60 grams 3RF SUZANNE Lawrence Changed From sertraline 100 mg PO DAILY 15 tabs 1RF To sertraline 50 mg PO DAILY Hortensia Cook MD Discontinued tirzepatide (weight loss) (Zepbound) for 4 weeks Discontinued Reason: Doctor's Order 2.5 mg (0.5 mL) subcut QWEEK 2 mL 0RF
[2025-05-23 10:38] VITALS: BMI 53.0
== END 2025-05-23 10:59 | disposition home or self-care (01) ==
LOC: HO.HBS 10:41
PROVIDERS: PCP Registered Nurse; Visit Provider Physician Assistant Surgical
DX: Z90.3 Acquired absence of stomach [part of] (principal); E66.01 Morbid (severe) obesity due to excess calories
CPT/HCPCS: 99214